=== PATIENT | female | born 1935 | race Caucasian/White ===

== ENCOUNTER 2017-02-26 22:00 | Observation (INO) ==
[2017-02-26] MEDS ORDERED: predniSONE 20 MG TABLET PO ONE (22:51)
[2017-02-26] MEDS ORDERED: Colchicine 0.6 MG TABLET PO ONE (22:51)
[2017-02-26] MEDS ORDERED: *HR* Morphine 2 MG/ML SYRINGE IV ONE (22:56)
[2017-02-26] MEDS ORDERED: MethylPREDNISolone 40 MG/ML VIAL IVP ONE (23:02)
[2017-02-26 23:20] LABS: Basophils % 0.3 %; Eosinophils % 0.3 %; Hemoglobin 12.7 g/dL (11.5-15.4); Immature Granulocytes % 0.5 % (0-4); Lymphocytes # 0.6 K/mcL (0.6-4.6); Lymphocytes % 6.2 %; Mean Corpuscular HGB Conc 35.3 g/dL (31.6-35.5); Mean Corpuscular Hemoglobin 26.8 pg (28.0-33.3); Mean Corpuscular Volume 76.1 fL (83.0-100.0); Mean Platelet Volume 9.7 fL (9.4-12.4); Monocytes # 0.9 K/mcL (0.0-1.3); Monocytes % 8.8 %; Neutrophils # 8.2 K/mcL (1.6-8.9); Platelet Count 266 K/mcL (140-400); Red Blood Count 4.73 M/mcL (3.82-4.97); Red Cell Distribution Width 13.2 % (11.5-14.5); Segmented Neutrophils % 83.9 %
--- NOTE | 2017-02-26 23:21 | Emergency Department Note ---
Disposition Clinical Impression: Hyponatremia, Bilateral hand pain Gout Qualifiers: Gout site: hand Gout etiology: unspecified cause Laterality: unspecified laterality Chronicity: unspecified Qualified Code(s): M10.9 - Gout, unspecified Disposition: Admitted As Inpatient Condition: Fair Time of Disposition: 05:50 Extremity Problem HPI - General Chief complaint: ED Extremity Problem,Nontraumatic Stated complaint: gout in the both hands// pain Time Seen by Provider: 02/26/17 22:11 Source: patient Limitations: no limitations Nursing Notes Reviewed: Yes Vital Signs Reviewed: Yes - History of Present Illness Pt Subjective Complaint: extremity pain Onset (ago): hour(s) Consistency: Worsening Injury Location: other (Bilateral hands, worse on the left) Pain Scale: 8 Quality: aching Improves with: nothing Worsens with: range of motion, palpation Context: history of gout, other (History of rheumatoid arthritis) - Related Data Home Medications Medication Instructions Recorded Confirmed Cyanocobalamin (Vitamin B-12) 1,000 mcg PO DAILY 07/28/15 02/27/17 [Vitamin B12] Lisinopril [Zestril] 2.5 mg PO DAILY 07/28/15 02/18/16 Metoprolol [Lopressor] 50 mg PO BID 07/28/15 02/27/17 Omeprazole [PriLOSEC] 20 mg PO DAILY 07/28/15 02/27/17 Potassium Chloride 20 meq PO BID 07/28/15 02/18/16 Triamterene/HCTZ 37.5/25mg 1 tab PO DAILY 07/28/15 12/28/15 [Dyazide] Multivit-Min/FA/Herbal No.245 1 tab PO DAILY 11/27/15 02/27/17 [Alive Women's Gummy Vitamins] Previous Rx's Medication Instructions Recorded Colchicine [Colcrys] 0.6 mg PO BID #6 tablet 12/30/15 Allergies Allergy/AdvReac Type Severity Reaction Status Date / Time Pneumococcal Vaccine Allergy Cough Verified 07/13/16 18:52 tuberculin, purified protein Allergy Blister Verified 07/13/16 18:52 deriva [tuberculin,purif.prot.deriv.] aspirin AdvReac See Verified 07/13/16 18:52 Comments ibuprofen [From Motrin] AdvReac See Verified 07/13/16 18:52 Comments All systems ED: reviewed and negative except as stated. Constitutional: Reports: weight change (Weight loss). Denies: fever, chills Eyes: Denies: vision change ENT ED: Denies: throat pain Cardiovascular: Denies: chest pain, palpitations, dyspnea on exertion Respiratory: Reports: dyspnea. Denies: cough, wheezes Gastrointestinal: Denies: abdominal pain, nausea, vomiting Genitourinary: Denies: dysuria Musculoskeletal: Reports: as per HPI. Denies: back pain, neck pain Integumentary: Denies: rash, abrasion Neurological: Denies: weakness, numbness, paresthesias, abnormal gait Psychiatric: Denies: anxiety Endocrine: Denies: fatigue Hematological/Lymphatic: Denies: easy bleeding Allergic/Immunologic: Denies: facial swelling Past Medical History - Past Medical History Medical history: Reports: arthritis, cancer, GERD, hyperlipidemia, hypertension , renal disease, other Surgical history: Reports: cataract, cholecystectomy, colectomy, hip replacement , hysterectomy, other Psychiatric history: Reports: no psych history TRUCK LOADER history: Reports: no TRUCK LOADER history - Social History Smoking Status: Never smoker Smokeless Tobacco Status: No Alcohol use: Reports: none Drug use: Reports: none Physical Exam - General Limitations: no limitations General appearance: alert, in no apparent distress - Head Head exam: normal inspection - Eye Eye exam: Present: EOMI. Absent: scleral icterus, conjunctival injection - ENT ENT exam: normal oropharynx, mucous membranes moist - Neck Neck exam: Present: full ROM - Chest Chest inspection: Present: symmetric chest wall rise - Cardiovascular Cardiovascular exam: Present: regular rate, normal rhythm - Abdominal Exam Abdominal exam: Present: soft, Non-Tender - Extremities Exam Extremities exam: Present: normal capillary refill - Expanded Upper Extremity Exam Shoulder exam: Present: normal inspection, full ROM. Absent: tenderness Arm exam: Present: normal inspection, full ROM. Absent: tenderness Elbow exam: Present: normal inspection, full ROM. Absent: tenderness Forearm/Wrist exam: Present: tenderness, swelling, erythema Hand exam: Present: tenderness, swelling, abrasion Neuromotor exam: Normal: wrist extension, thumb opposition, thumb IP flexion, thumb adduction, fingers 2-5 abduction Hand tendon exam: Normal: flexor digitorum profundus (location), flexor digitorum superficialis (location), extensor tendon (location) Vascular exam: Normal: capillary refill - Back Exam Back exam: Present: full ROM - Neurological Exam Neurological exam: Present: alert, oriented X3, CN II-XII intact, motor sensory deficit - Expanded Neurological Exam Patient oriented to: Present: person, place, time Speech: Present: fluid speech Cranial nerves: EOM function (II, III, IV, ): Normal, facial sensation (V): Normal, spinal accessory function (XI): Normal, tongue deviation (XII): Normal Cerebellar function: finger to nose: Normal, heel to patel: Normal Cerebellar function: Romberg normal Motor strength - LUE: 5/5 Motor strength - RUE: 5/5 Motor strength - LLE: 5/5 Motor strength - RLE: 5/5 Sensory exam upper extremity: light touch: Normal, 2 point discrimination: Normal Sensory exam lower extremity: light touch: Normal, 2 point discrimination: Normal Coma Scale Eye Opening: Spontaneous Coma Scale Motor Response: Obeys Commands Coma Scale Verbal Response: Oriented Coma Scale Total: 15 - Psychiatric Psychiatric exam: Present: normal affect, normal mood - Skin Skin exam: Present: warm, dry, intact, normal color. Absent: rash, cyanosis, diaphoresis Course Course Narrative: 51-year-old female arrives with complaints of bilateral hand pain. She states her left hand is worse. She relates it to her history of arthritis and gout. Pain started earlier today approximately 7 hours prior to arrival. She compares it to her past called attacks. She sees a medical genetics director Dr. Dumont, and mentions she had a appointment with him last week. Since the pain started, she states that she has had some mild shortness of breath and dizziness. Patient is accompanied by her son, who had assisted some history. He mentions patient has become more confused since her pain started today. Patient denies any night sweats, cough, shortness of breath prior to her pain, hemoptysis, chest pain, diaphoresis, or exertional component of pain. However we will order a chest x-ray EKG, and urinalysis as well. - Reevaluation(s) Reevaluation #1: Patient states her pain has improved in her hands. She states that her hands feel numb. On reexamination, she has no sensory deficits, no neurological deficits. Workups does show a sodium of 122. Discussed patient with Dr. Dozier, who agreed for admission for hyponatremia, with concurrent weakness, decreased appetite. Time: 00:31 Reevaluation #2: Patient was discussed with Dr. Dozier, who had requested urine sodium and urine osmolality, and he agreed to see patient. Time: 02:49 Vital Signs Temperature 97.5 F L 02/26/17 22:02 Pulse Rate 63 02/26/17 22:02 Respiratory Rate 18 02/26/17 22:02 Blood Pressure 148/70 02/26/17 22:02 O2 Sat by Pulse Oximetry 100 02/26/17 22:02 Temperature 98.2 F 02/27/17 04:22 Pulse Rate 66 02/27/17 04:22 Respiratory Rate 16 02/27/17 04:22 Blood Pressure 120/64 02/27/17 04:22 O2 Sat by Pulse Oximetry 98 02/27/17 04:22 Oxygen Delivery Oxygen Delivery Room Air Extremity Problem, Nontraumati - MDM Narrative Medical decision making narrative: Patient members and with bilateral hand pain that started acutely earlier in the day. She described it as her gout pain. Pain was treated here with prednisone and morphine and her symptoms have improved. She does have a history of reported arthritis, and is currently followed by Dr. Dumont. She is accompanied by her son, who assisted with history. He states that today during patient's some pain, she had some difficulty walking, and some shortness of breath. Patient also mentioned some recent weight loss. Her workup today showed a urinalysis showed no evidence of urinary tract infection. She was slightly hypokalemic, and moderately hyponatremic. I discussed patient with Dr. Dozier, who also at this time the patient and agreed for admission. - Lab Data Lab results reviewed: Yes I reviewed the patient's lab results. Result diagrams: 02/26/17 23:13 02/26/17 23:13 Lab Results 02/26/17 02/26/17 02/26/17 Range/Units 23:13 23:13 23:13 WBC 9.8 (4.3-11.1) K/mcL RBC 4.73 (3.82-4.97) M/mcL Hgb 12.7 (11.5-15.4) g/dL Hct 36.0 (35.3-44.9) % MCV 76.1 L (83.0-100.0) fL MCH 26.8 L (28.0-33.3) pg MCHC 35.3 (31.6-35.5) g/dL RDW 13.2 (11.5-14.5) % Plt Count 266 (140-400) K/mcL MPV 9.7 (9.4-12.4) fL Immature Gran % 0.5 (0-4) % Seg Neutrophils % 83.9 % Lymphocytes % 6.2 % Monocytes % 8.8 % Eosinophils % 0.3 % Basophils % 0.3 % Neutrophils # 8.2 (1.6-8.9) K/mcL Lymphocytes # 0.6 (0.6-4.6) K/mcL Monocytes # 0.9 (0.0-1.3) K/mcL Eosinophils # 0.0 (0.0-0.6) K/mcL Basophils # 0.0 (0.0-0.2) K/mcL Sodium 122 L (136-145) mEq/L Potassium 3.4 L (3.5-4.5) mEq/L Chloride 90 L (98-109) mEq/L Carbon Dioxide 17 L (19-29) mEq/L BUN 16 (7-20) mg/dL Creatinine 0.88 (0.57-1.11) mg/dL Est GFR ( Amer) > 60 (> 60) Est GFR (Non-Af Amer) > 60 (> 60) BUN/Creatinine Ratio 18 (6-26) Glucose 109 H (70-99) mg/dL Calculated Osmolality 256 L (280-300) Uric Acid 4.7 (2.6-6.0) mg/dL Calcium 9.1 (8.6-10.8) mg/dL Troponin I 0.01 (0-0.03) ng/mL Urine Color (Yellow) Urine Clarity (Clear) Urine pH (5.0-8.0) pH Units Ur Specific Guild (1.010-1.025) Urine Protein (Neg-Trace) mg/dL Urine Glucose (UA) (Normal) mg/dL Urine Ketones (Negative) mg/dL Urine Blood (Negative) Urine Nitrite (Negative) Urine Bilirubin (Negative) Urine Urobilinogen (Normal) mg/dL Ur Leukocyte Esterase (Negative) Ur Culture Indicated? (NO) Urine Osmolality (300-1090) mOsm/kg Urine Sodium mEq/L 02/26/17 02/26/17 Range/Units 23:44 23:45 WBC (4.3-11.1) K/mcL RBC (3.82-4.97) M/mcL Hgb (11.5-15.4) g/dL Hct (35.3-44.9) % MCV (83.0-100.0) fL MCH (28.0-33.3) pg MCHC (31.6-35.5) g/dL RDW (11.5-14.5) % Plt Count (140-400) K/mcL MPV (9.4-12.4) fL Immature Gran % (0-4) % Seg Neutrophils % % Lymphocytes % % Monocytes % % Eosinophils % % Basophils % % Neutrophils # (1.6-8.9) K/mcL Lymphocytes # (0.6-4.6) K/mcL Monocytes # (0.0-1.3) K/mcL Eosinophils # (0.0-0.6) K/mcL Basophils # (0.0-0.2) K/mcL Sodium (136-145) mEq/L Potassium (3.5-4.5) mEq/L Chloride (98-109) mEq/L Carbon Dioxide (19-29) mEq/L BUN (7-20) mg/dL Creatinine (0.57-1.11) mg/dL Est GFR ( Amer) (> 60) Est GFR (Non-Af Amer) (> 60) BUN/Creatinine Ratio (6-26) Glucose (70-99) mg/dL Calculated Osmolality (280-300) Uric Acid (2.6-6.0) mg/dL Calcium (8.6-10.8) mg/dL Troponin I (0-0.03) ng/mL Urine Color Yellow (Yellow) Urine Clarity Clear (Clear) Urine pH 7.0 (5.0-8.0) pH Units Ur Specific Guild 1.010 (1.010-1.025) Urine Protein Negative (Neg-Trace) mg/dL Urine Glucose (UA) Normal (Normal) mg/dL Urine Ketones Trace H (Negative) mg/dL Urine Blood Negative (Negative) Urine Nitrite Negative (Negative) Urine Bilirubin Negative (Negative) Urine Urobilinogen Normal (Normal) mg/dL Ur Leukocyte Esterase Negative (Negative) Ur Culture Indicated? NO (NO) Urine Osmolality 371 (300-1090) mOsm/kg Urine Sodium 78.0 mEq/L - Radiology Data Radiology results reviewed: Yes I reviewed the patient's radiology results. - EKG Data EKG attestation: Yes I reviewed and interpreted this EKG. EKG results narrative: Normal sinus rhythm, no significant ST depression, ST changes, or arrhythmias. Attestation Statement - Attestation Attestation: I, Bib Dozier MD, personally evaluated this patient and discussed their management with the midlevel provicer, PAC/PRESSING DEPARTMENT SUPERVISOR. I reviewed the midlevel provider 's note and agree with the documented findings, medical decision making, and plan of care. 81-year-old female presents to the emergency department with a complaint of severe pain in both hands and wrist which started about 4 PM today. She has a history of arthritis as well as gout and feels this is related to her gout. She states that she has unable to grasp anything or use her hands due to the pain and stiffness. No injury. No fever. No chest pain or difficulty breathing. On workup patient was found to have hyponatremia with a sodium down to 122. On examination patient is a well-developed thin elderly female in no acute distress. She is alert and oriented. There is no cyanosis or diaphoresis. Breath sounds are clear and equal bilaterally. Heart regular rate and rhythm. Abdomen soft and nontender with normal bowel sounds. There is some mild diffuse tenderness of both hands with limited range of motion secondary to pain. Labs reviewed. Chest x-ray negative. No acute changes on EKG. We will page the hospitalist for admission. The hospitalist, Dr. Dozier, was consulted and accepted admission of the patient.
[2017-02-26 23:33] LABS: BUN/Creatinine Ratio 18 (6-26); Blood Urea Nitrogen 16 mg/dL (7-20); Calcium 9.1 mg/dL (8.6-10.8); Carbon Dioxide 17 mEq/L (19-29); Chloride 90 mEq/L (98-109); Glucose 109 mg/dL (70-99); Osmolality,Calculated 256 (280-300); Potassium 3.4 mEq/L (3.5-4.5); Sodium 122 mEq/L (136-145); Uric Acid 4.7 mg/dL (2.6-6.0); eGFR For African Americans > 60 (> 60); eGFR For Non-African Americans > 60 (> 60)
[2017-02-27 00:11] LABS: Bilirubin,Urine Negative (Negative); Blood,Urine Negative (Negative); Clarity,Urine Clear (Clear); Color,Urine Yellow (Yellow); Glucose,Urine (UA) Normal (Normal); Ketones,Urine Trace mg/dL (Negative); Leukocyte Esterase,Urine Negative (Negative); Nitrite,Urine Negative (Negative); Protein,Urine Negative (Neg-Trace); Urobilinogen,Urine Normal (Normal)
[2017-02-27] MEDS ORDERED: Acetaminophen 325 MG TABLET PO PRN (02:58)
[2017-02-27] MEDS ORDERED: Ondansetron 4 MG/2 ML VIAL IVP PRN (02:58)
[2017-02-27] MEDS ORDERED: Naloxone 0.4 MG/ML INJ IVP PRN (02:58)
[2017-02-27] MEDS ORDERED: *HR* Morphine 2 MG/ML SYRINGE IVP PRN (02:58)
--- NOTE | 2017-02-27 03:05 | Internal Med History&Physical ---
Date of Encounter: 02/27/17 Time of Encounter: 03:03 Assessment and Plan (1) Hyponatremia Current visit: No Status: Acute Likely secondary to hypovolemia and dehydration, related to poor oral intake, exacerbated by triamterene Monitor sodium closely and increase at the rate no faster than 0.3 mEq per hour Continue normal saline for now Hold triamterene Check urine sodium and osmolality to consider continuing IV fluids versus fluid restriction (2) Hypokalemia Current visit: No Status: Acute Replete as needed (3) Rheumatoid arthritis Current visit: No Status: Suspected Continue prednisone Qualifiers: Rheumatoid arthritis location: hand Rheumatoid factor presence: without rheumatoid factor Laterality: bilateral Qualified Code(s): M06.041 - Rheumatoid arthritis without rheumatoid factor, right hand; M06.042 - Rheumatoid arthritis without rheumatoid factor, left hand (4) Chronic kidney disease Current visit: No Status: Chronic Qualifiers: Chronic kidney disease stage: stage 3 (moderate) Qualified Code(s): N18.3 - Chronic kidney disease, stage 3 (moderate) (5) Gout Current visit: Yes Status: Acute Continue prednisone and colchicine Omeprazole for GI prophylaxis and subcutaneous heparin for DVT prophylaxis. Admitted for observation, full code. Time spent on this admission 40 minutes. High risk due to hyponatremia Qualifiers: Gout site: hand Gout etiology: unspecified cause Laterality: unspecified laterality Chronicity: unspecified Qualified Code(s): M10.9 - Gout, unspecified Internal Medicine - H&P: HPI Chief complaint: hand pain Admitted From: Emergency Dept History of present illness: Ms. Vigil is a 81 year old female with a past medical history of rheumatoid arthritis treated with prednisone, also history of gout who used to take colchicine and prednisone. The patient came complaining of severe pain 10 out of 10 in intensity in both hands that started at 4 PM yesterday. She was accompanied by her son Jun and the patient got confused and became a little dizzy. Her sodium was found to be 122, last measurement that we have was 1:30. Patient appears dehydrated and says that she has not been eating much, has lost about 40 pounds in the past year. Chest x-ray is unremarkable, potassium is 3.4. Morphine helped with the pain. Apparently patient has been taking triamterene Past Med Surg Social Fam HX - Past Medical History Medical history: arthritis (Rheumatoid arthritis on prednisone), cancer (Small bowel tumor), GERD, hyperlipidemia, hypertension, renal disease (ckd3), other ( Small bowel obstruction, malnutrition, UTI) Psychiatric history: no psych history - Past Surgical History Surgical History: cataract, cholecystectomy, colectomy, hip replacement, hysterectomy, other (Laparotomy and lysis of additions, partial colectomy, the latter suspension) - Social History Smoking Status: Never smoker Smokeless Tobacco Status: No Alcohol use: none Drug use: none - Family History Daughter Adopted: No Living Status: Hx Family Cardiac Disorders: Yes Hx Family Respiratory Disorders: No Hx Family Cancer: No Hx Family GI Disorders: No Hx Family Endocrine Disorder: Yes Hx Family Neuromuscular Disorders: No Hx Family Neurologic Disorders: No Hx Family HEENT Disorders: No Hx Family Autoimmune Disorders: No Father Living Status: Hx Family Cardiac Disorders: Yes ([place]) Hx Family Respiratory Disorders: No Hx Family Cancer: No Hx Family GI Disorders: No Hx Family Endocrine Disorder: No Mother Living Status: Hx Family Cancer: Yes (Colon cancer) Hx Family Endocrine Disorder: Yes (DM) Sister Adopted: No Living Status: Hx Family Endocrine Disorder: Yes (Diabetes Mellitus) - Additional Family History Additional family history: Sr. with diabetes, father with CAD and mother with colon cancer Internal Medicine - H&P: Meds Cyanocobalamin (Vitamin B-12) [Vitamin B12] 1,000 mcg PO DAILY 07/28/15 [History ] Lisinopril [Zestril] 2.5 mg PO DAILY 07/28/15 [History] Metoprolol [Lopressor] 50 mg PO BID 07/28/15 [History] Omeprazole [PriLOSEC] 20 mg PO DAILY 07/28/15 [History] Potassium Chloride 20 meq PO BID 07/28/15 [History] Triamterene/HCTZ 37.5/25mg [Dyazide] 1 tab PO DAILY 07/28/15 [History] Multivit-Min/FA/Herbal No.245 [Alive Women's Gummy Vitamins] 1 tab PO DAILY [History] Clotrimazole/Betameth Dip CRM [Lotrisone CRM] 1 appl TP BID #1 tube 12/30/15 [Rx ] Colchicine [Colcrys] 0.6 mg PO BID #6 tablet 12/30/15 [Rx] Docusate [Colace] 100 mg PO BID PRN #40 capsule 12/30/15 [Rx] HYDROcodone/Acet 5/325 mg [Eudora 5-325 mg] 1 tab PO Q6HR PRN #15 tablet [Rx] PredniSONE 10 mg PO DAILY #34 tablet 12/30/15 [Rx] Allergies Pneumococcal Vaccine Allergy (Verified 07/13/16 18:52) Cough tuberculin, purified protein deriva [tuberculin,purif.prot.deriv.] Allergy ( Verified 07/13/16 18:52) Blister aspirin Adverse Reaction (Verified 07/13/16 18:52) See Comments PATIENT HAS KIDNEY ISSUES ibuprofen [From Motrin] Adverse Reaction (Verified 07/13/16 18:52) See Comments PATIENT HAS KIDNEY ISSUES All Systems PM: A 10-system review of systems was performed and is negative for pertinent findings except as documented above in the HPI. Review of systems: Pain in both hands has decreased down to 5/10. Denies any chest pain, shortness of breath, other systems out of the 10 reviewed were negative - Constitutional Vitals: Temp Pulse Resp BP Pulse Ox 97.5 F L 64 16 149/77 98 02/26/17 22:02 02/27/17 01:57 02/27/17 01:57 02/27/17 01:57 02/27/17 01:57 General appearance: Present: A&O X 3, underweight - Head Head exam: Present: atraumatic, normocephalic - Eye Eye exam: Present: PERRL, conjuntiva pink, sclera anicteric Pupils: Present: PERRL - Neck Neck exam general surgery: Present: supple, trachea midline. Absent: lymphadenopathy - Respiratory Respiratory exam: Present: CTAB. Absent: accessory muscle use, rales, rhonchi, wheezes - Cardiovascular Cardiovascular exam: Present: RRR, +S1, +S2. Absent: diastolic murmur, gallop, rubs, systolic murmur - GI/Abdominal GI/Abdominal exam: Present: normal bowel sounds, soft, no peritoneal signs. Absent: distended, tenderness - Extremities Exam Extremities exam: Present: warm, radial pulses palpable and symetrical. Absent : calf tenderness, cyanotic, pedal edema - Neurological Exam Neurological exam: Present: CN II-XII intact, oriented X3, no focal deficits. Absent: pronater drift, facial droop, speech deficit - Skin Skin exam: Present: dry, intact Additional comments: Pain tenderness, swelling in both wrists Very dry mucosa, appears dehydrated Internal Med - H&P Results - Labs CBC & Chem 7: 02/26/17 23:13 02/26/17 23:13
[2017-02-27] MEDS: 0.9 % Sodium Chloride 1,000 ML IVC SCH ×3 (05:21→17:03)
[2017-02-27 06:08] LABS: BUN/Creatinine Ratio 15 (6-26); Blood Urea Nitrogen 13 mg/dL (7-20); Carbon Dioxide 21 mEq/L (19-29); Chloride 90 mEq/L (98-109); Glucose 148 mg/dL (70-99); Osmolality,Calculated 259 (280-300); Potassium 3.3 mEq/L (3.5-4.5); Sodium 123 mEq/L (136-145); eGFR For African Americans > 60 (> 60); eGFR For Non-African Americans > 60 (> 60)
[2017-02-27] MEDS: predniSONE 10 MG TABLET PO SCH (08:22)
[2017-02-27] MEDS: Colchicine 0.6 MG TABLET PO SCH (08:22)
[2017-02-27 09:00] LABS: BUN/Creatinine Ratio 16 (6-26); Blood Urea Nitrogen 13 mg/dL (7-20); Calcium 9.3 mg/dL (8.6-10.8); Carbon Dioxide 23 mEq/L (19-29); Chloride 92 mEq/L (98-109); Glucose 143 mg/dL (70-99); Osmolality,Calculated 261 (280-300); Potassium 4.2 mEq/L (3.5-4.5); Sodium 124 mEq/L (136-145); eGFR For African Americans > 60 (> 60); eGFR For Non-African Americans > 60 (> 60)
[2017-02-27 15:04] LABS: BUN/Creatinine Ratio 18 (6-26); Blood Urea Nitrogen 15 mg/dL (7-20); Calcium 8.9 mg/dL (8.6-10.8); Carbon Dioxide 21 mEq/L (19-29); Chloride 98 mEq/L (98-109); Glucose 150 mg/dL (70-99); Osmolality,Calculated 272 (280-300); Potassium 3.9 mEq/L (3.5-4.5); Sodium 129 mEq/L (136-145); eGFR For African Americans > 60 (> 60); eGFR For Non-African Americans > 60 (> 60)
--- NOTE | 2017-02-27 16:55 | Internal Med Progress Note ---
Date of Encounter: 02/27/17 Time of Encounter: 08:55 - Assessment and plan (1) Hyponatremia Current Visit: No Status: Acute Assessment and plan: Patient was admitted last night with an incidental finding of hyponatremia, 122. We have slowly hydrated her today, last sodium was 129 at 3 PM today. Patient states the tingling in her fingers is subsiding. She is not 100% sure that the tingling is due to the hyponatremia, she says that she had this last time she had RA/gout flareup in her hands in September. After the last reading we bumped her fluid by 2 mL's per hour which is 0.3 equals left per hour per pharmacy's calculation. Next lab draw will be at about 2100 tonight. We are set for another set in the morning. Continue to monitor patient Monitor sodiums Increase fluids by 2 mL's an hour if needed until sodium levels are normal. (2) Hypokalemia Current Visit: No Status: Acute Assessment and plan: Resolved. Potassium is 3.9 at last draw. We will continue to monitor Seizure pads remain on bed. (3) Weakness Current Visit: No Status: Acute Assessment and plan: Patient reports primarily hand weakness. Last time she had an RA flare and gout flare of her hands was in September, she was admitted at that time as well. She reports very similar symptoms only this time the tingling in her hands was worse than before. I will put in PT and OT consultations to see if she needs assistance at home. At this point she is unable to grasp my hands with a pen at her bedside. She says slowly over several days use of her hands does come back, but she does not know when she is going to have a flare as they are unpredictable. PT and OT consult Up with assistance Fall precautions (4) Severe protein-calorie malnutrition Current Visit: No Status: Chronic Assessment and plan: Patient states that she had an abdominal surgery in September here by Dr. Mcduffie. She said that she has never recovered fully from that surgery and has had a 40 pound weight loss since that time. Records indicate that she had a small bowel obstruction was seen by Dr. Tijerina in January 2016. I have consulted nutrition for recommendations for by mouth supplementation. (5) Dehydration Current Visit: No Status: Acute Assessment and plan: Patient appears to be very dry. Lips are dry mucous membranes are dry. Osmolality was 256 initially, last was 272. Normal is 280. Urine osmolality was 273 this morning. Urine sodium was normal. She is being hydrated slowly. Her triamterene hydrochlorothiazide has been held. We will continue to monitor. (6) Rheumatoid arthritis Current Visit: No Status: Suspected Assessment and plan: Chronic. Patient follows with Dr. Dumont We will follow-up outpatient Continue home medications Qualifiers: Rheumatoid arthritis location: hand Rheumatoid factor presence: without rheumatoid factor Laterality: bilateral Qualified Code(s): M06.041 - Rheumatoid arthritis without rheumatoid factor, right hand; M06.042 - Rheumatoid arthritis without rheumatoid factor, left hand (7) Chronic kidney disease Current Visit: No Status: Chronic Assessment and plan: BUNs, creatinine, and GFR are all within normal limits now Patient is being hydrated for dehydration Patient states she is stage III. Qualifiers: Chronic kidney disease stage: stage 3 (moderate) Qualified Code(s): N18.3 - Chronic kidney disease, stage 3 (moderate) (8) Bilateral hand pain Current Visit: Yes Status: Acute Assessment and plan: Flare from gout, RA. Pain control. Patient states that pain slowly resolves over a few days and she gradually regained to use of her hands. Continue monitor. pain medications as needed (9) Gout Current Visit: Yes Status: Acute Assessment and plan: Chronic. Patient is not treated for this prophylactically. Will follow up in question primary care physician after discharge. Qualifiers: Gout site: hand Gout etiology: unspecified cause Laterality: unspecified laterality Chronicity: unspecified Qualified Code(s): M10.9 - Gout, unspecified - Time Spent With Patient less than 15 minutes - Subjective Interval history: Patient is sitting up in bed, alert and awake and pleasant. She is early eaten breakfast. She reports bilateral hand pain, tingling, weakness, hand soreness since yesterday. She reports that her son brought her to the emergency department due to pain and need for pain control. She reports that she has some flares in her knees and shoulder and these are unpredictable and she never knows when they are going to happen. She had a similar episode in August or September that she was admitted for 2 as well. At that time she also reported tingling and weakness to bilateral hands. Today her left hand joints appear to be swollen and tender, right hand is red and swollen and painful and tender. She is unable to grasp my hands to assess strength, and she is unable to grasp a pen or pencil at her bedside to write. She was also found to be hyponatremic with a sodium of 122 on arrival. She reported some dizziness and not feeling well for a few days. We have slowly rehydrated and treated her today and her last draw at 3 PM was 129. We bumped the fluids up by 2 mL per hour which is 0.3 mEq per hour. Patient is doing well I discussed her labs with her and explained she will more than likely go home in the morning. - Constitutional Vitals: Temp Pulse Resp BP Pulse Ox 98.4 F 53 17 100/61 98 02/27/17 15:13 02/27/17 15:13 02/27/17 15:13 02/27/17 15:13 02/27/17 15:13 General appearance: Present: cooperative, A&O X 3, pleasant, underweight, answers questions appropriately - Head Head exam: Present: normal inspection - Eye Eye exam: Present: normal appearance, conjuntiva pink - ENT ENT exam: Present: mucous membranes moist, normal exam - Neck Neck exam general surgery: Present: normal inspection. Absent: lymphadenopathy , tenderness - Respiratory Respiratory exam: Absent: rales, rhonchi, stridor, wheezes - Cardiovascular Cardiovascular exam: Present: RRR, +S1, +S2. Absent: systolic murmur - Extremities Exam Extremities exam: Present: normal inspection, tenderness, warm. Absent: pedal edema - Neurological Exam Neurological exam: Present: alert, oriented X3. Absent: facial droop, speech deficit Internal Medicine: Result - Labs CBC & Chem 7: 02/26/17 23:13 02/27/17 14:42 Labs: BMP 02/27/17 02/27/17 02/27/17 05:02 08:34 14:42 Sodium 123 L 124 L 129 L Potassium 3.3 L 4.2 3.9 Chloride 90 L 92 L 98 Carbon Dioxide 21 23 21 BUN 13 13 15 Creatinine 0.86 0.80 0.85 Glucose 148 H 143 H 150 H Calcium 9.0 9.3 8.9 Consult Discharge Plan - Plan Referrals: Kathi Middleton DO [Primary Care Provider] -
[2017-02-27 20:45] LABS: BUN/Creatinine Ratio 22 (6-26); Blood Urea Nitrogen 18 mg/dL (7-20); Calcium 8.5 mg/dL (8.6-10.8); Carbon Dioxide 19 mEq/L (19-29); Chloride 99 mEq/L (98-109); Glucose 162 mg/dL (70-99); Osmolality,Calculated 271 (280-300); Potassium 3.5 mEq/L (3.5-4.5); Sodium 128 mEq/L (136-145); eGFR For African Americans > 60 (> 60); eGFR For Non-African Americans > 60 (> 60)
[2017-02-28 03:43] LABS: Basophils % 0.1 %; Hematocrit 30.6 % (35.3-44.9); Immature Granulocytes % 0.6 % (0-4); Lymphocytes # 1.2 K/mcL (0.6-4.6); Mean Corpuscular Hemoglobin 27.4 pg (28.0-33.3); Mean Corpuscular Volume 78.5 fL (83.0-100.0); Mean Platelet Volume 10.2 fL (9.4-12.4); Monocytes # 1.1 K/mcL (0.0-1.3); Monocytes % 10.7 %; Neutrophils # 8.1 K/mcL (1.6-8.9); Platelet Count 222 K/mcL (140-400); Red Cell Distribution Width 13.7 % (11.5-14.5); Segmented Neutrophils % 77.6 %
[2017-02-28 03:49] LABS: Hemoglobin 10.7 g/dL (11.5-15.4)
[2017-02-28 03:54] LABS: BUN/Creatinine Ratio 21 (6-26); Blood Urea Nitrogen 15 mg/dL (7-20); Calcium 8.7 mg/dL (8.6-10.8); Carbon Dioxide 20 mEq/L (19-29); Chloride 102 mEq/L (98-109); Glucose 103 mg/dL (70-99); Osmolality,Calculated 271 (280-300); Potassium 3.4 mEq/L (3.5-4.5); Sodium 130 mEq/L (136-145); eGFR For African Americans > 60 (> 60); eGFR For Non-African Americans > 60 (> 60)
[2017-02-28] MEDS ORDERED: 0.9 % Sodium Chloride 1,000 ML IVC SCH ×5 (07:22→23:17)
[2017-02-28] MEDS: Colchicine 0.6 MG TABLET PO SCH (08:05)
[2017-02-28] MEDS: predniSONE 10 MG TABLET PO SCH (08:05)
[2017-02-28] MEDS: 0.9 % Sodium Chloride 1,000 ML IVC SCH (08:06)
[2017-02-28 13:49] LABS: BUN/Creatinine Ratio 20 (6-26); Blood Urea Nitrogen 15 mg/dL (7-20); Calcium 8.7 mg/dL (8.6-10.8); Carbon Dioxide 19 mEq/L (19-29); Chloride 103 mEq/L (98-109); Glucose 115 mg/dL (70-99); Osmolality,Calculated 272 (280-300); Potassium 4.1 mEq/L (3.5-4.5); Sodium 130 mEq/L (136-145); eGFR For African Americans > 60 (> 60); eGFR For Non-African Americans > 60 (> 60)
--- NOTE | 2017-02-28 17:48 | Internal Med Progress Note ---
Date of Encounter: 02/28/17 Time of Encounter: 07:50 - Assessment and plan (1) Hyponatremia Current Visit: No Status: Acute Assessment and plan: Sodium has remained around 130 today despite titration of fluids. Last lab draw sodium was 132. I have ordered sodium tablets, and since patient will be staying overnight fluids can be titrated slowly overnight. Redraw sodium at 2200. Redraw labs in the morning. (2) Hypokalemia Current Visit: No Status: Acute Assessment and plan: Resolved. (3) Weakness Current Visit: No Status: Acute Assessment and plan: Patient denies pain in her hands today. She is eating and grasping well today. She denies overall weakness and states she is okay to get around home by herself. However she was evaluated by PT today and it was recommended that she go to a fpc facility for rehabilitation. Patient has declined and will go home with home health tomorrow morning. Mrs. Vigil has a family member who is an employee here and states that she needs much more help at home than she is getting. She said there is no food in the home. Plan for discharge in the morning with normal sodium and home health. (4) Severe protein-calorie malnutrition Current Visit: No Status: Chronic Assessment and plan: Nutrition was consulted. (5) Dehydration Current Visit: No Status: Acute Assessment and plan: Sodium is rising. Osmolality remains slightly decreased. Patient's lips are not as dry as they were yesterday. Continue IV fluids Replete electrolytes Assess patient in the morning. (6) Rheumatoid arthritis Current Visit: No Status: Suspected Qualifiers: Rheumatoid arthritis location: hand Rheumatoid factor presence: without rheumatoid factor Laterality: bilateral Qualified Code(s): M06.041 - Rheumatoid arthritis without rheumatoid factor, right hand; M06.042 - Rheumatoid arthritis without rheumatoid factor, left hand (7) Chronic kidney disease Current Visit: No Status: Chronic Assessment and plan: Chronic. Avoid nephrotoxins and NSAIDs Qualifiers: Chronic kidney disease stage: stage 3 (moderate) Qualified Code(s): N18.3 - Chronic kidney disease, stage 3 (moderate) (8) Bilateral hand pain Current Visit: Yes Status: Resolved Assessment and plan: Patient denies pain today. She is able to grasp her silverware and her cups. She was not able to do that last night. Her animal behaviorist remain weak but equal. (9) Gout Current Visit: Yes Status: Resolved Qualifiers: Gout site: hand Gout etiology: unspecified cause Laterality: unspecified laterality Chronicity: unspecified Qualified Code(s): M10.9 - Gout, unspecified - Time Spent With Patient less than 15 minutes - Subjective Interval history: Patient was seen and evaluated early this morning. She is alert and oriented and was able to answer questions. PT related to me that they thought she was confused this morning and seemed a little off. Patient seemed perfectly alert and oriented to me. Patient has a family member who is an employee here and said to nursing staff that she went to care for the patient's home and there is no fluid in the home. She says that patient is requiring more help at home than she is getting. Her sodium has been slow to come up today. Despite titrating her fluids, it hovered at 130 for most of the day. I have ordered sodium tablets and continued titration of the fluid, added with 2 late blood draws and slow results , her discharges been pushed to tomorrow. We will redraw labs again at 10 PM. boom stick worker has spoken with patient and she would like to go home with [employer]. Eula will work on this in the morning. Patient denies pain in her hands today and is having no difficulty grasping her utensils and cups. - Constitutional Vitals: Temp Pulse Resp BP Pulse Ox 97.8 F 53 16 113/67 95 02/28/17 15:08 02/28/17 15:08 02/28/17 15:08 02/28/17 15:08 02/28/17 15:08 General appearance: Present: cooperative, A&O X 3, pleasant, underweight, answers questions appropriately - Head Head exam: Present: normal inspection - Eye Eye exam: Present: normal appearance - ENT ENT exam: Present: mucous membranes moist, normal exam - Neck Neck exam general surgery: Present: normal inspection. Absent: lymphadenopathy , tenderness - Respiratory Respiratory exam: Absent: rales, rhonchi, stridor, wheezes, tachypnea - Cardiovascular Cardiovascular exam: Present: RRR, +S1, +S2. Absent: diastolic murmur, systolic murmur - GI/Abdominal GI/Abdominal exam: Present: normal bowel sounds, soft, tenderness. Absent: hepatomegaly, rigid, splenomegaly - Extremities Exam Extremities exam: Present: normal inspection, warm, radial pulses palpable and symetrical. Absent: pedal edema, tenderness - Neurological Exam Neurological exam: Present: alert, oriented X3, no focal deficits. Absent: facial droop, speech deficit Internal Medicine: Result - Labs CBC & Chem 7: 02/28/17 03:09 02/28/17 16:51 Labs: Short CBC 02/28/17 Range/Units 03:09 WBC 10.4 (4.3-11.1) K/mcL Hgb 10.7 L D (11.5-15.4) g/dL Hct 30.6 L (35.3-44.9) % Plt Count 222 (140-400) K/mcL Neutrophils # 8.1 (1.6-8.9) K/mcL BMP 02/27/17 02/28/17 02/28/17 20:16 03:09 13:30 Sodium 128 L 130 L 130 L Potassium 3.5 3.4 L 4.1 Chloride 99 102 103 Carbon Dioxide 19 20 19 BUN 18 15 15 Creatinine 0.81 0.73 0.76 Glucose 162 H 103 H 115 H Calcium 8.5 L 8.7 8.7 02/28/17 16:51 Sodium 132 L Potassium Chloride Carbon Dioxide BUN Creatinine Glucose Calcium Consult Discharge Plan - Plan Referrals: Kathi Middleton DO [Primary Care Provider] -
--- NOTE | 2017-02-28 17:59 | Physician Discharge Referral ---
Home Health/Hosp Referral Info Transfer to: Home Health Provider in Charge Post Discharge: PCP - Diagnosis (1) Hyponatremia Priority: Primary Status: Acute (2) Hypokalemia Priority: Secondary Status: Acute (3) Weakness Priority: Secondary Status: Acute (4) Severe protein-calorie malnutrition Priority: Secondary Status: Chronic (5) Dehydration Priority: Secondary Status: Acute (6) Rheumatoid arthritis Priority: Secondary Status: Chronic (7) Chronic kidney disease Priority: Secondary Status: Chronic (8) Bilateral hand pain Priority: Secondary Status: Resolved (9) Gout Priority: Secondary Status: Resolved - Respiratory Orders Smoking Cessation: Smoking cessation has been advised. For more information, call the [place] Tobacco Quit Line at 3-574-ZFKZ-NOW. - Diet/Nutrition Diet/Nutrition Orders: Regular - Activity Activity Orders: Up ad barrie - Services Needed Following services are medically necessary services: Nursing, Home Health Aide, Physical Therapy, Occupational Therapy - Transfer Medications Home Medications: Cyanocobalamin (Vitamin B-12) [Vitamin B12] 1,000 mcg PO DAILY 07/28/15 [History ] Lisinopril [Zestril] 2.5 mg PO DAILY 07/28/15 [History] Metoprolol [Lopressor] 50 mg PO BID 07/28/15 [History] Omeprazole [PriLOSEC] 20 mg PO DAILY 07/28/15 [History] Potassium Chloride 20 meq PO BID 07/28/15 [History] Triamterene/HCTZ 37.5/25mg [Dyazide] 1 tab PO DAILY 07/28/15 [History] Multivit-Min/FA/Herbal No.245 [Alive Women's Gummy Vitamins] 1 tab PO DAILY [History] Hydroxychloroquine [Plaquenuil] 300 mg PO DAILY 02/27/17 [History] Allergies/Adverse Reactions: Allergies Pneumococcal Vaccine Allergy (Verified 02/27/17 15:43) Cough tuberculin, purified protein deriva [tuberculin,purif.prot.deriv.] Allergy ( Verified 02/27/17 15:43) Blister aspirin Adverse Reaction (Verified 02/27/17 15:43) See Comments PATIENT HAS KIDNEY ISSUES ibuprofen [From Motrin] Adverse Reaction (Verified 02/27/17 15:43) See Comments PATIENT HAS KIDNEY ISSUES Certification: Further, I certify that my clinical findings support that this patient is homebound (i.e. absences from home require considerable and taxing effort and are for medical reasons or baptism services or infrequently or short duration when for other reasons) because: Homebound Reason: Patient requires assistance of a person or device to safely leave home Attestation: My signature below is to certify that this patient is under my care and that I, or nurse practitioner, or a physician's hospital nursing assistant working with me, has a face-to -face encounter with this patient.
[2017-03-01 05:23] LABS: Eosinophils % 0.1 %; Hematocrit 29.8 % (35.3-44.9); Hemoglobin 10.4 g/dL (11.5-15.4); Immature Granulocytes % 0.3 % (0-4); Lymphocytes # 1.3 K/mcL (0.6-4.6); Lymphocytes % 13.7 %; Mean Corpuscular HGB Conc 34.9 g/dL (31.6-35.5); Mean Corpuscular Hemoglobin 27.9 pg (28.0-33.3); Mean Corpuscular Volume 79.9 fL (83.0-100.0); Mean Platelet Volume 10.8 fL (9.4-12.4); Monocytes # 0.7 K/mcL (0.0-1.3); Monocytes % 7.6 %; Neutrophils # 7.2 K/mcL (1.6-8.9); Platelet Count 199 K/mcL (140-400); Red Blood Count 3.73 M/mcL (3.82-4.97); Red Cell Distribution Width 14.3 % (11.5-14.5); Segmented Neutrophils % 78.3 %
[2017-03-01 05:40] LABS: BUN/Creatinine Ratio 25 (6-26); Blood Urea Nitrogen 17 mg/dL (7-20); Calcium 8.5 mg/dL (8.6-10.8); Carbon Dioxide 21 mEq/L (19-29); Chloride 105 mEq/L (98-109); Glucose 95 mg/dL (70-99); Osmolality,Calculated 277 (280-300); Potassium 3.4 mEq/L (3.5-4.5); Sodium 133 mEq/L (136-145); eGFR For African Americans > 60 (> 60); eGFR For Non-African Americans > 60 (> 60)
[2017-03-01 07:14] VITALS: BP 131/72
[2017-03-01] MEDS: Colchicine 0.6 MG TABLET PO SCH (08:07)
[2017-03-01] MEDS: predniSONE 10 MG TABLET PO SCH (08:08)
--- NOTE | 2017-03-01 12:08 | Discharge Summary ---
Date of Encounter: 03/01/17 Time of Encounter: 09:30 - Discharge Diagnosis (1) Bilateral hand pain Priority: Primary Status: Resolved (2) Rheumatoid arthritis Priority: Secondary Status: Chronic Comments: Patient is now able to use her hands and states that her hand pain has gone. Follow-up outpatient. Qualifiers: Rheumatoid arthritis location: hand Rheumatoid factor presence: without rheumatoid factor Laterality: bilateral Qualified Code(s): M06.041 - Rheumatoid arthritis without rheumatoid factor, right hand; M06.042 - Rheumatoid arthritis without rheumatoid factor, left hand (3) Hyponatremia Priority: Primary Status: Acute Comments: Improved with IV fluids. Ensure adequate to her regimen. Likely related to poor by mouth intake as it is associated with hypo-osmolality. Follow-up outpatient. (4) Hypokalemia Priority: Primary Status: Acute Comments: Improved and nearly resolved. Continue monitoring and following up outpatient. (5) Weight loss, unintentional Priority: Secondary Status: Chronic Comments: Has lost 10 pounds unintentionally over the past year. Seen by nutrition who recommended Ensure Plus twice a day. We will write prescription for home. (6) Weakness Priority: Primary Status: Acute Comments: Seen and evaluated by occupational and physical therapy both of whom recommended inpatient rehabilitation. Patient refused but was amenable to home health (7) DVT prophylaxis Priority: Primary Status: Acute Comments: Observation patient. (8) Anemia Priority: Secondary Status: Chronic Comments: Remained stable throughout this admission. No signs of active bleeding. Follow -up outpatient. Qualifiers: Anemia type: unspecified type Qualified Code(s): D64.9 - Anemia, unspecified (9) Gout Priority: Primary Status: Resolved Qualifiers: Gout site: hand Gout etiology: unspecified cause Laterality: unspecified laterality Chronicity: unspecified Qualified Code(s): M10.9 - Gout, unspecified - Discharge Medications Prescriptions: Colchicine [Colcrys] 0.6 mg PO DAILY #30 tablet Lactose-Reduced Food [Ensure Plus] 1 bottle PO TID #90 can PredniSONE 40 mg PO DAILY #36 tablet Home Medications: Cyanocobalamin (Vitamin B-12) [Vitamin B12] 1,000 mcg PO DAILY 07/28/15 [History ] Lisinopril [Zestril] 2.5 mg PO DAILY 07/28/15 [History] Metoprolol [Lopressor] 50 mg PO BID 07/28/15 [History] Omeprazole [PriLOSEC] 20 mg PO DAILY 07/28/15 [History] Potassium Chloride 20 meq PO BID 07/28/15 [History] Triamterene/HCTZ 37.5/25mg [Dyazide] 1 tab PO DAILY 07/28/15 [History] Multivit-Min/FA/Herbal No.245 [Alive Women's Gummy Vitamins] 1 tab PO DAILY [History] Hydroxychloroquine [Plaquenuil] 300 mg PO DAILY 02/27/17 [History] Colchicine [Colcrys] 0.6 mg PO DAILY #30 tablet 03/01/17 [Rx] Lactose-Reduced Food [Ensure Plus] 1 bottle PO TID #90 can 03/01/17 [Rx] PredniSONE 40 mg PO DAILY #36 tablet 03/01/17 [Rx] Allergies/Adverse Reactions: Allergies Pneumococcal Vaccine Allergy (Verified 02/27/17 15:43) Cough tuberculin, purified protein deriva [tuberculin,purif.prot.deriv.] Allergy ( Verified 02/27/17 15:43) Blister aspirin Adverse Reaction (Verified 02/27/17 15:43) See Comments PATIENT HAS KIDNEY ISSUES ibuprofen [From Motrin] Adverse Reaction (Verified 02/27/17 15:43) See Comments PATIENT HAS KIDNEY ISSUES Date of admission: 02/27/17 02:52 Primary care physician: Kathi Middleton DO Consults: 02/27/17 16:57 Consult to Nutrition [CONS] Routine Comment: 40# weight loss, suggestions for supplementation? Consulting Provider: NUTRITION Reason for Dietary Consult: PO Supplementation 02/27/17 17:05 Consult to Occupational Therapy [CONS] Routine Comment: Evaluate, develop and implement POC Consult to Physical Therapy [CONS] Routine Comment: Evaluate, develop and implement POC 02/28/17 09:41 Consult to Radiology Clerk [CONS] Routine Reason for SW Consult: needs placement per PT/OT/Family. Discharging clinician: Aracely Mike Anticipated date of discharge: 03/01/17 (with ; refused ECF) - Patient Status Disposition: Home Health Service Condition: Fair Functional capacity at discharge: uses cane/walker Overall status at discharge: patient is progressing back to baseline - Discharge Instructions Follow Up With: Kathi Middleton DO [Primary Care Provider] - 03/04/17 1:00 pm (Gayathri Trejo [facility]) Additional Instructions: Follow-up with primary care provider as scheduled - Diet and Activity Activity: as per physical therapy, increase activity as tolerated Diet: regular diet (high sodium and ensure TIDWM) Hospital course: Ms. Vigil is a 81 year old female with past medical history of rheumatoid arthritis on prednisone, small bowel tumor status post colectomy, GERD, hyperlipidemia, hypertension, chronic kidney disease, malnutrition. Patient presented to the emergency room for chief complaint severe bilateral hand pain 1 day. Patient's son was also present at the time of her presentation and stated the patient was confused and became dizzy. Workup in the emergency department notable for hyponatremia with initial sodium of 122. Patient was dehydrated on examination and stated that she had not been eating very much and has lost weight over the past year. Chest x-ray negative. Patient was admitted to the hospitalist service for further evaluation and management. She was treated with IV fluids and nutrition was brought on board who started her on ensure supplements. She has lost 10 pounds over last year unintentionally. She was able to tolerate a regular diet while admitted. She was admitted observed over the course of 2 days and on day of discharge, she denied hand pain and stated that she was able to use her hands freely and without limitation. She was alert and oriented 3 on day of discharge. She was seen and evaluated by occupational and physical therapy both of whom recommended ECF placement. Patient refused ECF placement but was amenable to home health services which she was sent home with. She was discharged home in stable condition with close outpatient follow-up recommended. She was kept on a preventative dose of colchicine for her gout and also sent home on steroids for her RA. A 40 mg 5 day course followed by regular maintenance dosing of 10 mg daily. ITS Impressions Chest X-Ray 02/27/17 00:01 IMPRESSION: No acute cardiopulmonary process demonstrated D/ / Chivo Fried MD / Chivo Fried MD Interpreting Provider: Chivo Fried MD - Time Spent with Patient Total time spent providing and/or coordinating discharge services: - Constitutional Vitals: Temp Pulse Resp BP Pulse Ox 97.6 F 49 16 131/72 99 03/01/17 07:13 03/01/17 07:13 03/01/17 07:13 03/01/17 07:13 03/01/17 07:13 General appearance: Present: cooperative, A&O X 3, pleasant, no acute distress, underweight, loss of weight, answers questions appropriately - Head Head exam: Present: atraumatic, normocephalic - Eye Eye exam: Present: PERRL, conjuntiva pink, sclera anicteric Pupils: Present: PERRL - Neck Neck exam general surgery: Present: supple, trachea midline. Absent: lymphadenopathy - Respiratory Respiratory exam: Present: CTAB. Absent: accessory muscle use, rales, respiratory distress, rhonchi, wheezes - Cardiovascular Cardiovascular exam: Present: RRR, +S1, +S2. Absent: diastolic murmur, gallop, rubs, systolic murmur - GI/Abdominal GI/Abdominal exam: Present: normal bowel sounds, soft, no peritoneal signs. Absent: distended, tenderness - Extremities Exam Extremities exam: Present: warm, radial pulses palpable and symetrical. Absent : calf tenderness, cyanotic, pedal edema - Neurological Exam Neurological exam: Present: alert, CN II-XII intact, oriented X3, no focal deficits, strengths equal and symetr throughout. Absent: pronater drift, facial droop, speech deficit - Skin Skin exam: Present: dry, intact, normal color, warm
== END 2017-03-01 13:08 | disposition home health service (06) ==
LOC: EMEROO 22:00 → 3BNU 22:00 → SUATTDRO 02-27 02:52 → 3BNU 02-27 03:55
PROVIDERS: ADMIT Internal Medicine; ATTEND Nurse Practitioner Family

== ENCOUNTER 2017-04-04 20:06 | Inpatient (IN) ==
--- NOTE | 2017-04-04 20:08 | Emergency Department Note ---
Disposition Clinical Impression: Small bowel obstruction, Acute renal insufficiency Disposition: Admitted As Inpatient Condition: Good General Adult HPI - General Chief complaint: ED Nausea/Vomiting/Diarrhea Stated complaint: vomiting, weakness Time Seen by Provider: 04/04/17 20:07 - Related Data Home Medications Medication Instructions Recorded Confirmed Cyanocobalamin (Vitamin B-12) 1,000 mcg PO DAILY 07/28/15 04/04/17 [Vitamin B12] Lisinopril [Zestril] 2.5 mg PO DAILY 07/28/15 04/04/17 Metoprolol [Lopressor] 50 mg PO BID 07/28/15 04/04/17 Omeprazole [PriLOSEC] 20 mg PO DAILY 07/28/15 04/04/17 Potassium Chloride 20 meq PO BID 07/28/15 04/04/17 Triamterene/HCTZ 37.5/25mg 1 tab PO DAILY 07/28/15 04/04/17 [Dyazide] Multivit-Min/FA/Herbal No.245 1 tab PO DAILY 11/27/15 04/04/17 [Alive Women's Gummy Vitamins] Hydroxychloroquine [Plaquenuil] 300 mg PO DAILY 02/27/17 04/04/17 Previous Rx's Medication Instructions Recorded Colchicine [Colcrys] 0.6 mg PO DAILY #30 tablet 03/01/17 Lactose-Reduced Food [Ensure Plus] 1 bottle PO TID #90 can 03/01/17 predniSONE [PredniSONE] 40 mg PO DAILY #36 tablet 03/01/17 Allergies Allergy/AdvReac Type Severity Reaction Status Date / Time Pneumococcal Vaccine Allergy Cough Verified 02/27/17 15:43 tuberculin, purified protein Allergy Blister Verified 02/27/17 15:43 deriva [tuberculin,purif.prot.deriv.] aspirin AdvReac See Verified 02/27/17 15:43 Comments ibuprofen [From Motrin] AdvReac See Verified 02/27/17 15:43 Comments Past Medical History - Past Medical History Medical history: Reports: arthritis, cancer, GERD, hyperlipidemia, hypertension , renal disease, other Surgical history: Reports: cataract, cholecystectomy, colectomy, hip replacement , hysterectomy, other Psychiatric history: Reports: no psych history SPARE PARTS CLERK history: Reports: no SPARE PARTS CLERK history - Social History Smoking Status: Never smoker Smokeless Tobacco Status: No Alcohol use: Reports: none Drug use: Reports: none Course Vital Signs Temperature 98.2 F 04/04/17 20:07 Pulse Rate 101 04/04/17 20:07 Respiratory Rate 18 04/04/17 20:07 Blood Pressure 103/70 04/04/17 20:07 O2 Sat by Pulse Oximetry 96 04/04/17 20:07 Temperature 98.2 F 04/05/17 06:35 Pulse Rate 90 04/05/17 06:35 Respiratory Rate 16 04/05/17 06:35 Blood Pressure 120/77 04/05/17 06:35 O2 Sat by Pulse Oximetry 98 04/05/17 06:35 Oxygen Delivery Oxygen Delivery Room Air Medical Decision Making - Lab Data Result diagrams: 04/04/17 21:34 04/04/17 21:34 Lab Results 04/04/17 04/04/17 04/04/17 Range/Units 21:34 21:34 22:00 WBC 8.2 (4.3-11.1) K/mcL RBC 4.96 (3.82-4.97) M/mcL Hgb 13.1 D (11.5-15.4) g/dL Hct 38.4 (35.3-44.9) % MCV 77.4 L (83.0-100.0) fL MCH 26.4 L (28.0-33.3) pg MCHC 34.1 (31.6-35.5) g/dL RDW 14.9 H (11.5-14.5) % Plt Count 357 (140-400) K/mcL MPV 10.1 (9.4-12.4) fL Immature Gran % 0.5 (0-4) % Seg Neutrophils % 78.4 % Lymphocytes % 10.9 % Monocytes % 10.0 % Eosinophils % 0.0 % Basophils % 0.2 % Neutrophils # 6.4 (1.6-8.9) K/mcL Lymphocytes # 0.9 (0.6-4.6) K/mcL Monocytes # 0.8 (0.0-1.3) K/mcL Eosinophils # 0.0 (0.0-0.6) K/mcL Basophils # 0.0 (0.0-0.2) K/mcL Sodium 131 L (136-145) mEq/L Potassium 3.6 (3.5-4.5) mEq/L Chloride 88 L (98-109) mEq/L Carbon Dioxide 26 (19-29) mEq/L BUN 30 H D (7-20) mg/dL Creatinine 1.61 H D (0.57-1.11) mg/dL Est GFR ( Amer) 37 L (> 60) Est GFR (Non-Af Amer) 31 L (> 60) BUN/Creatinine Ratio 19 (6-26) Glucose 90 (70-99) mg/dL Calculated Osmolality 278 L (280-300) Calcium 10.7 D (8.6-10.8) mg/dL Total Bilirubin 0.9 (0.2-1.2) mg/dL AST 28 (5-34) Units/L ALT 20 (0-55) Units/L Alkaline Phosphatase 82 (38-126) Units/L Serum Total Protein 8.3 D (6.0-8.3) g/dL Albumin 3.3 L (3.5-5.0) g/dL Globulin 5.0 H (2.4-3.5) g/dL Albumin/Globulin Ratio 0.7 L (1.1-2.2) Urine Color Dark Yellow (Yellow) Urine Clarity Cloudy A (Clear) Urine pH 5.5 (5.0-8.0) pH Units Ur Specific [place] 1.023 (1.010-1.025) Urine Protein Trace (Neg-Trace) mg/dL Urine Glucose (UA) Normal (Normal) mg/dL Urine Ketones Trace H (Negative) mg/dL Urine Blood Negative (Negative) Urine Nitrite Negative (Negative) Urine Bilirubin Small H (Negative) Urine Urobilinogen Normal (Normal) mg/dL Ur Leukocyte Esterase Small H (Negative) Urine Microscopic RBC 0-3 (0-3) per hpf Urine Microscopic WBC 5-15 H (0-3) per hpf Ur Squamous Epith Cells Many H (None-Few) per lpf Urine Bacteria None Seen (None-Few) per hpf Hyaline Casts Few (None-Few) per lpf Ur Culture Indicated? YES A (NO) Attestation Statement - Attestation Attestation: I examined this patient and my medical decision-making was reviewed with the MILLWORK ESTIMATOR/PA/Advanced Practice Nurse/Resident Physician. I agree with the documented findings, disposition and treatment plan as described except to the extent set forth below. [id number] time provided Patient presents via EMS complaining of nausea and vomiting. She is holding an emesis bucket at the time of my exam. Seen in the emergency department for similar symptoms yesterday
[2017-04-04] MEDS ORDERED: 0.9 % Sodium Chloride 1,000 ML IVC ONE (20:43)
[2017-04-04] MEDS ORDERED: Ondansetron 4 MG/2 ML VIAL IVP ONE (20:43)
--- NOTE | 2017-04-04 21:07 | Emergency Department Note ---
Disposition Clinical Impression: Small bowel obstruction, Acute renal insufficiency Disposition: Admitted As Inpatient Condition: Good Referrals: Kathi Middleton DO [Primary Care Provider] - Forms: ED Satisfaction Letter Nausea/Vomiting/Diarrhea HPI - General Chief complaint: ED Nausea/Vomiting/Diarrhea Stated complaint: vomiting, weakness Time Seen by Provider: 04/04/17 20:07 Source: EMS Limitations: no limitations Nursing Notes Reviewed: Yes Vital Signs Reviewed: Yes - History of Present Illness HPI Narrative: 81-year-old female with a history of remote colon cancer status post resection about 20 years ago, previous bowel obstruction requiring surgical exploration one year ago, hypertension, gout who presents to the emergency department with the chief complaint of nausea and vomiting. She reports green/brown appearing emesis that has been occurring all day today. She reports some upper abdominal pain. History of SBO and she states this feels similar. Last bowel movement was yesterday. She denies any fevers or chills. She has a history of hyponatremia and takes salt tablets. She denies any chest pain or shortness of breath. She was recently seen due to lightheadedness and she states this is ongoing. She denies any unilateral numbness or weakness but states she feels generally weak and numb all over. No bowel or bladder incontinence but she states she is so weak it hard for her to get out of the bed to urinate. Family states she appears at her baseline other than the generalized weakness. She denies any visual changes. She denies any facial droop or voice change. She is currently being treated for gout in her fingers and elbows. - Related Data Home Medications Medication Instructions Recorded Confirmed Cyanocobalamin (Vitamin B-12) 1,000 mcg PO DAILY 07/28/15 02/27/17 [Vitamin B12] Lisinopril [Zestril] 2.5 mg PO DAILY 07/28/15 02/27/17 Metoprolol [Lopressor] 50 mg PO BID 07/28/15 02/27/17 Omeprazole [PriLOSEC] 20 mg PO DAILY 07/28/15 02/27/17 Potassium Chloride 20 meq PO BID 07/28/15 02/27/17 Triamterene/HCTZ 37.5/25mg 1 tab PO DAILY 07/28/15 02/27/17 [Dyazide] Multivit-Min/FA/Herbal No.245 1 tab PO DAILY 11/27/15 02/27/17 [Alive Women's Gummy Vitamins] Hydroxychloroquine [Plaquenuil] 300 mg PO DAILY 02/27/17 02/27/17 Previous Rx's Medication Instructions Recorded Colchicine [Colcrys] 0.6 mg PO DAILY #30 tablet 03/01/17 Lactose-Reduced Food [Ensure Plus] 1 bottle PO TID #90 can 03/01/17 predniSONE [PredniSONE] 40 mg PO DAILY #36 tablet 03/01/17 Allergies Allergy/AdvReac Type Severity Reaction Status Date / Time Pneumococcal Vaccine Allergy Cough Verified 02/27/17 15:43 tuberculin, purified protein Allergy Blister Verified 02/27/17 15:43 deriva [tuberculin,purif.prot.deriv.] aspirin AdvReac See Verified 02/27/17 15:43 Comments ibuprofen [From Motrin] AdvReac See Verified 02/27/17 15:43 Comments All systems ED: reviewed and negative except as stated. Constitutional: Denies: fever, chills Cardiovascular: Denies: chest pain, palpitations Respiratory: Denies: cough, dyspnea Gastrointestinal: Reports: abdominal pain, nausea, vomiting. Denies: diarrhea, hematochezia Genitourinary: Reports: other (Denies incontinence, denies numbness between the legs and denies history of back pain or current back pain). Denies: urgency, dysuria Musculoskeletal: Denies: back pain Integumentary: Denies: rash Neurological: Denies: headache, numbness Endocrine: Reports: fatigue Past Medical History - Past Medical History Medical history: Reports: arthritis, cancer, GERD, hyperlipidemia, hypertension , renal disease, other Surgical history: Reports: cataract, cholecystectomy, colectomy, hip replacement , hysterectomy, other Psychiatric history: Reports: no psych history STEAM PAN SPONGER history: Reports: no STEAM PAN SPONGER history - Social History Smoking Status: Never smoker Smokeless Tobacco Status: No Alcohol use: Reports: none Drug use: Reports: none Physical Exam General: Elderly female who is resting comfortably in bed, no distress, talkative and appropriate Cardiovascular: Regular rate and rhythm. S1, S2. No murmurs, rubs or gallops. Respiratory: Breath sounds clear bilaterally. No wheezing, rales or rhonchi. No resp distress Abdomen: Abdomen is soft without any guarding, rebound or distention. She has a previous midline surgical scar that is well-healed. No palpable organomegaly. Normal bowel sounds throughout. She has some mild upper abdominal tenderness but no guarding. Eyes: Conjunctiva clear without scleral icterus HENT: No oral mucosal lesions. Moist mucous membranes Neuro: No facial asymmetry, cranial nerves intact, no motor or sensory deficits including the saddle area. 5/5 upper and lower extremity strength throughout. Sensation is symmetric bilaterally Musculoskeletal: No joint tenderness or swelling. No lower extremity edema or calf tenderness. Skin: No lesions. No diaphoresis. Normal turgor. Normal color Psych: Appropriate - General Limitations: no limitations General appearance: alert Course Course Narrative: 81-year-old presents with abdominal distention and what she describes as bilious emesis. History of small bowel obstruction the past. In 2014 Dr. Mcduffie perform surgery to obstruct her small bowel. CT shows mid to distal small bowel obstruction. She has a very dilated stomach with quite a bit of fluid in it. We will patient NG tube. I discussed with the on-call hospitalist , Dr. Carrasco who will directly admit the patient. She request the NG tube to be placed and we will certainly do this. No further orders at this time. She does have a mild acute renal insufficiency which I feel is prerenal. She has been vomiting and not taking any oral intake. She was given a liter of fluids in the ED. I will start a maintenance on her. Vital Signs Temperature 98.2 F 04/04/17 20:07 Pulse Rate 101 04/04/17 20:07 Respiratory Rate 18 04/04/17 20:07 Blood Pressure 103/70 04/04/17 20:07 O2 Sat by Pulse Oximetry 96 04/04/17 20:07 Temperature 98.2 F 04/04/17 20:07 Pulse Rate 80 04/04/17 22:29 Respiratory Rate 18 04/04/17 22:29 Blood Pressure 109/69 04/04/17 22:29 O2 Sat by Pulse Oximetry 97 04/04/17 22:29 Oxygen Delivery Oxygen Delivery Room Air Nausea/Vomiting/Diarrhea - Lab Data Result diagrams: 04/04/17 21:34 04/04/17 21:34 Lab Results 04/04/17 04/04/17 04/04/17 Range/Units 21:34 21:34 22:00 WBC 8.2 (4.3-11.1) K/mcL RBC 4.96 (3.82-4.97) M/mcL Hgb 13.1 D (11.5-15.4) g/dL Hct 38.4 (35.3-44.9) % MCV 77.4 L (83.0-100.0) fL MCH 26.4 L (28.0-33.3) pg MCHC 34.1 (31.6-35.5) g/dL RDW 14.9 H (11.5-14.5) % Plt Count 357 (140-400) K/mcL MPV 10.1 (9.4-12.4) fL Immature Gran % 0.5 (0-4) % Seg Neutrophils % 78.4 % Lymphocytes % 10.9 % Monocytes % 10.0 % Eosinophils % 0.0 % Basophils % 0.2 % Neutrophils # 6.4 (1.6-8.9) K/mcL Lymphocytes # 0.9 (0.6-4.6) K/mcL Monocytes # 0.8 (0.0-1.3) K/mcL Eosinophils # 0.0 (0.0-0.6) K/mcL Basophils # 0.0 (0.0-0.2) K/mcL Sodium 131 L (136-145) mEq/L Potassium 3.6 (3.5-4.5) mEq/L Chloride 88 L (98-109) mEq/L Carbon Dioxide 26 (19-29) mEq/L BUN 30 H D (7-20) mg/dL Creatinine 1.61 H D (0.57-1.11) mg/dL Est GFR ( Amer) 37 L (> 60) Est GFR (Non-Af Amer) 31 L (> 60) BUN/Creatinine Ratio 19 (6-26) Glucose 90 (70-99) mg/dL Calculated Osmolality 278 L (280-300) Calcium 10.7 D (8.6-10.8) mg/dL Total Bilirubin 0.9 (0.2-1.2) mg/dL AST 28 (5-34) Units/L ALT 20 (0-55) Units/L Alkaline Phosphatase 82 (38-126) Units/L Serum Total Protein 8.3 D (6.0-8.3) g/dL Albumin 3.3 L (3.5-5.0) g/dL Globulin 5.0 H (2.4-3.5) g/dL Albumin/Globulin Ratio 0.7 L (1.1-2.2) Urine Color Dark Yellow (Yellow) Urine Clarity Cloudy A (Clear) Urine pH 5.5 (5.0-8.0) pH Units Ur Specific [place] 1.023 (1.010-1.025) Urine Protein Trace (Neg-Trace) mg/dL Urine Glucose (UA) Normal (Normal) mg/dL Urine Ketones Trace H (Negative) mg/dL Urine Blood Negative (Negative) Urine Nitrite Negative (Negative) Urine Bilirubin Small H (Negative) Urine Urobilinogen Normal (Normal) mg/dL Ur Leukocyte Esterase Small H (Negative) Urine Microscopic RBC 0-3 (0-3) per hpf Urine Microscopic WBC 5-15 H (0-3) per hpf Ur Squamous Epith Cells Many H (None-Few) per lpf Urine Bacteria None Seen (None-Few) per hpf Hyaline Casts Few (None-Few) per lpf Ur Culture Indicated? YES A (NO) - Radiology Data EKG shows a sinus rhythm with a rate of [address] elevation or depression. TX, QRS, QT interval within normal limits. Previous EKG and 07/2015 shows no significant changes.
[2017-04-04 21:45] LABS: Basophils % 0.2 %; Hematocrit 38.4 % (35.3-44.9); Immature Granulocytes % 0.5 % (0-4); Lymphocytes # 0.9 K/mcL (0.6-4.6); Lymphocytes % 10.9 %; Mean Corpuscular HGB Conc 34.1 g/dL (31.6-35.5); Mean Corpuscular Hemoglobin 26.4 pg (28.0-33.3); Mean Corpuscular Volume 77.4 fL (83.0-100.0); Mean Platelet Volume 10.1 fL (9.4-12.4); Monocytes # 0.8 K/mcL (0.0-1.3); Neutrophils # 6.4 K/mcL (1.6-8.9); Platelet Count 357 K/mcL (140-400); Red Blood Count 4.96 M/mcL (3.82-4.97); Red Cell Distribution Width 14.9 % (11.5-14.5); Segmented Neutrophils % 78.4 %
[2017-04-04 21:48] LABS: Hemoglobin 13.1 g/dL (11.5-15.4)
[2017-04-04 21:53] LABS: Albumin 3.3 g/dL (3.5-5.0); Albumin/Globulin Ratio 0.7 (1.1-2.2); Bilirubin,Total 0.9 mg/dL (0.2-1.2); Potassium 3.6 mEq/L (3.5-4.5)
[2017-04-04 21:54] LABS: Calcium 10.7 mg/dL (8.6-10.8); Total Protein 8.3 g/dL (6.0-8.3)
[2017-04-04 22:04] LABS: Bilirubin,Urine Small (Negative); Blood,Urine Negative (Negative); Clarity,Urine Cloudy (Clear); Color,Urine Dark Yellow (Yellow); Glucose,Urine (UA) Normal (Normal); Ketones,Urine Trace mg/dL (Negative); Leukocyte Esterase,Urine Small (Negative); Nitrite,Urine Negative (Negative); PH,Urine 5.5 pH Units (5.0-8.0); Protein,Urine Trace mg/dL (Neg-Trace); Specific Gravity,Urine 1.023 (1.010-1.025); Urobilinogen,Urine Normal (Normal)
[2017-04-04 22:06] LABS: Bacteria,Urine None Seen per hpf (None-Few); RBC,Urine 0-3 per hpf (0-3); Squamous Epithelial Cell,Urine Many per lpf (None-Few)
[2017-04-04 22:19] LABS: Hyaline Casts,Urine Few per lpf (None-Few)
[2017-04-04] MEDS ORDERED: Tetracaine/Benzocaine/Butamben 200MG/SPRAY (100SPY/BOT) MM ONE (22:28)
[2017-04-04] MEDS ORDERED: 0.9 % Sodium Chloride 1,000 ML IVC SCH (22:45)
[2017-04-05] MEDS ORDERED: *HR* Morphine 2 MG/ML SYRINGE IVP PRN (02:22)
[2017-04-05] MEDS ORDERED: Ondansetron 4 MG/2 ML VIAL IVP PRN (02:23)
[2017-04-05] MEDS ORDERED: 0.9 % Sodium Chloride 1,000 ML IVC SCH (02:30)
[2017-04-05] MEDS: Pantoprazole 40 MG VIAL IVP SCH (05:33)
[2017-04-05 08:09] LABS: Basophils % 0.2 %; Eosinophils % 0.1 %; Hematocrit 37.6 % (35.3-44.9); Hemoglobin 12.9 g/dL (11.5-15.4); Immature Granulocytes % 0.4 % (0-4); Lymphocytes # 1.6 K/mcL (0.6-4.6); Lymphocytes % 17.2 %; Mean Corpuscular HGB Conc 34.3 g/dL (31.6-35.5); Mean Corpuscular Hemoglobin 26.8 pg (28.0-33.3); Mean Corpuscular Volume 78.2 fL (83.0-100.0); Mean Platelet Volume 9.9 fL (9.4-12.4); Monocytes # 0.9 K/mcL (0.0-1.3); Monocytes % 9.6 %; Neutrophils # 6.9 K/mcL (1.6-8.9); Platelet Count 325 K/mcL (140-400); Red Blood Count 4.81 M/mcL (3.82-4.97); Red Cell Distribution Width 15.1 % (11.5-14.5); Segmented Neutrophils % 72.5 %
[2017-04-05 08:20] LABS: Calcium 9.7 mg/dL (8.6-10.8); Magnesium 2.1 mg/dL (1.6-2.6); Phosphorous 6.6 mg/dL (2.3-4.7); Potassium 3.3 mEq/L (3.5-4.5)
--- NOTE | 2017-04-05 10:44 | General Surg History&Physical ---
<Kyleigh Gilbert - Last Filed: 04/05/17 11:44> Date of Encounter: 04/05/17 Time of Encounter: 10:42 Assessment and Plan (1) Small bowel obstruction Current Visit: Yes Status: Acute Patient presents with diffuse abdominal pain, nausea, copious amounts of vomiting. She states that she has been vomiting bile since last Tuesday evening , during the day yesterday she was filling buckets full of bilious vomit. States that she has not eaten or had anything to drink since noon on Tuesday. Last BM was Tuesday or Tuesday. History of past operation by Dr. Mcduffie last year for SBO, hysterectomy, cholecystectomy. Patient has had several SBO's throughout the year. CT of the abdomen shows moderate mid to distal small bowel obstruction thought to lie in the pelvis, multiple nondilated loops of ileum, mild sigmoid diverticulosis, trace amount of free pelvic fluid Plan: -Continue NG to LIWS -Keep NPO -Serial abdominal exams -IS Q1hr while awake -Ambulate TID w/assist -VS per protocol -Elevated HOB 30 degrees -O2 2L NC The assessment and plan as outlined above was discussed with the patient and/or family members who expressed understanding and agreement. All questions were answered. (2) Acute kidney injury Current Visit: Yes Status: Acute Patient presents with serum creatinine of 1.61 that has decreased to 1.21 today. Her baseline serum creatinine is 0.67-0.88. This a LONG is most likely secondary to multiple episodes of vomiting, poor oral intake for the last 48 hours. Creatinine has improved slightly overnight with IV fluid hydration. Patient appears dry on exam, complains of a dry mouth. Plan: -Increase IVF to 100 mL per hour -Continue to monitor vital signs -I/Os -AM labs The assessment and plan as outlined above was discussed with the patient and/or family members who expressed understanding and agreement. All questions were answered. (3) Hyponatremia Current Visit: Yes Status: Chronic Patient has chronic hypokalemia. She normally takes salt tabs BID, but they were just increased to TID. Na has improved to 134 from 131. The patient is fairly dehydrated, very dry on exam. She complains of dry mouth. She has had copious amounts of vomiting yesterday and has not been able to keep anything down. Plan: -We will increase IVF to 100 mL per hour -A.m. lab The assessment and plan as outlined above was discussed with the patient and/or family members who expressed understanding and agreement. All questions were answered. (4) Inflammatory arthritis Current Visit: Yes Status: Acute The patient was seen on 03/25/[address] Paiz. At that time she was was placed on prednisone therapy 10 mg 1 week, 5 mg 3 weeks, with plan to taper at next visit in April. She was also restarted on hydroxychloroquine 300 mg PO daily She had been discharged from the hospital on 03/01/2017 with a 5 day steroid burst of 40 mg of prednisone daily with a 10 mg a day dose after that until she saw Dr. Paiz for acute inflammation secondary to RA. The assessment and plan as outlined above was discussed with the patient and/or family members who expressed understanding and agreement. All questions were answered. (5) DVT prophylaxis Current Visit: No Status: Acute ICDs The assessment and plan as outlined above was discussed with the patient and/or family members who expressed understanding and agreement. All questions were answered. History of Present Illness Chief complaint: vomiting, weakness HPI: Ms. Vigil is a 81 year old female with a remote history of colon cancer s/p resection 20 years ago, previous bowel obstruction requiring surgical exploration one year ago, hypertension, hyponatremia, gout, and inflammatory arthritis who presented to the emergency department last evening complaining of nausea and vomiting. She states that on Tuesday evening she began vomiting and this continued all day on Tuesday. She states that she was vomiting. Pockets of a bile colored vomit. She denies hematemesis. She has also had nausea and epigastric abdominal pain. She has not been able to eat anything since noon on Tuesday and has not been able to keep liquids down. She states that her last bowel movement was on Tuesday or Tuesday. She also complains of a sore throat secondary to vomiting. She has a headache, has been alternating between feeling hot and cold, has had some chest pain under her breasts, shortness of breath, dizziness, weakness and arthralgias. She has a history of hyponatremia and take salt tablets twice a day, however she states that it was just increased to 3 times a day. Past Med Surg Social Fam HX - Past Medical History Attestation: Yes The following information was validated with the patient. Source: patient Medical history: arthritis, cancer, GERD, hyperlipidemia, hypertension, renal disease, other Psychiatric history: no psych history - Past Surgical History Surgical History: cataract, cholecystectomy, colectomy, hip replacement, hysterectomy, other - Social History Smoking Status: Never smoker Smokeless Tobacco Status: No Alcohol use: none Drug use: none Recent Out of Country Travel Within the Last 8 Weeks: No Exposure or Possible Exposure to Illness During Travel: No - Family History Brother History Unknown: Yes Name: mary Living Status: Still Living Hx Family Respiratory Disorders: Yes (COPD.) Daughter Adopted: No Living Status: Hx Family Cardiac Disorders: Yes Hx Family Respiratory Disorders: No Hx Family Cancer: No Hx Family GI Disorders: No Hx Family Endocrine Disorder: Yes (diabetes) Hx Family Neuromuscular Disorders: No Hx Family Neurologic Disorders: No Hx Family HEENT Disorders: No Hx Family Autoimmune Disorders: No Father Living Status: Age at : 60 Cause of : mi Hx Family Cardiac Disorders: Yes Hx Family Respiratory Disorders: No Hx Family Cancer: No Hx Family GI Disorders: No Hx Family Endocrine Disorder: No Mother Living Status: Age at : 63 Cause of : cva Hx Family Cardiac Disorders: Yes (cva) Hx Family Cancer: Yes (Colon cancer) Hx Family Endocrine Disorder: Yes (DM) Sister History Unknown: Yes Adopted: No Living Status: Hx Family Endocrine Disorder: Yes (Diabetes Mellitus) Medications and Allergies Cyanocobalamin (Vitamin B-12) [Vitamin B12] 1,000 mcg PO DAILY 07/28/15 [History ] Lisinopril [Zestril] 2.5 mg PO DAILY 07/28/15 [History] Metoprolol [Lopressor] 50 mg PO BID 07/28/15 [History] Omeprazole [PriLOSEC] 20 mg PO DAILY 07/28/15 [History] Potassium Chloride 20 meq PO BID 07/28/15 [History] Triamterene/HCTZ 37.5/25mg [Dyazide] 1 tab PO DAILY 07/28/15 [History] Multivit-Min/FA/Herbal No.245 [Alive Women's Gummy Vitamins] 1 tab PO DAILY [History] Hydroxychloroquine [Plaquenuil] 300 mg PO DAILY 02/27/17 [History] Colchicine [Colcrys] 0.6 mg PO DAILY #30 tablet 03/01/17 [Rx] Lactose-Reduced Food [Ensure Plus] 1 bottle PO TID #90 can 03/01/17 [Rx] Allergies Pneumococcal Vaccine Allergy (Verified 02/27/17 15:43) Cough tuberculin, purified protein deriva [tuberculin,purif.prot.deriv.] Allergy ( Verified 02/27/17 15:43) Blister aspirin Adverse Reaction (Verified 02/27/17 15:43) See Comments PATIENT HAS KIDNEY ISSUES ibuprofen [From Motrin] Adverse Reaction (Verified 02/27/17 15:43) See Comments PATIENT HAS KIDNEY ISSUES Review of Systems All systems PM: A 10-system review of systems was performed and is negative for pertinent findings except as documented above in the HPI. - Constitutional anorexia, chills, fatigue, fever(s), headache(s), weakness - EENT Nose, mouth and throat: dizziness, dry mouth, headache(s), hoarseness, sore throat, no nasal discharge, no neck pain - Cardiovascular no chest pain, no diaphoresis, no edema, no palpitations, no syncope - Respiratory dyspnea, no cough - Gastrointestinal abdominal pain, change in bowel habits, constipation, nausea, vomiting (Bile colored vomit), no diarrhea, no hematemesis, no hematochezia, no melena - Genitourinary Genitourinary: no dysuria Menstruation: post hysterectomy - Musculoskeletal arthralgias, muscle weakness - Integumentary dry skin, no rash, no swelling - Neurological dizziness, headache(s), weakness, no syncope - Psychiatric no anxiety, no depression - Endocrine fatigue, flushing, no excessive sweating, no palpitations General Surgery Exam Initial Vital Signs Temp Pulse Resp BP Pulse Ox 98.2 F 101 18 103/70 96 04/04/17 20:07 04/04/17 20:07 04/04/17 20:07 04/04/17 20:07 04/04/17 20:07 - General physical appearance well developed, well nourished, no distress, moderate pain - Eyes PERRL, normal ocular movement - ENT normal pinna, normal nares, normal mucosa, no congestion, dry mucosa, atraumatic , normocephalic - Neck no masses, no bruits, trachea midline, no lymphadectomy, no venous distension - Respiratory normal expansion, normal respiratory effort, clear to auscultation - Cardiovascular Cardiovascular exam: Present: RRR, no murmurs/rubs/gallops - Abdomen Abdomen general surgery: Present: bowel sounds present, soft, tender. Absent: distended Abdominal Tenderness: Present: epigastic, RLQ, LLQ - Integumentary Integumentary general surgery: Present: warm and dry, no abnormal pigmentation. Absent: diaphoresis, rash - Neurologic Present: CN 2-12 grossly intact, normal coordination, normal sensation - Psychiatric Psychiatric general surgery: Present: appropriate, oriented to person, oriented to place, oriented to time, speech is normal, memory intact Results - Labs 04/05/17 08:02 04/05/17 08:02 Short CBC 04/05/17 04/04/17 Range/Units 08:02 21:34 WBC 9.5 8.2 (4.3-11.1) K/mcL Hgb 12.9 13.1 D (11.5-15.4) g/dL Hct 37.6 38.4 (35.3-44.9) % Plt Count 325 357 (140-400) K/mcL Neutrophils # 6.9 6.4 (1.6-8.9) K/mcL BMP 04/05/17 04/04/17 Range/Units 08:02 21:34 Sodium 134 L 131 L (136-145) mEq/L Potassium 3.3 L 3.6 (3.5-4.5) mEq/L Chloride 93 L 88 L (98-109) mEq/L Carbon Dioxide 26 26 (19-29) mEq/L BUN 34 H 30 H D (7-20) mg/dL Creatinine 1.21 H 1.61 H D (0.57-1.11) mg/dL Glucose 80 90 (70-99) mg/dL Calcium 9.7 10.7 D (8.6-10.8) mg/dL Liver Function 04/04/17 Range/Units 21:34 Total Bilirubin 0.9 (0.2-1.2) mg/dL AST 28 (5-34) Units/L ALT 20 (0-55) Units/L Alkaline Phosphatase 82 (38-126) Units/L Albumin 3.3 L (3.5-5.0) g/dL Urine 04/04/17 Range/Units 22:00 Urine Color Dark Yellow (Yellow) Urine Clarity Cloudy A (Clear) Urine pH 5.5 (5.0-8.0) pH Units Ur Specific [place] 1.023 (1.010-1.025) Urine Protein Trace (Neg-Trace) mg/dL Urine Glucose (UA) Normal (Normal) mg/dL - Imaging CT scan - abdomen: report reviewed, image reviewed Additional studies: Abdomen/Pelvis CT 04/04/17 20:44 IMPRESSION: Moderate mid to distal small bowel obstruction thought to lie in the pelvis. Multiple nondilated loops of ileum. Similar appearance seen previously. Mild sigmoid diverticulosis. Trace amount of free pelvic fluid. No other significant abnormality. D/ / Kevyn Barba MD / Kevyn Barba MD Interpreting Provider: Kevyn Barba MD <Makayla Carrasco Halima - Last Filed: 04/05/17 17:37> Date of Encounter: 04/05/17 Time of Encounter: 12:45 Assessment and Plan (1) Small bowel obstruction Current Visit: Yes Status: Acute The assessment and plan as outlined above was discussed with the patient and/or family members who expressed understanding and agreement. All questions were answered. conservative therapy currently npo, ngt, ivf hydration prn pain control serial abdominal exams OOB to chair currently feeling better with decompressio (2) DVT prophylaxis Current Visit: No Status: Acute The assessment and plan as outlined above was discussed with the patient and/or family members who expressed understanding and agreement. All questions were answered. (3) HTN (hypertension) Current Visit: Yes Status: Acute The assessment and plan as outlined above was discussed with the patient and/or family members who expressed understanding and agreement. All questions were answered. normotensive currently, monitor Qualifiers: Hypertension type: essential hypertension Qualified Code(s): I10 - Essential (primary) hypertension (4) Weakness Current Visit: No Status: Acute The assessment and plan as outlined above was discussed with the patient and/or family members who expressed understanding and agreement. All questions were answered. History of Present Illness HPI: Ms. Vigil is a 81 year old female with two day history of nausea and vomiting, abdominal pain and abdominal distention. She denies flatus in last 24-36 hrs. Denies fevers, chills or night sweats. Review of Systems All systems PM: reviewed and no additional remarkable complaints except as stated All systems PM: A 10-system review of systems was performed and is negative for pertinent findings except as documented above in the HPI. General Surgery Exam Initial Vital Signs Temp Pulse Resp BP Pulse Ox 98.2 F 101 18 103/70 96 04/04/17 20:07 04/04/17 20:07 04/04/17 20:07 04/04/17 20:07 04/04/17 20:07 - General physical appearance well developed, well nourished, no distress, no pain - Eyes PERRL, normal ocular movement - ENT normal mucosa, atraumatic, normocephalic - Neck trachea midline - Respiratory normal expansion, clear to auscultation - Cardiovascular Cardiovascular exam: Present: RRR, no murmurs/rubs/gallops - Abdomen Abdomen general surgery: Present: bowel sounds present, soft, tender (mildlyl suprapubic area) - Integumentary Integumentary general surgery: Present: warm and dry, no abnormal pigmentation - Neurologic Present: CN 2-12 grossly intact - Musculoskeletal Present: normal gait, normal posture - Psychiatric Psychiatric general surgery: Present: A&Ox3, speech is normal Results - Labs 04/05/17 08:02 04/05/17 08:02 Vital Signs Temp Pulse Resp BP Pulse Ox 04/05/17 15:26 98.1 F 82 16 105/69 93 04/05/17 10:43 98.3 F 82 16 110/72 97 04/05/17 06:35 98.2 F 90 16 120/77 98 04/05/17 03:33 98.9 F 106 18 114/80 97 04/05/17 00:48 98.8 F 86 18 132/78 98 04/04/17 23:38 20 130/83 04/04/17 22:29 80 18 109/69 97 04/04/17 21:11 96 20 101/69 98 04/04/17 20:07 98.2 F 101 18 103/70 96 Intake and Output 04/05/17 04/05/17 04/05/17 07:59 15:59 23:59 Intake Total 1767 / 1767 233 / 233 473 / 473 Output Total 1000 / 1000 1550 / 1550 Balance 767 / 767 -1317 / -1317 473 / 473 Intake: IV Fluids 1766 / 1767 233 / 233 473 / 473 0.9 % Sodium Chloride 1, 176 / 176 233 / 233 473 / 473 000 ML @ 100 mls/hr IVC . Q10H [facility] Rx#:[id number] Output: Urine 150 / 150 Gastric Drainage 1000 / 1000 1400 / 1400 Other: Weight 55.7 kg Blood Glucose* 89 Patient Weight 04/05/17 23:59 Weight 55.7 kg Short CBC 04/05/17 04/04/17 Range/Units 08:02 21:34 WBC 9.5 8.2 (4.3-11.1) K/mcL Hgb 12.9 13.1 D (11.5-15.4) g/dL Hct 37.6 38.4 (35.3-44.9) % Plt Count 325 357 (140-400) K/mcL Neutrophils # 6.9 6.4 (1.6-8.9) K/mcL BMP 04/05/17 04/04/17 Range/Units 08:02 21:34 Sodium 134 L 131 L (136-145) mEq/L Potassium 3.3 L 3.6 (3.5-4.5) mEq/L Chloride 93 L 88 L (98-109) mEq/L Carbon Dioxide 26 26 (19-29) mEq/L BUN 34 H 30 H D (7-20) mg/dL Creatinine 1.21 H 1.61 H D (0.57-1.11) mg/dL Glucose 80 90 (70-99) mg/dL Calcium 9.7 10.7 D (8.6-10.8) mg/dL Liver Function 04/04/17 Range/Units 21:34 Total Bilirubin 0.9 (0.2-1.2) mg/dL AST 28 (5-34) Units/L ALT 20 (0-55) Units/L Alkaline Phosphatase 82 (38-126) Units/L Albumin 3.3 L (3.5-5.0) g/dL Urine 04/04/17 Range/Units 22:00 Urine Color Dark Yellow (Yellow) Urine Clarity Cloudy A (Clear) Urine pH 5.5 (5.0-8.0) pH Units Ur Specific [place] 1.023 (1.010-1.025) Urine Protein Trace (Neg-Trace) mg/dL Urine Glucose (UA) Normal (Normal) mg/dL - Imaging CT scan - abdomen: report reviewed, image reviewed CT scan - pelvis: report reviewed, image reviewed - Attending Attestation I examined this patient and my medical decision-making was reviewed with the [employer] SUPERVISOR/PA/Advanced Practice Nurse/Resident Physician. I agree with the documented findings, disposition and treatment plan as described except to the extent set forth below.
[2017-04-05] MEDS ORDERED: Acetaminophen 650 MG RECTAL SUPP RC ONE (10:50)
[2017-04-05] MEDS: 0.9 % Sodium Chloride 1,000 ML IVC SCH ×2 (10:51→21:43)
[2017-04-05] MEDS: *HR* Metoprolol 5 MG/5 ML VIAL IVP SCH ×2 (10:56→19:03)
--- NOTE | 2017-04-05 17:29 | Electrocardiograph Report ---
[address] [address] Test Date: 2017-04-04 Pat Name: Deedee Vigil Department: 104 Room: [facility] Gender: F [employer] Worker: RUTHIE : 1935 Requested By: Makayla Carrasco Order Number: [id number] Reading MD: Thuy Tavera Measurements Intervals [place] Rate: 92 P: CT: 0 QRS: 61 QRSD: 74 T: 65 QT: 341 QTc: 391 Interpretive Statements SINUS RHYTHM WITH SINUS ARRHYTHMIA ABNORMAL RHYTHM ECG Electronically Signed On 04-05-2017 17:27:53 EDT by Thuy Tavera
[2017-04-06] MEDS: *HR* Metoprolol 5 MG/5 ML VIAL IVP SCH ×4 (00:46→18:50)
[2017-04-06 05:33] LABS: Basophils % 0.6 %; Eosinophils # 0.1 K/mcL (0.0-0.6); Eosinophils % 0.7 %; Hemoglobin 12.6 g/dL (11.5-15.4); Immature Granulocytes % 0.7 % (0-4); Lymphocytes # 1.3 K/mcL (0.6-4.6); Lymphocytes % 17.2 %; Mean Corpuscular HGB Conc 32.3 g/dL (31.6-35.5); Mean Corpuscular Hemoglobin 26.2 pg (28.0-33.3); Mean Corpuscular Volume 81.1 fL (83.0-100.0); Monocytes # 0.7 K/mcL (0.0-1.3); Monocytes % 10.2 %; Neutrophils # 5.1 K/mcL (1.6-8.9); Platelet Count 269 K/mcL (140-400); Red Blood Count 4.81 M/mcL (3.82-4.97); Red Cell Distribution Width 15.2 % (11.5-14.5); Segmented Neutrophils % 70.6 %
[2017-04-06 05:53] LABS: Alanine Aminotransferase 16 Units/L (0-55); Albumin 2.8 g/dL (3.5-5.0); Albumin/Globulin Ratio 0.7 (1.1-2.2); Alkaline Phosphatase 69 Units/L (38-126); Aspartate Amino Transferase 26 Units/L (5-34); BUN/Creatinine Ratio 41 (6-26); Bilirubin,Total 0.7 mg/dL (0.2-1.2); Blood Urea Nitrogen 41 mg/dL (7-20); Calcium 9.1 mg/dL (8.6-10.8); Carbon Dioxide 25 mEq/L (19-29); Chloride 100 mEq/L (98-109); Globulin 3.8 g/dL (2.4-3.5); Glucose 55 mg/dL (70-99); Osmolality,Calculated 292 (280-300); Potassium 3.1 mEq/L (3.5-4.5); Sodium 137 mEq/L (136-145); eGFR For African Americans > 60 (> 60); eGFR For Non-African Americans 53 (> 60)
[2017-04-06 05:54] LABS: Total Protein 6.6 g/dL (6.0-8.3)
[2017-04-06] MEDS: Pantoprazole 40 MG VIAL IVP SCH (06:23)
--- NOTE | 2017-04-06 06:51 | General Surgery Progress Note ---
Date of Encounter: 04/06/17 Time of Encounter: 17:25 - Assessment and Plan (1) Small bowel obstruction Current Visit: Yes Status: Acute Abdominal pain has improved significantly with decompression. Patient has not had any bowel movement. Has not had any flatus. Denies nausea or vomiting. Abdomen soft, bowel sounds present, mild tenderness diffusely on palpation. NG tube in place: 2400 mL out on 04/05, 950mL today Yesterday afternoon the patient had minimal urine output (150mL), a 1 hour post void residual scan was performed and over 400 mL of urine remained in the bladder. Soriano catheter was placed and the patient has since had a improved urine output (450cc yesterday evening with more output overnight.) Plan to manage conservatively currently. We will continue to reassess need for surgery. Plan: -Continue NG to LIWS -Keep NPO -OOB to chair -Serial abdominal exams -IS Q1hr while awake -VS per protocol -Elevated HOB 30 degrees -O2 2L NC kub showed ngt needed advanced and pt feels better since it has been, slightly more output continue soriano secondary to urinary retention await return of bowel function, continue conservative management currently ok to clamp ngt and allow pt to ambulate OOB to chair BID (2) Acute kidney injury Current Visit: Yes Status: Acute SCr 1.00<1.21, GFR 53 Creatinine is improving with IV fluid hydration and Soriano catheter placement. Plan: -Continue IVF -Continue to monitor vital signs -I/Os -AM labs (3) Hyponatremia Current Visit: Yes Status: Chronic 137 this morning. Plan: -Continue IVF -AM labs (4) Inflammatory arthritis Current Visit: Yes Status: Acute (5) DVT prophylaxis Current Visit: No Status: Acute ICDs Subjective Patient reports: no new complaints, feels better, still having pain, pain is less, no flatus, no bowel movement (no nausea) Narrative: The patient was seen and examined. She states that she is feeling much better today. She still has mild abdominal pain but it has significantly improved. Patient is thirsty, asking for water. She also complains of arthralgias. Objective Vital Signs - Last 8 Hours Temp Pulse Resp BP Pulse Ox 04/06/17 06:34 97.9 F 71 18 122/71 97 04/06/17 05:23 97.8 F 62 16 112/70 97 04/06/17 00:14 97.7 F 62 16 115/68 95 Intake and Output 04/05/17 04/05/17 04/06/17 15:59 23:59 07:59 Intake Total 233 / 233 1000 / 1000 Output Total 1550 / 1550 450 / 450 950 / 950 Balance -1317 / -1317 550 / 550 -950 / -950 Intake: IV Fluids 233 / 233 1000 / 1000 0.9 % Sodium Chloride 1, 233 / 233 1000 / 1000 000 ML @ 100 mls/hr IVC . Q10H [facility] Rx#:[id number] Output: Urine 150 / 150 Catheter 450 / 450 Gastric Drainage 1400 / 1400 950 / 950 Other: Blood Glucose* 64 66 - General physical appearance no distress, no pain, cachectic, chronically ill - Eyes PERRL, normal ocular movement - ENT normal mucosa, atraumatic, normocephalic, Other (NG tube in place) - Neck Neck exam: trachea midline - Respiratory normal expansion, normal respiratory effort, clear to auscultation - Cardiovascular Cardiovascular exam: Present: RRR, no murmurs/rubs/gallops - Abdomen Abdomen: Present: bowel sounds present (faint), soft, tender (less than yday, suprapubic), surgical scars. Absent: distended Abdominal Tenderness: diffusely - Neurologic normal coordination, normal sensation - Musculoskeletal normal posture - Psychiatric oriented to time, oriented to person, oriented to place, speech is normal, memory intact - Labs 04/07/17 04:17 04/07/17 04:17 Short CBC 04/06/17 Range/Units 04:49 WBC 7.3 (4.3-11.1) K/mcL Hgb 12.6 (11.5-15.4) g/dL Hct 39.0 (35.3-44.9) % Plt Count 269 (140-400) K/mcL Neutrophils # 5.1 (1.6-8.9) K/mcL BMP 04/06/17 Range/Units 04:49 Sodium 137 (136-145) mEq/L Potassium 3.1 L (3.5-4.5) mEq/L Chloride 100 (98-109) mEq/L Carbon Dioxide 25 (19-29) mEq/L BUN 41 H (7-20) mg/dL Creatinine 1.00 (0.57-1.11) mg/dL Glucose 55 L (70-99) mg/dL Calcium 9.1 (8.6-10.8) mg/dL Liver Function 04/06/17 Range/Units 04:49 Total Bilirubin 0.7 (0.2-1.2) mg/dL AST 26 (5-34) Units/L ALT 16 (0-55) Units/L Alkaline Phosphatase 69 (38-126) Units/L Albumin 2.8 L (3.5-5.0) g/dL - VTE Documentation of Mechanical Device: Intermittent pneumatic compression device Consult Discharge Plan - Plan Referrals: Kathi Middleton DO [Primary Care Provider] - - Attending Attestation I examined this patient and my medical decision-making was reviewed with the RN NEUROSURGICAL/PA/Advanced Practice Nurse/Resident Physician. I agree with the documented findings, disposition and treatment plan as described except to the extent set forth below.
[2017-04-06] MEDS: 0.9 % Sodium Chloride 1,000 ML IVC SCH (07:35)
[2017-04-06] MEDS ORDERED: D5% in 0.45% NACL 1,000 ML IVC SCH (14:15)
[2017-04-06] MEDS: D5% in 0.45% NACL w KCl 20 MEQ/1,000 ML MLS IVC SCH (15:55)
[2017-04-07] MEDS: *HR* Metoprolol 5 MG/5 ML VIAL IVP SCH ×4 (00:51→17:37)
[2017-04-07 04:38] LABS: Basophils # 0.1 K/mcL (0.0-0.2); Basophils % 0.9 %; Eosinophils # 0.1 K/mcL (0.0-0.6); Eosinophils % 1.2 %; Hematocrit 37.5 % (35.3-44.9); Hemoglobin 12.1 g/dL (11.5-15.4); Immature Granulocytes % 0.3 % (0-4); Lymphocytes # 1.4 K/mcL (0.6-4.6); Lymphocytes % 20.5 %; Mean Corpuscular HGB Conc 32.3 g/dL (31.6-35.5); Mean Corpuscular Volume 80.6 fL (83.0-100.0); Mean Platelet Volume 9.7 fL (9.4-12.4); Monocytes # 0.8 K/mcL (0.0-1.3); Monocytes % 12.1 %; Neutrophils # 4.4 K/mcL (1.6-8.9); Platelet Count 271 K/mcL (140-400); Red Blood Count 4.65 M/mcL (3.82-4.97); Red Cell Distribution Width 15.1 % (11.5-14.5)
[2017-04-07 05:13] LABS: Alanine Aminotransferase 14 Units/L (0-55); Albumin 2.7 g/dL (3.5-5.0); Albumin/Globulin Ratio 0.7 (1.1-2.2); Alkaline Phosphatase 67 Units/L (38-126); Aspartate Amino Transferase 26 Units/L (5-34); BUN/Creatinine Ratio 37 (6-26); Bilirubin,Total 0.7 mg/dL (0.2-1.2); Blood Urea Nitrogen 32 mg/dL (7-20); Calcium 9.2 mg/dL (8.6-10.8); Carbon Dioxide 25 mEq/L (19-29); Chloride 105 mEq/L (98-109); Globulin 3.8 g/dL (2.4-3.5); Glucose 109 mg/dL (70-99); Osmolality,Calculated 295 (280-300); Potassium 3.3 mEq/L (3.5-4.5); Sodium 139 mEq/L (136-145); Total Protein 6.5 g/dL (6.0-8.3); eGFR For African Americans > 60 (> 60); eGFR For Non-African Americans > 60 (> 60)
[2017-04-07] MEDS: D5% in 0.45% NACL w KCl 20 MEQ/1,000 ML MLS IVC SCH ×3 (05:40→21:59)
[2017-04-07] MEDS: Pantoprazole 40 MG VIAL IVP SCH (05:42)
[2017-04-07] MEDS ORDERED: Potassium Chloride 20 MEQ, Lidocaine 1% 2 ML in D5% in Water 250 ML IVPB ONE (09:17)
--- NOTE | 2017-04-07 11:10 | General Surgery Progress Note ---
Date of Encounter: 04/07/17 Time of Encounter: 18:05 - Assessment and Plan (1) Small bowel obstruction Current Visit: Yes Status: Acute Patient reports diffuse midline abdominal tenderness that she states has improved since admission. Patient has not had any flatus or bowel movement. She denies nausea or vomiting. On examination: Patient is pleasant and conversant, and no 3, NG tube is in place, Soriano catheter is in place, abdominal exam with midline abdominal tenderness to palpation, bowel sounds present, no rebound, no rigidity, no guarding/peritoneal signs.Vital signs stable. Patient requests Chloraseptic spray as she states that it has helped her in the past. She is also very dry oral mucosa and is requesting Ice chips. NG tube output: Gastric drainage 350 mL today. 1800 mL yesterday. Cumulative 4550 mL. Plan: -Continue NG to LIWS -Keep NPO except ice chips Q 8 hrs -OOB to chair -Serial abdominal exams -IS Q1hr while awake -VS per protocol -Elevated HOB 30 degrees -O2 2L NC continue soriano secondary to urinary retention await return of bowel function, continue conservative management currently. give suppository to see if helps stimulate AXR in am ok to clamp ngt and allow pt to ambulate OOB to chair BID (2) Tlxzi-vm-tqaiubb kidney injury Current Visit: Yes Status: Resolved Creatinine is improving with IV fluid hydration and Soriano catheter placement. sCr 0.87<1.00 , GFR >60 -Continue IVF -Continue to monitor vital signs -I/Os -AM labs (3) Hyponatremia Current Visit: Yes Status: Chronic Resolved. Sodium of 139 today > 137> 134 (4) Inflammatory arthritis Current Visit: Yes Status: Acute (5) DVT prophylaxis Current Visit: Yes Status: Acute The assessment and plan as outlined above was discussed with the patient and/or family members who expressed understanding and agreement. All questions were answered. EPCDs to bilateral lower extremities for DVT prophylaxis (6) Hypokalemia Current Visit: No Status: Acute replaced today, monitor Subjective Patient reports: no new complaints, feels better, pain is less, no flatus, no bowel movement, afebrile, other (No nausea or vomiting) Narrative: The patient was seen and examined. She states that she is very dry and thirsty and would like ice chips. Patient has tried moister sponges for her mouth, Chapstick lubrication for her lips, and frozen lemon ice without resolution of sore throat and dry mucosa. Patient is requesting Chloraseptic spray as it has helped her in the past. Patient still has mild abdominal pain most notably at mid epigastric to periumbilical region on palpation. Objective Vital Signs - Last 8 Hours Temp Pulse Resp BP Pulse Ox 04/07/17 08:30 97.6 F 63 18 119/78 99 04/07/17 05:22 98.1 F 69 15 127/76 99 Intake and Output 04/06/17 04/07/17 04/07/17 23:59 07:59 15:59 Intake Total 587 / 587 0 / 0 0 / 0 Output Total 1100 / 1100 500 / 500 0 / 0 Balance -513 / -513 -500 / -500 0 / 0 Intake: IV Fluids 587 / 587 0 / 0 KCl 20mEq IN D5%-0.45 587 / 587 0 / 0 NACL 20 meq In 1,000 ml @ 100 mls/hr IVC .Q10H [facility] Rx#:[id number] Oral 0 / 0 0 / 0 Output: Catheter 250 / 250 150 / 150 0 / 0 Gastric Drainage 850 / 850 350 / 350 Other: Meal NPO Weight 59.1 kg Blood Glucose* 151 125 Patient Weight 04/07/17 23:59 Weight 59.1 kg - General physical appearance moderate pain, cachectic, chronically ill - Eyes PERRL, normal ocular movement - ENT normal nares (NG tube in place), dry mucosa, atraumatic, normocephalic, CN 2-12 grossly intact - Neck Neck exam: trachea midline, no venous distension - Respiratory normal expansion, normal respiratory effort, clear to auscultation - Cardiovascular Cardiovascular exam: Present: RRR, no murmurs/rubs/gallops. Absent: JVD - Abdomen Abdomen: Present: bowel sounds present, soft. Absent: distended, tender, masses , guarding, rebound, rigid Abdominal Tenderness: diffusely - Integumentary no rash, no growths - Neurologic normal coordination, normal sensation - Musculoskeletal normal posture - Psychiatric oriented to time, oriented to person, oriented to place, memory intact - Labs 04/07/17 04:17 04/07/17 04:17 Short CBC 04/07/17 Range/Units 04:17 WBC 6.8 (4.3-11.1) K/mcL Hgb 12.1 (11.5-15.4) g/dL Hct 37.5 (35.3-44.9) % Plt Count 271 (140-400) K/mcL Neutrophils # 4.4 (1.6-8.9) K/mcL BMP 04/07/17 Range/Units 04:17 Sodium 139 (136-145) mEq/L Potassium 3.3 L (3.5-4.5) mEq/L Chloride 105 (98-109) mEq/L Carbon Dioxide 25 (19-29) mEq/L BUN 32 H (7-20) mg/dL Creatinine 0.87 (0.57-1.11) mg/dL Glucose 109 H (70-99) mg/dL Calcium 9.2 (8.6-10.8) mg/dL Liver Function 04/07/17 Range/Units 04:17 Total Bilirubin 0.7 (0.2-1.2) mg/dL AST 26 (5-34) Units/L ALT 14 (0-55) Units/L Alkaline Phosphatase 67 (38-126) Units/L Albumin 2.7 L (3.5-5.0) g/dL Vital Signs Temp Pulse Resp BP Pulse Ox 04/07/17 14:45 97.8 F 66 18 136/80 96 04/07/17 11:30 98.0 F 89 18 128/85 100 04/07/17 11:20 97.9 F 82 18 112/76 94 04/07/17 08:30 97.6 F 63 18 119/78 99 04/07/17 05:22 98.1 F 69 15 127/76 99 04/06/17 23:27 97.7 F 78 15 146/80 98 04/06/17 19:03 97.9 F 66 13 127/75 98 Intake and Output 04/07/17 04/07/17 04/07/17 07:59 15:59 23:59 Intake Total 0 / 0 1120 / 1120 Output Total 500 / 500 350 / 350 Balance -500 / -500 770 / 770 Intake: IV Fluids 0 / 0 1000 / 1000 KCl 20mEq IN D5%-0.45 0 / 0 1000 / 1000 NACL 20 meq In 1,000 ml @ 100 mls/hr IVC .Q10H [facility] Rx#:[id number] Oral 120 / 120 Output: Catheter 150 / 150 100 / 100 Gastric Drainage 350 / 350 250 / 250 Other: Meal ice chips npo Weight 59.1 kg Blood Glucose* 125 111 176 Patient Weight 04/07/17 23:59 Weight 59.1 kg - VTE Documentation of Mechanical Device: Intermittent pneumatic compression device Consult Discharge Plan - Plan Referrals: Kathi Middleton DO [Primary Care Provider] - - Attending Attestation I examined this patient and my medical decision-making was reviewed with the SQL TECH/PA/Advanced Practice Nurse/Resident Physician. I agree with the documented findings, disposition and treatment plan as described except to the extent set forth below.
[2017-04-07] MEDS ORDERED: Chloraseptic Spray 177 ML BOTTLE MM PRN (12:00)
[2017-04-07] MEDS: Bisacodyl 10 MG RECTAL SUPPOSITORY RC SCH (17:37)
[2017-04-08] MEDS: *HR* Metoprolol 5 MG/5 ML VIAL IVP SCH ×4 (00:14→18:46)
[2017-04-08 05:00] LABS: Basophils % 0.5 %; Eosinophils # 0.2 K/mcL (0.0-0.6); Hematocrit 36.2 % (35.3-44.9); Hemoglobin 11.9 g/dL (11.5-15.4); Immature Granulocytes % 0.3 % (0-4); Lymphocytes # 1.4 K/mcL (0.6-4.6); Lymphocytes % 18.9 %; Mean Corpuscular HGB Conc 32.9 g/dL (31.6-35.5); Mean Corpuscular Hemoglobin 27.1 pg (28.0-33.3); Mean Corpuscular Volume 82.5 fL (83.0-100.0); Mean Platelet Volume 10.6 fL (9.4-12.4); Monocytes # 0.9 K/mcL (0.0-1.3); Monocytes % 11.2 %; Neutrophils # 5.1 K/mcL (1.6-8.9); Platelet Count 244 K/mcL (140-400); Red Blood Count 4.39 M/mcL (3.82-4.97); Red Cell Distribution Width 15.2 % (11.5-14.5); Segmented Neutrophils % 67.1 %
[2017-04-08 05:13] LABS: BUN/Creatinine Ratio 29 (6-26); Blood Urea Nitrogen 24 mg/dL (7-20); Carbon Dioxide 24 mEq/L (19-29); Chloride 106 mEq/L (98-109); Glucose 97 mg/dL (70-99); Magnesium 1.5 mg/dL (1.6-2.6); Osmolality,Calculated 286 (280-300); Sodium 136 mEq/L (136-145); eGFR For African Americans > 60 (> 60); eGFR For Non-African Americans > 60 (> 60)
[2017-04-08 05:14] LABS: Phosphorous 1.8 mg/dL (2.3-4.7); Potassium 4.7 mEq/L (3.5-4.5)
[2017-04-08] MEDS: Pantoprazole 40 MG VIAL IVP SCH (06:16)
--- NOTE | 2017-04-08 06:45 | General Surgery Progress Note ---
Date of Encounter: 04/08/17 Time of Encounter: 09:03 - Assessment and Plan (1) Small bowel obstruction Current Visit: Yes Status: Acute NG tube output: Gastric drainage 750 mL today. 1150 mL yesterday. Potassium has mildly increased to 4.7 today from 3.3 yesterday. will change IVF to 1/2 NS and start TPN Phosphorus has decreased to 1.8 Plan: -Continue NG to LIWS -Keep NPO except ice chips Q 8 hrs -Serial abdominal exams continue soriano secondary to urinary retention await return of bowel function, continue conservative management currently. KUB today shows increased small bowel dilation, had patient on OR schedule for today but she states she wants to wait because she feels too weak, I feel she is going to need surgical intervention at some point in near future, discussed with patient start PICC/TPN today PT/OT ok to clamp ngt and allow pt to ambulate OOB to chair BID (2) Inflammatory arthritis Current Visit: Yes Status: Acute (3) DVT prophylaxis Current Visit: Yes Status: Acute The assessment and plan as outlined above was discussed with the patient and/or family members who expressed understanding and agreement. All questions were answered. EPCDs to bilateral lower extremities for DVT prophylaxis (4) Physical deconditioning Current Visit: Yes Status: Chronic PT/OT overall generalized weakness (5) Severe protein-calorie malnutrition Current Visit: No Status: Chronic start TPN Subjective Patient reports: still having pain, flatus, no bowel movement, afebrile Narrative: Patient was seen and examined. Today patient states that she is feeling pretty weak as she has not eaten for 6 days. Patient states that yesterday was difficult due to the boil alert at the hospital she was unable to obtain ice chips her mouth and throat were very dry. Patient has been using the moist sponges for her mouth and Chapstick lubrication without full resolution of dry mouth and sore throat. Chloraseptic spray was added to her regimen yesterday. Patient continues to have mild diffuse abdominal pain most notably at mid epigastric to periumbilical region on palpation. Patient states that the nurses tried to do an enema for her yesterday but they did not get much out, however, she states that she had flatus while she was on the commode. had suppository yesterday and passed a little flatus and a smear of stool no nausea no abdominal pain Objective Vital Signs - Last 8 Hours Temp Pulse Resp BP Pulse Ox 04/08/17 03:45 97.9 F 68 18 109/68 98 04/08/17 01:06 98.7 F 73 16 121/81 97 Intake and Output 04/07/17 04/07/17 04/08/17 15:59 23:59 07:59 Intake Total 1120 / 1120 1000 / 1000 Output Total 350 / 350 800 / 800 0 / 0 Balance 770 / 770 200 / 200 0 / 0 Intake: IV Fluids 1000 / 1000 1000 / 1000 KCl 20mEq IN D5%-0.45 1000 / 1000 1000 / 1000 NACL 20 meq In 1,000 ml @ 100 mls/hr IVC .Q10H [facility] Rx#:[id number] Oral 120 / 120 0 / 0 Output: Urine 0 / 0 Catheter 100 / 100 250 / 250 Gastric Drainage 250 / 250 550 / 550 Other: Meal ice chips npo Weight 58.4 kg Blood Glucose* 111 176 104 Patient Weight 04/08/17 23:59 Weight 58.4 kg - General physical appearance no pain, moderate pain, cachectic, chronically ill - Eyes PERRL, normal ocular movement - ENT normal pinna, normal nares, dry mucosa, atraumatic, normocephalic, CN 2-12 grossly intact - Neck Neck exam: trachea midline, no venous distension - Respiratory normal expansion, normal respiratory effort, clear to auscultation - Cardiovascular Cardiovascular exam: Present: RRR, no murmurs/rubs/gallops. Absent: JVD - Abdomen Abdomen: Present: bowel sounds present, soft, tender Abdominal Tenderness: diffusely - Integumentary no rash, no abnormal pigmentation - Neurologic CN 2-12 grossly intact, normal coordination, normal sensation - Musculoskeletal normal posture, other (generalized deconditioning) - Psychiatric oriented to time, oriented to person, oriented to place, speech is normal, memory intact - Labs 04/08/17 03:35 04/08/17 03:35 Short CBC 04/08/17 Range/Units 03:35 WBC 7.6 (4.3-11.1) K/mcL Hgb 11.9 (11.5-15.4) g/dL Hct 36.2 (35.3-44.9) % Plt Count 244 (140-400) K/mcL Neutrophils # 5.1 (1.6-8.9) K/mcL BMP 04/08/17 Range/Units 03:35 Sodium 136 (136-145) mEq/L Potassium 4.7 H D (3.5-4.5) mEq/L Chloride 106 (98-109) mEq/L Carbon Dioxide 24 (19-29) mEq/L BUN 24 H (7-20) mg/dL Creatinine 0.83 (0.57-1.11) mg/dL Glucose 97 (70-99) mg/dL Calcium 9.0 (8.6-10.8) mg/dL Vital Signs Temp Pulse Resp BP Pulse Ox 04/08/17 03:45 97.9 F 68 18 109/68 98 04/08/17 01:06 98.7 F 73 16 121/81 97 04/07/17 19:54 98.6 F 61 14 102/69 96 04/07/17 14:45 97.8 F 66 18 136/80 96 04/07/17 11:30 98.0 F 89 18 128/85 100 04/07/17 11:20 97.9 F 82 18 112/76 94 Intake and Output 04/07/17 04/08/17 04/08/17 23:59 07:59 15:59 Intake Total 1000 / 1000 Output Total 800 / 800 750 / 750 Balance 200 / 200 -750 / -750 Intake: IV Fluids 1000 / 1000 KCl 20mEq IN D5%-0.45 1000 / 1000 NACL 20 meq In 1,000 ml @ 100 mls/hr IVC .Q10H [facility] Rx#:[id number] Oral 0 / 0 Output: Urine 0 / 0 Catheter 250 / 250 Gastric Drainage 550 / 550 750 / 750 Other: Meal npo Weight 58.4 kg Blood Glucose* 176 104 Patient Weight 04/08/17 23:59 Weight 58.4 kg - Imaging Abdominal x-ray: report reviewed, image reviewed - VTE Documentation of Mechanical Device: Intermittent pneumatic compression device Consult Discharge Plan - Plan Referrals: Kathi Middleton DO [Primary Care Provider] - - Attending Attestation I examined this patient and my medical decision-making was reviewed with the CRITICAL CARE REGISTERED NURSE/PA/Advanced Practice Nurse/Resident Physician. I agree with the documented findings, disposition and treatment plan as described except to the extent set forth below.
[2017-04-08] MEDS ORDERED: Magnesium Sulfate 2 GM in D5% in Water 100 ML IVPB ONE (08:32)
[2017-04-08] MEDS ORDERED: D10% in Water 500 ML IVC PRN (10:38)
[2017-04-08] MEDS: Bisacodyl 10 MG RECTAL SUPPOSITORY RC SCH (11:01)
[2017-04-08] MEDS ORDERED: Clinimix E 5%-15% SOLUTION 2,000 ML with MVI, adult with vitamin K 10 ML IVC ONE (17:00)
[2017-04-09] MEDS: *HR* Metoprolol 5 MG/5 ML VIAL IVP SCH ×3 (00:27→17:07)
[2017-04-09 04:25] LABS: BUN/Creatinine Ratio 28 (6-26); Blood Urea Nitrogen 22 mg/dL (7-20); Calcium 8.5 mg/dL (8.6-10.8); Carbon Dioxide 23 mEq/L (19-29); Chloride 104 mEq/L (98-109); Glucose 98 mg/dL (70-99); Magnesium 1.8 mg/dL (1.6-2.6); Osmolality,Calculated 277 (280-300); Phosphorous 2.7 mg/dL (2.3-4.7); Potassium 3.8 mEq/L (3.5-4.5); Sodium 132 mEq/L (136-145); eGFR For African Americans > 60 (> 60); eGFR For Non-African Americans > 60 (> 60)
[2017-04-09] MEDS: Pantoprazole 40 MG VIAL IVP SCH (06:15)
[2017-04-09] MEDS: Bisacodyl 10 MG RECTAL SUPPOSITORY RC SCH (08:01)
--- NOTE | 2017-04-09 08:19 | Anesthesia Evaluation PreOp ---
Date of Encounter: 04/09/17 Time of Encounter: 08:14 - Past History Planned Operation: Exp. Lap. Cardiac History: Denies any Significant Hx, HTN, Hyperlipidemia Pulmonary History: Denies Any Significant HX ATHLETIC SCOUT History: Denies Any Significant HX Other Medical History: GERD, Other (RA) Anesthesia History: Past Anesthesia (S) : No Alcohol Use: none Drug use: none Medications and Allergies Cyanocobalamin (Vitamin B-12) [Vitamin B12] 1,000 mcg PO DAILY 07/28/15 [History ] Lisinopril [Zestril] 2.5 mg PO DAILY 07/28/15 [History] Metoprolol [Lopressor] 50 mg PO BID 07/28/15 [History] Omeprazole [PriLOSEC] 20 mg PO DAILY 07/28/15 [History] Potassium Chloride 20 meq PO BID 07/28/15 [History] Triamterene/HCTZ 37.5/25mg [Dyazide] 1 tab PO DAILY 07/28/15 [History] Multivit-Min/FA/Herbal No.245 [Alive Women's Gummy Vitamins] 1 tab PO DAILY [History] Hydroxychloroquine [Plaquenuil] 300 mg PO DAILY 02/27/17 [History] Colchicine [Colcrys] 0.6 mg PO DAILY #30 tablet 03/01/17 [Rx] Lactose-Reduced Food [Ensure Plus] 1 bottle PO TID #90 can 03/01/17 [Rx] Allergies Pneumococcal Vaccine Allergy (Verified 02/27/17 15:43) Cough tuberculin, purified protein deriva [tuberculin,purif.prot.deriv.] Allergy ( Verified 02/27/17 15:43) Blister aspirin Adverse Reaction (Verified 02/27/17 15:43) See Comments PATIENT HAS KIDNEY ISSUES ibuprofen [From Motrin] Adverse Reaction (Verified 02/27/17 15:43) See Comments PATIENT HAS KIDNEY ISSUES - Meds/Allergy Pre-op Review Medications Reviewed: Yes Allergies Reviewed: Yes Beta Blockers on Current Med List: No If Beta Blockers taken, Date/Time (Last Dose taken): 06:13 04/09/2017 Anesthesia Results - Labs 04/08/17 03:35 04/09/17 03:15 - Imaging EKG: image reviewed ( with sinus arrythmai) Anesthesia Exam O2 Sat Weight 58.4 kg O2 Sat by Pulse Oximetry 97 O2 Sat by Pulse Oximetry 96 O2 Sat by Pulse Oximetry 96 O2 Sat by Pulse Oximetry 98 O2 Sat by Pulse Oximetry 98 O2 Sat by Pulse Oximetry 97 Vital Signs Temp Pulse Resp BP Pulse Ox 98.2 F 101 18 103/70 96 04/04/17 20:07 04/04/17 20:07 04/04/17 20:07 04/04/17 20:07 04/04/17 20:07 Vital Signs/O2 Sat, Most Current Temp Pulse Resp BP Pulse Ox 98.4 F 81 12 125/78 97 04/09/17 06:10 04/09/17 06:10 04/09/17 06:10 04/09/17 06:10 04/09/17 06:10 Height: 5'5'' Weight: 128# NPO (# of Hours): > 8 nhrs Pain Scale: 0 Pain Scale Used: Numeric (1 - 10) - HEENT Pupil (Motor): Pupils equal, EOMI Mallampati: II Teeth: Edentulous Denture Type: Upper: Complete, Lower: Complete Oral Opening: Greater than 3 - ATHLETIC SCOUT LOC: Oriented ATHLETIC SCOUT Motor: Normal RUE, Normal LUE, Normal RLE, Normal LLE, Normal Face ATHLETIC SCOUT Sensory: Normal: RUE, LUE, RLE, LLE, Face - Cardiac Rhythm: Regular Murmur: None JVD: No Carotid Bruit: No - Pulmonary Breath Sounds: bilateral Clear Respiratory Effort: Symmetrical Anesthesia Assess/Plan ASA Score: 2, E Modified [place] Scale for Level of Consciousness: Cooperative, oriented, and tranquil Anesthetic Plan: General Autologous Blood: Yes Monitoring Plan: Standard Monitors Recovery Plan: PACU
[2017-04-09] MEDS ORDERED: *HR* Propofol 200 MG/20 ML VIAL IVP ONE (10:00)
[2017-04-09] MEDS ORDERED: *HR* Midazolam HCl 2 MG/2 ML VIAL ONE (10:00)
[2017-04-09] MEDS ORDERED: *HR* FentaNYL (PF) 100 MCG/2 ML VIAL ONE (10:00)
[2017-04-09] MEDS ORDERED: *HR* Promethazine 25 MG/ML VIAL IVP PRN (10:18)
[2017-04-09] MEDS ORDERED: *HR* Labetalol 100 MG/20 ML MDV IVP PRN (10:18)
[2017-04-09] MEDS ORDERED: *HR* HYDROmorphone (PF) 1 MG/ML SYRINGE IVP PRN (10:18)
[2017-04-09] MEDS ORDERED: Ondansetron 4 MG/2 ML VIAL IVP ONE (10:18)
[2017-04-09] MEDS ORDERED: Albuterol 2.5 MG/3 ML NEBULIZER IH ONE (10:18)
[2017-04-09] MEDS ORDERED: Dexamethasone 4 MG/ML VIAL ONE (10:24)
[2017-04-09] MEDS ORDERED: *HR* Rocuronium Bromide 50 MG/5 ML VIAL ONE (10:24)
[2017-04-09] MEDS ORDERED: Ondansetron 4 MG/2 ML VIAL ONE (10:24)
[2017-04-09] MEDS ORDERED: Lidocaine -MPF 2% 2 ML VIAL ONE (10:24)
[2017-04-09] MEDS ORDERED: *HR* Heparin 5,000 UNIT/ML VIAL ONE (10:32)
[2017-04-09] MEDS ORDERED: 0.9 % Sodium Chloride 500 ML ONE (11:51)
--- NOTE | 2017-04-09 14:19 | Operative Note ---
Date of procedure: 04/09/17 Pre-op diagnosis: Small bowel obstruction Post-op diagnosis: same Procedure: #1 lysis of adhesions times 1 hour #2 small bowel resection times 1 Anesthesia: INDIO Surgeon: Seymour Tijerina Estimated blood loss (cc): 50 Specimen: Small bowel segment 12 cm Condition: stable Disposition: PACU Procedure in Detail: After informed consent and appropriate patient identification timeout the patient was taken to the major operative suite placed in supine position given adequate general anesthetic. The abdomen was prepped and draped in sterile fashion utilizing ChloraPrep standard draping techniques. Timeout was taken patient was identified. I opened the previous midline in the lower abdomen. I entered the abdominal cavity. There were dense adhesions to the anterior abdominal wall. There were dense adhesions between the small bowel loops. Lysis of adhesions was performed times 1 hour. There were no enterotomies. The small bowel was lysed from ligament of Treitz to ileocecal valve. There was a marked transition point in the pelvis with a 4-1 diameter ratio at the point of obstruction. This was a dense band of tissue involving small bowel mesentery. The dense band of tissue was divided and the area was lysed. Once this was done I felt that the bowel in this area was viable and no resection was necessary. As I reevaluated the small bowel the area of mesentery that was involved in the obstructing adhesion was now divided and there is a short segment of small bowel ischemia that resulted. This is just above the area of mesentery that was causing the adhesion. This area of bowel was not viable. I divided the small bowel proximal and distal to this area in good blood supply. About a 12 cm resection was performed. The mesentery was divided between clamps and hemostatic ligatures. I performed a functional end-to-end anastomosis with FLOR on the antimesenteric border and then I closed the resulting enterotomy with a TA 60. The staple anastomosis was circumferentially supported with seromuscular stitches of 3-0 silk interrupted. The opening in the mesentery was closed with 2 [id number] stitches of 3- 0 silk. This gave an excellent technical result. The abdomen was irrigated with copious amounts of antibiotic containing solution. There were no other areas of stenosis. The abdomen was closed with looped 0 PDS and the skin with interrupted Vicryl and skin clips.
--- NOTE | 2017-04-09 15:14 | Anesthesia Evaluation Post Op ---
Date of Encounter: 04/09/17 Time of Encounter: 15:14 - Vital Signs Vital Signs: Vital Signs/O2 Sat, Most Current Temp Pulse Resp BP Pulse Ox 98.0 F 89 16 107/69 98 04/09/17 14:55 04/09/17 15:05 04/09/17 15:05 04/09/17 15:05 04/09/17 15:05 - Lungs Lungs: Clear Ascult./Percussion - Airway Airway: Non-obstructed - Cardiovascular Regular Rate - Mental Status Mental Status: Alert & Oriented, Answers Appropriately - Pain Pain Scale: 2 Pain Scale used: Numeric (1 - 10) - Nausea Vomiting Nausea Vomiting: Not Present - Hydration Hydration: NPO, Malcolm catheter - Discharge PostOp Status: Transfer Patient to floor
[2017-04-09] MEDS ORDERED: D10% in Water 500 ML IVC PRN (15:38)
[2017-04-09] MEDS ORDERED: Ondansetron 4 MG/2 ML VIAL IVP PRN (15:38)
[2017-04-09] MEDS ORDERED: Chloraseptic Spray 177 ML BOTTLE MM PRN (15:38)
[2017-04-09] MEDS ORDERED: Clinimix E 5%-15% SOLUTION 2,000 ML with MVI, adult with vitamin K 10 ML IVC ONE ×2 (17:00)
[2017-04-09] MEDS: *HR* HYDROmorphone (PF) 1 MG/ML SYRINGE IVP PRN (18:21)
[2017-04-09] MEDS ORDERED: D5% in Water 1,000 ML IVC PRN (22:30)
[2017-04-09] MEDS ORDERED: Dextrose Gel 15 GM PO PRN ×2 (22:30)
[2017-04-09] MEDS ORDERED: *HR* Dextrose 50 % in Water (Syg) 50 ML SYRINGE IVP PRN (22:30)
[2017-04-10] MEDS: Insulin LISPRO 300 UNITS/3 ML VIAL SQ SCH ×6 (00:28→21:06)
[2017-04-10] MEDS: *HR* Metoprolol 5 MG/5 ML VIAL IVP SCH ×4 (00:29→17:27)
[2017-04-10 03:56] LABS: BUN/Creatinine Ratio 33 (6-26); Blood Urea Nitrogen 26 mg/dL (7-20); Calcium 8.4 mg/dL (8.6-10.8); Carbon Dioxide 20 mEq/L (19-29); Chloride 104 mEq/L (98-109); Glucose 174 mg/dL (70-99); Magnesium 1.6 mg/dL (1.6-2.6); Osmolality,Calculated 283 (280-300); Phosphorous 2.1 mg/dL (2.3-4.7); Sodium 132 mEq/L (136-145); eGFR For African Americans > 60 (> 60); eGFR For Non-African Americans > 60 (> 60)
[2017-04-10] MEDS: Pantoprazole 40 MG VIAL IVP SCH (05:32)
[2017-04-10] MEDS: *HR* Morphine 2 MG/ML SYRINGE IVP PRN (05:32)
--- NOTE | 2017-04-10 07:24 | General Surgery Progress Note ---
Date of Encounter: 04/10/17 Time of Encounter: 06:10 - Assessment and Plan (1) Small bowel obstruction Current Visit: Yes Status: Acute Patient is postoperative day 1 for; 1. Lysis of his lesions time one hour, 2. Small bowel resection [address] Tijerina on 04/09/17. Patient reports minimal midline abdominal tenderness over incision as expected postoperatively with resolution of prior abdominal pain. Patient denies flatus or bowel movement, nausea or vomiting. Incision is clean dry and intact. On examination: Patient is pleasant and conversant, A&O 3, NG tube is in place , Malcolm catheter is in place maintaining good output, abdominal exam with minimal abdominal tenderness to palpation over incision area, bowel sounds present, no rebound, no rigidity, no guarding/peritoneal signs.Vital signs stable. No acute events overnight. Continuing TPN until return of bowel function. EBL 50ml NG tube output: Gastric drainage 250 mL today. I/O: 1266 ml/875 ml = +391 UO:350 ml Plan: Maintain bowel rest while awaiting return of bowel function Keep nothing by mouth except for ice chips every 8 hours NG tube to low intermittent wall suction. Okay to clamp and allow patient to ambulate. IV fluids to maintain hydration TPN for nutrition while awaiting return of bowel function Supportive care and pain control IS every 1 hour while awake Repeat am labs Maintain Malcolm catheter for strict I and O's. Continue Malcolm secondary to urinary retention. Serial abdominal exams Vital signs per protocol Elevate head of bed to 30 degrees Daily dressing change- complete today PPI therapy daily DVT prophylaxis Chloraseptic spray for sore throat as needed Out of bed to chair twice a day (2) Sjgkv-[id number]-qouzmfb kidney injury Current Visit: Yes Status: Resolved Resolved (3) Hyponatremia Current Visit: Yes Status: Resolved Resolved. (4) Inflammatory arthritis Current Visit: Yes Status: Acute (5) DVT prophylaxis Current Visit: Yes Status: Acute The assessment and plan as outlined above was discussed with the patient and/or family members who expressed understanding and agreement. All questions were answered. EPCDs to bilateral lower extremities for DVT prophylaxis Subjective Patient reports: still having pain, pain is less, no flatus, no bowel movement, afebrile Narrative: Patient was seen and examined. She states that her mouth continues to be dry and she has not yet received her Chloraseptic [place]. She states that her abdominal pain has resolved and now she just has a little achy sensation. No acute events overnight. NG tube has decreased output today. Patient has active bowel sounds however she has not passed gas or had a bowel movement. Objective Vital Signs - Last 8 Hours Temp Pulse Resp BP Pulse Ox 04/10/17 04:53 98.1 F 96 14 135/80 98 04/10/17 00:08 97.6 F 103 14 145/76 95 Intake and Output 04/09/17 04/09/17 04/10/17 15:59 23:59 07:59 Intake Total 1266 / 1266 Output Total 50 / 50 600 / 600 Balance -50 / -50 666 / 666 Intake: IV Fluids 1266 / 1266 0.45% Sodium Chloride 408 / 408 1000 Ml 1000 Ml 1,000 ML @ 100 mls/hr IVC .Q10H [facility] Rx#:[id number] Clinimix E 5%-15% 608 / 608 SOLUTION 2,000 ML @ 60 mls/hr IVC .Q24H [facility] with M.v.i. Adult 10 ml Rx#: [id number] Intralipid 20% 250 ML @ 250 / 250 21 mls/hr IVPB DAILY@1700 [facility] Rx#:[id number] Oral 0 / 0 Output: Urine 350 / 350 Estimated Blood Loss 50 / 50 Gastric Drainage 250 / 250 Other: Meal NPO for supper Weight 58.3 kg Blood Glucose* 190 172 Patient Weight 04/10/17 23:59 Weight 58.3 kg - General physical appearance no distress, moderate pain, cachectic, chronically ill - Eyes PERRL, normal ocular movement - ENT dry mucosa, atraumatic, normocephalic, CN 2-12 grossly intact - Respiratory normal expansion, normal respiratory effort, clear to auscultation - Cardiovascular Cardiovascular exam: Present: RRR, no murmurs/rubs/gallops. Absent: JVD - Abdomen Abdomen: Present: bowel sounds present, soft, tender (Postoperative tenderness as expected over incision however, patient reports that her abdominal pain has resolved.) - Incision Incision: Present: clean and dry, intact - Genitourinary other (Malcolm in place) - Integumentary no rash, no abnormal pigmentation - Neurologic CN 2-12 grossly intact, normal coordination, normal sensation - Musculoskeletal normal posture - Psychiatric oriented to time, oriented to person, oriented to place, speech is normal, memory intact - Labs 04/12/17 03:39 04/12/17 03:39 Diabetes panel 04/10/17 Range/Units 03:25 Sodium 132 L (136-145) mEq/L Potassium 4.0 (3.5-4.5) mEq/L Chloride 104 (98-109) mEq/L Carbon Dioxide 20 (19-29) mEq/L BUN 26 H (7-20) mg/dL Creatinine 0.78 (0.57-1.11) mg/dL Glucose 174 H (70-99) mg/dL Calcium 8.4 L (8.6-10.8) mg/dL Calcium panel 04/10/17 Range/Units 03:25 Calcium 8.4 L (8.6-10.8) mg/dL Phosphorus 2.1 L (2.3-4.7) mg/dL Pituitary panel 04/10/17 Range/Units 03:25 Sodium 132 L (136-145) mEq/L Potassium 4.0 (3.5-4.5) mEq/L Chloride 104 (98-109) mEq/L Carbon Dioxide 20 (19-29) mEq/L BUN 26 H (7-20) mg/dL Creatinine 0.78 (0.57-1.11) mg/dL Glucose 174 H (70-99) mg/dL Calcium 8.4 L (8.6-10.8) mg/dL Adrenal panel 04/10/17 Range/Units 03:25 Sodium 132 L (136-145) mEq/L Potassium 4.0 (3.5-4.5) mEq/L Chloride 104 (98-109) mEq/L Carbon Dioxide 20 (19-29) mEq/L BUN 26 H (7-20) mg/dL Creatinine 0.78 (0.57-1.11) mg/dL Glucose 174 H (70-99) mg/dL Calcium 8.4 L (8.6-10.8) mg/dL - VTE Documentation of Mechanical Device: Intermittent pneumatic compression device Consult Discharge Plan - Plan Referrals: Kathi Middleton DO [Primary Care Provider] - - Attending Attestation I examined this patient and my medical decision-making was reviewed with the STEAM HOIST OPERATOR/PA/Advanced Practice Nurse/Resident Physician. I agree with the documented findings, disposition and treatment plan as described except to the extent set forth below. Doing well postoperative day 1 was adhesions and small bowel resection. Continue supportive care. Seymour Tijerina MD FACS
[2017-04-10] MEDS ORDERED: Clinimix E 5%-15% SOLUTION 2,000 ML with MVI, adult with vitamin K 10 ML IVC ONE ×2 (17:00)
[2017-04-11] MEDS: *HR* Metoprolol 5 MG/5 ML VIAL IVP SCH ×5 (00:45→23:42)
[2017-04-11] MEDS: Insulin LISPRO 300 UNITS/3 ML VIAL SQ SCH ×5 (00:48→16:00)
[2017-04-11] MEDS: Pantoprazole 40 MG VIAL IVP SCH (05:44)
[2017-04-11 07:47] LABS: BUN/Creatinine Ratio 41 (6-26); Blood Urea Nitrogen 26 mg/dL (7-20); Calcium 8.1 mg/dL (8.6-10.8); Carbon Dioxide 21 mEq/L (19-29); Chloride 102 mEq/L (98-109); Glucose 121 mg/dL (70-99); Magnesium 1.3 mg/dL (1.6-2.6); Osmolality,Calculated 276 (280-300); Phosphorous 1.8 mg/dL (2.3-4.7); Potassium 3.6 mEq/L (3.5-4.5); Sodium 130 mEq/L (136-145); eGFR For African Americans > 60 (> 60); eGFR For Non-African Americans > 60 (> 60)
--- NOTE | 2017-04-11 07:53 | General Surgery Progress Note ---
Date of Encounter: 04/11/17 Time of Encounter: 06:00 - Assessment and Plan (1) Small bowel obstruction Current Visit: Yes Status: Acute Patient is postoperative day 2 for; 1. Lysis of his lesions time one hour, 2. Small bowel resection [address] Tijerina on 04/09/17. Patient reports midline abdominal tenderness over incision as expected postoperatively with diffuse achy abdominal pain today. Patient denies flatus or bowel movement, nausea or vomiting. Incision is clean dry and intact. Patient is describing marked weakness today stating difficulty sitting up in the bed. On examination: Patient is pleasant and conversant, A&O 3, NG tube is in place , Malcolm catheter is in place maintaining good output, abdominal exam with minimal abdominal tenderness to palpation over incision area, bowel sounds present, no rebound, no rigidity, no guarding/peritoneal signs.Vital signs stable. No acute events overnight. Continuing TPN until return of bowel function. NG tube output: Gastric drainage 650 mL today. I/O: 1266 ml - 850 ml = +416 This morning lab was unable to draw from her line as it had occluded. Lab was called by nursing staff to return to floor for repeat draw. Hemoglobin has dropped to 11.0 over past 2 days from 11.9. Hyponatremia 130<132 Hypocalcemia 8.1<8.4 Hypophosphatemia 1.8<2.1 Hypomagnesemia 1.3<1.6 Plan: Maintain bowel rest while awaiting return of bowel function Keep nothing by mouth except for ice chips every 8 hours NG tube to low intermittent wall suction. Okay to clamp and allow patient to ambulate. IV fluids to maintain hydration TPN for nutrition while awaiting return of bowel function Supportive care and pain control IS every 1 hour while awake Repeat am labs Maintain Malcolm catheter for strict I and O's. Continue Malcolm secondary to urinary retention. Serial abdominal exams Vital signs per protocol Elevate head of bed to 30 degrees Daily dressing change- complete today PPI therapy daily DVT prophylaxis Chloraseptic spray for sore throat as needed Out of bed to chair twice a day Replete electrolytes magnesium, phosphorus. Slow correction of Hyponatremia. (2) Rulta-rh-salxsjx kidney injury Current Visit: Yes Status: Resolved Resolved (3) Hyponatremia Current Visit: Yes Status: Resolved (4) Inflammatory arthritis Current Visit: Yes Status: Acute (5) DVT prophylaxis Current Visit: Yes Status: Acute The assessment and plan as outlined above was discussed with the patient and/or family members who expressed understanding and agreement. All questions were answered. EPCDs to bilateral lower extremities for DVT prophylaxis Subjective Patient reports: still having pain, no flatus, no bowel movement, afebrile Narrative: The patient was seen and examined. Patient states that she is feeling much weaker today feels like it is difficult for her to even sit up in the bed. States that her mouth continues to be dry. Abdomen is sore today. She has not been up to the chair or ambulated. Denies gas or bowel movement. Objective Vital Signs - Last 8 Hours Temp Pulse Resp BP Pulse Ox 04/11/17 07:10 97 04/11/17 07:04 98.1 F 87 14 126/79 97 04/11/17 04:53 97.8 F 90 14 110/66 97 04/11/17 00:32 98.0 F 95 13 122/74 99 Intake and Output 04/10/17 04/10/17 04/11/17 15:59 23:59 07:59 Intake Total 652 / 652 1266 / 1266 Output Total 275 / 275 375 / 375 850 / 850 Balance -275 / -275 277 / 277 416 / 416 Intake: IV Fluids 592 / 592 1266 / 1266 0.45% Sodium Chloride 592 / 592 404 / 404 1000 Ml 1000 Ml 1,000 ML @ 100 mls/hr IVC .Q10H [facility] Rx#:[id number] Clinimix E 5%-15% 612 / 612 SOLUTION 2,000 ML @ 60 mls/hr IVC .Q24H ONE with M.v.i. Adult 10 ml Rx#: [id number] Intralipid 20% 250 ML @ 250 / 250 21 mls/hr IVPB DAILY@1700 [facility] Rx#:[id number] Oral 60 / 60 0 / 0 Output: Urine 0 / 0 Catheter 275 / 275 375 / 375 200 / 200 Gastric Drainage 650 / 650 Other: Meal NPO for breakfast NPO # Bowel Movements 0 Blood Glucose* 141 139 114 - General physical appearance no distress, moderate pain, cachectic, chronically ill - Eyes PERRL, normal ocular movement - ENT normal nares, dry mucosa, atraumatic, normocephalic - Neck Neck exam: trachea midline, no venous distension - Respiratory normal expansion, normal respiratory effort, clear to auscultation - Cardiovascular Cardiovascular exam: Present: RRR, no murmurs/rubs/gallops. Absent: JVD - Abdomen Abdomen: Present: bowel sounds present, soft, tender (Postoperative tenderness as expected) Abdominal Tenderness: diffusely (Today patient states abdomen is diffuse and achy pain) - Incision Incision: Present: clean and dry, intact - Genitourinary other (Malcolm in place) - Integumentary no rash, no abnormal pigmentation - Neurologic CN 2-12 grossly intact, normal coordination, normal sensation - Musculoskeletal normal posture - Psychiatric oriented to time, oriented to person, oriented to place, speech is normal, memory intact - Labs 04/11/17 08:37 04/11/17 06:37 Diabetes panel 04/11/17 Range/Units 06:37 Sodium 130 L (136-145) mEq/L Potassium 3.6 (3.5-4.5) mEq/L Chloride 102 (98-109) mEq/L Carbon Dioxide 21 (19-29) mEq/L BUN 26 H (7-20) mg/dL Creatinine 0.63 (0.57-1.11) mg/dL Glucose 121 H (70-99) mg/dL Calcium 8.1 L (8.6-10.8) mg/dL Calcium panel 04/11/17 Range/Units 06:37 Calcium 8.1 L (8.6-10.8) mg/dL Phosphorus 1.8 L (2.3-4.7) mg/dL Pituitary panel 04/11/17 Range/Units 06:37 Sodium 130 L (136-145) mEq/L Potassium 3.6 (3.5-4.5) mEq/L Chloride 102 (98-109) mEq/L Carbon Dioxide 21 (19-29) mEq/L BUN 26 H (7-20) mg/dL Creatinine 0.63 (0.57-1.11) mg/dL Glucose 121 H (70-99) mg/dL Calcium 8.1 L (8.6-10.8) mg/dL Adrenal panel 04/11/17 Range/Units 06:37 Sodium 130 L (136-145) mEq/L Potassium 3.6 (3.5-4.5) mEq/L Chloride 102 (98-109) mEq/L Carbon Dioxide 21 (19-29) mEq/L BUN 26 H (7-20) mg/dL Creatinine 0.63 (0.57-1.11) mg/dL Glucose 121 H (70-99) mg/dL Calcium 8.1 L (8.6-10.8) mg/dL - VTE Documentation of Mechanical Device: Intermittent pneumatic compression device Consult Discharge Plan - Plan Referrals: Kathi Middleton DO [Primary Care Provider] -
[2017-04-11 09:14] LABS: Basophils % 0.4 %; Eosinophils # 0.2 K/mcL (0.0-0.6); Eosinophils % 1.6 %; Immature Granulocytes % 0.9 % (0-4); Immature Platelets 4.7 % (1.1-6.1); Lymphocytes # 1.6 K/mcL (0.6-4.6); Lymphocytes % 16.9 %; Mean Corpuscular HGB Conc 33.3 g/dL (31.6-35.5); Mean Corpuscular Hemoglobin 26.7 pg (28.0-33.3); Mean Corpuscular Volume 80.1 fL (83.0-100.0); Monocytes # 0.9 K/mcL (0.0-1.3); Monocytes % 9.3 %; Neutrophils # 6.7 K/mcL (1.6-8.9); Platelet Count 180 K/mcL (140-400); Red Blood Count 4.12 M/mcL (3.82-4.97); Segmented Neutrophils % 70.9 %
[2017-04-11] MEDS ORDERED: Magnesium Sulfate 2 GM in D5% in Water 100 ML IVPB ONE (13:30)
[2017-04-11] MEDS ORDERED: Sodium Phosphate 30 MMOL in D5% in Water 100 ML IVPB ONE (13:34)
[2017-04-11] MEDS ORDERED: Clinimix E 5%-15% SOLUTION 2,000 ML with MVI, adult with vitamin K 10 ML IVC ONE ×2 (17:00)
[2017-04-11] MEDS: *HR* HYDROmorphone (PF) 1 MG/ML SYRINGE IVP PRN (23:42)
[2017-04-12] MEDS: Insulin LISPRO 300 UNITS/3 ML VIAL SQ SCH ×7 (01:45→21:29)
[2017-04-12] MEDS: Pantoprazole 40 MG VIAL IVP SCH (05:17)
[2017-04-12] MEDS: *HR* Metoprolol 5 MG/5 ML VIAL IVP SCH ×3 (05:17→17:25)
[2017-04-12] MEDS: *HR* HYDROmorphone (PF) 1 MG/ML SYRINGE IVP PRN ×2 (05:18→21:22)
[2017-04-12 05:46] LABS: Basophils # 0.1 K/mcL (0.0-0.2); Eosinophils # 0.3 K/mcL (0.0-0.6); Eosinophils % 4.5 %; Hematocrit 29.8 % (35.3-44.9); Immature Granulocytes % 1.3 % (0-4); Lymphocytes # 1.3 K/mcL (0.6-4.6); Lymphocytes % 19.1 %; Mean Corpuscular HGB Conc 33.6 g/dL (31.6-35.5); Mean Corpuscular Hemoglobin 26.8 pg (28.0-33.3); Mean Corpuscular Volume 79.9 fL (83.0-100.0); Mean Platelet Volume 11.6 fL (9.4-12.4); Monocytes # 0.7 K/mcL (0.0-1.3); Monocytes % 9.4 %; Neutrophils # 4.5 K/mcL (1.6-8.9); Platelet Count 156 K/mcL (140-400); Red Blood Count 3.73 M/mcL (3.82-4.97); Red Cell Distribution Width 15.1 % (11.5-14.5); Segmented Neutrophils % 64.7 %
[2017-04-12 06:02] LABS: BUN/Creatinine Ratio 39 (6-26); Blood Urea Nitrogen 24 mg/dL (7-20); Calcium 7.9 mg/dL (8.6-10.8); Carbon Dioxide 25 mEq/L (19-29); Chloride 100 mEq/L (98-109); Glucose 100 mg/dL (70-99); Magnesium 1.5 mg/dL (1.6-2.6); Osmolality,Calculated 276 (280-300); Potassium 3.3 mEq/L (3.5-4.5); Sodium 131 mEq/L (136-145); eGFR For African Americans > 60 (> 60); eGFR For Non-African Americans > 60 (> 60)
--- NOTE | 2017-04-12 10:16 | General Surgery Progress Note ---
Date of Encounter: 04/12/17 Time of Encounter: 10:00 - Assessment and Plan (1) Small bowel obstruction Current Visit: Yes Status: Acute POD #3 lysis of adhesions times 1 hour and small bowel resection times with Dr. Tijerina Maintain bowel rest while awaiting return of bowel function NG tube to low intermittent wall suction TPN therapy for nutrition while awaiting return of bowel function IV fluids Supportive care and pain control Increase activity as tolerated and out of bed to chair Incentive spirometer every 1 hour while awake Repeat a.m. labs (2) Hypokalemia Current Visit: No Status: Acute Replace potassium Repeat a.m. labs (3) Malnutrition Current Visit: No Status: Acute Continue TPN therapy while awaiting return of bowel function (4) DVT prophylaxis Current Visit: Yes Status: Acute EPCDs to bilateral lower extremity for DVT prophylaxis Out of bed to chair 3 times a day Subjective Patient reports: no new complaints, feels better, still having pain, pain is less, no flatus, no bowel movement, afebrile, other (Patient out of bed to chair ) Objective Vital Signs - Last 8 Hours Temp Pulse Resp BP Pulse Ox 04/12/17 06:55 97.7 F 77 16 109/65 97 04/12/17 04:02 98.0 F 95 14 110/74 98 Intake and Output 04/11/17 04/12/17 04/12/17 23:59 07:59 15:59 Intake Total 553 / 553 2072 0 / 0 Output Total 250 / 250 1100 / 1100 Balance 303 / 303 973 / 973 0 / 0 Intake: IV Fluids 553 / 553 2072 0.45% Sodium Chloride 137 / 137 927 / 927 1000 Ml 1000 Ml 1,000 ML @ 100 mls/hr IVC .Q10H [facility] Rx#:[id number] Clinimix E 5%-15% 306 / 306 896 / 896 SOLUTION 2,000 ML @ 60 mls/hr IVC .Q24H ONE with M.v.i. Adult 10 ml Rx#: [id number] Intralipid 20% 250 ML @ 250 / 250 21 mls/hr IVPB DAILY@1700 [facility] Rx#:[id number] Sodium Phosphate 30 MMOL 110 / 110 In Dextrose 5% 100 ML @ 16 mls/hr IVPB ONCE [facility] Rx#:[id number] Oral 0 / 0 0 / 0 0 / 0 Output: Catheter 250 / 250 550 / 550 Gastric Drainage 550 / 550 Other: Meal NPO NPO Breakfast NPO Percent of Meal Consumed 0% Blood Glucose* 122 - General physical appearance well developed, no distress, other (Out of bed to chair. No acute distress) - Eyes normal ocular movement - ENT dry mucosa, atraumatic, normocephalic - Neck Neck exam: trachea midline - Respiratory normal respiratory effort, clear to auscultation, other (diminished bibasilar bases) - Cardiovascular Cardiovascular exam: Present: RRR - Abdomen Abdomen: Present: soft, tender (expected post-operative tenderness) - Incision Incision: Present: clean and dry, intact - Genitourinary other (Malcolm catheter to straight drain with clear, yellow urine) - Neurologic CN 2-12 grossly intact - Psychiatric oriented to time, oriented to person, oriented to place, speech is normal, memory intact - Labs 04/13/17 05:33 04/13/17 05:33 Diabetes panel 04/12/17 Range/Units 03:39 Sodium 131 L (136-145) mEq/L Potassium 3.3 L (3.5-4.5) mEq/L Chloride 100 (98-109) mEq/L Carbon Dioxide 25 (19-29) mEq/L BUN 24 H (7-20) mg/dL Creatinine 0.61 (0.57-1.11) mg/dL Glucose 100 H (70-99) mg/dL Calcium 7.9 L (8.6-10.8) mg/dL Calcium panel 04/12/17 Range/Units 03:39 Calcium 7.9 L (8.6-10.8) mg/dL Phosphorus 3.0 D (2.3-4.7) mg/dL Pituitary panel 04/12/17 Range/Units 03:39 Sodium 131 L (136-145) mEq/L Potassium 3.3 L (3.5-4.5) mEq/L Chloride 100 (98-109) mEq/L Carbon Dioxide 25 (19-29) mEq/L BUN 24 H (7-20) mg/dL Creatinine 0.61 (0.57-1.11) mg/dL Glucose 100 H (70-99) mg/dL Calcium 7.9 L (8.6-10.8) mg/dL Adrenal panel 04/12/17 Range/Units 03:39 Sodium 131 L (136-145) mEq/L Potassium 3.3 L (3.5-4.5) mEq/L Chloride 100 (98-109) mEq/L Carbon Dioxide 25 (19-29) mEq/L BUN 24 H (7-20) mg/dL Creatinine 0.61 (0.57-1.11) mg/dL Glucose 100 H (70-99) mg/dL Calcium 7.9 L (8.6-10.8) mg/dL - VTE Documentation of Mechanical Device: Intermittent pneumatic compression device Consult Discharge Plan - Plan Referrals: Kathi Middleton DO [Primary Care Provider] - - Attending Attestation I examined this patient and my medical decision-making was reviewed with the SUPERINTENDENT PRESSURE/PA/Advanced Practice Nurse/Resident Physician. I agree with the documented findings, disposition and treatment plan as described except to the extent set forth below. The patient was seen and evaluated. She continues to have high nasogastric tube output. Continue bowel rest pain and nasogastric tube drainage. Seymour Tijerina MD FACS
[2017-04-12] MEDS ORDERED: Potassium Chloride 40 MEQ, Lidocaine 1% 2 ML in D5% in Water 500 ML IVPB ONE (10:21)
[2017-04-12] MEDS ORDERED: Clinimix E 5%-15% SOLUTION 2,000 ML with MVI, adult with vitamin K 10 ML IVC SCH (17:00)
[2017-04-13] MEDS: *HR* Metoprolol 5 MG/5 ML VIAL IVP SCH ×4 (00:11→18:42)
[2017-04-13] MEDS: Insulin LISPRO 300 UNITS/3 ML VIAL SQ SCH ×6 (01:04→21:09)
[2017-04-13 06:01] LABS: Basophils % 0.5 %; Eosinophils # 0.3 K/mcL (0.0-0.6); Eosinophils % 4.7 %; Hematocrit 28.9 % (35.3-44.9); Hemoglobin 9.9 g/dL (11.5-15.4); Immature Granulocytes % 1.5 % (0-4); Lymphocytes # 1.1 K/mcL (0.6-4.6); Lymphocytes % 17.5 %; Mean Corpuscular HGB Conc 34.3 g/dL (31.6-35.5); Mean Corpuscular Hemoglobin 27.1 pg (28.0-33.3); Mean Corpuscular Volume 79.2 fL (83.0-100.0); Mean Platelet Volume 11.3 fL (9.4-12.4); Monocytes # 0.6 K/mcL (0.0-1.3); Monocytes % 9.3 %; Neutrophils # 4.1 K/mcL (1.6-8.9); Platelet Count 148 K/mcL (140-400); Red Blood Count 3.65 M/mcL (3.82-4.97); Segmented Neutrophils % 66.5 %
[2017-04-13 06:10] LABS: BUN/Creatinine Ratio 39 (6-26); Blood Urea Nitrogen 22 mg/dL (7-20); Carbon Dioxide 25 mEq/L (19-29); Chloride 98 mEq/L (98-109); Glucose 109 mg/dL (70-99); Magnesium 1.1 mg/dL (1.6-2.6); Osmolality,Calculated 270 (280-300); Potassium 3.9 mEq/L (3.5-4.5); Sodium 128 mEq/L (136-145); eGFR For African Americans > 60 (> 60); eGFR For Non-African Americans > 60 (> 60)
[2017-04-13] MEDS: Pantoprazole 40 MG VIAL IVP SCH (06:22)
[2017-04-13] MEDS: *HR* HYDROmorphone (PF) 1 MG/ML SYRINGE IVP PRN (06:22)
--- NOTE | 2017-04-13 07:43 | General Surgery Progress Note ---
Date of Encounter: 04/13/17 Time of Encounter: 06:00 - Assessment and Plan (1) Small bowel obstruction Current Visit: Yes Status: Acute Patient is postoperative day 4 for; 1. Lysis of his lesions time one hour, 2. Small bowel resection [address] Tijerina on 04/09/17. Patient reports midline abdominal tenderness over incision as expected postoperatively with diffuse achy abdominal pain today. Patient denies flatus or bowel movement, nausea or vomiting. Incision is clean dry and intact. Patient is describing improvement in weakness today stating she sat up in the chair yesterday for 2 hours. Feeling better today. Positive bowel sounds. On examination: Patient is pleasant and conversant, A&O 3, NG tube is in place , Malcolm catheter is in place maintaining good output, abdominal exam with minimal abdominal tenderness to palpation over incision area, bowel sounds present, no rebound, no rigidity, no guarding/peritoneal signs.Vital signs stable. No acute events overnight. Continuing TPN until return of bowel function. NG tube output: Gastric drainage 150 mL today. Hyponatremia 128<130<132 Hypocalcemia 8.0<8.4 Hypomagnesemia 1.1<1.3<1.6 Plan: Maintain bowel rest while awaiting return of bowel function Keep nothing by mouth except for ice chips every 8 hours NG tube to low intermittent wall suction. Okay to clamp and allow patient to ambulate. IV fluids to maintain hydration TPN for nutrition while awaiting return of bowel function Supportive care and pain control IS every 1 hour while awake Repeat am labs. Continue to follow BUN/Cr Maintain Malcolm catheter for strict I and O's. Continue Malcolm secondary to urinary retention. Serial abdominal exams Vital signs per protocol Elevate head of bed to 30 degrees Daily dressing change- complete today Chloraseptic spray for sore throat as needed PPI therapy daily DVT prophylaxis: Heparin 5,000 units SQ twice daily for DVT prophylaxis Reglan 20 mg IVP Q 8 hr Stop at 36 hrs Out of bed to chair twice a day Replete electrolytes magnesium. Slow correction of Hyponatremia. (2) Wmezo-ud-hjdkvve kidney injury Current Visit: Yes Status: Resolved BUN:22<24 Cr:0.56<0.61 GFR:>60 (3) Hyponatremia Current Visit: Yes Status: Resolved slow correction (4) Inflammatory arthritis Current Visit: Yes Status: Acute (5) DVT prophylaxis Current Visit: Yes Status: Acute The assessment and plan as outlined above was discussed with the patient and/or family members who expressed understanding and agreement. All questions were answered. Heparin 5,000 units SQ twice daily for DVT prophylaxis Subjective Patient reports: feels better, no flatus, no bowel movement, afebrile Narrative: Patient reports midline abdominal tenderness over incision as expected postoperatively with diffuse achy abdominal pain today. Patient denies flatus or bowel movement, nausea or vomiting. Incision is clean dry and intact. Patient is describing improvement in weakness today stating she sat up in the chair yesterday for 2 hours. Feeling better today. Positive bowel sounds. Objective Vital Signs - Last 8 Hours Temp Pulse Resp BP Pulse Ox 04/13/17 07:01 97.8 F 80 18 106/68 99 04/13/17 03:52 98.1 F 86 15 132/75 98 Intake and Output 04/12/17 04/12/17 04/13/17 15:59 23:59 07:59 Intake Total 455 / 455 1499 / 1499 512.0 / 512.0 Output Total 600 / 600 850 / 850 350 / 350 Balance -145 / -145 649 / 649 162.0 / 162.0 Intake: IV Fluids 395 / 395 1499 / 1499 512.0 / 512.0 0.45% Sodium Chloride 157 / 157 332 / 332 357 / 357 1000 Ml 1000 Ml 1,000 ML @ 100 mls/hr IVC .Q10H [facility] Rx#:[id number] Clinimix E 5%-15% 238 / 238 550 / 550 SOLUTION 2,000 ML @ 60 mls/hr IVC .Q24H [facility] with M.v.i. Adult 10 ml Rx#: [id number] Intralipid 20% 250 ML @ 95 / 95 155.0 / 155.0 21 mls/hr IVPB DAILY@1700 [facility] Rx#:[id number] KCl 40 MEQ Xylocaine 2 ML 522 / 522 In Dextrose 5% 500 ML @ 130.5 mls/hr IVPB ONCE ONE Rx#:[id number] Oral 60 / 60 Output: Catheter 400 / 400 500 / 500 200 / 200 Gastric Drainage 200 / 200 350 / 350 150 / 150 Other: Meal ice chips Percent of Meal Consumed 0% Weight 58.3 kg Blood Glucose* 108 109 109 Patient Weight 04/13/17 23:59 Weight 58.3 kg - General physical appearance no distress, moderate pain, cachectic, chronically ill - Eyes PERRL, normal ocular movement - ENT normal nares, dry mucosa, atraumatic, normocephalic, CN 2-12 grossly intact - Neck Neck exam: no masses, trachea midline, no venous distension - Respiratory normal expansion, normal respiratory effort, clear to auscultation - Cardiovascular Cardiovascular exam: Present: RRR, no murmurs/rubs/gallops. Absent: JVD - Abdomen Abdomen: Present: bowel sounds present, soft, tender (postoperative as expected) - Incision Incision: Present: clean and dry, intact - Integumentary no rash, no abnormal pigmentation - Neurologic CN 2-12 grossly intact, normal sensation - Musculoskeletal normal posture - Psychiatric oriented to time, oriented to person, oriented to place, speech is normal, memory intact - Labs 04/13/17 05:33 04/13/17 05:33 Diabetes panel 04/13/17 Range/Units 05:33 Sodium 128 L (136-145) mEq/L Potassium 3.9 (3.5-4.5) mEq/L Chloride 98 (98-109) mEq/L Carbon Dioxide 25 (19-29) mEq/L BUN 22 H (7-20) mg/dL Creatinine 0.56 L (0.57-1.11) mg/dL Glucose 109 H (70-99) mg/dL Calcium 8.0 L (8.6-10.8) mg/dL Calcium panel 04/13/17 Range/Units 05:33 Calcium 8.0 L (8.6-10.8) mg/dL Pituitary panel 04/13/17 Range/Units 05:33 Sodium 128 L (136-145) mEq/L Potassium 3.9 (3.5-4.5) mEq/L Chloride 98 (98-109) mEq/L Carbon Dioxide 25 (19-29) mEq/L BUN 22 H (7-20) mg/dL Creatinine 0.56 L (0.57-1.11) mg/dL Glucose 109 H (70-99) mg/dL Calcium 8.0 L (8.6-10.8) mg/dL Adrenal panel 04/13/17 Range/Units 05:33 Sodium 128 L (136-145) mEq/L Potassium 3.9 (3.5-4.5) mEq/L Chloride 98 (98-109) mEq/L Carbon Dioxide 25 (19-29) mEq/L BUN 22 H (7-20) mg/dL Creatinine 0.56 L (0.57-1.11) mg/dL Glucose 109 H (70-99) mg/dL Calcium 8.0 L (8.6-10.8) mg/dL - VTE Documentation of Mechanical Device: Intermittent pneumatic compression device Consult Discharge Plan - Plan Referrals: Kathi Middleton DO [Primary Care Provider] - - Attending Attestation I examined this patient and my medical decision-making was reviewed with the TOWER SUPERVISOR/PA/Advanced Practice Nurse/Resident Physician. I agree with the documented findings, disposition and treatment plan as described except to the extent set forth below. The patient was seen and evaluated on morning rounds. She is doing she has developed bowel sounds. There is no flatus yet. Start Reglan. Seymour Tijerina MD FACS
[2017-04-13] MEDS ORDERED: Magnesium Sulfate 2 GM in D5% in Water 100 ML IVPB ONE (07:52)
[2017-04-13] MEDS ORDERED: Metoclopramide 10 MG/2 ML VIAL IVP SCH (08:00)
[2017-04-13] MEDS: *HR* Heparin 5,000 UNIT/ML VIAL SQ SCH ×2 (08:49→18:42)
[2017-04-13] MEDS: Metoclopramide 20 MG in 0.9 % Sodium Chloride 50 ML IVPB SCH (16:47)
[2017-04-13] MEDS ORDERED: Clinimix E 5%-15% SOLUTION 2,000 ML with MVI, adult with vitamin K 10 ML, Magnesium S... IVC SCH (17:00)
[2017-04-14] MEDS: *HR* Metoprolol 5 MG/5 ML VIAL IVP SCH ×4 (00:08→18:06)
[2017-04-14] MEDS: Metoclopramide 20 MG in 0.9 % Sodium Chloride 50 ML IVPB SCH ×3 (00:09→18:08)
[2017-04-14] MEDS: Insulin LISPRO 300 UNITS/3 ML VIAL SQ SCH ×6 (03:47→21:06)
[2017-04-14 05:35] LABS: Basophils # 0.1 K/mcL (0.0-0.2); Basophils % 0.6 %; Eosinophils # 0.3 K/mcL (0.0-0.6); Eosinophils % 3.7 %; Hematocrit 28.3 % (35.3-44.9); Hemoglobin 9.6 g/dL (11.5-15.4); Immature Granulocytes % 0.6 % (0-4); Lymphocytes # 1.4 K/mcL (0.6-4.6); Lymphocytes % 18.1 %; Mean Corpuscular HGB Conc 33.9 g/dL (31.6-35.5); Mean Corpuscular Volume 79.5 fL (83.0-100.0); Mean Platelet Volume 11.4 fL (9.4-12.4); Monocytes # 0.7 K/mcL (0.0-1.3); Monocytes % 8.9 %; Neutrophils # 5.4 K/mcL (1.6-8.9); Platelet Count 161 K/mcL (140-400); Red Blood Count 3.56 M/mcL (3.82-4.97); Segmented Neutrophils % 68.1 %
[2017-04-14 05:57] LABS: BUN/Creatinine Ratio 33 (6-26); Blood Urea Nitrogen 20 mg/dL (7-20); Calcium 8.2 mg/dL (8.6-10.8); Carbon Dioxide 26 mEq/L (19-29); Chloride 98 mEq/L (98-109); Glucose 106 mg/dL (70-99); Magnesium 1.4 mg/dL (1.6-2.6); Osmolality,Calculated 271 (280-300); Potassium 3.6 mEq/L (3.5-4.5); Sodium 129 mEq/L (136-145); eGFR For African Americans > 60 (> 60); eGFR For Non-African Americans > 60 (> 60)
[2017-04-14] MEDS: *HR* Heparin 5,000 UNIT/ML VIAL SQ SCH ×2 (05:59→18:31)
[2017-04-14] MEDS: Pantoprazole 40 MG VIAL IVP SCH (05:59)
--- NOTE | 2017-04-14 06:53 | General Surgery Progress Note ---
Date of Encounter: 04/14/17 Time of Encounter: 06:00 - Assessment and Plan (1) Small bowel obstruction Current Visit: Yes Status: Acute Patient is postoperative day 5 for; 1. Lysis of his lesions time one hour, 2. Small bowel resection [address] Tijerina on 04/09/17. Patient reports no pain today. Patient denies flatus or bowel movement, nausea or vomiting. Incision is clean dry and intact. Patient states that yesterday she was only able to make it up to the chair one time she felt too weak. Today she is feeling better and is going to try to get around more. She denies passing gas or having a bowel movement. NG output is most morning at 50-60 mils. Bowel sounds hypoactive. On examination: Patient is pleasant and conversant, A&O 3, NG tube is in place , Malcolm catheter is in place maintaining good output, abdominal exam with minimal abdominal tenderness to palpation over incision area, bowel sounds hypoactive, no rebound, no rigidity, no guarding/peritoneal signs.Vital signs stable. No acute events overnight. Continuing TPN until return of bowel function. NG tube output: Gastric drainage 50-60 mL today. Decreased from yesterday. Hyponatremia 129>128 Hypocalcemia 8.2>8.0 Hypomagnesemia 1.4>1.1 Plan: Maintain bowel rest while awaiting return of bowel function Keep nothing by mouth except for ice chips every 8 hours NG tube to low intermittent wall suction. Okay to clamp and allow patient to ambulate. IV fluids to maintain hydration TPN for nutrition while awaiting return of bowel function Supportive care and pain control IS every 1 hour while awake Repeat am labs. Continue to follow BUN/Cr Maintain Malcolm catheter for strict I and O's. Continue Malcolm secondary to urinary retention. Serial abdominal exams Vital signs per protocol Elevate head of bed to 30 degrees Daily dressing change- complete today Chloraseptic spray for sore throat as needed PPI therapy daily DVT prophylaxis: Heparin 5,000 units SQ twice daily for DVT prophylaxis Reglan 20 mg IVP Q 8 hr Stop at 36 hrs Out of bed to chair twice a day Replete electrolytes magnesium via dietary in TPN. Discussed increasing magnesium and TPN with dietitian yesterday. Slow correction of Hyponatremia. (2) Jreiu-fj-xavbviw kidney injury Current Visit: Yes Status: Resolved BUN: 20<22<24 Cr: 0.61>0.56<0.61 GFR:>60 (3) Hyponatremia Current Visit: Yes Status: Resolved slow correction (4) Inflammatory arthritis Current Visit: Yes Status: Acute (5) DVT prophylaxis Current Visit: Yes Status: Acute The assessment and plan as outlined above was discussed with the patient and/or family members who expressed understanding and agreement. All questions were answered. Heparin 5,000 units SQ twice daily for DVT prophylaxis Subjective Patient reports: feels better, pain is less, no flatus, no bowel movement, afebrile Narrative: The patient was seen and examined. Patient states that yesterday she was only able to make it up to the chair one time she felt too weak. Today she is feeling better and is going to try to get around more. She denies passing gas or having a bowel movement. NG output is most morning at 50-60 mils. Bowel sounds hypoactive. Objective Vital Signs - Last 8 Hours Temp Pulse Resp BP Pulse Ox 04/14/17 04:18 98.1 F 97 14 106/66 96 04/13/17 23:47 98.4 F 100 14 111/57 95 Intake and Output 04/13/17 04/13/17 04/14/17 15:59 23:59 07:59 Intake Total 304 / 304 Output Total 300 / 300 625 / 625 675 / 675 Balance -300 / -300 -571 / -571 -371 / -371 Intake: IV Fluids 304 / 304 Intralipid 20% 250 ML @ 250 / 250 21 mls/hr IVPB DAILY@1700 [facility] Rx#:[id number] Reglan 20 MG In 0.9 % Sodium Chloride 50 ML @ 108 mls/hr IVPB Q8H [facility] Rx#:[id number] Oral 0 / 0 0 / 0 Output: Urine 0 / 0 Catheter 300 / 300 275 / 275 325 / 325 Gastric Drainage 350 / 350 350 / 350 Other: Meal NPO Weight 58.4 kg Blood Glucose* 110 107 112 Patient Weight 04/14/17 23:59 Weight 58.4 kg - General physical appearance no distress, no pain, cachectic, chronically ill - Eyes PERRL, normal ocular movement - ENT dry mucosa, atraumatic, normocephalic, CN 2-12 grossly intact - Neck Neck exam: trachea midline - Respiratory normal expansion, normal respiratory effort, clear to auscultation - Cardiovascular Cardiovascular exam: Present: RRR, no murmurs/rubs/gallops. Absent: JVD - Abdomen Abdomen: Present: bowel sounds present, soft, non tender - Integumentary no abnormal pigmentation - Neurologic CN 2-12 grossly intact, normal coordination, normal sensation - Musculoskeletal normal posture - Psychiatric oriented to time, oriented to person, oriented to place, speech is normal, memory intact - Labs 04/14/17 04:34 04/15/17 04:25 Diabetes panel 04/14/17 Range/Units 04:34 Sodium 129 L (136-145) mEq/L Potassium 3.6 (3.5-4.5) mEq/L Chloride 98 (98-109) mEq/L Carbon Dioxide 26 (19-29) mEq/L BUN 20 (7-20) mg/dL Creatinine 0.61 (0.57-1.11) mg/dL Glucose 106 H (70-99) mg/dL Calcium 8.2 L (8.6-10.8) mg/dL Calcium panel 04/14/17 04/14/17 Range/Units 04:34 04:34 Calcium 8.2 L (8.6-10.8) mg/dL Phosphorus 2.6 (2.3-4.7) mg/dL Pituitary panel 04/14/17 Range/Units 04:34 Sodium 129 L (136-145) mEq/L Potassium 3.6 (3.5-4.5) mEq/L Chloride 98 (98-109) mEq/L Carbon Dioxide 26 (19-29) mEq/L BUN 20 (7-20) mg/dL Creatinine 0.61 (0.57-1.11) mg/dL Glucose 106 H (70-99) mg/dL Calcium 8.2 L (8.6-10.8) mg/dL Adrenal panel 04/14/17 Range/Units 04:34 Sodium 129 L (136-145) mEq/L Potassium 3.6 (3.5-4.5) mEq/L Chloride 98 (98-109) mEq/L Carbon Dioxide 26 (19-29) mEq/L BUN 20 (7-20) mg/dL Creatinine 0.61 (0.57-1.11) mg/dL Glucose 106 H (70-99) mg/dL Calcium 8.2 L (8.6-10.8) mg/dL - VTE Documentation of Mechanical Device: Intermittent pneumatic compression device Consult Discharge Plan - Plan Referrals: Kathi Middleton DO [Primary Care Provider] - - Attending Attestation I examined this patient and my medical decision-making was reviewed with the INVESTOR RELATIONS MANAGER/PA/Advanced Practice Nurse/Resident Physician. I agree with the documented findings, disposition and treatment plan as described except to the extent set forth below. The patient is seen and evaluated in the morning rounds. She has no bowel sounds today. I started her on Reglan. Continue supportive care and nasogastric tube drainage expected postoperative ileus Seymour Tijerina MD FACS
[2017-04-14] MEDS ORDERED: *HR* Alteplase (Cathflo) 2 MG VIAL IVP ONE (12:21)
[2017-04-14] MEDS ORDERED: Saliva Stimulant 100ml BOTTLE PO PRN (12:29)
[2017-04-14] MEDS ORDERED: Clinimix E 5%-15% SOLUTION 2,000 ML with MVI, adult with vitamin K 10 ML, Magnesium S... IVC SCH (17:00)
[2017-04-15] MEDS: *HR* Metoprolol 5 MG/5 ML VIAL IVP SCH ×4 (00:37→17:03)
[2017-04-15] MEDS: Metoclopramide 20 MG in 0.9 % Sodium Chloride 50 ML IVPB SCH ×3 (00:37→17:00)
[2017-04-15] MEDS: Insulin LISPRO 300 UNITS/3 ML VIAL SQ SCH ×6 (00:56→20:26)
[2017-04-15 04:51] LABS: BUN/Creatinine Ratio 34 (6-26); Blood Urea Nitrogen 20 mg/dL (7-20); Calcium 8.2 mg/dL (8.6-10.8); Carbon Dioxide 27 mEq/L (19-29); Chloride 98 mEq/L (98-109); Glucose 97 mg/dL (70-99); Magnesium 1.3 mg/dL (1.6-2.6); Osmolality,Calculated 273 (280-300); Phosphorous 2.7 mg/dL (2.3-4.7); Potassium 3.7 mEq/L (3.5-4.5); Sodium 130 mEq/L (136-145); Triglycerides 47 mg/dL (< 150); eGFR For African Americans > 60 (> 60); eGFR For Non-African Americans > 60 (> 60)
[2017-04-15] MEDS: *HR* Heparin 5,000 UNIT/ML VIAL SQ SCH ×2 (06:04→17:03)
[2017-04-15] MEDS: Pantoprazole 40 MG VIAL IVP SCH (06:06)
--- NOTE | 2017-04-15 08:09 | General Surgery Progress Note ---
Date of Encounter: 04/15/17 Time of Encounter: 06:00 - Assessment and Plan (1) Small bowel obstruction Current Visit: Yes Status: Acute Patient is postoperative day 5 for; 1. Lysis of his lesions time one hour, 2. Small bowel resection [address] Tijerina on 04/09/17. Patient reports no pain today. Patient denies flatus or bowel movement, nausea or vomiting. Incision is clean dry and intact. Patient states that yesterday she was able to get up to the chair as well as stand while she was given a lower extremity back. Patient reports that she felt much stronger yesterday. States that she is not quite ready to walk but feels that she is progressing that direction. On examination: Patient is pleasant and conversant, A&O 3, NG tube is in place , Malcolm catheter is in place maintaining good output, abdominal exam with minimal abdominal tenderness to palpation over incision area, active bowel sounds, no rebound, no rigidity, no guarding/peritoneal signs.Vital signs stable. No acute events overnight. Continuing TPN until return of bowel function. NG tube output: Gastric drainage. Decreased from yesterday. Hyponatremia 130>129>128 Hypocalcemia 8.2=8.2>8.0 Hypomagnesemia 1.3<1.4>1.1 Plan: Maintain bowel rest while awaiting return of bowel function Keep nothing by mouth except for ice chips every 8 hours NG tube to Malcolm bag to gravity. IV fluids to maintain hydration TPN for nutrition while awaiting return of bowel function Supportive care and pain control IS every 1 hour while awake Repeat am labs. Continue to follow BUN/Cr Maintain Malcolm catheter for strict I and O's. Continue Malcolm secondary to urinary retention. Serial abdominal exams Vital signs per protocol Elevate head of bed to 30 degrees Daily dressing change- complete today Chloraseptic spray for sore throat as needed PPI therapy daily DVT prophylaxis: Heparin 5,000 units SQ twice daily for DVT prophylaxis Encourage activity. Out of bed to chair twice a day NG tube to Malcolm bag to gravity. Replete electrolytes magnesium via dietary in TPN per typecasting machine operator dietitian. Slow correction of Hyponatremia. Will continue to follow and monitor patients progress. (2) Fnxna-ng-eufixou kidney injury Current Visit: Yes Status: Resolved Resolved BUN: 20 Cr: 0.59 GFR:>60 (3) Hyponatremia Current Visit: Yes Status: Resolved slow correction (4) Inflammatory arthritis Current Visit: Yes Status: Acute (5) DVT prophylaxis Current Visit: Yes Status: Acute Heparin 5,000 units SQ twice daily for DVT prophylaxis The assessment and plan as outlined above was discussed with the patient and/or family members who expressed understanding and agreement. All questions were answered. Subjective Patient reports: feels better, pain is less, no flatus, no bowel movement, afebrile Narrative: The patient was seen and examined. Patient states that yesterday she was feeling much stronger and made it up to the chair 2 times for approximately 2 hours and that she was able to stand for a lower extremity bath however, she states that she is not quite ready to be walking. She denies passing gas or having a bowel movement. NG tube output is much less today on exam. Patient is in very good spirit/mood today. Active bowel sounds on exam. Patient reports the Biotene mouth spray helped to keep her mouth more moist yesterday. Objective Vital Signs - Last 8 Hours Temp Pulse Resp BP Pulse Ox 04/15/17 07:48 98.3 F 85 16 111/70 97 04/15/17 04:13 99.4 F 98 15 104/62 95 04/15/17 00:35 99.9 F H 97 14 105/66 96 Intake and Output 04/14/17 04/15/17 04/15/17 23:59 07:59 15:59 Intake Total 54 / 54 304 / 304 Output Total 0 / 0 1325 / 1325 Balance 54 / 54 -1021 / -1021 Intake: IV Fluids 304 / 304 Intralipid 20% 250 ML @ 250 / 250 21 mls/hr IVPB DAILY@1700 [facility] Rx#:[id number] Reglan 20 MG In 0.9 % 54 / 54 / 54 Sodium Chloride 50 ML @ 108 mls/hr IVPB Q8H [facility] Rx#:[id number] Oral 0 / 0 0 / 0 Output: Urine 0 / 0 0 / 0 Gastric Tube Lavage 225 / 225 Amount Right Nare 225 / 225 Catheter 700 / 700 Gastric Drainage 400 / 400 Other: Meal npo Weight 60.7 kg Blood Glucose* 120 150 Patient Weight 04/15/17 23:59 Weight 60.7 kg - General physical appearance no distress, cachectic, chronically ill - Eyes PERRL, normal ocular movement - ENT normal nares, dry mucosa, atraumatic, normocephalic, CN 2-12 grossly intact - Neck Neck exam: no masses, trachea midline - Respiratory normal expansion, normal respiratory effort, clear to auscultation - Cardiovascular Cardiovascular exam: Present: RRR, no murmurs/rubs/gallops. Absent: JVD - Abdomen Abdomen: Present: bowel sounds present, soft, non tender - Incision Incision: Present: clean and dry, intact - Integumentary no rash, no abnormal pigmentation - Neurologic CN 2-12 grossly intact - Musculoskeletal normal posture - Psychiatric oriented to time, oriented to person, oriented to place, speech is normal, memory intact - Labs 04/14/17 04:34 04/15/17 04:25 Diabetes panel 04/15/17 Range/Units 04:25 Sodium 130 L (136-145) mEq/L Potassium 3.7 (3.5-4.5) mEq/L Chloride 98 (98-109) mEq/L Carbon Dioxide 27 (19-29) mEq/L BUN 20 (7-20) mg/dL Creatinine 0.59 (0.57-1.11) mg/dL Glucose 97 (70-99) mg/dL Calcium 8.2 L (8.6-10.8) mg/dL Triglycerides 47 (< 150) mg/dL Calcium panel 04/15/17 Range/Units 04:25 Calcium 8.2 L (8.6-10.8) mg/dL Phosphorus 2.7 (2.3-4.7) mg/dL Pituitary panel 04/15/17 Range/Units 04:25 Sodium 130 L (136-145) mEq/L Potassium 3.7 (3.5-4.5) mEq/L Chloride 98 (98-109) mEq/L Carbon Dioxide 27 (19-29) mEq/L BUN 20 (7-20) mg/dL Creatinine 0.59 (0.57-1.11) mg/dL Glucose 97 (70-99) mg/dL Calcium 8.2 L (8.6-10.8) mg/dL Adrenal panel 04/15/17 Range/Units 04:25 Sodium 130 L (136-145) mEq/L Potassium 3.7 (3.5-4.5) mEq/L Chloride 98 (98-109) mEq/L Carbon Dioxide 27 (19-29) mEq/L BUN 20 (7-20) mg/dL Creatinine 0.59 (0.57-1.11) mg/dL Glucose 97 (70-99) mg/dL Calcium 8.2 L (8.6-10.8) mg/dL - VTE Documentation of Mechanical Device: Intermittent pneumatic compression device Consult Discharge Plan - Plan Referrals: Kathi Middleton DO [Primary Care Provider] - - Attending Attestation I examined this patient and my medical decision-making was reviewed with the [employer]/PA/Advanced Practice Nurse/Resident Physician. I agree with the documented findings, disposition and treatment plan as described except to the extent set forth below. The patient is seen and evaluated her. She does have a few bowel sounds today. Please her nasogastric tube to a Malcolm bag to try to stimulate bowel activity. Continue supportive care and hydration. Seymour Tijerina MD FACS
[2017-04-15] MEDS: *HR* HYDROmorphone (PF) 1 MG/ML SYRINGE IVP PRN (09:01)
[2017-04-15] MEDS ORDERED: Magnesium Sulfate 2 GM in D5% in Water 100 ML IVPB ONE (11:16)
[2017-04-15] MEDS ORDERED: Clinimix E 5%-15% SOLUTION 2,000 ML with MVI, adult with vitamin K 10 ML, Magnesium S... IVC ONE (17:00)
[2017-04-16] MEDS: Metoclopramide 20 MG in 0.9 % Sodium Chloride 50 ML IVPB SCH ×3 (00:01→16:09)
[2017-04-16] MEDS: Insulin LISPRO 300 UNITS/3 ML VIAL SQ SCH ×6 (00:20→20:33)
[2017-04-16] MEDS: Pantoprazole 40 MG VIAL IVP SCH (06:09)
[2017-04-16] MEDS: *HR* Metoprolol 5 MG/5 ML VIAL IVP SCH ×4 (06:10→17:34)
[2017-04-16] MEDS: *HR* Heparin 5,000 UNIT/ML VIAL SQ SCH ×2 (06:10→20:34)
[2017-04-16 06:13] LABS: Basophils # 0.1 K/mcL (0.0-0.2); Basophils % 0.6 %; Eosinophils # 0.3 K/mcL (0.0-0.6); Eosinophils % 3.9 %; Hematocrit 28.1 % (35.3-44.9); Hemoglobin 9.3 g/dL (11.5-15.4); Immature Granulocytes % 0.6 % (0-4); Lymphocytes # 0.8 K/mcL (0.6-4.6); Lymphocytes % 10.5 %; Mean Corpuscular HGB Conc 33.1 g/dL (31.6-35.5); Mean Corpuscular Hemoglobin 26.8 pg (28.0-33.3); Mean Platelet Volume 10.9 fL (9.4-12.4); Monocytes # 0.8 K/mcL (0.0-1.3); Monocytes % 9.7 %; Neutrophils # 5.8 K/mcL (1.6-8.9); Platelet Count 166 K/mcL (140-400); Red Blood Count 3.47 M/mcL (3.82-4.97); Red Cell Distribution Width 15.1 % (11.5-14.5); Segmented Neutrophils % 74.7 %
[2017-04-16 06:22] LABS: BUN/Creatinine Ratio 33 (6-26); Blood Urea Nitrogen 21 mg/dL (7-20); Calcium 8.2 mg/dL (8.6-10.8); Carbon Dioxide 26 mEq/L (19-29); Chloride 99 mEq/L (98-109); Glucose 123 mg/dL (70-99); Osmolality,Calculated 276 (280-300); Sodium 131 mEq/L (136-145); eGFR For African Americans > 60 (> 60); eGFR For Non-African Americans > 60 (> 60)
--- NOTE | 2017-04-16 09:28 | General Surgery Progress Note ---
Date of Encounter: 04/16/17 Time of Encounter: 06:00 - Assessment and Plan (1) Small bowel obstruction Current Visit: Yes Status: Acute Patient is postoperative day 6 for; 1. Lysis of his lesions time one hour, 2. Small bowel resection [address] Tijerina on 04/09/17. Patient reports no pain today. Patient denies flatus or bowel movement, nausea or vomiting. Incision is clean dry and intact. Patient states that yesterday she was able to get up to the chair as well as stand while she was given a lower extremity back. Patient reports that she felt much stronger yesterday. States that she is not quite ready to walk but feels that she is progressing that direction. On examination: Patient is pleasant and conversant, A&O 3, NG tube is in place , Malcolm catheter is in place maintaining good output, abdominal exam with minimal abdominal tenderness to palpation over incision area, active bowel sounds, no rebound, no rigidity, no guarding/peritoneal signs.Vital signs stable. Event overnight include excessive phlegm production and tongue irritation. Continuing TPN until calorie intake is adequate. NG tube With minimal output. Hyponatremia 131>130>129>128 Hypocalcemia 8.2=8.2=8.2>8.0 Hypomagnesemia 1.6>1.3<1.4>1.1 Plan: We will start clear liquid diet with fluid restriction 300 mL per shift Revomve NG tube TPN for nutritionuntil calorie intake is adequate Supportive care and pain control IS every 1 hour while awake Repeat am labs. Continue to follow BUN/Cr Maintain Malcolm catheter for strict I and O's. Continue Malcolm secondary to urinary retention. Serial abdominal exams Vital signs per protocol Elevate head of bed to 30 degrees Chloraseptic spray for sore throat as needed PPI therapy daily DVT prophylaxis: Heparin 5,000 units SQ twice daily for DVT prophylaxis Encourage activity. Out of bed to chair twice a day NG tube REMOVAL Start clear liquid diet with fluid restriction 300 mL per shift Replete electrolytes magnesium as needed Slow correction of Hyponatremia. Will continue to follow and monitor patients progress. (2) Opetb-mo-xssxaob kidney injury Current Visit: Yes Status: Resolved Resolved BUN: 21> 20 Cr: 0.63>0.59 GFR:>60 (3) Hyponatremia Current Visit: Yes Status: Resolved slow correction (4) Inflammatory arthritis Current Visit: Yes Status: Acute (5) DVT prophylaxis Current Visit: Yes Status: Acute Heparin 5,000 units SQ twice daily for DVT prophylaxis The assessment and plan as outlined above was discussed with the patient and/or family members who expressed understanding and agreement. All questions were answered. Subjective Patient reports: no new complaints, feels better, pain is less, flatus, no bowel movement, afebrile Narrative: The patient was seen and examined. She states she still has right-sided abdominal tenderness when she sits up or moves around however her pain has improved. Patient reports that she was up to the chair yesterday. Patient does have active bowel sounds on exam and states that she did pass small gas yesterday, however she denies having bowel movements. Events overnight include excessive phlegm production coughing and spitting up into an emesis bag that woke her up around 3 AM. Patient reports that her tongue remains sore and dry with fissures due to dryness. However, she states that the Biotene spray that we gave has significantly helped keep her mouth more moist when she remembers to use it. Objective Vital Signs - Last 8 Hours Temp Pulse Resp BP Pulse Ox 04/16/17 08:54 99.4 F 105 16 99/63 100 04/16/17 04:28 99.1 F 105 16 125/71 96 Intake and Output 04/15/17 04/16/17 04/16/17 23:59 07:59 15:59 Intake Total 54 / 54 304 / 304 Output Total 150 / 150 460 / 460 0 / 0 Balance -96 / -96 -156 / -156 0 / 0 Intake: IV Fluids 54 / 54 304 / 304 Intralipid 20% 250 ML @ 250 / 250 21 mls/hr IVPB DAILY@1700 [facility] Rx#:[id number] Reglan 20 MG In 0.9 % 54 / 54 54 / 54 Sodium Chloride 50 ML @ 108 mls/hr IVPB Q8H [facility] Rx#:[id number] Output: Emesis 10 / 10 Gastric Tube Lavage 0 / 0 0 / 0 0 / 0 Amount Right Nare 0 / 0 0 / 0 0 / 0 Catheter 150 / 150 450 / 450 Other: Meal NPO NPO Percent of Meal Consumed 0% Weight 60.4 kg Blood Glucose* 106 126 Patient Weight 04/16/17 23:59 Weight 60.4 kg - General physical appearance no distress, cachectic, chronically ill - Eyes PERRL, normal ocular movement - ENT normal nares, normal mucosa - Neck Neck exam: no masses, trachea midline - Respiratory normal expansion, normal respiratory effort, clear to auscultation - Cardiovascular Cardiovascular exam: Present: RRR, no murmurs/rubs/gallops. Absent: JVD - Abdomen Abdomen: Present: bowel sounds present, soft, tender (postoperative tenderness as expected) - Incision Incision: Present: clean and dry, intact - Genitourinary other (Malcolm is in place) - Integumentary no rash, no abnormal pigmentation - Neurologic CN 2-12 grossly intact, normal coordination, normal sensation - Musculoskeletal normal posture - Psychiatric oriented to time, oriented to person, oriented to place, speech is normal, memory intact - Labs 04/16/17 05:44 04/16/17 05:44 Diabetes panel 04/16/17 Range/Units 05:44 Sodium 131 L (136-145) mEq/L Potassium 4.0 (3.5-4.5) mEq/L Chloride 99 (98-109) mEq/L Carbon Dioxide 26 (19-29) mEq/L BUN 21 H (7-20) mg/dL Creatinine 0.63 (0.57-1.11) mg/dL Glucose 123 H (70-99) mg/dL Calcium 8.2 L (8.6-10.8) mg/dL Calcium panel 04/16/17 Range/Units 05:44 Calcium 8.2 L (8.6-10.8) mg/dL Pituitary panel 04/16/17 Range/Units 05:44 Sodium 131 L (136-145) mEq/L Potassium 4.0 (3.5-4.5) mEq/L Chloride 99 (98-109) mEq/L Carbon Dioxide 26 (19-29) mEq/L BUN 21 H (7-20) mg/dL Creatinine 0.63 (0.57-1.11) mg/dL Glucose 123 H (70-99) mg/dL Calcium 8.2 L (8.6-10.8) mg/dL Adrenal panel 04/16/17 Range/Units 05:44 Sodium 131 L (136-145) mEq/L Potassium 4.0 (3.5-4.5) mEq/L Chloride 99 (98-109) mEq/L Carbon Dioxide 26 (19-29) mEq/L BUN 21 H (7-20) mg/dL Creatinine 0.63 (0.57-1.11) mg/dL Glucose 123 H (70-99) mg/dL Calcium 8.2 L (8.6-10.8) mg/dL - VTE Documentation of Mechanical Device: Intermittent pneumatic compression device Consult Discharge Plan - Plan Referrals: Kathi Middleton DO [Primary Care Provider] - - Attending Attestation I examined this patient and my medical decision-making was reviewed with the GAS WELDING MACHINE OPERATOR/PA/Advanced Practice Nurse/Resident Physician. I agree with the documented findings, disposition and treatment plan as described except to the extent set forth below. The patient is seen in evaluated on morning rounds. She is doing much better. She has bowel sounds. She is passing flatus. Remove the nasogastric tube. Seymour Tijerina MD FACS
[2017-04-16] MEDS ORDERED: Acetaminophen 325 MG TABLET PO PRN (15:31)
[2017-04-16] MEDS ORDERED: Clinimix E 5%-15% SOLUTION 2,000 ML with MVI, adult with vitamin K 10 ML, Magnesium S... IVC SCH (17:00)
[2017-04-16] MEDS: *HR* Morphine 2 MG/ML SYRINGE IVP PRN (20:46)
[2017-04-17] MEDS: Insulin LISPRO 300 UNITS/3 ML VIAL SQ SCH ×7 (00:07→23:59)
[2017-04-17] MEDS: *HR* Metoprolol 5 MG/5 ML VIAL IVP SCH ×5 (00:07→23:59)
[2017-04-17] MEDS: Metoclopramide 20 MG in 0.9 % Sodium Chloride 50 ML IVPB SCH ×2 (04:57→09:40)
[2017-04-17] MEDS: *HR* Heparin 5,000 UNIT/ML VIAL SQ SCH ×2 (06:09→17:37)
[2017-04-17] MEDS: Pantoprazole 40 MG VIAL IVP SCH (06:09)
[2017-04-17 06:28] LABS: Basophils % 0.7 %; Eosinophils # 0.4 K/mcL (0.0-0.6); Eosinophils % 7.3 %; Hemoglobin 8.2 g/dL (11.5-15.4); Immature Granulocytes % 1.3 % (0-4); Lymphocytes # 0.9 K/mcL (0.6-4.6); Mean Corpuscular HGB Conc 32.8 g/dL (31.6-35.5); Mean Corpuscular Hemoglobin 26.6 pg (28.0-33.3); Mean Corpuscular Volume 81.2 fL (83.0-100.0); Mean Platelet Volume 10.4 fL (9.4-12.4); Monocytes # 0.7 K/mcL (0.0-1.3); Monocytes % 12.1 %; Neutrophils # 3.4 K/mcL (1.6-8.9); Platelet Count 159 K/mcL (140-400); Red Blood Count 3.08 M/mcL (3.82-4.97); Red Cell Distribution Width 15.1 % (11.5-14.5); Segmented Neutrophils % 61.6 %
[2017-04-17 06:39] LABS: BUN/Creatinine Ratio 37 (6-26); Blood Urea Nitrogen 22 mg/dL (7-20); Calcium 7.9 mg/dL (8.6-10.8); Carbon Dioxide 26 mEq/L (19-29); Chloride 100 mEq/L (98-109); Glucose 109 mg/dL (70-99); Magnesium 1.6 mg/dL (1.6-2.6); Osmolality,Calculated 276 (280-300); Potassium 3.6 mEq/L (3.5-4.5); Sodium 131 mEq/L (136-145); eGFR For African Americans > 60 (> 60); eGFR For Non-African Americans > 60 (> 60)
--- NOTE | 2017-04-17 08:22 | General Surgery Progress Note ---
Date of Encounter: 04/17/17 Time of Encounter: 07:00 - Assessment and Plan (1) Small bowel obstruction Current Visit: Yes Status: Acute Patient is postoperative day 7 for; 1. Lysis of his lesions time one hour, 2. Small bowel resection [address] Tijerina on 04/09/17. Patient reports no pain at rest however occasionally when she sits up in the chair right side of her abdomen gets sore and is alleviated by resting. Patient endorses flatus but denies bowel movement nausea or vomiting. Incision is clean dry and intact. Patient states that yesterday she was able to get up to the chair as well as participate in PT. Patient reports that she feel stronger. States that she is not quite ready to walk but feels that she is continuing to progressing that direction.Patient states she tolerated her clear liquid diet well and is ready to advance to full liquid. Patient states that she is hoping that she will then be able to stool. On examination: Patient is pleasant and conversant, A&O 3, Malcolm catheter is in place maintaining good output, abdominal exam with minimal abdominal tenderness to palpation over incision area, active bowel sounds, no rebound, no rigidity, no guarding/peritoneal signs.Vital signs stable. No acute events overnight. Continuing TPN until calorie intake is adequate. Hyponatremia 986=176>130>129>128 Hypocalcemia 7.9<8.2=8.2=8.2>8.0 Hypomagnesemia 1.6=1.6>1.3<1.4>1.1 Plan: Advanced to full liquid diet TPN for nutrition until calorie intake is adequate Supportive care and pain control IS every 1 hour while awake Repeat am labs. Continue to follow BUN/Cr Serial abdominal exams Vital signs per protocol Elevate head of bed to 30 degrees PPI therapy daily DVT prophylaxis: Heparin 5,000 units SQ twice daily for DVT prophylaxis Encourage activity. Out of bed to chair 2 times a day Remove Malcolm catheter Start full liquid diet with fluid restriction 300 mL per shift Replete electrolytes magnesium as needed Slow correction of Hyponatremia. Will continue to follow and monitor patients progress. (2) Ssmjj-wf-hqncxnl kidney injury Current Visit: Yes Status: Resolved BUN: 22>21> 20 Cr: 0.59<0.63>0.59 GFR:>60 (3) Hyponatremia Current Visit: Yes Status: Resolved slow correction (4) Inflammatory arthritis Current Visit: Yes Status: Acute (5) DVT prophylaxis Current Visit: Yes Status: Acute Heparin 5,000 units SQ twice daily for DVT prophylaxis The assessment and plan as outlined above was discussed with the patient and/or family members who expressed understanding and agreement. All questions were answered. Subjective Patient reports: no new complaints, feels better, pain is less, tolerating liquids well, flatus, no bowel movement Narrative: The patient was seen and examined. She states that she is feeling much better with the NG tube out. Patient states that she tolerated her clear fluid diet yesterday without nausea or vomiting or abdominal pain. Will advance to full liquid diet today. Patient is excited about this. She was up to the chair yesterday and participated in physical therapy. Patient has active bowel sounds on exam, she has passed gas however she has not stooled yet. States her pain is minimal when she still but she still has a little pain when she moves or sits up in the chair for too long on her right side. No acute events overnight. Objective Vital Signs - Last 8 Hours Temp Pulse Resp BP Pulse Ox 04/17/17 07:19 98.5 F 82 14 120/70 97 04/17/17 03:03 98.5 F 85 14 107/72 96 Intake and Output 04/16/17 04/17/17 04/17/17 23:59 07:59 15:59 Intake Total 250 / 250 Output Total 500 / 500 550 / 550 Balance -446 / -446 -300 / -300 Intake: IV Fluids 250 / 250 Intralipid 20% 250 ML @ 250 / 250 21 mls/hr IVPB DAILY@1700 [facility] Rx#:[id number] Reglan 20 MG In 0.9 % Sodium Chloride 50 ML @ 108 mls/hr IVPB Q8H [facility] Rx#:[id number] Oral 0 / 0 Output: Urine 250 / 250 Urethral (Malcolm) 0 / 0 Catheter 250 / 250 550 / 550 Other: # Bowel Movements 0 Weight 63.6 kg Blood Glucose* 115 119 Patient Weight 04/17/17 23:59 Weight 63.6 kg - General physical appearance well developed, no distress, moderate pain, cachectic, chronically ill - Eyes PERRL, normal ocular movement - ENT normal mucosa, atraumatic, normocephalic, CN 2-12 grossly intact - Neck Neck exam: no masses, trachea midline, no venous distension - Respiratory normal expansion, normal respiratory effort, clear to auscultation - Cardiovascular Cardiovascular exam: Present: RRR, no murmurs/rubs/gallops. Absent: JVD - Abdomen Abdomen: Present: bowel sounds present, soft, tender (Minimal tenderness over the right upper quadrant on palpation ) - Incision Incision: Present: clean and dry, intact - Integumentary no rash, no abnormal pigmentation - Neurologic CN 2-12 grossly intact, normal coordination, normal sensation - Musculoskeletal normal posture - Psychiatric oriented to time, oriented to person, oriented to place, speech is normal, memory intact - Labs 04/18/17 05:45 04/18/17 04:45 Diabetes panel 04/17/17 Range/Units 06:20 Sodium 131 L (136-145) mEq/L Potassium 3.6 (3.5-4.5) mEq/L Chloride 100 (98-109) mEq/L Carbon Dioxide 26 (19-29) mEq/L BUN 22 H (7-20) mg/dL Creatinine 0.59 (0.57-1.11) mg/dL Glucose 109 H (70-99) mg/dL Calcium 7.9 L (8.6-10.8) mg/dL Calcium panel 04/17/17 Range/Units 06:20 Calcium 7.9 L (8.6-10.8) mg/dL Pituitary panel 04/17/17 Range/Units 06:20 Sodium 131 L (136-145) mEq/L Potassium 3.6 (3.5-4.5) mEq/L Chloride 100 (98-109) mEq/L Carbon Dioxide 26 (19-29) mEq/L BUN 22 H (7-20) mg/dL Creatinine 0.59 (0.57-1.11) mg/dL Glucose 109 H (70-99) mg/dL Calcium 7.9 L (8.6-10.8) mg/dL Adrenal panel 04/17/17 Range/Units 06:20 Sodium 131 L (136-145) mEq/L Potassium 3.6 (3.5-4.5) mEq/L Chloride 100 (98-109) mEq/L Carbon Dioxide 26 (19-29) mEq/L BUN 22 H (7-20) mg/dL Creatinine 0.59 (0.57-1.11) mg/dL Glucose 109 H (70-99) mg/dL Calcium 7.9 L (8.6-10.8) mg/dL - VTE Documentation of Mechanical Device: Intermittent pneumatic compression device Consult Discharge Plan - Plan Referrals: Kathi Middleton DO [Primary Care Provider] - - Attending Attestation I examined this patient and my medical decision-making was reviewed with the INFORMATICS SPECIALIST/PA/Advanced Practice Nurse/Resident Physician. I agree with the documented findings, disposition and treatment plan as described except to the extent set forth below. The patient is seen and evaluated on morning rounds. Her bowel obstruction is now completely resolved. She is having flatus and bowel movement. We will advance her diet. As soon as she tolerates regular diet we will see if we can arrange ECF placement. Seymour Tijerina MD FACS
[2017-04-17] MEDS ORDERED: Clinimix E 5%-15% SOLUTION 2,000 ML with MVI, adult with vitamin K 10 ML, Magnesium S... IVC ONE (17:00)
[2017-04-18] MEDS: *HR* Metoprolol 5 MG/5 ML VIAL IVP SCH ×2 (04:53→06:01)
[2017-04-18] MEDS: Insulin LISPRO 300 UNITS/3 ML VIAL SQ SCH ×3 (04:53→12:03)
[2017-04-18 05:16] LABS: BUN/Creatinine Ratio 38 (6-26); Blood Urea Nitrogen 20 mg/dL (7-20); Calcium 7.4 mg/dL (8.6-10.8); Carbon Dioxide 22 mEq/L (19-29); Chloride 104 mEq/L (98-109); Glucose 88 mg/dL (70-99); Osmolality,Calculated 276 (280-300); Potassium 3.5 mEq/L (3.5-4.5); Sodium 132 mEq/L (136-145); eGFR For African Americans > 60 (> 60); eGFR For Non-African Americans > 60 (> 60)
[2017-04-18 05:58] LABS: Basophils # 0.1 K/mcL (0.0-0.2); Eosinophils # 0.3 K/mcL (0.0-0.6); Eosinophils % 6.8 %; Hematocrit 28.1 % (35.3-44.9); Immature Granulocytes % 1.8 % (0-4); Immature Platelets 4.3 % (1.1-6.1); Lymphocytes % 19.9 %; Mean Corpuscular HGB Conc 32.7 g/dL (31.6-35.5); Mean Corpuscular Hemoglobin 26.4 pg (28.0-33.3); Mean Corpuscular Volume 80.5 fL (83.0-100.0); Mean Platelet Volume 10.6 fL (9.4-12.4); Monocytes # 0.5 K/mcL (0.0-1.3); Platelet Count 187 K/mcL (140-400); Red Blood Count 3.49 M/mcL (3.82-4.97); Segmented Neutrophils % 60.5 %
[2017-04-18 05:59] LABS: Hemoglobin 9.2 g/dL (11.5-15.4)
[2017-04-18] MEDS: Pantoprazole 40 MG VIAL IVP SCH (06:01)
[2017-04-18] MEDS: *HR* Heparin 5,000 UNIT/ML VIAL SQ SCH (06:03)
--- NOTE | 2017-04-18 08:15 | General Surgery Progress Note ---
Date of Encounter: 04/18/17 Time of Encounter: 07:00 - Assessment and Plan (1) Small bowel obstruction Current Visit: Yes Status: Acute Patient is postoperative day 7 for; 1. Lysis of his lesions time one hour, 2. Small bowel resection [address] Tijerina on 04/09/17. Patient reports no pain at rest however occasionally when she sits up in the chair right side of her abdomen gets sore and is alleviated by resting. Patient endorses flatus but denies bowel movement nausea or vomiting. Incision is clean dry and intact. Patient states that yesterday she was able to get up to the chair as well as participate in PT. Patient reports that she feel stronger. States that she is not quite ready to walk but feels that she is continuing to progressing that direction.Patient states she tolerated her clear liquid diet well and is ready to advance to full liquid. Patient states that she is hoping that she will then be able to stool. On examination: Patient is pleasant and conversant, A&O 3, Malcolm catheter is in place maintaining good output, abdominal exam with minimal abdominal tenderness to palpation over incision area, active bowel sounds, no rebound, no rigidity, no guarding/peritoneal signs.Vital signs stable. No acute events overnight. Continuing TPN until calorie intake is adequate. Hyponatremia 380=607>130>129>128 Hypocalcemia 7.9<8.2=8.2=8.2>8.0 Hypomagnesemia 1.6=1.6>1.3<1.4>1.1 Plan: Advanced to full liquid diet TPN for nutrition until calorie intake is adequate Supportive care and pain control IS every 1 hour while awake Repeat am labs. Continue to follow BUN/Cr Serial abdominal exams Vital signs per protocol Elevate head of bed to 30 degrees PPI therapy daily DVT prophylaxis: Heparin 5,000 units SQ twice daily for DVT prophylaxis Encourage activity. Out of bed to chair 2 times a day Remove Malcolm catheter Start full liquid diet with fluid restriction 300 mL per shift Replete electrolytes magnesium as needed Slow correction of Hyponatremia. Will continue to follow and monitor patients progress. 04/18/2017. The patient continues to do well and has developed bowel activity. We will start placement planning for extended care facility today. Regular diet and discontinue TPN (2) Aspye-nk-[id number] kidney injury Current Visit: Yes Status: Resolved BUN: 22>21> 20 Cr: 0.59<0.63>0.59 GFR:>60 (3) Hyponatremia Current Visit: Yes Status: Resolved slow correction (4) Inflammatory arthritis Current Visit: Yes Status: Acute (5) DVT prophylaxis Current Visit: Yes Status: Acute Heparin 5,000 units SQ twice daily for DVT prophylaxis The assessment and plan as outlined above was discussed with the patient and/or family members who expressed understanding and agreement. All questions were answered. Subjective Narrative: The patient is doing quite well today and has had bowel movement and flatus. She has normal bowel sounds. We will progress to regular diet today and discontinue her TPN. She will be ready for extended care facility placement later today or tomorrow Objective Vital Signs - Last 8 Hours Temp Pulse Resp BP Pulse Ox 04/18/17 07:11 97.8 F 77 16 104/66 98 04/18/17 04:20 98 F 71 18 116/72 99 04/18/17 00:26 98.4 F 83 16 112/59 97 Intake and Output 04/17/17 04/18/17 04/18/17 23:59 07:59 15:59 Intake Total 50 / 50 Output Total 200 / 200 600 / 600 Balance -200 / -200 -550 / -550 Intake: Oral 50 / 50 Output: Urine 200 / 200 200 / 200 Urine/Stool Mix 400 / 400 Other: Stool Size Smear Small Stool Consistency soft liquid Stool Color Brown Brown # Bowel Movements 1 1 Weight 63.5 kg Blood Glucose* 114 106 Patient Weight 04/18/17 23:59 Weight 63.5 kg - General physical appearance other (Frail) - Respiratory normal expansion, normal respiratory effort, clear to percussion, clear to auscultation - Cardiovascular Cardiovascular exam: Present: RRR, no murmurs/rubs/gallops - Incision Incision: Present: clean and dry - Neurologic normal coordination, normal sensation - Psychiatric oriented to time, oriented to person, oriented to place, speech is normal, memory intact - Labs 04/18/17 05:45 04/18/17 04:45 Diabetes panel 04/18/17 Range/Units 04:45 Sodium 132 L (136-145) mEq/L Potassium 3.5 (3.5-4.5) mEq/L Chloride 104 (98-109) mEq/L Carbon Dioxide 22 (19-29) mEq/L BUN 20 (7-20) mg/dL Creatinine 0.52 L (0.57-1.11) mg/dL Glucose 88 (70-99) mg/dL Calcium 7.4 L (8.6-10.8) mg/dL Calcium panel 04/18/17 Range/Units 04:45 Calcium 7.4 L (8.6-10.8) mg/dL Pituitary panel 04/18/17 Range/Units 04:45 Sodium 132 L (136-145) mEq/L Potassium 3.5 (3.5-4.5) mEq/L Chloride 104 (98-109) mEq/L Carbon Dioxide 22 (19-29) mEq/L BUN 20 (7-20) mg/dL Creatinine 0.52 L (0.57-1.11) mg/dL Glucose 88 (70-99) mg/dL Calcium 7.4 L (8.6-10.8) mg/dL Adrenal panel 04/18/17 Range/Units 04:45 Sodium 132 L (136-145) mEq/L Potassium 3.5 (3.5-4.5) mEq/L Chloride 104 (98-109) mEq/L Carbon Dioxide 22 (19-29) mEq/L BUN 20 (7-20) mg/dL Creatinine 0.52 L (0.57-1.11) mg/dL Glucose 88 (70-99) mg/dL Calcium 7.4 L (8.6-10.8) mg/dL - VTE Documentation of Mechanical Device: Intermittent pneumatic compression device Consult Discharge Plan - Plan Referrals: Kathi Middleton DO [Primary Care Provider] -
--- NOTE | 2017-04-18 08:22 | Discharge Summary ---
Date of Encounter: 04/18/17 Time of Encounter: 07:00 - Discharge Diagnosis (1) Small bowel obstruction Priority: Primary Status: Acute Comments: The patient underwent lysis of adhesions and small bowel resection area she is now regained her bowel function and is ready for discharge to extended care facility (2) Sfncs-fn-[id number] kidney injury Priority: Primary Status: Resolved (3) Hyponatremia Priority: Secondary Status: Resolved (4) Inflammatory arthritis Priority: Secondary Status: Acute (5) DVT prophylaxis Priority: Secondary Status: Acute - Discharge Medications Home Medications: Cyanocobalamin (Vitamin B-12) [Vitamin B12] 1,000 mcg PO DAILY 07/28/15 [History ] Lisinopril [Zestril] 2.5 mg PO DAILY 07/28/15 [History] Metoprolol [Lopressor] 50 mg PO BID 07/28/15 [History] Omeprazole [PriLOSEC] 20 mg PO DAILY 07/28/15 [History] Potassium Chloride 20 meq PO BID 07/28/15 [History] Triamterene/HCTZ 37.5/25mg [Dyazide] 1 tab PO DAILY 07/28/15 [History] Multivit-Min/FA/Herbal No.245 [Alive Women's Gummy Vitamins] 1 tab PO DAILY [History] Hydroxychloroquine [Plaquenuil] 300 mg PO DAILY 02/27/17 [History] Colchicine [Colcrys] 0.6 mg PO DAILY #30 tablet 03/01/17 [Rx] Lactose-Reduced Food [Ensure Plus] 1 bottle PO TID #90 can 03/01/17 [Rx] Allergies/Adverse Reactions: Allergies Pneumococcal Vaccine Allergy (Verified 02/27/17 15:43) Cough tuberculin, purified protein deriva [tuberculin,purif.prot.deriv.] Allergy ( Verified 02/27/17 15:43) Blister aspirin Adverse Reaction (Verified 02/27/17 15:43) See Comments PATIENT HAS KIDNEY ISSUES ibuprofen [From Motrin] Adverse Reaction (Verified 02/27/17 15:43) See Comments PATIENT HAS KIDNEY ISSUES General Surgery Exam Initial Vital Signs Temp Pulse Resp BP Pulse Ox 98.2 F 101 18 103/70 96 04/04/17 20:07 04/04/17 20:07 04/04/17 20:07 04/04/17 20:07 04/04/17 20:07 - General physical appearance other (Frail) - Respiratory normal expansion, normal respiratory effort - Cardiovascular Cardiovascular exam: Present: RRR, 15, 16 - Abdomen Abdomen general surgery: Present: bowel sounds present, soft, non tender - Incision Incision: Present: clean and dry - Neurologic Present: CN 2-12 grossly intact, normal coordination, normal sensation - Psychiatric Psychiatric general surgery: Present: appropriate, oriented to person, oriented to place, oriented to time, speech is normal, memory intact Date of admission: 04/05/17 07:44 Primary care physician: Kathi Middleton DO Consults: 04/07/17 08:40 Consult to Physical Therapy [CONS] Routine Comment: Evaluate, develop and implement POC Reason for Consult: generalized weakness; lives at home alone OT [Consult to Occupational Therapy] [CONS] Routine Comment: Evaluate, develop and implement POC Reason for Consult: generalized weakness; lives at home alone 04/07/17 09:11 Consult to Mesh Cutter [CONS] Routine Reason for SW Consult: evaluate for needs; waiting on PT/OT needs 04/07/17 18:02 consult to slate handler [Consult to Nutrition] [CONS] Routine Comment: total fluid rate 100ml/hr with main IV and TPN Consulting Provider: NUTRITION Reason for Dietary Consult: TPN Start and Manage 04/08/17 09:08 Consult to PICC team [Consult to Invasive Line Access Team] [CONS] Stat Reason for Consult: TPN Line Type: PICC PICC line indications: Parental nutrition Time Notified: 09:08 Call Completed: Yes 04/08/17 10:53 Consult to Invasive Line Access Team [CONS] Routine Reason for Consult: Picc Line Insertion Line Type: PICC Discharging clinician: Seymour Tijerina Anticipated date of discharge: 04/18/17 - Patient Status Disposition: Transfer Inpatient Rehab Fac Condition: Good Functional capacity at discharge: uses cane/walker Overall status at discharge: patient is progressing back to baseline - Discharge Instructions Follow Up With: Kathi Middleton DO [Primary Care Provider] - - Diet and Activity Activity: as per physical therapy Diet: advance to your usual diet - Hospital Course Hospital course: Ms. Vigil is a 81 year old female Who underwent exploratory laparotomy and lysis of adhesions and small bowel resection. She is now recovered bowel function and is ready for extended care facility and rehabilitation. - Time Spent with Patient Total time spent providing and/or coordinating discharge services: Specific discharge activities: Extended care facility and rehabilitation placement Labs on day of discharge: Labs from last 24 hours 04/18/17 04/18/17 04/18/17 07:09 05:45 04:45 WBC 5.0 RBC 3.49 L Hgb 9.2 L Hct 28.1 L MCV 80.5 L MCH 26.4 L MCHC 32.7 RDW 15.0 H Plt Count 187 MPV 10.6 Immature Gran % 1.8 Seg Neutrophils % 60.5 Lymphocytes % 19.9 Monocytes % 10.0 Eosinophils % 6.8 Basophils % 1.0 Neutrophils # 3.0 Lymphocytes # 1.0 Monocytes # 0.5 Eosinophils # 0.3 Basophils # 0.1 Immature Plt Fraction 4.3 Sodium Potassium Chloride Carbon Dioxide BUN Creatinine Est GFR ( Amer) Est GFR (Non-Af Amer) BUN/Creatinine Ratio Glucose POC Glucose 135 H Calculated Osmolality Calcium Magnesium 1.4 L 04/18/17 04/18/17 04/18/17 04:45 04:29 00:19 WBC RBC Hgb Hct MCV MCH MCHC RDW Plt Count MPV Immature Gran % Seg Neutrophils % Lymphocytes % Monocytes % Eosinophils % Basophils % Neutrophils # Lymphocytes # Monocytes # Eosinophils # Basophils # Immature Plt Fraction Sodium 132 L Potassium 3.5 Chloride 104 Carbon Dioxide 22 BUN 20 Creatinine 0.52 L Est GFR ( Amer) > 60 Est GFR (Non-Af Amer) > 60 BUN/Creatinine Ratio 38 H Glucose 88 POC Glucose 106 H 124 H Calculated Osmolality 276 L Calcium 7.4 L Magnesium 04/17/17 04/17/17 04/17/17 19:59 16:09 10:59 WBC RBC Hgb Hct MCV MCH MCHC RDW Plt Count MPV Immature Gran % Seg Neutrophils % Lymphocytes % Monocytes % Eosinophils % Basophils % Neutrophils # Lymphocytes # Monocytes # Eosinophils # Basophils # Immature Plt Fraction Sodium Potassium Chloride Carbon Dioxide BUN Creatinine Est GFR ( Amer) Est GFR (Non-Af Amer) BUN/Creatinine Ratio Glucose POC Glucose 114 H 118 H 104 H Calculated Osmolality Calcium Magnesium - Impressions ITS Impressions KUB X-Ray 04/06/17 12:43 IMPRESSION: 1. Gastric tube terminates just beyond the gastroesophageal junction with the sideport in the distal thoracic esophagus. Recommend advancement of at least 8 cm. 2. Mildly dilated small bowel loop, appearing improved compared to the recent CT and likely related to improved partial small bowel obstruction. D/ / Jack Rocha MD / Jack Rocha MD Interpreting Provider: Jack Rocha MD Abdomen X-Ray 04/08/17 08:00 IMPRESSION: Slight increase in small bowel dilatation D/ / Francis Rai MD / Francis Rai MD Interpreting Provider: Francis Rai MD
--- NOTE | 2017-04-18 09:32 | Physician Discharge Referral ---
ExtendedCare Referral Info Transfer To: ECF Provider in Charge: Lilliana Provider in Charge after Transfer: PCP Institutional Level of Care: Intermediate - MR - Diagnosis (1) Small bowel obstruction Priority: Primary Status: Acute (2) Ovivt-cp-oryqgkr kidney injury Priority: Secondary Status: Resolved (3) Hyponatremia Priority: Secondary Status: Resolved (4) Inflammatory arthritis Priority: Secondary Status: Acute (5) DVT prophylaxis Priority: Secondary Status: Acute Expected Duration of Placement: 4 weeks Prognosis: Good Aware of Diagnosis: Patient Aware of Prognosis: Patient - Transfer Medications Home Medications: Cyanocobalamin (Vitamin B-12) [Vitamin B12] 1,000 mcg PO DAILY 07/28/15 [History ] Lisinopril [Zestril] 2.5 mg PO DAILY 07/28/15 [History] Metoprolol [Lopressor] 50 mg PO BID 07/28/15 [History] Omeprazole [PriLOSEC] 20 mg PO DAILY 07/28/15 [History] Potassium Chloride 20 meq PO BID 07/28/15 [History] Triamterene/HCTZ 37.5/25mg [Dyazide] 1 tab PO DAILY 07/28/15 [History] Multivit-Min/FA/Herbal No.245 [Alive Women's Gummy Vitamins] 1 tab PO DAILY [History] Hydroxychloroquine [Plaquenuil] 300 mg PO DAILY 02/27/17 [History] Colchicine [Colcrys] 0.6 mg PO DAILY #30 tablet 03/01/17 [Rx] Lactose-Reduced Food [Ensure Plus] 1 bottle PO TID #90 can 03/01/17 [Rx] Allergies/Adverse Reactions: Allergies Pneumococcal Vaccine Allergy (Verified 02/27/17 15:43) Cough tuberculin, purified protein deriva [tuberculin,purif.prot.deriv.] Allergy ( Verified 02/27/17 15:43) Blister aspirin Adverse Reaction (Verified 02/27/17 15:43) See Comments PATIENT HAS KIDNEY ISSUES ibuprofen [From Motrin] Adverse Reaction (Verified 02/27/17 15:43) See Comments PATIENT HAS KIDNEY ISSUES - Respiratory Orders None Smoking Cessation: Smoking cessation has been advised. For more information, call the [employer] Tobacco Quit Line at 6-270-TYSD-NOW. - Ancillary Orders May use pressure relief devices daily prn, May go on STEFANIE w/family/respon alliance party w /meds at nurse discretion PRN, May have alcoholic beverages, May consult with Dentist, Cloth Designer, Teaching Fellow PRN - Advance Directives Living Will: No Power of Graphic Illustrator: No Code Status: Full Code - Mobility Orders Ambulate - Rehabiliation Orders Rehab Potential: Fair Rehab Orders: Evaluation for Physical Therapy, Evaluation for Occupational Therapy - Treatments Skin tear care topically daily PRN per policy, May check for fecal impaction rectally daily PRN, Fleet enema rectally every other day PRN cleansing purposes - Diet Orders Regular CERTIFICATION: I certify that the transfer of the above named patient to an Extended Care Facility is necessary for the continuing treatment of the diagnosis listed. The above information is true and accurate reflection of patient's current condition. Confidential - Redisclosure prohibited without a patient's written consent.
[2017-04-18 10:51] VITALS: BP 125/82
== END 2017-04-18 13:48 | DRG 329 ==
LOC: 3NENU 20:06 → EMEROO 20:06 → 3NENU 23:41 → SUATTDRO 04-05 07:44 → 3ANU 04-06 11:01
PROVIDERS: ADMIT Surgery; ATTEND Surgery

== ENCOUNTER 2017-09-13 14:05 | Inpatient (IN) ==
[2017-09-13 14:53] LABS: Basophils % 0.4 %; Eosinophils # 0.1 K/mcL (0.0-0.6); Eosinophils % 2.4 %; Hematocrit 34.4 % (35.3-44.9); Hemoglobin 11.2 g/dL (11.5-15.4); Immature Granulocytes % 0.2 % (0-4); Lymphocytes # 1.7 K/mcL (0.6-4.6); Lymphocytes % 34.6 %; Mean Corpuscular HGB Conc 32.6 g/dL (31.6-35.5); Mean Corpuscular Hemoglobin 25.9 pg (28.0-33.3); Mean Corpuscular Volume 79.4 fL (83.0-100.0); Mean Platelet Volume 10.9 fL (9.4-12.4); Monocytes # 0.4 K/mcL (0.0-1.3); Monocytes % 8.2 %; Neutrophils # 2.7 K/mcL (1.6-8.9); Platelet Count 207 K/mcL (140-400); Red Blood Count 4.33 M/mcL (3.82-4.97); Red Cell Distribution Width 16.4 % (11.5-14.5); Segmented Neutrophils % 54.2 %
--- NOTE | 2017-09-13 15:03 | Emergency Department Note ---
Disposition Clinical Impression: CHF (congestive heart failure) Qualifiers: Congestive heart failure type: unspecified congestive heart failure type Congestive heart failure chronicity: unspecified congestive heart failure chronicity Qualified Code(s): I50.9 - Heart failure, unspecified Hypothyroidism Qualifiers: Hypothyroidism type: other Qualified Code(s): E03.8 - Other specified hypothyroidism Disposition: Admitted As Inpatient Condition: Fair General Adult HPI - General Chief complaint: ED Weakness Stated complaint: trouble ambulating Time Seen by Provider: 09/13/17 14:54 Source: patient, family Limitations: no limitations Nursing Notes Reviewed: Yes Vital Signs Reviewed: Yes - History of Present Illness HPI Narrative: Patient presents for evaluation for difficulty in ambulating. Patient has had worsening time walking as well as getting around. Patient said increased swelling of her legs that have significantly worsened over the past couple days. Patient states that she has had similar symptoms and is concerned because it had previously been due to low sodium. She does take sodium tablets at home. Patient has not been experiencing any fever or chills or cough or urinary symptoms. Patient has no previous history of cardiac disease. She states that she has never had any sort of cardiac testing. She does have a history of hypertension and hyperlipidemia. Patient denies any chest pain. She does state that she gets fatigued with exertion which has significantly worsened with swelling of her extremities. Denies shortness of breath. Patient is not in acute distress at this time. Pain Scale: 0 - Related Data Home Medications Medication Instructions Recorded Confirmed Cyanocobalamin (Vitamin B-12) 1,000 mcg PO DAILY 07/28/15 09/13/17 [Vitamin B12] Metoprolol [Lopressor] 50 mg PO BID 07/28/15 09/13/17 Omeprazole [PriLOSEC] 20 mg PO DAILY 07/28/15 09/13/17 Triamterene/HCTZ 37.5/25mg 0.5 tab PO DAILY 07/28/15 09/13/17 [Dyazide] Lisinopril 2.5 mg PO DAILY 09/13/17 09/13/17 Potassium Chloride [Klor-Con 10] 10 meq PO DAILY 09/13/17 Sodium Chloride 1 gm PO BID 09/13/17 09/13/17 Allergies Allergy/AdvReac Type Severity Reaction Status Date / Time Pneumococcal Vaccine Allergy Cough Verified 09/13/17 14:22 tuberculin, purified protein Allergy Blister Verified 09/13/17 14:22 deriva [tuberculin,purif.prot.deriv.] aspirin AdvReac See Verified 09/13/17 14:22 Comments ibuprofen [From Motrin] AdvReac See Verified 09/13/17 14:22 Comments Review of Systems: GENERAL: Increasing frequency of falls; Fatigue with exertion ~No weight change , change in appetite, thirst, fever or chills. HEENT: ~No headache or blurred vision. CARDIOPULMONARY: Increased swelling of the lower extremities ~No chest pain, palpitations or shortness of breath. GASTROINTESTINAL: ~No anorexia, nausea or vomiting. GENITOURINARY: ~No dysuria or pyuria. ENDOCRINE: ~No goiter, lethargy or heat/cold intolerance. HEMATOLOGY/ONCOLOGY: ~No pallor, bruising or bleeding. MUSCULOSKELETAL: ~No change in strength. No swelling. NEUROLOGIC: ~No headache or loss of consciousness. PSYCHIATRIC: ~No change in personality, affect or depression. Past Medical History - Past Medical History Medical history: Reports: arthritis, cancer, GERD, hyperlipidemia, hypertension , renal disease, other Surgical history: Reports: cataract, cholecystectomy, colectomy, hip replacement , hysterectomy, other Psychiatric history: Reports: no psych history CORPORATE ADMINISTRATIVE ASSISTANT history: Reports: no CORPORATE ADMINISTRATIVE ASSISTANT history - Social History Smoking Status: Never smoker Smokeless Tobacco Status: No Alcohol use: Reports: none Drug use: Reports: none Physical Exam General: Well appearing, nontoxic, no acute distress Head: Normocephalic Atraumatic Eyes: PERRL, EOMI ENT: Airway patent, no stridor Neck: supple, no meningismus Chest: Lungs clear to auscultation bilateral Cardiac: Regular rate and rhythm, no murmurs, rubs or gallops Abdomen: soft, nontender, nondistended; no guarding, rebound, or tenderness to percussion Musculoskeletal: Calves symmetric, nontender, no palpable cord Extremities: +3 pitting edema through the lower extremities to the knee Skin: No rash, normal skin tone Neuro: Alert and Oriented to person, place, and time; No focal deficit, CN 2-12 symmetric and intact - General Limitations: no limitations General appearance: alert, in no apparent distress Course - Reevaluation(s) Reevaluation #1: Upon reevaluation of patient and her workup the patient has significant swelling of the lower extremities with an associated elevated BNP and chest x- ray concerning for pulmonary vascular congestion. This appears to be new onset CHF and she has no history of congestive heart failure. Patient's head CT and blood work is otherwise unremarkable. Patient will be admitted to the hospitalist service for further evaluation. Vital Signs Temperature 97.9 F 09/13/17 14:19 Pulse Rate 91 09/13/17 14:19 Respiratory Rate 18 09/13/17 14:19 Blood Pressure 146/77 09/13/17 14:19 O2 Sat by Pulse Oximetry 97 09/13/17 14:19 Temperature 97.9 F 09/13/17 14:19 Pulse Rate 75 09/13/17 17:30 Respiratory Rate 20 09/13/17 17:55 Blood Pressure 143/74 09/13/17 17:55 O2 Sat by Pulse Oximetry 100 09/13/17 17:30 Oxygen Delivery Oxygen Delivery Room Air Medical Decision Making - Medical Records Medical records reviewed: Yes I reviewed the patient's medical records. - Lab Data Lab results reviewed: Yes I reviewed the patient's lab results. Result diagrams: 09/13/17 14:43 09/13/17 14:43 Lab Results 09/13/17 09/13/17 09/13/17 Range/Units 14:43 14:43 14:43 WBC 5.0 (4.3-11.1) K/mcL RBC 4.33 (3.82-4.97) M/mcL Hgb 11.2 L (11.5-15.4) g/dL Hct 34.4 L (35.3-44.9) % MCV 79.4 L (83.0-100.0) fL MCH 25.9 L (28.0-33.3) pg MCHC 32.6 (31.6-35.5) g/dL RDW 16.4 H (11.5-14.5) % Plt Count 207 (140-400) K/mcL MPV 10.9 (9.4-12.4) fL Immature Gran % 0.2 (0-4) % Seg Neutrophils % 54.2 % Lymphocytes % 34.6 % Monocytes % 8.2 % Eosinophils % 2.4 % Basophils % 0.4 % Neutrophils # 2.7 (1.6-8.9) K/mcL Lymphocytes # 1.7 (0.6-4.6) K/mcL Monocytes # 0.4 (0.0-1.3) K/mcL Eosinophils # 0.1 (0.0-0.6) K/mcL Basophils # 0.0 (0.0-0.2) K/mcL Sodium 135 L (136-145) mEq/L Potassium 3.9 (3.5-4.5) mEq/L Chloride 106 (98-109) mEq/L Carbon Dioxide 20 (19-29) mEq/L BUN 13 (7-20) mg/dL Creatinine 0.81 (0.57-1.11) mg/dL Est GFR ( Amer) > 60 (> 60) Est GFR (Non-Af Amer) > 60 (> 60) BUN/Creatinine Ratio 16 (6-26) Glucose 87 (70-99) mg/dL Calculated Osmolality 279 L (280-300) Calcium 9.1 (8.6-10.8) mg/dL Troponin I 0.03 (0-0.03) ng/mL B-Natriuretic Peptide (0-100) pg/mL TSH 6.231 H (0.350-4.840) mcIU/mL Urine Color (Yellow) Urine Clarity (Clear) Urine pH (5.0-8.0) pH Units Ur Specific [place] (1.010-1.025) Urine Protein (Neg-Trace) mg/dL Urine Glucose (UA) (Normal) mg/dL Urine Ketones (Negative) mg/dL Urine Blood (Negative) Urine Nitrite (Negative) Urine Bilirubin (Negative) Urine Urobilinogen (Normal) mg/dL Ur Leukocyte Esterase (Negative) Ur Culture Indicated? (NO) 09/13/17 09/13/17 Range/Units 14:43 15:25 WBC (4.3-11.1) K/mcL RBC (3.82-4.97) M/mcL Hgb (11.5-15.4) g/dL Hct (35.3-44.9) % MCV (83.0-100.0) fL MCH (28.0-33.3) pg MCHC (31.6-35.5) g/dL RDW (11.5-14.5) % Plt Count (140-400) K/mcL MPV (9.4-12.4) fL Immature Gran % (0-4) % Seg Neutrophils % % Lymphocytes % % Monocytes % % Eosinophils % % Basophils % % Neutrophils # (1.6-8.9) K/mcL Lymphocytes # (0.6-4.6) K/mcL Monocytes # (0.0-1.3) K/mcL Eosinophils # (0.0-0.6) K/mcL Basophils # (0.0-0.2) K/mcL Sodium (136-145) mEq/L Potassium (3.5-4.5) mEq/L Chloride (98-109) mEq/L Carbon Dioxide (19-29) mEq/L BUN (7-20) mg/dL Creatinine (0.57-1.11) mg/dL Est GFR ( Amer) (> 60) Est GFR (Non-Af Amer) (> 60) BUN/Creatinine Ratio (6-26) Glucose (70-99) mg/dL Calculated Osmolality (280-300) Calcium (8.6-10.8) mg/dL Troponin I (0-0.03) ng/mL B-Natriuretic Peptide 549 H (0-100) pg/mL TSH (0.350-4.840) mcIU/mL Urine Color Yellow (Yellow) Urine Clarity Clear (Clear) Urine pH 7.5 (5.0-8.0) pH Units Ur Specific [place] 1.010 (1.010-1.025) Urine Protein Negative (Neg-Trace) mg/dL Urine Glucose (UA) Normal (Normal) mg/dL Urine Ketones Negative (Negative) mg/dL Urine Blood Negative (Negative) Urine Nitrite Negative (Negative) Urine Bilirubin Negative (Negative) Urine Urobilinogen Normal (Normal) mg/dL Ur Leukocyte Esterase Negative (Negative) Ur Culture Indicated? NO (NO) - Radiology Data Radiology results reviewed: Yes I reviewed the patient's radiology results. - EKG Data EKG #1 EKG attestation: Yes I reviewed and interpreted this EKG. EKG results narrative: Patient's EKG shows sinus rhythm with ventricular rate of 76. QRS 78. QTC 428. No significant ST elevations or depressions. No previous EKG for comparison.
[2017-09-13 15:07] LABS: BUN/Creatinine Ratio 16 (6-26); Blood Urea Nitrogen 13 mg/dL (7-20); Calcium 9.1 mg/dL (8.6-10.8); Carbon Dioxide 20 mEq/L (19-29); Chloride 106 mEq/L (98-109); Glucose 87 mg/dL (70-99); Osmolality,Calculated 279 (280-300); Potassium 3.9 mEq/L (3.5-4.5); Sodium 135 mEq/L (136-145); eGFR For African Americans > 60 (> 60); eGFR For Non-African Americans > 60 (> 60)
[2017-09-13 15:35] LABS: Bilirubin,Urine Negative (Negative); Blood,Urine Negative (Negative); Clarity,Urine Clear (Clear); Color,Urine Yellow (Yellow); Glucose,Urine (UA) Normal (Normal); Ketones,Urine Negative (Negative); Leukocyte Esterase,Urine Negative (Negative); Nitrite,Urine Negative (Negative); PH,Urine 7.5 pH Units (5.0-8.0); Protein,Urine Negative (Neg-Trace); Urobilinogen,Urine Normal (Normal)
--- NOTE | 2017-09-13 15:35 | Emergency Department Note ---
START Narrative - START START: I examined this patient and my medical decision-making was reviewed with the Resident Physician. I agree with the documented findings, disposition and treatment plan as described except to the extent set forth below. 82 year old female presnts to the ED with complaitns of leg weakness and difficulty with ambulating because of feeling lightheaded but no issue with coordination. Sarah states that she had UTIs in the past that have caused this symptoms before but she has had to rely on her walker more and more recently in addition she has had multiple falls. Appears frail. Sarah will have a cardiopulmonary workup in addition to ruling out UTI. Likely will admit to medicine.
[2017-09-13 15:56] LABS: Thyroid Stimulating Hormone 6.231 mcIU/mL (0.350-4.840)
[2017-09-13] MEDS ORDERED: *HR* HYDROcodone/Acet 5/325 mg TABLET PO PRN (23:37)
[2017-09-13] MEDS ORDERED: Ondansetron 4 MG/2 ML VIAL IVP PRN (23:37)
[2017-09-13] MEDS ORDERED: Acetaminophen 325 MG TABLET PO PRN (23:37)
[2017-09-13] MEDS ORDERED: Naloxone 0.4 MG/ML INJ IVP PRN (23:37)
--- NOTE | 2017-09-13 23:46 | Internal Med History&Physical ---
<Darrick Olivier - Last Filed: 09/14/17 01:29> Date of Encounter: 09/14/17 Time of Encounter: 23:44 Assessment and Plan (1) Weakness of both legs Current visit: Yes Status: Acute - Possible etiologies include deconditioning vs right sided heart failure vs infection vs hypothyroid - UA in ED completely normal. Suprapubic tenderness on PE, will repeat UA - Echo pending. Will give lasix 20 BID - Free T4 level pending. - PT/OT consulted. (2) Edema extremities Current visit: Yes Status: Acute - Likely secondary to new onset right sided heart failure vs hypothyroid - Pt reports no symptoms of SOB, orthopnea. Kidney function at baseline. LFTs wnl. - Elevated BNP of 549. Echo ordered. No previous cardiac workup - Lasix 20 IV BID, Strict I/Os, PT/OT (3) Physical deconditioning Current visit: Yes Status: Acute As above - PT/OT ordered. (4) HTN (hypertension) Current visit: Yes Status: Chronic - Well controlled since admission - Will hold outpatient meds and start Lasix - Monitor Qualifiers: Hypertension type: essential hypertension Qualified Code(s): I10 - Essential (primary) hypertension (5) Hypothyroidism Current visit: Yes Status: Chronic - Likely undertreated with home medications. - TSH elevated in ED - May be contributing to weakness. - Increase home dose of synthroid. Qualifiers: Hypothyroidism type: other Qualified Code(s): E03.8 - Other specified hypothyroidism (6) DVT prophylaxis Current visit: No Status: Acute - Heparin 5000 units q12 Internal Medicine - H&P: HPI Chief complaint: LE weakness Admitted From: Emergency Dept Plans for Post Hospital Care: Home History of present illness: Ms. Vigil is a 82 year old female with PMHx of HTN, HLD, CKD II presents to Ed with a complaint of LE weakness and swelling x 2 days. She states that she experienced a recent fall at home last without hitting her head or LOC. She states she has felt like this once before when she was admitted in April of this year and wanted to make sure she was OK. During April admission, she underwent small bowel resection and lysis of adhesions. She states that her weakness has been gradual and she denies any symptoms of CP, SOB, nausea, vomiting, diarrhea, dysuria, numbness, tingling, syncope, vertigo. She does states however that she has noticed some swelling of both her lower and upper extremities for the past week. Denies any previous cardiac or liver disease. She also admits to not walking as much recently due to this weakness. In the ED, head CT was negative for acute pathology. Vital signs wnl. Labs show mild stable anemia, kidney function at baseline, elevated BNP at 549, and elevated TSH of 6. Past Med Surg Social Fam HX - Past Medical History Medical history: arthritis, cancer, GERD, hyperlipidemia, hypertension, renal disease, other Psychiatric history: no psych history - Past Surgical History Surgical History: cataract, cholecystectomy, colectomy, hip replacement, hysterectomy, other - Social History Smoking Status: Never smoker Smokeless Tobacco Status: No Alcohol use: none Drug use: none - Family History Brother Living Status: Still Living Hx Family Respiratory Disorders: Yes (COPD.) Daughter Adopted: No Living Status: Hx Family Cardiac Disorders: Yes Hx Family Respiratory Disorders: No Hx Family Cancer: No Hx Family GI Disorders: No Hx Family Endocrine Disorder: Yes (diabetes) Hx Family Neuromuscular Disorders: No Hx Family Neurologic Disorders: No Hx Family HEENT Disorders: No Hx Family Autoimmune Disorders: No Father Living Status: Hx Family Cardiac Disorders: Yes Hx Family Respiratory Disorders: No Hx Family Cancer: No Hx Family GI Disorders: No Hx Family Endocrine Disorder: No Mother Living Status: Hx Family Cardiac Disorders: Yes (cva) Hx Family Cancer: Yes (Colon cancer) Hx Family Endocrine Disorder: Yes (DM) Sister Adopted: No Living Status: Hx Family Endocrine Disorder: Yes (Diabetes Mellitus) Internal Medicine - H&P: Meds Cyanocobalamin (Vitamin B-12) [Vitamin B12] 1,000 mcg PO DAILY 07/28/15 [History ] Metoprolol [Lopressor] 50 mg PO BID 07/28/15 [History] Omeprazole [PriLOSEC] 20 mg PO DAILY 07/28/15 [History] Triamterene/HCTZ 37.5/25mg [Dyazide] 0.5 tab PO DAILY 07/28/15 [History] Lisinopril 2.5 mg PO DAILY 09/13/17 [History] Potassium Chloride [Klor-Con 10] 10 meq PO DAILY 09/13/17 [History] Sodium Chloride 1 gm PO BID 09/13/17 [History] 3 Allergy/AdvReac Type Severity Reaction Status Date / Time Pneumococcal Vaccine Allergy Cough Verified 09/13/17 14:22 tuberculin, purified protein Allergy Blister Verified 09/13/17 14:22 deriva [tuberculin,purif.prot.deriv.] aspirin AdvReac See Verified 09/13/17 14:22 Comments ibuprofen [From Motrin] AdvReac See Verified 09/13/17 14:22 Comments All Systems PM: A 10-system review of systems was performed and is negative for pertinent findings except as documented above in the HPI. - Constitutional Constitutional: falls, weakness, no chills, no fatigue, no fever(s), no lethargy , no malaise - EENT Nose, mouth and throat: no facial pain, no sore throat - Cardiovascular Cardiovascular ROS IM: edema, no chest pain, no claudication, no diaphoresis, no dyspnea, no dyspnea on exertion, no lightheadedness, no orthopnea, no palpitations, no syncope - Respiratory Respiratory: no cough, no dyspnea, no dyspnea on exertion - Gastrointestinal Gastrointestinal: no abdominal pain, no change in bowel habits, no constipation , no diarrhea, no hematemesis, no hematochezia, no melena, no nausea, no vomiting - Genitourinary Genitourinary: no dysuria, no urinary frequency, no urinary hesitancy, no urinary incontinence, no urinary urgency - Musculoskeletal Musculoskeletal ROS IM: muscle weakness, no numbness, no tingling - Neurological Neurological ROS: frequent falls, weakness, no abnormal gait, no dizziness, no numbness, no tingling - Constitutional Vitals: Temp Pulse Resp BP Pulse Ox 97.9 F 68 16 107/62 97 09/13/17 23:14 09/13/17 23:14 09/13/17 23:14 09/13/17 23:14 09/13/17 23:14 Exam: Gen.: Vitals noted. No acute distress. AAOx3 HEENT: oropharynx clear, Normocephalic, atraumatic, MMM Neck: Supple. No adenopathy. No JVD Cardiac: Irregular rhythm, no murmur, +S1/S2 Pulmonary: CTA bilaterally, no wheezes, rales or rhonchi, equal chest expansion Abdomen: soft, tender to palpation in suprapubic region, BS noted, no guarding. No hepatojugular reflex. MSK: ROM intact, no joint swelling noted Extremities: 2+ bilateral LE edema, mild edema of distal UE to wrists, nontender calf, no cyanosis or clubbing Neuro: A&Ox3, moves all extremities, no focal deficits Psych: Appropriate mood and behavior Internal Med - H&P Results - Labs CBC & Chem 7: 09/13/17 14:43 09/13/17 14:43 <Juan Carlos Haque - Last Filed: 09/14/17 04:19> Date of Encounter: 09/14/17 Time of Encounter: 02:40 - Constitutional Constitutional: weakness, no chills, no fever(s) - EENT Eyes: no blurry vision, no change in vision Ears: no tinnitus Nose, mouth and throat: no nasal congestion, no sinus pressure, no sore throat - Cardiovascular Cardiovascular ROS IM: edema (for 1-2 weeks), no chest pain, no diaphoresis, no dyspnea, no dyspnea on exertion, no irregular heart rhythm, no lightheadedness, no orthopnea, no paroxysmal nocturnal dyspnea - Respiratory Respiratory: no cough, no dyspnea, no hemoptysis - Gastrointestinal Gastrointestinal: no abdominal pain, no diarrhea, no nausea, no vomiting - Genitourinary Genitourinary: no dysuria, no flank pain, no hematuria - Musculoskeletal Musculoskeletal ROS IM: muscle weakness, no arthralgias, no back pain - Integumentary Integumentary IM: erythema (both lower legs), no jaundice - Neurological Neurological ROS: frequent falls, weakness, no dizziness, no focal weakness - Psychiatric Psychiatric: no anxiety - Endocrine Endocrine IM: no polydipsia, no polyuria - Allergic/Immunologic Allergic/Immunologic: no GI upset with certain foods - Constitutional Vitals: Temp Pulse Resp BP Pulse Ox 98.2 F 83 16 102/62 96 09/14/17 03:59 09/14/17 03:59 09/14/17 03:59 09/14/17 03:59 09/14/17 03:59 General appearance: Present: A&O X 3, no acute distress - Eye Eye exam: Present: PERRL. Absent: scleral icterus Pupils: Present: normal accommodation - ENT ENT exam: Present: mucous membranes moist, normal exam - Neck Neck exam general surgery: Present: full ROM, supple. Absent: tenderness - Expanded Neck Exam Neck exam: Absent: carotid bruit - Respiratory Respiratory exam: Present: CTAB. Absent: chest wall tenderness, rales, respiratory distress, rhonchi, wheezes - Cardiovascular Cardiovascular exam: Present: RRR, +S1, +S2, systolic murmur (grade 1 ). Absent : diastolic murmur, JVD - GI/Abdominal GI/Abdominal exam: Present: normal bowel sounds, soft. Absent: guarding, hepatomegaly, mass, rebound, splenomegaly, tenderness - Extremities Exam Extremities exam: Present: full ROM, pedal edema, tenderness, warm. Absent: calf tenderness, joint swelling Additional comments: warm, red, and mildly tender bilateral lower extremities consistent with cellulitis - Back Exam Back exam: Absent: CVA tenderness (L), CVA tenderness (R) - Neurological Exam Neurological exam: Present: alert, CN II-XII intact, oriented X3, no focal deficits - Psychiatric Psychiatric exam: Present: normal affect, normal mood - Skin Skin exam: Present: dry, erythema (legs as noted above), warm Internal Med - H&P Results - Labs CBC & Chem 7: 09/13/17 14:43 09/13/17 14:43 - EKG Data -: EKG Interpreted by Myself - EKG Data EKG comments: 09/14/17 04:08 Sinus rhythm; no acute ST-T changes - Diagnostic Studies Chest x-ray Status: image reviewed by me (minimal right pleural effusion; I disagree with radiology interpreation of vascular congestion) - Attending Attestation I discussed the patient RESIGHINI, PMH, ROS, lab data, and exam findings with Dr. Olivier. I then saw and examined patient independently as well. Patient does not give any history to suggest CHF other than bilateral lower extremity edema which started roughly 1 -2 weeks ago. She notes it was associated with redness, warmth, and tenderness. She denies any trauma to her legs or any skin breakdown. On exam, she does have evidence of cellulitis. She has no history to suggest right heart failure. Her CXR, in my opinion, does not suggest CHF either. I discussed again with Dr. Olivier and recommended stopping the Lasix for now, starting IV antibiotics for cellulitis, and stopping her Dyazide as I suspect this is the etiology of her hyponatremia. I agree with ECHO and trending her troponins. She very well may have some CHF findings on ECHO, but clinically, I do not suspect it at this time. Her complaint is that her legs are weak and she had fallen a few times. Other than my comments above and noted exam findings, I agree with Dr. Olivier's assessment and plan.
[2017-09-14 04:28] LABS: Basophils % 0.9 %; Eosinophils # 0.3 K/mcL (0.0-0.6); Eosinophils % 9.4 %; Hematocrit 29.4 % (35.3-44.9); Immature Granulocytes % 0.3 % (0-4); Lymphocytes # 1.3 K/mcL (0.6-4.6); Lymphocytes % 38.7 %; Mean Corpuscular Hemoglobin 25.5 pg (28.0-33.3); Mean Corpuscular Volume 79.7 fL (83.0-100.0); Mean Platelet Volume 11.5 fL (9.4-12.4); Monocytes # 0.3 K/mcL (0.0-1.3); Monocytes % 8.2 %; Neutrophils # 1.4 K/mcL (1.6-8.9); Platelet Count 159 K/mcL (140-400); Red Blood Count 3.69 M/mcL (3.82-4.97); Red Cell Distribution Width 16.3 % (11.5-14.5); Segmented Neutrophils % 42.5 %
[2017-09-14 04:47] LABS: BUN/Creatinine Ratio 15 (6-26); Blood Urea Nitrogen 11 mg/dL (7-20); Calcium 8.4 mg/dL (8.6-10.8); Carbon Dioxide 21 mEq/L (19-29); Chloride 108 mEq/L (98-109); Chol/HDL Ratio 2.1 (0-4.9); Cholesterol 71 mg/dL (< 200); Glucose 74 mg/dL (70-99); HDL Cholesterol 34 mg/dL (40-59); LDL Cholesterol,Calculated 24 mg/dL (0-99); Magnesium 1.1 mg/dL (1.6-2.6); Osmolality,Calculated 282 (280-300); Potassium 3.6 mEq/L (3.5-4.5); Sodium 137 mEq/L (136-145); Triglycerides 64 mg/dL (< 150); eGFR For African Americans > 60 (> 60); eGFR For Non-African Americans > 60 (> 60)
[2017-09-14 04:51] LABS: Hemoglobin 9.4 g/dL (11.5-15.4)
[2017-09-14] MEDS: *HR* Heparin 5,000 UNIT/ML VIAL SQ SCH ×2 (05:44→17:57)
[2017-09-14] MEDS ORDERED: ceFAZolin 1,000 MG in D5% in Water (Mini-Bag+) 100 ML IVPB SCH (08:00)
--- NOTE | 2017-09-14 08:13 | Electrocardiograph Report ---
[address] [place] [address] Test Date: 2017-09-13 Pat Name: Deedee Vigil Department: 103 Room: 3B43 Gender: F [employer]: JAZMYN : 1935 Requested By: Carine Sharma Order Number: [id number] Reading MD: Natasha Vanegas Measurements Intervals [place] Rate: 76 P: AL: 0 QRS: 28 QRSD: 78 T: 22 QT: 398 QTc: 428 Interpretive Statements SINUS RHYTHM WITH SINUS ARRHYTHMIA PAC'S POSSIBLE ANTERIOR MYOCARDIAL INFARCTION PROBABLY OLD Electronically Signed On 09-14-2017 8:12:19 EDT by Natasha Vanegas
[2017-09-14] MEDS ORDERED: Furosemide 20 MG/2 ML VIAL IVP SCH (09:00)
[2017-09-14] MEDS ORDERED: Furosemide 20 MG/2 ML VIAL IVP ONE (09:00)
[2017-09-14] MEDS: ceFAZolin 1,000 MG in Water for inj. (sterile) 10 ML IVP SCH ×2 (09:57→17:50)
[2017-09-15] MEDS: ceFAZolin 1,000 MG in Water for inj. (sterile) 10 ML IVP SCH ×2 (00:20→09:01)
[2017-09-15 04:56] LABS: Hematocrit 27.7 % (35.3-44.9); Hemoglobin 8.8 g/dL (11.5-15.4); Mean Corpuscular HGB Conc 31.8 g/dL (31.6-35.5); Mean Corpuscular Hemoglobin 25.5 pg (28.0-33.3); Mean Corpuscular Volume 80.3 fL (83.0-100.0); Mean Platelet Volume 11.4 fL (9.4-12.4); Platelet Count 148 K/mcL (140-400); Red Blood Count 3.45 M/mcL (3.82-4.97); Red Cell Distribution Width 16.5 % (11.5-14.5)
[2017-09-15 05:06] LABS: BUN/Creatinine Ratio 16 (6-26); Blood Urea Nitrogen 13 mg/dL (7-20); Carbon Dioxide 24 mEq/L (19-29); Chloride 107 mEq/L (98-109); Potassium 3.5 mEq/L (3.5-4.5); Sodium 138 mEq/L (136-145)
[2017-09-15 05:07] LABS: Alanine Aminotransferase 8 Units/L (0-55); Albumin/Globulin Ratio 0.4 (1.1-2.2); Alkaline Phosphatase 103 Units/L (38-126); Aspartate Amino Transferase 23 Units/L (5-34); Bilirubin,Total 0.3 mg/dL (0.2-1.2); Calcium 7.8 mg/dL (8.6-10.8); Globulin 3.7 g/dL (2.4-3.5); Glucose 77 mg/dL (70-99); Osmolality,Calculated 285 (280-300); Total Protein 5.2 g/dL (6.0-8.3); eGFR For African Americans > 60 (> 60); eGFR For Non-African Americans > 60 (> 60)
[2017-09-15 05:17] LABS: Albumin 1.5 g/dL (3.5-5.0)
[2017-09-15] MEDS: *HR* Heparin 5,000 UNIT/ML VIAL SQ SCH (06:10)
[2017-09-15] MEDS ORDERED: *HR* Heparin 5,000 UNIT/ML VIAL SQ SCH (14:00)
--- NOTE | 2017-09-15 14:27 | Internal Med Progress Note ---
Date of Encounter: 09/15/17 Time of Encounter: 16:10 - Assessment and plan (1) Cellulitis Current Visit: Yes Status: Acute Assessment and plan: Deedee Vigil is an 82 y/o female with PMH HTN, small bowel obstruction and anemia who presented to [facility] on 09/14/2017. She was placed in observation status for further work-up and treatment. She was found to have cellulites and was started on IV ATB. 1. Non-purulent cellulitis: bilateral lower extremities with erythema, warmth and tenderness. IV Ancef started on arrival. 09/15 exam shows rapid progression of erythema, warmth and swelling to right arm. Bilateral lower extremity Dopplers and right upper extremity Doppler negative for DVT. Bilateral ELISA preliminary report appears to be normal. No drainage to culture. With advanced age, comorbidities and lack of response to IV ATB she is at risk for further morbidity if discharged home on oral antibiotics; specifically concerned for sepsis. Increase Ancef to 2 g IV every 8 hours. Elevation of right arm. Monitor clinical response 2. Anemia: per hx. baseline appears to be around 11. Hgb dropped to 8.26/207 after small bowel resection. Hgb 11.2 on arrival and dropped to 8.8 on 2016. No obvious, active bleeding. Occult stool negative. No previous GI evaluation. GI consulted. Iron studies pending 3. Hypertension: per hx. BP controlled. Continue home BP medication. Monitor BP and titrate PRN. 4. Small bowel obstruction: Secondary to adhesions. Status post lysis of lesions and small bowel resection on 04/09/[address] Tijerina. 5. Subclinical hypothyroidism: History hypothyroidism. TSH 6.2, free T4 0.8. Cont home levothyroxine. Recommend repeat TSH with PSP and 6-8 weeks. 6. DVT prophylaxis: SCDs with declining Hgb Qualifiers: Site of cellulitis: extremity Site of cellulitis of extremity: upper extremity Laterality: right Qualified Code(s): L03.113 - Cellulitis of right upper limb (2) Anemia Current Visit: Yes Status: Acute Qualifiers: Anemia type: unspecified type Qualified Code(s): D64.9 - Anemia, unspecified - Subjective Interval history: Seen and examined at bedside. Patient is new to me, information obtained from chart review and patient report. Patient said she had an uneventful night. Still feels weak and fatigued. She does not feel safe going home. She reports bilateral lower extremity numbness and pain. No chest pain or shortness of breath. Also reports right arm swelling and pain. - Constitutional Vitals: Temp Pulse Resp BP Pulse Ox 98.2 F 65 16 123/69 96 09/15/17 10:38 09/15/17 10:38 09/15/17 10:38 09/15/17 10:38 09/15/17 10:38 General appearance: Present: A&O X 3, no acute distress - Head Head exam: Present: atraumatic, normocephalic - Eye Eye exam: Present: PERRL, conjuntiva pink, sclera anicteric Pupils: Present: PERRL - Neck Neck exam general surgery: Present: supple, trachea midline. Absent: lymphadenopathy - Respiratory Respiratory exam: Present: CTAB. Absent: accessory muscle use, rales, rhonchi, wheezes - Cardiovascular Cardiovascular exam: Present: RRR, +S1, +S2. Absent: diastolic murmur, gallop, rubs, systolic murmur - GI/Abdominal GI/Abdominal exam: Present: normal bowel sounds, soft, no peritoneal signs. Absent: distended, tenderness - Extremities Exam Extremities exam: Present: pedal edema, tenderness, warm, radial pulses palpable and symmetrical. Absent: calf tenderness, cyanotic Additional comments: Right arm: Erythema, warmth and tenderness from mid forearm of to axilla Bilateral lower extremities: With pitting edema, erythema and tenderness - Neurological Exam Neurological exam: Present: CN II-XII intact, oriented X3, no focal deficits. Absent: pronater drift, facial droop, speech deficit - Skin Skin exam: Present: dry, intact Internal Medicine: Result - Labs CBC & Chem 7: 09/15/17 04:30 09/15/17 04:30 Labs: Short CBC 09/15/17 Range/Units 04:30 WBC 3.6 L (4.3-11.1) K/mcL Hgb 8.8 L (11.5-15.4) g/dL Hct 27.7 L (35.3-44.9) % Plt Count 148 (140-400) K/mcL BMP 09/15/17 04:30 Sodium 138 Potassium 3.5 Chloride 107 Carbon Dioxide 24 BUN 13 Creatinine 0.80 Glucose 77 Calcium 7.8 L Liver Function 09/15/17 Range/Units 04:30 Total Bilirubin 0.3 (0.2-1.2) mg/dL AST 23 (5-34) Units/L ALT 8 (0-55) Units/L Alkaline Phosphatase 103 (38-126) Units/L Albumin 1.5 L (3.5-5.0) g/dL Consult Discharge Plan - Plan Referrals: Kathi Middleton DO [Primary Care Provider] -
[2017-09-15] MEDS ORDERED: ceFAZolin 2,000 MG in D5% in Water 100 ML IVPB SCH (17:00)
[2017-09-15] MEDS: ceFAZolin 2,000 MG in Water for inj. (sterile) 20 ML IVP SCH (17:09)
[2017-09-16] MEDS: ceFAZolin 2,000 MG in Water for inj. (sterile) 20 ML IVP SCH ×3 (01:47→17:59)
[2017-09-16 01:56] LABS: Mean Corpuscular HGB Conc 32.1 g/dL (31.6-35.5); Mean Corpuscular Volume 80.9 fL (83.0-100.0); Platelet Count 140 K/mcL (140-400); Red Blood Count 3.46 M/mcL (3.82-4.97); Red Cell Distribution Width 16.6 % (11.5-14.5)
[2017-09-16 02:12] LABS: % Iron Saturation 10 % (15-50); Albumin/Globulin Ratio 0.4 (1.1-2.2); Alkaline Phosphatase 104 Units/L (38-126); Aspartate Amino Transferase 23 Units/L (5-34); BUN/Creatinine Ratio 19 (6-26); Bilirubin,Total 0.3 mg/dL (0.2-1.2); Blood Urea Nitrogen 15 mg/dL (7-20); Calcium 7.8 mg/dL (8.6-10.8); Carbon Dioxide 25 mEq/L (19-29); Chloride 106 mEq/L (98-109); Globulin 3.6 g/dL (2.4-3.5); Glucose 87 mg/dL (70-99); Iron 24 mcg/dL (50-170); Osmolality,Calculated 284 (280-300); Potassium 3.6 mEq/L (3.5-4.5); Sodium 137 mEq/L (136-145); Total Protein 5.2 g/dL (6.0-8.3); Transferrin 174 mg/dL (180-382); eGFR For African Americans > 60 (> 60); eGFR For Non-African Americans > 60 (> 60)
[2017-09-16 02:13] LABS: Alanine Aminotransferase < 6 Units/L (0-55); Albumin 1.6 g/dL (3.5-5.0)
--- NOTE | 2017-09-16 09:14 | Gastroenterology Consult Note ---
<Hemant Gilbert Rodo - Last Filed: 09/16/17 10:36> Date of Encounter: 09/16/17 Time of Encounter: 09:05 - Assessment and plan (1) Anemia Current Visit: Yes Status: Acute Assessment and plan: Mrs. Vigil demonstrates microcytic anemia with a current hemoglobin of 9.0, hematocrit 28.0, MCV of 80.9. She was admitted with a hemoglobin of 11.2, hemoglobin fell to 8.8 yesterday but has remained stable since. She had a positive stool occult, but is currently asymptomatic and denies any noticeable bleeding from her anus or with bowel movements. - Review of her previous laboratory work demonstrates that she has had an average hemoglobin around 2014 and an MCV around 80 for the same amount of time. - Iron studies performed demonstrating iron of 24, percent saturation 10 and transferrin 174, she is currently not receiving any oral iron Her anemia appears to be chronic in nature and no significant change from her baseline. Currently her hemoglobin and hematocrit are stable. She does have laboratory work demonstrating iron deficiency and would benefit from oral iron. Her positive stool occult may be secondary to internal hemorrhoids with her known history or chronic gastritis but cannot rule out other significant pathology given her significant history of colon cancer, multiple polyps including tubular adenoma in 2011. There is also possibility with her history of recent small bowel obstruction and 12 cm small bowel resection that there may be oozing or ulceration around the anastomosis site may be continued into her current findings. At this time she does not complain of any noticeable blood loss in her stools or dark tarry stool and does not complain of any epigastric pain, burning or discomfort. - Of significance she has a significant GI history including colon cancer, multiple colon polyps, internal hemorrhoids, gastritis, hiatal hernia, moderate Schatzki ring, small bowel obstruction in 2014 and again in early 2016 requiring 12 cm small bowel resection. Plan: - EGD this morning for evaluation with history of gastritis - She may require colonoscopy with her significant history and current positive stool occult. Qualifiers: Anemia type: iron deficiency (2) Hx of colonoscopy with polypectomy Current Visit: Yes Status: Acute Assessment and plan: Ms. Villaseñor has a history of multiple colonoscopies after having a history of colon cancer in the . Colonoscopy in 2010 demonstrated multiple polyps that were removed and an anastomosis 30 cm from the anus correlating with a history of partial colectomy Colonoscopy in 2011 demonstrated a polyp that resulted with pathology tubular adenoma, colonic diverticuli Colonoscopy in 2013 demonstrated a hyperplastic polyp, internal hemorrhoids (3) History of colon cancer Current Visit: Yes Status: Acute Assessment and plan: Patient states she has a history of colon cancer that was completely resected without requiring chemotherapy or radiation in the . Denies any reoccurrence. (4) Positive occult stool blood test Current Visit: Yes Status: Acute Assessment and plan: Positive on 09/15/2017, discussed above. (5) Rheumatoid arthritis flare Current Visit: Yes Status: Acute Assessment and plan: Patient has bilateral MCP (all) and PIP (all) joint edema and warmth correlating with RA flare, she also has flares of bilateral wrists, has no signs of erythema, vitals demonstrate normal temperature, normal pulse rate and respiratory rate and oxygenation with slightly elevated blood pressure. Laboratory work with normal WBC count, appropriate neutrophil count and no band cells. This appears to be more of a rheumatoid arthritis flare based on the joints and patient history. - Treatment per primary care team - Addition of ESR, CRP, bilateral wrist and hand x-rays - She may benefit from steroids to reduce flare (6) Hypomagnesemia Current Visit: Yes Status: Acute Assessment and plan: Last recorded magnesium was 1.1 (09/14/2017) which was down from 1.4, magnesium level ordered today and she may require magnesium replacement. (7) Acid reflux disease Current Visit: Yes Status: Acute Assessment and plan: Patient has a history of acid reflux for which she takes Prilosec 20 mg by mouth daily at home. States that she is asymptomatic and continues to take her PPI regularly. - Continue PPI therapy inpatient. - Time Spent With Patient Total time spent is greater than 50% in coordination of care (as documented) at patient's floor/unit and/or counseling patient: GI History of Present Illness - Data of Consult Consult date: 09/16/17 Requesting Physician: Radha Tsai CNP - Consult Narrative Reason for consult: acute on chronic anemia History of present illness: Ms. Vigil is a 82 year old female significant past medical history of hypertension, hyperlipidemia, chronic kidney disease stage II, rheumatoid arthritis, acid reflux, hiatal hernia, colon cancer with partial colectomy, colon polyps and small bowel obstruction with small bowel resection was admitted to the hospital with bilateral wrist and hand swelling at the joints and fall at home. Gastroenterology was consulted regarding anemia and positive stool occult. Mrs. Vigil states that she has not had any abnormal bowel movements, change to bowel frequency, denies having any noticeable blood, change in color including dark tarry stools or constipation. She denies any epigastric discomfort, heartburn, hematemesis or hemoptysis. She denies any dark or noticeable blood in her urine. She states that she has a history of colon cancer back in the 1980s for which she underwent partial colectomy but denies ever having chemotherapy or radiation as she was told it was totally resected. She has undergone multiple colonoscopies since with multiple polyps removed. She states that she had one EGD performed in 2011 that demonstrated gastritis for which she takes stomach pills. She states that she was hospitalized with a small bowel obstruction and underwent partial small bowel resection and has been stable since. She denies any other significant GI symptoms, denies taking any NSAIDs and only uses Tylenol for discomfort. Colonoscopy: Last in 2013 EGD: 2011 Past Med Surg Social Fam HX - Past Medical History Medical history: arthritis, cancer, GERD, hyperlipidemia, hypertension, renal disease, other Psychiatric history: no psych history - Past Surgical History Surgical History: cataract, cholecystectomy, colectomy, hip replacement, hysterectomy, other - Social History Smoking Status: Never smoker Smokeless Tobacco Status: No Alcohol use: none Drug use: none - Family History Brother Living Status: Still Living Hx Family Respiratory Disorders: Yes (COPD.) Daughter Adopted: No Living Status: Hx Family Cardiac Disorders: Yes Hx Family Respiratory Disorders: No Hx Family Cancer: No Hx Family GI Disorders: No Hx Family Endocrine Disorder: Yes (diabetes) Hx Family Neuromuscular Disorders: No Hx Family Neurologic Disorders: No Hx Family HEENT Disorders: No Hx Family Autoimmune Disorders: No Father Living Status: Hx Family Cardiac Disorders: Yes Hx Family Respiratory Disorders: No Hx Family Cancer: No Hx Family GI Disorders: No Hx Family Endocrine Disorder: No Mother Living Status: Hx Family Cardiac Disorders: Yes (cva) Hx Family Cancer: Yes (Colon cancer) Hx Family Endocrine Disorder: Yes (DM) Sister Adopted: No Living Status: Hx Family Endocrine Disorder: Yes (Diabetes Mellitus) - Gastrointestinal Gastrointestinal: Absent: abdominal pain, change in bowel habits, coffee ground emesis, constipation, diarrhea, dyspepsia, heartburn, hematemesis, hematochezia , melena, nausea, vomiting - Constitutional Constitutional: no anorexia, no fatigue, no weight gain, no weight loss - EENT Nose, mouth and throat: Absent: hoarseness, sore throat - Cardiovascular Cardiovascular ROS: Absent: chest pain, irregular heart rhythm, palpitations - Respiratory Respiratory IM: Absent: cough, dyspnea, hemoptysis, wheezing - Genitourinary Genitourinary: Absent: change in color, Urinary frequency - Neurological ROS Neurological GI: Absent: confusion, dizziness, headache(s), memory loss - Hematologic/Lymphatic Hematologic/Lymphatic pediatric: Absent: easy bleeding - Musculoskeletal Musculoskeletal ROS GI: Present: joint swelling (Bilateral hands and wrists) - Integumentary Integumentary GI: Absent: jaundice, rash - Endocrine Endocrine IM: Absent: fatigue - Constitutional Vitals: Temp Pulse Resp BP Pulse Ox 98.3 F 75 20 122/45 95 09/16/17 06:47 09/16/17 06:47 09/16/17 06:47 09/16/17 06:47 09/16/17 06:47 Exam: General: Patient alert, awake, oriented 3, interactive, in no acute distress HEENT: Normocephalic, atraumatic, pupils equal reactive to light, nasal cavity patent and open septum median position, oral mucosa moist, neck supple trachea midline no palpable lymphadenopathy, no thyromegaly. Chest: Symmetric bilateral correlating with respiratory effort, effort nonlabored. Cardiac: Regular rate and rhythm, positive S1 and S2. no bruits appreciated bilateral carotids, Radial pulses 2+ bilateral, posterior tibial and dorsal pedal pulses 2+ bilateral. Respiratory: Clear to auscultation all lung batres Abdomen: Soft, nontender, positive bowel sounds, no surgical scars across her abdomen, no palpable masses appreciated on examination Extremities: Symmetric bilateral, bilateral lower extremities without erythema or edema, patient moving all 4 extremities spontaneously. Patient has bilateral joint swelling in her MCP and PCP joints on bilateral hands and wrists edema. The joints are warm and edematous but no signs of erythema. Neurologic: No focal deficits appreciated on examination. Face symmetric, muscle strength symmetric bilateral upper and lower extremities. Results - Labs CBC & Chem 7: 09/16/17 01:50 09/16/17 01:50 Labs: Last Result Calcium 7.8 mg/dL (8.6-10.8) L 09/16/17 01:50 Iron 24 mcg/dL (50-170) L 09/16/17 01:50 % Saturation 10 % (15-50) L 09/16/17 01:50 Transferrin 174 mg/dL (180-382) L 09/16/17 01:50 Troponin I 0.02 ng/mL (0-0.03) 09/14/17 03:32 Triglycerides 64 mg/dL (< 150) 09/14/17 03:32 Stool Occult Blood Positive (Negative) A 09/15/17 17:40 Entire Visit Hgb 9.0 g/dL (11.5-15.4) L 09/16/17 01:50 Hct 28.0 % (35.3-44.9) L 09/16/17 01:50 Total Bilirubin 0.3 mg/dL (0.2-1.2) 09/16/17 01:50 AST 23 Units/L (5-34) 09/16/17 01:50 ALT < 6 Units/L (0-55) 09/16/17 01:50 Consult Discharge Plan - Plan Referrals: Kathi Middleton DO [Primary Care Provider] - <Ambrosio Bills - Last Filed: 09/17/17 15:59> Date of Encounter: 09/16/17 - Time Spent With Patient Total time spent is greater than 50% in coordination of care (as documented) at patient's floor/unit and/or counseling patient: GI History of Present Illness - Data of Consult Requesting Physician: Radha Tsai CNP - Consult Narrative History of present illness: Ms. Vigil is a 82 year old female - Constitutional Vitals: Temp Pulse Resp BP Pulse Ox 98.5 F 66 14 103/60 97 09/17/17 10:44 09/17/17 10:44 09/17/17 10:44 09/17/17 10:44 09/17/17 10:44 Results - Labs CBC & Chem 7: 09/17/17 03:07 09/17/17 03:07 Labs: Last Result ESR 72 mm/hr (0-15) H 09/16/17 01:50 Calcium 7.9 mg/dL (8.6-10.8) L 09/17/17 03:07 Iron 24 mcg/dL (50-170) L 09/16/17 01:50 % Saturation 10 % (15-50) L 09/16/17 01:50 Transferrin 174 mg/dL (180-382) L 09/16/17 01:50 Troponin I 0.02 ng/mL (0-0.03) 09/14/17 03:32 C-Reactive Protein 35 mg/L (Less than 5) H 09/16/17 01:50 Triglycerides 64 mg/dL (< 150) 09/14/17 03:32 Stool Occult Blood Positive (Negative) A 09/15/17 17:40 Entire Visit Hgb 9.7 g/dL (11.5-15.4) L 09/17/17 03:07 Hct 30.3 % (35.3-44.9) L 09/17/17 03:07 Total Bilirubin 0.4 mg/dL (0.2-1.2) 09/17/17 03:07 AST 24 Units/L (5-34) 09/17/17 03:07 ALT < 6 Units/L (0-55) 09/17/17 03:07 - Attending Attestation Deedee Vigil has anemia which is multifactorial. She does have a positive occult blood test. Will plan EGD today and colonoscopy as outpatient since she is not actively bleeding. I have personally interviewed and examined MS. Vigil and reviewed her studies. Agree with above Ambrosio Bills MD
[2017-09-16 10:20] LABS: Uric Acid 5.5 mg/dL (2.6-6.0)
[2017-09-16 11:05] LABS: C-Reactive Protein 35 mg/L (Less than 5); Magnesium 1.1 mg/dL (1.6-2.6)
[2017-09-16] MEDS ORDERED: *HR* FentaNYL (PF) 100 MCG/2 ML VIAL ONE (12:56)
[2017-09-16] MEDS ORDERED: *HR* Midazolam HCl 5 MG/5 ML VIAL IVP ONE ×2 (12:56→13:38)
[2017-09-16] MEDS ORDERED: *HR* FentaNYL (PF) 100 MCG/2 ML VIAL IVP ONE (13:38)
[2017-09-16] MEDS ORDERED: Simethicone 40 MG/0.6 ML MLS IR ONE (13:38)
[2017-09-16] MEDS ORDERED: Tetracaine/Benzocaine/Butamben 200MG/SPRAY (100SPY/BOT) MM ONE (13:38)
--- NOTE | 2017-09-16 14:35 | Internal Med Progress Note ---
Date of Encounter: 09/16/17 Time of Encounter: 14:21 - Assessment and plan (1) Cellulitis Current Visit: Yes Status: Acute Assessment and plan: Deedee Vigil is an 82 y/o female with PMH HTN, small bowel obstruction and anemia who presented to [facility] on 09/14/2017. She was placed in observation status for further work-up and treatment. She was found to have cellulites and was started on IV ATB. 1. Non-purulent cellulitis: bilateral lower extremities with erythema, warmth and tenderness. IV Ancef started on arrival. 09/15 exam shows rapid progression of erythema, warmth and swelling to right arm. Bilateral lower extremity Dopplers and right upper extremity Doppler negative for DVT. Bilateral ELISA preliminary report appears to be normal. No drainage to culture. With advanced age, comorbidities and lack of response to IV ATB she is at risk for further morbidity if discharged home on oral antibiotics; specifically concerned for sepsis. Increase Ancef to 2 g IV every 8 hours. Elevation of right arm. Monitor clinical response 2. Iron deficiency anemia: per hx. Hgb 11.2 on arrival and dropped to 8.8 on . No obvious, active bleeding. Occult stool positive. EGD with mild Schatzki ring and hiatal hernia, tensely unchanged from previous EGD. Evaluated by GI who recommended outpatient colonoscopy. Start iron supplementation. Monitor H&H. 3. Pseudogout: Has known osteoarthritis. Symptomatic with swollen, inflamed joints to bilateral hands and wrists. Bilateral wrist and hand x-ray with mild multifocal Crystal disposition. No findings to suggest rheumatoid arthritis. Uric acid level 5.5. Clinically appears to be more consistent with pseudogout versus osteoarthritis with pain, erythema, warmth with swelling and joint disability to bilateral hands. Start prednisone. Monitor clinical response. 3. Hypertension: per hx. BP controlled. Continue home BP medication. Monitor BP and titrate PRN. 4. Small bowel obstruction: History colon cancer with multiple colon polyps and small bowel obstruction in 2014 and 02/2017 (required bowel resection at that time). 5. Subclinical hypothyroidism: History hypothyroidism. TSH 6.2, free T4 0.8. Cont home levothyroxine. Recommend repeat TSH with PCP and 6-8 weeks. 6. DVT prophylaxis: SCDs with declining Hgb Qualifiers: Site of cellulitis: extremity Site of cellulitis of extremity: upper extremity Laterality: right Qualified Code(s): L03.113 - Cellulitis of right upper limb (2) Anemia Current Visit: Yes Status: Acute Qualifiers: Anemia type: unspecified type Qualified Code(s): D64.9 - Anemia, unspecified - Subjective Interval history: Seen and examined at bedside. Patient says she is tired and did not sleep too well last night. She complains of soreness and achiness in both hands worse to right arm. No chest pain, no shortness of breath. She denies black tarry stools, no active or obvious bleeding. - Constitutional Vitals: Temp Pulse Resp BP Pulse Ox 97.8 F 67 18 149/97 92 09/16/17 13:30 09/16/17 13:50 09/16/17 13:50 09/16/17 13:50 09/16/17 13:50 General appearance: Present: A&O X 3, no acute distress - Head Head exam: Present: atraumatic, normocephalic - Eye Eye exam: Present: PERRL, conjuntiva pink, sclera anicteric Pupils: Present: PERRL - Neck Neck exam general surgery: Present: supple, trachea midline. Absent: lymphadenopathy - Respiratory Respiratory exam: Present: CTAB. Absent: accessory muscle use, rales, rhonchi, wheezes - Cardiovascular Cardiovascular exam: Present: RRR, +S1, +S2. Absent: diastolic murmur, gallop, rubs, systolic murmur - GI/Abdominal GI/Abdominal exam: Present: normal bowel sounds, soft, no peritoneal signs. Absent: distended, tenderness - Extremities Exam Extremities exam: Present: joint swelling, pedal edema, warm, radial pulses palpable and symmetrical. Absent: calf tenderness, cyanotic Additional comments: Bilateral upper extremities with interstitial, nonpitting edema. Right worse than left. Bilateral lower extremities with trace pitting edema - Neurological Exam Neurological exam: Present: CN II-XII intact, oriented X3, no focal deficits. Absent: pronater drift, facial droop, speech deficit - Skin Skin exam: Present: dry, intact Internal Medicine: Result - Labs CBC & Chem 7: 09/16/17 01:50 09/16/17 01:50 Labs: Short CBC 09/16/17 Range/Units 01:50 WBC 3.6 L (4.3-11.1) K/mcL Hgb 9.0 L (11.5-15.4) g/dL Hct 28.0 L (35.3-44.9) % Plt Count 140 (140-400) K/mcL BMP 09/16/17 01:50 Sodium 137 Potassium 3.6 Chloride 106 Carbon Dioxide 25 BUN 15 Creatinine 0.78 Glucose 87 Calcium 7.8 L Liver Function 09/16/17 Range/Units 01:50 Total Bilirubin 0.3 (0.2-1.2) mg/dL AST 23 (5-34) Units/L ALT < 6 (0-55) Units/L Alkaline Phosphatase 104 (38-126) Units/L Albumin 1.6 L (3.5-5.0) g/dL - Impressions Impressions Hand X-Ray 09/16/17 09:59 IMPRESSION: 1. Global decreased bone mineral density. 2. Bilateral wrist soft tissue swelling and left TFCC chondrocalcinosis. Essentially stable bilateral multifocal nonuniform joint space narrowing most severe at the 1st MCP joint with mild subluxation. 3. 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 4. No focal soft tissue swelling. 5. Decreased global bone mineral density. 6. The right wrist and hand demonstrate stable mild multifocal crystal deposition arthropathy versus osteoarthritis. No findings to suggest rheumatoid arthritis. D/ / 09/16/2017 12:20:48 Afshin Lui MD / mario Interpreting Provider: Afshin Liu MD Hand X-Ray 09/16/17 09:59 IMPRESSION: 1. Global decreased bone mineral density. 2. Bilateral wrist soft tissue swelling and left TFCC chondrocalcinosis. Essentially stable bilateral multifocal nonuniform joint space narrowing most severe at the 1st MCP joint with mild subluxation. 3. 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 4. No focal soft tissue swelling. 5. Decreased global bone mineral density. 6. The right wrist and hand demonstrate stable mild multifocal crystal deposition arthropathy versus osteoarthritis. No findings to suggest rheumatoid arthritis. D/ / 09/16/2017 12:20:48 Afshin Liu MD / mario Interpreting Provider: Afshin Liu MD Wrist X-Ray 09/16/17 09:59 IMPRESSION: 1. Global decreased bone mineral density. 2. Bilateral wrist soft tissue swelling and left TFCC chondrocalcinosis. Essentially stable bilateral multifocal nonuniform joint space narrowing most severe at the 1st MCP joint with mild subluxation. 3. 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 4. No focal soft tissue swelling. 5. Decreased global bone mineral density. 6. The right wrist and hand demonstrate stable mild multifocal crystal deposition arthropathy versus osteoarthritis. No findings to suggest rheumatoid arthritis. D/ / 09/16/2017 12:20:48 Afshin Liu MD / mario Interpreting Provider: Afshin Liu MD Wrist X-Ray 09/16/17 09:59 IMPRESSION: 1. Global decreased bone mineral density. 2. Bilateral wrist soft tissue swelling and left TFCC chondrocalcinosis. Essentially stable bilateral multifocal nonuniform joint space narrowing most severe at the 1st MCP joint with mild subluxation. 3. 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 4. No focal soft tissue swelling. 5. Decreased global bone mineral density. 6. The right wrist and hand demonstrate stable mild multifocal crystal deposition arthropathy versus osteoarthritis. No findings to suggest rheumatoid arthritis. D/ / 09/16/2017 12:20:48 Afshin Liu MD / mario Interpreting Provider: Afshin Liu MD Consult Discharge Plan - Plan Referrals: Kathi Middleton DO [Primary Care Provider] -
[2017-09-16] MEDS: predniSONE 10 MG TABLET PO SCH (17:59)
[2017-09-17] MEDS: ceFAZolin 2,000 MG in Water for inj. (sterile) 20 ML IVP SCH ×2 (01:13→10:00)
[2017-09-17 04:02] LABS: Hematocrit 30.3 % (35.3-44.9); Hemoglobin 9.7 g/dL (11.5-15.4); Mean Corpuscular Hemoglobin 25.6 pg (28.0-33.3); Mean Corpuscular Volume 79.9 fL (83.0-100.0); Mean Platelet Volume 12.9 fL (9.4-12.4); Platelet Count 130 K/mcL (140-400); Red Blood Count 3.79 M/mcL (3.82-4.97); Red Cell Distribution Width 16.5 % (11.5-14.5)
[2017-09-17 04:11] LABS: Albumin/Globulin Ratio 0.4 (1.1-2.2); Alkaline Phosphatase 95 Units/L (38-126); Aspartate Amino Transferase 24 Units/L (5-34); BUN/Creatinine Ratio 21 (6-26); Bilirubin,Total 0.4 mg/dL (0.2-1.2); Blood Urea Nitrogen 16 mg/dL (7-20); Calcium 7.9 mg/dL (8.6-10.8); Carbon Dioxide 22 mEq/L (19-29); Chloride 106 mEq/L (98-109); Glucose 127 mg/dL (70-99); Osmolality,Calculated 285 (280-300); Sodium 136 mEq/L (136-145); Total Protein 5.6 g/dL (6.0-8.3); eGFR For African Americans > 60 (> 60); eGFR For Non-African Americans > 60 (> 60)
[2017-09-17 04:25] LABS: Alanine Aminotransferase < 6 Units/L (0-55); Albumin 1.6 g/dL (3.5-5.0)
[2017-09-17] MEDS: predniSONE 10 MG TABLET PO SCH ×2 (10:00→16:37)
--- NOTE | 2017-09-17 15:37 | Internal Med Progress Note ---
Date of Encounter: 09/17/17 Time of Encounter: 15:33 - Assessment and plan (1) Cellulitis Current Visit: Yes Status: Acute Assessment and plan: Deedee Vigil is an 82 y/o female with PMH HTN, small bowel obstruction and anemia who presented to [facility] on 09/14/2017. She was placed in observation status for further work-up and treatment. She was found to have cellulites and was started on IV ATB. 1. Non-purulent cellulitis: bilateral lower extremities with erythema, warmth and tenderness. IV Ancef started on arrival. 09/15 exam shows rapid progression of erythema, warmth and swelling to right arm. Bilateral lower extremity Dopplers and right upper extremity Doppler negative for DVT. Bilateral ELISA preliminary report appears to be normal. No drainage to culture. Clinically improved with IV Ancef, de-escalate to Keflex. Elevation of right arm. Monitor clinical response 2. Iron deficiency anemia: per hx. Hgb 11.2 on arrival and dropped to 8.8 on . No obvious, active bleeding. Occult stool positive. EGD with mild Schatzki ring and hiatal hernia, tensely unchanged from previous EGD. Evaluated by GI who recommended outpatient colonoscopy. Start iron supplementation. Monitor H&H. 3. Pseudogout: Has known osteoarthritis. Symptomatic with swollen, inflamed joints to bilateral hands and wrists. Bilateral wrist and hand x-ray with mild multifocal Crystal disposition. No findings to suggest rheumatoid arthritis. Uric acid level 5.5. Clinically appears to be more consistent with pseudogout versus osteoarthritis with pain, erythema, warmth with swelling and joint disability to bilateral hands. Start prednisone. Monitor clinical response. 3. Hypertension: per hx. BP controlled. Continue home BP medication. Monitor BP and titrate PRN. 4. Small bowel obstruction: History colon cancer with multiple colon polyps and small bowel obstruction in 2014 and 02/2017 (required bowel resection at that time). 5. Subclinical hypothyroidism: History hypothyroidism. TSH 6.2, free T4 0.8. Cont home levothyroxine. Recommend repeat TSH with PCP and 6-8 weeks. 6. DVT prophylaxis: SCDs with declining Hgb Qualifiers: Site of cellulitis: extremity Site of cellulitis of extremity: upper extremity Laterality: right Qualified Code(s): L03.113 - Cellulitis of right upper limb (2) Anemia Current Visit: Yes Status: Acute Qualifiers: Anemia type: unspecified type Qualified Code(s): D64.9 - Anemia, unspecified - Subjective Interval history: Seen and examined at bedside. Sitting up in chair at bedside. Patient said she had an uneventful night, slept well. She is anxious for discharge to SNF tomorrow. Says swelling and hands are better especially to left hand. - Constitutional Vitals: Temp Pulse Resp BP Pulse Ox 98.5 F 66 14 103/60 97 09/17/17 10:44 09/17/17 10:44 09/17/17 10:44 09/17/17 10:44 09/17/17 10:44 General appearance: Present: A&O X 3, no acute distress - Head Head exam: Present: atraumatic, normocephalic - Eye Eye exam: Present: PERRL, conjuntiva pink, sclera anicteric Pupils: Present: PERRL - Neck Neck exam general surgery: Present: supple, trachea midline. Absent: lymphadenopathy - Respiratory Respiratory exam: Present: CTAB. Absent: accessory muscle use, rales, rhonchi, wheezes - Cardiovascular Cardiovascular exam: Present: RRR, +S1, +S2. Absent: diastolic murmur, gallop, rubs, systolic murmur - GI/Abdominal GI/Abdominal exam: Present: normal bowel sounds, soft, no peritoneal signs. Absent: distended, tenderness - Extremities Exam Extremities exam: Present: joint swelling, warm, radial pulses palpable and symmetrical. Absent: calf tenderness, cyanotic, pedal edema Additional comments: Bilateral lower extremity with mild pitting edema. Bilateral upper extremities with joint swelling to both hands worse to right. - Neurological Exam Neurological exam: Present: CN II-XII intact, oriented X3, no focal deficits. Absent: pronater drift, facial droop, speech deficit - Skin Skin exam: Present: dry, intact Internal Medicine: Result - Labs CBC & Chem 7: 09/17/17 03:07 09/17/17 03:07 Labs: Short CBC 09/17/17 Range/Units 03:07 WBC 3.4 L (4.3-11.1) K/mcL Hgb 9.7 L (11.5-15.4) g/dL Hct 30.3 L (35.3-44.9) % Plt Count 130 L (140-400) K/mcL BMP 09/17/17 03:07 Sodium 136 Potassium 4.0 Chloride 106 Carbon Dioxide 22 BUN 16 Creatinine 0.78 Glucose 127 H Calcium 7.9 L Liver Function 09/17/17 Range/Units 03:07 Total Bilirubin 0.4 (0.2-1.2) mg/dL AST 24 (5-34) Units/L ALT < 6 (0-55) Units/L Alkaline Phosphatase 95 (38-126) Units/L Albumin 1.6 L (3.5-5.0) g/dL - VTE Documentation of Mechanical Device: Intermittent pneumatic compression device Consult Discharge Plan - Plan Referrals: Kathi Middleton DO [Primary Care Provider] -
[2017-09-17] MEDS: cephALEXin 250 MG CAPSULE PO SCH ×2 (16:37→20:47)
[2017-09-18 04:57] LABS: Hematocrit 27.1 % (35.3-44.9); Hemoglobin 8.6 g/dL (11.5-15.4); Mean Corpuscular HGB Conc 31.7 g/dL (31.6-35.5); Mean Corpuscular Hemoglobin 25.7 pg (28.0-33.3); Mean Corpuscular Volume 81.1 fL (83.0-100.0); Mean Platelet Volume 11.8 fL (9.4-12.4); Platelet Count 113 K/mcL (140-400); Red Blood Count 3.34 M/mcL (3.82-4.97); Red Cell Distribution Width 16.6 % (11.5-14.5)
[2017-09-18 05:11] LABS: Alanine Aminotransferase < 6 Units/L (0-55); Albumin/Globulin Ratio 0.5 (1.1-2.2); Alkaline Phosphatase 101 Units/L (38-126); Aspartate Amino Transferase 22 Units/L (5-34); BUN/Creatinine Ratio 24 (6-26); Bilirubin,Total 0.2 mg/dL (0.2-1.2); Blood Urea Nitrogen 17 mg/dL (7-20); Calcium 8.2 mg/dL (8.6-10.8); Carbon Dioxide 23 mEq/L (19-29); Chloride 106 mEq/L (98-109); Globulin 3.7 g/dL (2.4-3.5); Glucose 122 mg/dL (70-99); Osmolality,Calculated 285 (280-300); Potassium 3.8 mEq/L (3.5-4.5); Sodium 136 mEq/L (136-145); Total Protein 5.5 g/dL (6.0-8.3); eGFR For African Americans > 60 (> 60); eGFR For Non-African Americans > 60 (> 60)
[2017-09-18 05:12] LABS: Albumin 1.8 g/dL (3.5-5.0)
[2017-09-18] MEDS: predniSONE 10 MG TABLET PO SCH (08:19)
[2017-09-18] MEDS: cephALEXin 250 MG CAPSULE PO SCH ×2 (08:19→12:24)
[2017-09-18 12:32] VITALS: BP 110/70
--- NOTE | 2017-09-18 13:31 | Discharge Summary ---
Date of Encounter: 09/18/17 Time of Encounter: 13:26 - Discharge Diagnosis (1) Cellulitis Priority: Primary Status: Acute Comments: Deedee Vigil is an 82 y/o female with PMH HTN, small bowel obstruction and anemia who presented to [facility] on 09/14/2017. She was placed in observation status for further work-up and treatment. She was found to have cellulites and was started on IV ATB. 1. Non-purulent cellulitis: bilateral lower extremities with erythema, warmth and tenderness. IV Ancef started on arrival. 09/15 exam shows rapid progression of erythema, warmth and swelling to right arm. Bilateral lower extremity Dopplers and right upper extremity Doppler negative for DVT. Bilateral ELISA preliminary report appears to be normal. No drainage to culture. Clinically improved with IV Ancef, de-escalate to Keflex. Elevation of right arm. 2. Iron deficiency anemia: per hx. Hgb 11.2 on arrival and dropped to 8.8 on . No obvious, active bleeding. Occult stool positive. EGD with mild Schatzki ring and hiatal hernia, unchanged from previous EGD. Evaluated by GI who recommended outpatient colonoscopy. Start iron supplementation. 3. RA: or CPPD arthritis. Symptomatic with swollen, inflamed joints to bilateral hands and wrists. Bilateral wrist and hand x-ray with mild multifocal Crystal disposition, no evidence of rheumatoid arthritis. Uric acid level 5.5. Clinically appears to be more consistent with pseudogout versus osteoarthritis with pain, erythema, warmth with swelling and joint disability to bilateral hands. Follows with Dr. Cheney. Was seen 03/2017 and plan was for 30 days of steroid therapy however she did not complete as she was hospial;[facility] for SBO. Sx's significantly improved with prednisone. Cont prednisone taper. Will need to follow-up with Dr. Cheney outpatient 3. Hypertension: per hx. BP controlled. Continue home BP medication. 4. Small bowel obstruction: History colon cancer with multiple colon polyps and small bowel obstruction in 2014 and 02/2017 (required bowel resection at that time). 5. Subclinical hypothyroidism: History hypothyroidism. TSH 6.2, free T4 0.8. Cont home levothyroxine. Recommend repeat TSH with PCP and 6-8 weeks. Qualifiers: Site of cellulitis: extremity Site of cellulitis of extremity: upper extremity Laterality: right Qualified Code(s): L03.113 - Cellulitis of right upper limb (2) Anemia Priority: Primary Status: Acute Qualifiers: Anemia type: unspecified type Qualified Code(s): D64.9 - Anemia, unspecified - Discharge Medications Prescriptions: Magnesium Oxide [Mag-Ox] 400 mg PO DAILY #30 tablet predniSONE [Prednisone] 10 mg PO DAILY #30 tab.ds.pk Home Medications: Cyanocobalamin (Vitamin B-12) [Vitamin B12] 1,000 mcg PO DAILY 07/28/15 [History ] Metoprolol [Lopressor] 50 mg PO BID 07/28/15 [History] Omeprazole [PriLOSEC] 20 mg PO DAILY 07/28/15 [History] Triamterene/HCTZ 37.5/25mg [Dyazide] 0.5 tab PO DAILY 07/28/15 [History] Lisinopril 2.5 mg PO DAILY 09/13/17 [History] Sodium Chloride 1 gm PO BID 09/13/17 [History] Ferrous Sulfate 325 mg PO BIDWM tablet 09/18/17 [Rx] Magnesium Oxide [Mag-Ox] 400 mg PO DAILY #30 tablet 09/18/17 [Rx] cephALEXin [Keflex] 500 mg PO BID capsule 09/18/17 [Rx] predniSONE [Prednisone] 10 mg PO DAILY #30 tab.ds.pk 09/18/17 [Rx] Allergies/Adverse Reactions: 3 Allergy/AdvReac Type Severity Reaction Status Date / Time Pneumococcal Vaccine Allergy Cough Verified 09/13/17 14:22 tuberculin, purified protein Allergy Blister Verified 09/13/17 14:22 deriva [tuberculin,purif.prot.deriv.] aspirin AdvReac See Verified 09/13/17 14:22 Comments ibuprofen [From Motrin] AdvReac See Verified 09/13/17 14:22 Comments Date of admission: 09/15/17 16:59 Primary care physician: Kathi Middleton DO Consults: 09/16/17 09:01 Consult to Gastroenterology [CONS] Routine Consulting Provider: Gastroenterology Carmen Reason for Consult: Anemia, occult stool positive Call Completed: Yes Discharging clinician: Radha Tsai Anticipated date of discharge: 09/18/17 - Patient Status Disposition: Transfer SNF Condition: Good Functional capacity at discharge: uses cane/walker Overall status at discharge: patient is progressing back to baseline - Discharge Instructions Follow Up With: Mohit Petersen DO [Partnered Physician] - Kathi Middleton DO [Primary Care Provider] - Ambrosio Bills MD [Partnered Physician] - Additional Instructions: Follow Up Appointment 1. Please call Dr. Petersen's office within 24 hours or next business day to schedule a follow up appointment. 2. Please call Dr. Bills's office to make follow-up appt for colonoscopy - Diet and Activity Activity: as per physical therapy Diet: advance to your usual diet Hospital course: Ms. Vigil is a 82 year old female - Time Spent with Patient Total time spent providing and/or coordinating discharge services: - Constitutional Vitals: Temp Pulse Resp BP Pulse Ox 97.6 F 64 16 110/70 94 09/18/17 11:15 09/18/17 11:15 09/18/17 11:15 09/18/17 11:15 09/18/17 11:15 General appearance: Present: A&O X 3, no acute distress - Head Head exam: Present: atraumatic, normocephalic - Eye Eye exam: Present: PERRL, conjuntiva pink, sclera anicteric Pupils: Present: PERRL - Neck Neck exam general surgery: Present: supple, trachea midline. Absent: lymphadenopathy - Respiratory Respiratory exam: Present: CTAB. Absent: accessory muscle use, rales, rhonchi, wheezes - Cardiovascular Cardiovascular exam: Present: RRR, +S1, +S2. Absent: diastolic murmur, gallop, rubs, systolic murmur - GI/Abdominal GI/Abdominal exam: Present: normal bowel sounds, soft, no peritoneal signs. Absent: distended, tenderness - Extremities Exam Extremities exam: Present: joint swelling, pedal edema, warm, radial pulses palpable and symmetrical. Absent: calf tenderness, cyanotic Additional comments: Bilateral hand swelling significantly improved - Neurological Exam Neurological exam: Present: CN II-XII intact, oriented X3, no focal deficits. Absent: pronater drift, facial droop, speech deficit - Skin Skin exam: Present: dry, intact - VTE Documentation of Mechanical Device: Intermittent pneumatic compression device
--- NOTE | 2017-09-18 13:45 | Physician Discharge Referral ---
ExtendedCare Referral Info Transfer To: [facility] Provider in Charge: [place] Provider in Charge after Transfer: Other (SNF provider) Institutional Level of Care: Skilled - Diagnosis (1) Cellulitis Status: Acute (2) Anemia Status: Acute (3) Acute kidney injury Status: Acute (4) H/O calcium pyrophosphate deposition disease (CPPD) Status: Suspected (5) History of colon cancer Status: Acute - Transfer Medications Prescriptions: Magnesium Oxide [Mag-Ox] 400 mg PO DAILY #30 tablet predniSONE [Prednisone] 10 mg PO DAILY #30 tab.ds.pk Home Medications: Cyanocobalamin (Vitamin B-12) [Vitamin B12] 1,000 mcg PO DAILY 07/28/15 [History ] Metoprolol [Lopressor] 50 mg PO BID 07/28/15 [History] Omeprazole [PriLOSEC] 20 mg PO DAILY 07/28/15 [History] Triamterene/HCTZ 37.5/25mg [Dyazide] 0.5 tab PO DAILY 07/28/15 [History] Lisinopril 2.5 mg PO DAILY 09/13/17 [History] Sodium Chloride 1 gm PO BID 09/13/17 [History] Ferrous Sulfate 325 mg PO BIDWM tablet 09/18/17 [Rx] Magnesium Oxide [Mag-Ox] 400 mg PO DAILY #30 tablet 09/18/17 [Rx] cephALEXin [Keflex] 500 mg PO BID capsule 09/18/17 [Rx] predniSONE [Prednisone] 10 mg PO DAILY #30 tab.ds.pk 09/18/17 [Rx] Allergies/Adverse Reactions: 3 Allergy/AdvReac Type Severity Reaction Status Date / Time Pneumococcal Vaccine Allergy Cough Verified 09/13/17 14:22 tuberculin, purified protein Allergy Blister Verified 09/13/17 14:22 deriva [tuberculin,purif.prot.deriv.] aspirin AdvReac See Verified 09/13/17 14:22 Comments ibuprofen [From Motrin] AdvReac See Verified 09/13/17 14:22 Comments - Respiratory Orders None Smoking Cessation: Smoking cessation has been advised. For more information, call the [place] Tobacco Quit Line at 8-564-TBCY-NOW. - Advance Directives Code Status: Full Code - Mobility Orders Ambulate - Rehabiliation Orders Rehab Potential: Good Rehab Orders: Evaluation for Physical Therapy, Evaluation for Occupational Therapy - Diet Orders Regular CERTIFICATION: I certify that the transfer of the above named patient to an Extended Care Facility is necessary for the continuing treatment of the diagnosis listed. The above information is true and accurate reflection of patient's current condition. Confidential - Redisclosure prohibited without a patient's written consent.
--- NOTE | 2017-09-18 13:51 | Discharge Summary ---
Date of Encounter: 09/18/17 Time of Encounter: 13:47 - Discharge Diagnosis (1) Cellulitis Priority: Primary Status: Acute Comments: Deedee Vigil is an 82 y/o female with PMH HTN, small bowel obstruction and anemia who presented to [facility] on 09/14/2017. She was placed in observation status for further work-up and treatment. She was found to have cellulites and was started on IV ATB. Hospitalization prolonged due to drop in Hgb and need for GI evaluation 1. Non-purulent cellulitis: bilateral lower extremities with erythema, warmth and tenderness. IV Ancef started on arrival. 09/15 exam shows rapid progression of erythema, warmth and swelling to right arm. Bilateral lower extremity Dopplers and right upper extremity Doppler negative for DVT. Bilateral ELISA preliminary report appears to be normal. No drainage to culture. Clinically improved with IV Ancef, de-escalate to Keflex. Elevation of right arm. 2. Iron deficiency anemia: per hx. Hgb 11.2 on arrival and dropped to 8.8 on . No obvious, active bleeding. Occult stool positive. EGD with mild Schatzki ring and hiatal hernia, unchanged from previous EGD. Evaluated by GI who recommended outpatient colonoscopy. Cont iron supplementation. CBC can be monitored at SNF. Hgb 8.6 at time of discharge 3. RA: or CPPD arthritis. Symptomatic with swollen, inflamed joints to bilateral hands and wrists. Bilateral wrist and hand x-ray with mild multifocal Crystal disposition, no evidence of rheumatoid arthritis. Uric acid level 5.5. Clinically appears to be more consistent with pseudogout versus osteoarthritis with pain, erythema, warmth with swelling and joint disability to bilateral hands. Follows with Dr. Cheney. Was seen 03/2017 and plan was for 30 days of steroid therapy however she did not complete as she was hospitalized for SBO. Sx's significantly improved with prednisone. Cont prednisone taper. Will need to follow-up with Dr. Cheney outpatient 3. Hypertension: per hx. BP controlled. Continue home BP medication. 4. Small bowel obstruction: History colon cancer with multiple colon polyps and small bowel obstruction in 2014 and 02/2017 (required bowel resection at that time). 5. Subclinical hypothyroidism: History hypothyroidism. TSH 6.2, free T4 0.8. Cont home levothyroxine. Recommend repeat TSH with PCP and 6-8 weeks. 6. Hypomagnesium: Mg 1.1; replaced IV and started PO supplementation. Mg level can be monitored at SNF Qualifiers: Site of cellulitis: extremity Site of cellulitis of extremity: upper extremity Laterality: right Qualified Code(s): L03.113 - Cellulitis of right upper limb (2) Anemia Priority: Primary Status: Acute Qualifiers: Anemia type: iron deficiency Iron deficiency anemia type: chronic blood loss Qualified Code(s): D50.0 - Iron deficiency anemia secondary to blood loss (chronic) (3) Acute kidney injury Priority: Primary Status: Acute (4) H/O calcium pyrophosphate deposition disease (CPPD) Priority: Primary Status: Suspected (5) History of colon cancer Priority: Primary Status: Acute - Discharge Medications Prescriptions: Magnesium Oxide [Mag-Ox] 400 mg PO DAILY #30 tablet predniSONE [Prednisone] 10 mg PO DAILY #30 tab.ds.pk Home Medications: Cyanocobalamin (Vitamin B-12) [Vitamin B12] 1,000 mcg PO DAILY 07/28/15 [History ] Metoprolol [Lopressor] 50 mg PO BID 07/28/15 [History] Omeprazole [PriLOSEC] 20 mg PO DAILY 07/28/15 [History] Triamterene/HCTZ 37.5/25mg [Dyazide] 0.5 tab PO DAILY 07/28/15 [History] Lisinopril 2.5 mg PO DAILY 09/13/17 [History] Sodium Chloride 1 gm PO BID 09/13/17 [History] Ferrous Sulfate 325 mg PO BIDWM tablet 09/18/17 [Rx] Magnesium Oxide [Mag-Ox] 400 mg PO DAILY #30 tablet 09/18/17 [Rx] cephALEXin [Keflex] 500 mg PO BID capsule 09/18/17 [Rx] predniSONE [Prednisone] 10 mg PO DAILY #30 tab.ds.pk 09/18/17 [Rx] Allergies/Adverse Reactions: 3 Allergy/AdvReac Type Severity Reaction Status Date / Time Pneumococcal Vaccine Allergy Cough Verified 09/13/17 14:22 tuberculin, purified protein Allergy Blister Verified 09/13/17 14:22 deriva [tuberculin,purif.prot.deriv.] aspirin AdvReac See Verified 09/13/17 14:22 Comments ibuprofen [From Motrin] AdvReac See Verified 09/13/17 14:22 Comments Date of admission: 09/15/17 16:59 Primary care physician: Kathi Middletno DO Consults: 09/16/17 09:01 Consult to Gastroenterology [CONS] Routine Consulting Provider: David Morales Reason for Consult: Anemia, occult stool positive Call Completed: Yes Discharging clinician: Radha Tsai Anticipated date of discharge: 09/18/17 - Patient Status Disposition: Transfer SNF Condition: Good - Discharge Instructions Follow Up With: Ambrosio Bills MD [Partnered Physician] - Mohit Petersen DO [Partnered Physician] - Kathi Middleton DO [Primary Care Provider] - Additional Instructions: Follow Up Appointment 1. Please call Dr. Petersen's office within 24 hours or next business day to schedule a follow up appointment. 2. Please call Dr. Bills's office to make follow-up appt for colonoscopy Interval History: Seen and examined at bedside. Patient says she feels much better on my exam, swelling in hands significantly improved. Son at bedside and updated. Hospital course: See assessment and plan for hospital course - Time Spent with Patient Total time spent providing and/or coordinating discharge services: Greater than 30 minutes (48 minutes spent on discharge) - Constitutional Vitals: Temp Pulse Resp BP Pulse Ox 97.6 F 64 16 110/70 94 09/18/17 11:15 09/18/17 11:15 09/18/17 11:15 09/18/17 11:15 09/18/17 11:15 General appearance: Present: A&O X 3, no acute distress - Head Head exam: Present: atraumatic, normocephalic - Eye Eye exam: Present: PERRL, conjuntiva pink, sclera anicteric Pupils: Present: PERRL - Neck Neck exam general surgery: Present: supple, trachea midline. Absent: lymphadenopathy - Respiratory Respiratory exam: Present: CTAB. Absent: accessory muscle use, rales, rhonchi, wheezes - Cardiovascular Cardiovascular exam: Present: RRR, +S1, +S2. Absent: diastolic murmur, gallop, rubs, systolic murmur - GI/Abdominal GI/Abdominal exam: Present: normal bowel sounds, soft, no peritoneal signs. Absent: distended, tenderness - Extremities Exam Extremities exam: Present: joint swelling, pedal edema, warm, radial pulses palpable and symmetrical. Absent: calf tenderness, cyanotic Additional comments: Bilateral lower ext mild pitting edema Bilateral hands with multi-joint swelling, significantly improved - Neurological Exam Neurological exam: Present: CN II-XII intact, oriented X3, no focal deficits. Absent: pronater drift, facial droop, speech deficit - Skin Skin exam: Present: dry, intact - VTE Documentation of Mechanical Device: Intermittent pneumatic compression device
== END 2017-09-18 14:21 | DRG 603 ==
LOC: EMEROO 14:05 → 3BNU 14:05
PROVIDERS: ADMIT Family Medicine; ATTEND Registered Nurse
PROC: ENDOEBX (2017-09-16 14:00)

== ENCOUNTER 2018-03-15 17:44 | Inpatient (IN) ==
--- NOTE | 2018-03-15 17:55 | Emergency Department Note ---
Disposition Clinical Impression: Frail elderly, Weakness, Hyponatremia, Ataxia, Leukopenia Disposition: Admitted As Inpatient Referrals: Kathi Middleton DO [Primary Care Provider] - Forms: ED Satisfaction Letter General Adult HPI - General Chief complaint: ED Syncope Stated complaint: Near Syncope Time Seen by Provider: 03/15/18 17:48 - History of Present Illness HPI Narrative: 82-year-old female who lives alone at home was brought in by her son, there is concern for progressive weakness over the last few days. The patient has been having trouble getting up. She has been slightly dizzy. There is no history of fall. No chest pain shortness of breath or abdominal pain. No vomiting or diarrhea. There is no history of slurred speech and lateral arm or leg weakness or numbness facial droop or headache. There is no history of rash fever cough runny nose ear pain or sore throat. The patient reports that she feels generally weak and slightly dizzy. There is no history of anticoagulant therapy utilization. The patient was admitted in the hospital late last year per the patient's son, he reports she had low sodium levels and a UTI. The patient has had frequency of urination. She usually lives alone and takes care of herself but called her son today because she felt unable to care for herself and was feeling weak. Pain Scale: 0 - Related Data Home Medications Medication Instructions Recorded Confirmed Cyanocobalamin (Vitamin B-12) 1,000 mcg PO DAILY 07/28/15 03/15/18 [Vitamin B12] Metoprolol [Lopressor] 50 mg PO BID 07/28/15 03/15/18 Omeprazole [PriLOSEC] 20 mg PO DAILY 07/28/15 03/15/18 Triamterene/HCTZ 37.5/25mg 0.5 tab PO DAILY 07/28/15 03/15/18 [Dyazide] Lisinopril 2.5 mg PO DAILY 09/13/17 03/15/18 Sodium Chloride 1 gm PO BID 09/13/17 03/15/18 Previous Rx's Medication Instructions Recorded Magnesium Oxide [Mag-Ox] 400 mg PO DAILY #30 tablet 09/18/17 Allergies Allergy/AdvReac Type Severity Reaction Status Date / Time Pneumococcal Vaccine Allergy Cough Verified 09/13/17 14:22 tuberculin, purified protein Allergy Blister Verified 10/31/17 14:22 deriva [tuberculin,purif.prot.deriv.] aspirin AdvReac See Verified 09/13/17 14:22 Comments ibuprofen [From Motrin] AdvReac See Verified 09/13/17 14:22 Comments All systems ED: reviewed and negative except as stated. 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 - Social History Smoking Status: Never smoker Smokeless Tobacco Status: No Alcohol use: Reports: none Drug use: Reports: none Physical Exam - General Limitations: no limitations General appearance: alert, in no apparent distress - Head Head exam: atraumatic, normocephalic, normal inspection - Eye Eye exam: Present: normal appearance, PERRL, EOMI - ENT ENT exam: normal exam, normal oropharynx, mucous membranes moist, TM's normal bilaterally, normal external ear exam - Neck Neck exam: Present: normal inspection, full ROM, trachea midline - Chest Chest inspection: Present: symmetric chest wall rise. Absent: tenderness - Respiratory Respiratory exam: Present: normal lung sounds bilaterally. Absent: respiratory distress, wheezes, stridor, accessory muscle use, prolonged expiratory phase - Cardiovascular Cardiovascular exam: Present: regular rate, normal rhythm, normal heart sounds - Abdominal Exam Abdominal exam: Present: soft, Non-Tender, normal bowel sounds. Absent: tenderness, distention, guarding, rebound, rigidity - Extremities Exam Extremities exam: Present: normal inspection, full ROM, normal capillary refill. Absent: tenderness, pedal edema, joint swelling, calf tenderness - Expanded Lower Extremity Exam Lower leg exam: Absent: Homans' sign Neurovascular/Tendon exam: Present: normal capillary refill. Absent: motor deficit, sensory deficit, tendon deficit, extremity cold to touch, pallor - Back Exam Back exam: Present: normal inspection, full ROM. Absent: tenderness, CVA tenderness (R), CVA tenderness (L), vertebral tenderness - Neurological Exam Neurological exam: Present: alert, oriented X3, CN II-XII intact. Absent: motor sensory deficit - Psychiatric Psychiatric exam: Present: normal affect, normal mood - Skin Skin exam: Present: warm, dry, intact, normal color. Absent: rash, cyanosis, diaphoresis, erythema, pallor, mottled Course Vital Signs Temperature 98.3 F 03/15/18 17:46 Pulse Rate 74 03/15/18 17:46 Respiratory Rate 18 03/15/18 17:46 Blood Pressure 129/87 03/15/18 17:46 O2 Sat by Pulse Oximetry 97 03/15/18 17:46 Temperature 98.3 F 03/15/18 18:39 Pulse Rate 80 03/15/18 20:44 Respiratory Rate 14 03/15/18 20:44 Blood Pressure 148/85 03/15/18 20:44 O2 Sat by Pulse Oximetry 97 03/15/18 20:44 Oxygen Delivery Oxygen Delivery Room Air Medical Decision Making - MDM Narrative Medical decision making narrative: The patient is frail and elderly and lives alone at home. She has become so weak she cannot walk. She is unable to complete ADLs and is unable to care for herself. The patient's son is fearful that she will fall down if she goes home. She usually has to walk with a walker and is now unable to even get up and go. The patient does have an element of hyponatremia, nothing suggest significant infection but leukopenia is noted, CT head chest x-ray are negative for acute disease. The patient does not feel comfortable going home. Based on her age, decreased social support, inability to walk, electrolyte abnormalities , and concerns for patient safety if she were to go home, I consulted with the hospitalist on-call who has accepted the patient to their care. The patient may benefit from PT OT evaluation and potential rehabilitation. She may require usp, assisted living or more home support. The patient and her son are highly agreeable to admission. - Lab Data Lab results reviewed: Yes I reviewed the patient's lab results. Result diagrams: 03/15/18 19:27 03/15/18 19:27 Lab Results 03/15/18 03/15/18 03/15/18 Range/Units 18:17 19: 19: WBC 3.2 L (4.3-11.1) K/mcL RBC 4.83 (3.82-4.97) M/mcL Hgb 12.2 (11.5-15.4) g/dL Hct 35.9 (35.3-44.9) % MCV 74.3 L (83.0-100.0) fL MCH 25.3 L (28.0-33.3) pg MCHC 34.0 (31.6-35.5) g/dL RDW 17.0 H (11.5-14.5) % Plt Count 195 (140-400) K/mcL MPV 10.0 (9.4-12.4) fL Immature Gran % 0.0 (0-4) % Seg Neutrophils % 45.0 % Lymphocytes % 37.7 % Monocytes % 14.2 % Eosinophils % 2.2 % Basophils % 0.9 % Neutrophils # 1.5 L (1.6-8.9) K/mcL Lymphocytes # 1.2 (0.6-4.6) K/mcL Monocytes # 0.5 (0.0-1.3) K/mcL Eosinophils # 0.1 (0.0-0.6) K/mcL Basophils # 0.0 (0.0-0.2) K/mcL PT 10.2 (9.4-12.1) Seconds INR 1.0 APTT 30.5 (26.0-36.0) Seconds Sodium (136-145) mEq/L Potassium (3.5-5.1) mEq/L Chloride (98-107) mEq/L Carbon Dioxide (23-29) mEq/L BUN (8-23) mg/dL Creatinine (0.60-1.20) mg/dL Est GFR ( Amer) (> 60) Est GFR (Non-Af Amer) (> 60) BUN/Creatinine Ratio (6-26) Glucose (70-105) mg/dL Calculated Osmolality (280-300) Lactic Acid (0.5-2.2) mmol/L Calcium (8.6-10.3) mg/dL Total Bilirubin (0.3-1.0) mg/dL Direct Bilirubin (0.0-0.2) mg/dL Indirect Bilirubin (0.0-1.2) mg/dL AST (13-39) Units/L ALT (7-52) Units/L Alkaline Phosphatase (34-104) Units/L Troponin I (< 0.04) ng/mL C-Reactive Protein (Less than 10) mg/L Serum Total Protein (6.4-8.9) g/dL Albumin (3.5-5.7) g/dL Globulin (2.4-3.5) g/dL Albumin/Globulin Ratio (1.1-2.2) Urine Color Yellow (Yellow) Urine Clarity Clear (Clear) Urine pH 7.0 (5.0-8.0) pH Units Ur Specific [place] 1.013 (1.010-1.025) Urine Protein Negative (Neg-Trace) mg/dL Urine Glucose (UA) Normal (Normal) mg/dL Urine Ketones Negative (Negative) mg/dL Urine Blood Negative (Negative) Urine Nitrite Negative (Negative) Urine Bilirubin Negative (Negative) Urine Urobilinogen Normal (Normal) mg/dL Ur Leukocyte Esterase Small H (Negative) Urine Microscopic RBC 3-5 H (0-3) per hpf Urine Microscopic WBC 0-3 (0-3) per hpf Ur Squamous Epith Cells Many H (None-Few) per lpf Urine Bacteria None Seen (None-Few) per hpf Hyaline Casts None Seen (None-Few) per lpf 03/15/18 03/15/18 03/15/18 Range/Units 19:27 19:27 19:27 WBC (4.3-11.1) K/mcL RBC (3.82-4.97) M/mcL Hgb (11.5-15.4) g/dL Hct (35.3-44.9) % MCV (83.0-100.0) fL MCH (28.0-33.3) pg MCHC (31.6-35.5) g/dL RDW (11.5-14.5) % Plt Count (140-400) K/mcL MPV (9.4-12.4) fL Immature Gran % (0-4) % Seg Neutrophils % % Lymphocytes % % Monocytes % % Eosinophils % % Basophils % % Neutrophils # (1.6-8.9) K/mcL Lymphocytes # (0.6-4.6) K/mcL Monocytes # (0.0-1.3) K/mcL Eosinophils # (0.0-0.6) K/mcL Basophils # (0.0-0.2) K/mcL PT (9.4-12.1) Seconds INR APTT (26.0-36.0) Seconds Sodium 126 L (136-145) mEq/L Potassium 3.6 (3.5-5.1) mEq/L Chloride 93 L (98-107) mEq/L Carbon Dioxide 23 (23-29) mEq/L BUN 12 (8-23) mg/dL Creatinine 0.60 (0.60-1.20) mg/dL Est GFR ( Amer) > 60 (> 60) Est GFR (Non-Af Amer) > 60 (> 60) BUN/Creatinine Ratio 20 (6-26) Glucose 83 (70-105) mg/dL Calculated Osmolality 261 L (280-300) Lactic Acid 1.1 (0.5-2.2) mmol/L Calcium 9.1 (8.6-10.3) mg/dL Total Bilirubin 0.4 (0.3-1.0) mg/dL Direct Bilirubin 0.1 (0.0-0.2) mg/dL Indirect Bilirubin 0.3 (0.0-1.2) mg/dL AST 25 (13-39) Units/L ALT 11 (7-52) Units/L Alkaline Phosphatase 88 (34-104) Units/L Troponin I < 0.03 (< 0.04) ng/mL C-Reactive Protein 77 H (Less than 10) mg/L Serum Total Protein 6.9 (6.4-8.9) g/dL Albumin 2.8 L (3.5-5.7) g/dL Globulin 4.1 H (2.4-3.5) g/dL Albumin/Globulin Ratio 0.7 L (1.1-2.2) Urine Color (Yellow) Urine Clarity (Clear) Urine pH (5.0-8.0) pH Units Ur Specific [place] (1.010-1.025) Urine Protein (Neg-Trace) mg/dL Urine Glucose (UA) (Normal) mg/dL Urine Ketones (Negative) mg/dL Urine Blood (Negative) Urine Nitrite (Negative) Urine Bilirubin (Negative) Urine Urobilinogen (Normal) mg/dL Ur Leukocyte Esterase (Negative) Urine Microscopic RBC (0-3) per hpf Urine Microscopic WBC (0-3) per hpf Ur Squamous Epith Cells (None-Few) per lpf Urine Bacteria (None-Few) per hpf Hyaline Casts (None-Few) per lpf - Radiology Data Radiology results reviewed: Yes I reviewed the patient's radiology results.
[2018-03-15 18:26] LABS: Bilirubin,Urine Negative (Negative); Blood,Urine Negative (Negative); Clarity,Urine Clear (Clear); Color,Urine Yellow (Yellow); Glucose,Urine (UA) Normal (Normal); Ketones,Urine Negative (Negative); Leukocyte Esterase,Urine Small (Negative); Nitrite,Urine Negative (Negative); Protein,Urine Negative (Neg-Trace); Specific Gravity,Urine 1.013 (1.010-1.025); Urobilinogen,Urine Normal (Normal)
[2018-03-15 18:28] LABS: Bacteria,Urine None Seen per hpf (None-Few); Hyaline Casts,Urine None Seen per lpf (None-Few); Squamous Epithelial Cell,Urine Many per lpf (None-Few); WBC,Urine 0-3 per hpf (0-3)
[2018-03-15 19:40] LABS: Basophils % 0.9 %; Eosinophils # 0.1 K/mcL (0.0-0.6); Eosinophils % 2.2 %; Hematocrit 35.9 % (35.3-44.9); Hemoglobin 12.2 g/dL (11.5-15.4); Lymphocytes # 1.2 K/mcL (0.6-4.6); Lymphocytes % 37.7 %; Mean Corpuscular Hemoglobin 25.3 pg (28.0-33.3); Mean Corpuscular Volume 74.3 fL (83.0-100.0); Monocytes # 0.5 K/mcL (0.0-1.3); Monocytes % 14.2 %; Neutrophils # 1.5 K/mcL (1.6-8.9); Platelet Count 195 K/mcL (140-400); Red Blood Count 4.83 M/mcL (3.82-4.97)
[2018-03-15 20:02] LABS: Prothrombin Time 10.2 Seconds (9.4-12.1)
[2018-03-15 20:03] LABS: Alanine Aminotransferase 11 Units/L (7-52); Albumin 2.8 g/dL (3.5-5.7); Albumin/Globulin Ratio 0.7 (1.1-2.2); Alkaline Phosphatase 88 Units/L (34-104); Aspartate Amino Transferase 25 Units/L (13-39); BUN/Creatinine Ratio 20 (6-26); Bilirubin,Direct 0.1 mg/dL (0.0-0.2); Bilirubin,Indirect 0.3 mg/dL (0.0-1.2); Bilirubin,Total 0.4 mg/dL (0.3-1.0); Blood Urea Nitrogen 12 mg/dL (8-23); Calcium 9.1 mg/dL (8.6-10.3); Carbon Dioxide 23 mEq/L (23-29); Chloride 93 mEq/L (98-107); Globulin 4.1 g/dL (2.4-3.5); Glucose 83 mg/dL (70-105); Osmolality,Calculated 261 (280-300); Potassium 3.6 mEq/L (3.5-5.1); Sodium 126 mEq/L (136-145); Total Protein 6.9 g/dL (6.4-8.9); Troponin I < 0.03 ng/mL (< 0.04); eGFR For African Americans > 60 (> 60); eGFR For Non-African Americans > 60 (> 60)
[2018-03-15 20:04] LABS: Activated Partial Thrombo Time 30.5 Seconds (26.0-36.0)
[2018-03-15] MEDS ORDERED: Naloxone 0.4 MG/ML INJ IVP PRN (22:11)
[2018-03-15] MEDS ORDERED: Acetaminophen 325 MG TABLET PO PRN (22:11)
--- NOTE | 2018-03-15 22:15 | Internal Med History&Physical ---
Date of Encounter: 03/16/18 Time of Encounter: 22:14 Internal Medicine - H&P: HPI Chief complaint: Weakness Admitted From: Emergency Dept Plans for Post Hospital Care: Home History of present illness: Ms. Vigil is a 82 year old female with PMHx of HTN, HLD, CKD II presents to Ed with a complaint of LE weakness for last two days. She is walker dependent and has been feeling dizzy for last two days. No falls or LOC. Denies other symptoms like fever, chills, headache, blurry vision, nausea, vomiting, chest pain, shortness of breath, abdominal pain, diarrhea, constipation, urinary symptoms, numbness, or tingling. In the ED, hemodynamically stable. EKG reported as afib but I am not convinced. Labs show sodium of 126. Patient at some point was on sodium tabs but not anymore. CT head negative. CXR negative. Past Med Surg Social Fam HX - Past Medical History Medical history: arthritis, cancer, GERD, hyperlipidemia, hypertension, renal disease, other Psychiatric history: no psych history - Past Surgical History Surgical History: cataract, cholecystectomy, colectomy, hip replacement, hysterectomy, other - Social History Smoking Status: Never smoker Smokeless Tobacco Status: No Alcohol use: none Drug use: none - Family History Brother Living Status: Still Living Hx Family Respiratory Disorders: Yes (COPD.) Daughter Adopted: No Living Status: Hx Family Cardiac Disorders: Yes Hx Family Respiratory Disorders: No Hx Family Cancer: No Hx Family GI Disorders: No Hx Family Endocrine Disorder: Yes (diabetes) Hx Family Neuromuscular Disorders: No Hx Family Neurologic Disorders: No Hx Family HEENT Disorders: No Hx Family Autoimmune Disorders: No Father Living Status: Hx Family Cardiac Disorders: Yes Hx Family Respiratory Disorders: No Hx Family Cancer: No Hx Family GI Disorders: No Hx Family Endocrine Disorder: No Mother Living Status: Hx Family Cardiac Disorders: Yes (cva) Hx Family Cancer: Yes (Colon cancer) Hx Family Endocrine Disorder: Yes (DM) Sister Adopted: No Living Status: Hx Family Endocrine Disorder: Yes (Diabetes Mellitus) Internal Medicine - H&P: Meds Cyanocobalamin (Vitamin B-12) [Vitamin B12] 1,000 mcg PO DAILY 07/28/15 [History ] Metoprolol [Lopressor] 50 mg PO BID 07/28/15 [History] Omeprazole [PriLOSEC] 20 mg PO DAILY 07/28/15 [History] Triamterene/HCTZ 37.5/25mg [Dyazide] 0.5 tab PO DAILY 07/28/15 [History] Lisinopril 2.5 mg PO DAILY 09/13/17 [History] Sodium Chloride 1 gm PO BID 09/13/17 [History] Magnesium Oxide [Mag-Ox] 400 mg PO DAILY #30 tablet 09/18/17 [Rx] 3 Allergy/AdvReac Type Severity Reaction Status Date / Time Pneumococcal Vaccine Allergy Cough Verified 09/13/17 14:22 tuberculin, purified protein Allergy Blister Verified 09/13/17 14:22 deriva [tuberculin,purif.prot.deriv.] aspirin AdvReac See Verified 09/13/17 14:22 Comments ibuprofen [From Motrin] AdvReac See Verified 09/13/17 14:22 Comments All Systems PM: A 10-system review of systems was performed and is negative for pertinent findings except as documented above in the HPI. Review of systems: All systems reviewed are negative except as mentioned above. - Constitutional Vitals: Temp Pulse Resp BP Pulse Ox 98.3 F 80 14 148/85 97 03/15/18 18:39 03/15/18 20:44 03/15/18 20:44 03/15/18 20:44 03/15/18 20:44 Exam: GEN: NAD HEENT: AT, NC, No cyanosis, oral mucosa is moist, No JVD Lymphatics: No lymphadenoapthy Eyes: Extrocular muscles intact, anicteric CVS:RRR. S1, S2, No m/r/g RESP: CTAB ABD: Soft, NT, ND, +BS EXT: No edema, No rashes, 2+ DP NEURO: Nonfocal, CN II-XII intact, patient strength is about 3/5 in LE b/l Psych: Cooperative, Not anxious or depressed Internal Med - H&P Results - Labs CBC & Chem 7: 03/15/18 19:27 03/15/18 19:27 Labs: Short CBC 03/15/18 Range/Units 19:27 WBC 3.2 L (4.3-11.1) K/mcL Hgb 12.2 (11.5-15.4) g/dL Hct 35.9 (35.3-44.9) % Plt Count 195 (140-400) K/mcL Neutrophils # 1.5 L (1.6-8.9) K/mcL BMP 03/15/18 19:27 Sodium 126 L Potassium 3.6 Chloride 93 L Carbon Dioxide 23 BUN 12 Creatinine 0.60 Glucose 83 Calcium 9.1 Cardiac Enzymes 03/15/18 Range/Units 19:27 Troponin I < 0.03 (< 0.04) ng/mL Liver Function 03/15/18 Range/Units 19:27 Total Bilirubin 0.4 (0.3-1.0) mg/dL Direct Bilirubin 0.1 (0.0-0.2) mg/dL AST 25 (13-39) Units/L ALT 11 (7-52) Units/L Alkaline Phosphatase 88 (34-104) Units/L Albumin 2.8 L (3.5-5.7) g/dL Urine 03/15/18 Range/Units 18:17 Urine Color Yellow (Yellow) Urine Clarity Clear (Clear) Urine pH 7.0 (5.0-8.0) pH Units Ur Specific [place] 1.013 (1.010-1.025) Urine Protein Negative (Neg-Trace) mg/dL Urine Glucose (UA) Normal (Normal) mg/dL - Impressions ITS Impressions Chest X-Ray 03/15/18 17:54 IMPRESSION: 1. No acute abnormality. D/ / Tobias Ramos MD / Tobias Ramos MD Interpreting Provider: Tobias Ramos MD Head CT 03/15/18 17:54 IMPRESSION: No acute intracranial abnormality. D/ / Francis Capone MD / Francis Capone MD Interpreting Provider: Francis Capone MD - Assessment and plan (1) Abnormal EKG Current Visit: Yes Status: Acute Assessment and plan: EKG looks irregular rhytm but I am not sure this is afib as reported. I see P waves. Will start ASA 81 mg for now. check limited echo. check TSH. patient is on a BB. rate controlled. Tele. Repeat EKG in am. (2) Hyponatremia Current Visit: Yes Status: Acute Assessment and plan: Likely dehydration. Will gently hydrate. Hold Dyazide.labs in am. check TSH. urine sodium and urine osm (3) Weakness Current Visit: Yes Status: Acute Assessment and plan: Likely metabolic and generalized deconditioning. Will get PT/OT. No opposed to SNF. check TSH. IVF. (4) HTN (hypertension) Current Visit: No Status: Chronic Assessment and plan: Hold Dyazide. c/w BB. BP stable. Qualifiers: Hypertension type: essential hypertension Qualified Code(s): I10 - Essential (primary) hypertension (5) Heart failure Current Visit: Yes Status: Acute Assessment and plan: Not in exacerbation. Preseved EF. mild diastolic dysfunction. on BB. Limited echo Qualifiers: Heart failure type: diastolic Heart failure chronicity: chronic Qualified Code(s): I50.32 - Chronic diastolic (congestive) heart failure (6) DVT prophylaxis Current Visit: No Status: Acute - Time Spent With Patient Total time spent is greater than 50% in coordination of care (as documented) at patient's floor/unit and/or counseling patient:
[2018-03-16] MEDS: 0.9 % Sodium Chloride 1,000 ML IVC SCH ×4 (00:16→21:13)
[2018-03-16] MEDS: *HR* Heparin 5,000 UNIT/ML VIAL SQ SCH ×3 (05:27→21:14)
[2018-03-16 06:38] LABS: Basophils % 1.3 %; Eosinophils # 0.1 K/mcL (0.0-0.6); Eosinophils % 2.5 %; Hematocrit 36.3 % (35.3-44.9); Hemoglobin 12.2 g/dL (11.5-15.4); Lymphocytes # 0.8 K/mcL (0.6-4.6); Lymphocytes % 23.4 %; Mean Corpuscular HGB Conc 33.6 g/dL (31.6-35.5); Mean Corpuscular Volume 74.4 fL (83.0-100.0); Mean Platelet Volume 9.8 fL (9.4-12.4); Monocytes # 0.4 K/mcL (0.0-1.3); Monocytes % 12.8 %; Neutrophils # 1.9 K/mcL (1.6-8.9); Platelet Count 170 K/mcL (140-400); Red Blood Count 4.88 M/mcL (3.82-4.97); Red Cell Distribution Width 17.3 % (11.5-14.5)
[2018-03-16 06:55] LABS: BUN/Creatinine Ratio 19 (6-26); Blood Urea Nitrogen 10 mg/dL (8-23); Calcium 8.8 mg/dL (8.6-10.3); Carbon Dioxide 24 mEq/L (23-29); Chloride 97 mEq/L (98-107); Glucose 83 mg/dL (70-105); Magnesium 1.3 mg/dL (1.6-2.6); Osmolality,Calculated 264 (280-300); Potassium 3.5 mEq/L (3.5-5.1); Sodium 128 mEq/L (136-145); eGFR For African Americans > 60 (> 60); eGFR For Non-African Americans > 60 (> 60)
[2018-03-16 07:08] LABS: Thyroid Stimulating Hormone 2.739 mcIU/mL (0.340-5.600)
[2018-03-16] MEDS: Aspirin Enteric Coated 81 MG Tablet PO SCH (08:27)
[2018-03-16] MEDS: Cyanocobalamin (B-12) 1,000 MCG TABLET PO SCH (08:27)
--- NOTE | 2018-03-16 14:49 | Internal Med Progress Note ---
Date of Encounter: 03/16/18 Time of Encounter: 14:15 - Assessment and plan (1) Ambulatory dysfunction Current Visit: Yes Status: Acute Assessment and plan: Patient presents with generalized bilateral lower extremity weakness. She is reporting increasing weakness over the last 48 hours. She denies any falls or loss of consciousness. Physical therapy/occupational therapy has assessed the patient noting bilateral lower extremity external rotation and forward lean. The patient does live at home and would be beneficial for her to discharge to an SNF at least short-term for rehabilitation career services assistant working on placement (2) Frail elderly Current Visit: Yes Status: Acute (3) Weakness Current Visit: Yes Status: Acute (4) Hyponatremia Current Visit: Yes Status: Acute Assessment and plan: Continues to have hyponatremia this morning. Continue to Hold Dyazide diuretic TSH normal at 2.739 Urine osmolality 346 Urine sodium 92.2 Continue to monitor serum sodium Patient is asymptomatic (5) HTN (hypertension) Current Visit: Yes Status: Chronic Assessment and plan: Blood pressure stable, continue home anti-HTN medications Qualifiers: Hypertension type: essential hypertension Qualified Code(s): I10 - Essential (primary) hypertension (6) Abnormal EKG Current Visit: Yes Status: Acute Assessment and plan: EKG reveals an irregular rhythm Patient on ASA 81 mg TSH normal Continue home anti-HTN medications Continuous telemetry Repeat EKG in the morning Awaiting results of TTE (7) Diastolic congestive heart failure Current Visit: Yes Status: Chronic Assessment and plan: Not in acute exacerbation, continue cardiac medications. TTE from 09/30 shows a preserved ejection fraction of 65% with mild left ventricular diastolic dysfunction, mild mitral regurgitation, and trace tricuspid regurgitation. Pulmonary hypertension noted Qualifiers: Heart failure chronicity: chronic Qualified Code(s): I50.32 - Chronic diastolic (congestive) heart failure (8) DVT prophylaxis Current Visit: Yes Status: Acute Assessment and plan: Continue heparin 5000 units subcutaneous every 8 hours - Time Spent With Patient Total time spent is greater than 50% in coordination of care (as documented) at patient's floor/unit and/or counseling patient: Greater than 35 minutes - Subjective Interval history: Ms. Vigil is a 82 year old female with PMHx of HTN, HLD, CKD II presents to Ed with a complaint of LE weakness for last two days. She is walker dependent and has been feeling dizzy for last two days. No falls or LOC. Patient is unable to ambulate or provide care to herself due to ambulatory dysfunction. She continues to report weakness but notes that the dizziness has been improving. - Constitutional Vitals: Temp Pulse Resp BP Pulse Ox 97.5 F L 68 16 132/74 97 03/16/18 11:54 03/16/18 11:54 03/16/18 11:54 03/16/18 11:54 03/16/18 11:54 General appearance: Present: cooperative, A&O X 3, no acute distress, answers questions appropriately - Head Head exam: Present: atraumatic, normocephalic - Eye Eye exam: Present: PERRL, conjuntiva pink, sclera anicteric Pupils: Present: PERRL - Neck Neck exam general surgery: Present: supple, trachea midline. Absent: lymphadenopathy - Respiratory Respiratory exam: Present: CTAB. Absent: accessory muscle use, rales, rhonchi, wheezes - Cardiovascular Cardiovascular exam: Present: RRR, +S1, +S2. Absent: diastolic murmur, gallop, rubs, systolic murmur - GI/Abdominal GI/Abdominal exam: Present: normal bowel sounds, soft, no peritoneal signs. Absent: distended, tenderness - Extremities Exam Extremities exam: Present: warm, radial pulses palpable and symmetrical. Absent : calf tenderness, cyanotic, pedal edema - Neurological Exam Neurological exam: Present: CN II-XII intact, oriented X3, no focal deficits. Absent: pronater drift, facial droop, speech deficit Additional comments: Weakness and bilateral lower extremity - Skin Skin exam: Present: dry, intact Internal Medicine: Result - Labs CBC & Chem 7: 03/16/18 06:04 03/16/18 06:04 Labs: Short CBC 03/16/18 Range/Units 06:04 WBC 3.2 L (4.3-11.1) K/mcL Hgb 12.2 (11.5-15.4) g/dL Hct 36.3 (35.3-44.9) % Plt Count 170 (140-400) K/mcL Neutrophils # 1.9 (1.6-8.9) K/mcL BMP 03/16/18 06:04 Sodium 128 L Potassium 3.5 Chloride 97 L Carbon Dioxide 24 BUN 10 Creatinine 0.54 L Glucose 83 Calcium 8.8 - ABG Interpretation ABG results: PT/INR, D-dimer PT 10.2 Seconds (9.4-12.1) 03/15/18 19:27 Consult Discharge Plan - Plan Referrals: Kathi Middleton DO [Primary Care Provider] -
--- NOTE | 2018-03-16 16:20 | Electrocardiograph Report ---
[place] [id number] Test Date: 2018-03-15 Pat Name: Deedee Vigil Department: 103 Room: 3B36 Gender: [employer]: CHRISTOPHER : 1935 Requested By: Amado Malhotra Order Number: [id number] Reading MD: Natasha Vanegas Measurements Intervals [place] Rate: 78 P: MO: 0 QRS: -7 QRSD: 86 T: 31 QT: 355 QTc: 388 Interpretive Statements NORMAL SINUS RHYTHM POSSIBLE ANTERIOR MYOCARDIAL INFARCTION [30 ms Q WAVE IN V3/V4, OR R < 0.2 mV IN V4], PROBABLY OLD PACS Electronically Signed On 03-16-2018 16:18:39 EDT by Natasha Vanegas
[2018-03-17] MEDS: *HR* Heparin 5,000 UNIT/ML VIAL SQ SCH ×3 (05:59→22:03)
[2018-03-17 06:01] LABS: Eosinophils # 0.1 K/mcL (0.0-0.6); Eosinophils % 4.1 %; Hematocrit 33.4 % (35.3-44.9); Immature Granulocytes % 0.3 % (0-4); Lymphocytes % 34.7 %; Mean Corpuscular HGB Conc 32.9 g/dL (31.6-35.5); Mean Corpuscular Hemoglobin 24.8 pg (28.0-33.3); Mean Corpuscular Volume 75.4 fL (83.0-100.0); Mean Platelet Volume 9.6 fL (9.4-12.4); Monocytes # 0.4 K/mcL (0.0-1.3); Monocytes % 13.9 %; Neutrophils # 1.4 K/mcL (1.6-8.9); Platelet Count 151 K/mcL (140-400); Red Blood Count 4.43 M/mcL (3.82-4.97); Red Cell Distribution Width 17.4 % (11.5-14.5)
[2018-03-17 07:46] LABS: BUN/Creatinine Ratio 23 (6-26); Blood Urea Nitrogen 12 mg/dL (8-23); Calcium 8.1 mg/dL (8.6-10.3); Carbon Dioxide 22 mEq/L (23-29); Chloride 103 mEq/L (98-107); Glucose 79 mg/dL (70-105); Osmolality,Calculated 273 (280-300); Potassium 3.5 mEq/L (3.5-5.1); Sodium 132 mEq/L (136-145); eGFR For African Americans > 60 (> 60); eGFR For Non-African Americans > 60 (> 60)
[2018-03-17] MEDS: Aspirin Enteric Coated 81 MG Tablet PO SCH (08:53)
[2018-03-17] MEDS: Cyanocobalamin (B-12) 1,000 MCG TABLET PO SCH (08:53)
[2018-03-17] MEDS: 0.9 % Sodium Chloride 1,000 ML IVC SCH ×2 (08:56→23:01)
--- NOTE | 2018-03-17 10:58 | Internal Med Progress Note ---
Date of Encounter: 03/17/18 Time of Encounter: 10:54 - Assessment and plan (1) Ambulatory dysfunction Current Visit: Yes Status: Acute Assessment and plan: Presented with with generalized bilateral lower extremity weakness. Continues to endorse generalized weakness and ambulatory dysfunction PTOT has seen an recommends SNF placement for rehabilitation building services technician working on placement awaiting authorization (2) Frail elderly Current Visit: Yes Status: Acute (3) Weakness Current Visit: Yes Status: Acute Assessment and plan: Likely metabolic and generalized deconditioning. PT OT on board-recommendations from PTOT-patient would benefit from SNF placement for rehabilitation building services technician on board, awaiting approval (4) Hyponatremia Current Visit: Yes Status: Acute Assessment and plan: Continues to have hyponatremia this morning but is improving. Continue to Hold Dyazide diuretic Continue to monitor serum sodium Patient is asymptomatic (5) HTN (hypertension) Current Visit: Yes Status: Chronic Assessment and plan: Hypertension continues to be stable. continue home anti-HTN medications Qualifiers: Hypertension type: essential hypertension Qualified Code(s): I10 - Essential (primary) hypertension (6) Abnormal EKG Current Visit: Yes Status: Acute Assessment and plan: EKG reveals an irregular rhythm Patient on ASA 81 mg TSH normal Continue home anti-HTN medications (7) Diastolic congestive heart failure Current Visit: Yes Status: Chronic Assessment and plan: Not in acute exacerbation, continue cardiac medications. TTE-preserved ejection fraction, no segmental dysfunction and moderately dilated left atrium. Qualifiers: Heart failure chronicity: chronic Qualified Code(s): I50.32 - Chronic diastolic (congestive) heart failure (8) DVT prophylaxis Current Visit: Yes Status: Acute Assessment and plan: Continue heparin 5000 units subcutaneous every 8 hours - Time Spent With Patient Total time spent is greater than 50% in coordination of care (as documented) at patient's floor/unit and/or counseling patient: 25 - 35 minutes - Subjective Interval history: Ms. Vigil is a 82 year old female with PMHx of HTN, HLD, CKD II presents to Ed with a complaint of LE weakness for last two days. She is walker dependent and has been feeling dizzy for last two days. No falls or LOC. Patient seen and examined at bedside, no acute changes overnight. Continues to have bilateral lower extremity weakness. Patient is unable to ambulate or provide care to herself due to ambulatory dysfunction. Denies any dizziness. Awaiting placement to [facility] for rehabilitation - Constitutional Vitals: Temp Pulse Resp BP Pulse Ox 97.9 F 69 14 136/74 96 03/17/18 06:53 03/17/18 06:53 03/17/18 06:53 03/17/18 06:53 03/17/18 08:50 General appearance: Present: cooperative, A&O X 3, no acute distress, answers questions appropriately - Head Head exam: Present: atraumatic, normocephalic - Eye Eye exam: Present: PERRL, conjuntiva pink, sclera anicteric Pupils: Present: PERRL - Neck Neck exam general surgery: Present: supple, trachea midline. Absent: lymphadenopathy - Respiratory Respiratory exam: Present: CTAB. Absent: accessory muscle use, rales, rhonchi, wheezes - Cardiovascular Cardiovascular exam: Present: RRR, +S1, +S2. Absent: diastolic murmur, gallop, rubs, systolic murmur - GI/Abdominal GI/Abdominal exam: Present: normal bowel sounds, soft, no peritoneal signs. Absent: distended, tenderness - Extremities Exam Extremities exam: Present: warm, radial pulses palpable and symmetrical. Absent : calf tenderness, cyanotic, pedal edema - Neurological Exam Neurological exam: Present: CN II-XII intact, oriented X3, no focal deficits. Absent: pronater drift, facial droop, speech deficit - Skin Skin exam: Present: dry, intact Internal Medicine: Result - Labs CBC & Chem 7: 03/17/18 05:36 03/17/18 07:17 Labs: Short CBC 03/17/18 Range/Units 05:36 WBC 2.9 L (4.3-11.1) K/mcL Hgb 11.0 L (11.5-15.4) g/dL Hct 33.4 L (35.3-44.9) % Plt Count 151 (140-400) K/mcL Neutrophils # 1.4 L (1.6-8.9) K/mcL BMP 03/17/18 07:17 Sodium 132 L Potassium 3.5 Chloride 103 Carbon Dioxide 22 L BUN 12 Creatinine 0.53 L Glucose 79 Calcium 8.1 L - ABG Interpretation ABG results: PT/INR, D-dimer PT 10.2 Seconds (9.4-12.1) 03/15/18 19:27 Consult Discharge Plan - Plan Referrals: Kathi Middleton DO [Primary Care Provider] -
[2018-03-18] MEDS: *HR* Heparin 5,000 UNIT/ML VIAL SQ SCH ×3 (05:15→19:42)
[2018-03-18 07:10] LABS: Eosinophils # 0.2 K/mcL (0.0-0.6); Eosinophils % 4.9 %; Hemoglobin 10.9 g/dL (11.5-15.4); Lymphocytes # 1.2 K/mcL (0.6-4.6); Lymphocytes % 39.2 %; Mean Corpuscular Hemoglobin 25.1 pg (28.0-33.3); Mean Platelet Volume 9.7 fL (9.4-12.4); Monocytes # 0.4 K/mcL (0.0-1.3); Monocytes % 13.6 %; Neutrophils # 1.3 K/mcL (1.6-8.9); Platelet Count 152 K/mcL (140-400); Red Blood Count 4.34 M/mcL (3.82-4.97); Red Cell Distribution Width 17.6 % (11.5-14.5); Segmented Neutrophils % 41.3 %
[2018-03-18 07:27] LABS: BUN/Creatinine Ratio 24 (6-26); Blood Urea Nitrogen 12 mg/dL (8-23); Calcium 7.9 mg/dL (8.6-10.3); Carbon Dioxide 21 mEq/L (23-29); Chloride 106 mEq/L (98-107); Glucose 87 mg/dL (70-105); Osmolality,Calculated 275 (280-300); Potassium 3.4 mEq/L (3.5-5.1); Sodium 133 mEq/L (136-145); eGFR For African Americans > 60 (> 60); eGFR For Non-African Americans > 60 (> 60)
[2018-03-18] MEDS: Cyanocobalamin (B-12) 1,000 MCG TABLET PO SCH (09:06)
[2018-03-18] MEDS: Aspirin Enteric Coated 81 MG Tablet PO SCH (09:07)
--- NOTE | 2018-03-18 13:09 | Internal Med Progress Note ---
Date of Encounter: 03/18/18 Time of Encounter: 10:30 - Assessment and plan (1) Ambulatory dysfunction Current Visit: Yes Status: Acute Assessment and plan: Presented with with generalized bilateral lower extremity weakness. Continues to endorse generalized weakness and ambulatory dysfunction PT/OT has seen an recommends SNF placement for rehabilitation Patient unable to lay today as preapproval was not met on Tuesday. Awaiting preapproval; patient should DC Tuesday (2) Frail elderly Current Visit: Yes Status: Acute (3) Weakness Current Visit: Yes Status: Acute Assessment and plan: Likely metabolic and generalized deconditioning. PT OT on board-recommendations from PTOT-patient would benefit from SNF placement for rehabilitation rn social services on board, awaiting approval (4) Hyponatremia Current Visit: Yes Status: Acute Assessment and plan: Continuing to improve Continue to Hold Dyazide diuretic Continue to monitor serum sodium Patient is asymptomatic (5) HTN (hypertension) Current Visit: Yes Status: Chronic Assessment and plan: History of hypertension, continues to be stable throughout the stay. Continue home anti-HTN medications Qualifiers: Hypertension type: essential hypertension Qualified Code(s): I10 - Essential (primary) hypertension (6) Abnormal EKG Current Visit: Yes Status: Acute (7) Diastolic congestive heart failure Current Visit: Yes Status: Chronic Assessment and plan: Not in acute exacerbation, continue cardiac medications. Continue to monitor Qualifiers: Heart failure chronicity: chronic Qualified Code(s): I50.32 - Chronic diastolic (congestive) heart failure (8) DVT prophylaxis Current Visit: Yes Status: Acute Assessment and plan: Continue heparin 5000 units subcutaneous every 8 hours - Time Spent With Patient Total time spent is greater than 50% in coordination of care (as documented) at patient's floor/unit and/or counseling patient: - Subjective Interval history: Ms. Vigil is a 82 year old female with PMHx of HTN, HLD, CKD II presents to Ed with a complaint of LE weakness for last two days. She is walker dependent and has been feeling dizzy for last two days. No falls or LOC. Patient seen and examined at bedside, no acute changes overnight. Weakness persists. Patient is unable to ambulate or provide care to herself due to ambulatory dysfunction. Denies any dizziness. Awaiting placement to [facility] for rehabilitation; patient will likely leave Tuesday as preapproval was not met Tuesday. - Constitutional Vitals: Temp Pulse Resp BP Pulse Ox 98.3 F 70 16 131/73 97 03/18/18 12:16 03/18/18 12:16 03/18/18 12:16 03/18/18 12:16 03/18/18 12:16 General appearance: Present: cooperative, A&O X 3, no acute distress, answers questions appropriately - Head Head exam: Present: atraumatic, normocephalic - Eye Eye exam: Present: PERRL, conjuntiva pink, sclera anicteric Pupils: Present: PERRL - Neck Neck exam general surgery: Present: supple, trachea midline. Absent: lymphadenopathy - Respiratory Respiratory exam: Present: CTAB. Absent: accessory muscle use, rales, rhonchi, wheezes - Cardiovascular Cardiovascular exam: Present: RRR, +S1, +S2. Absent: diastolic murmur, gallop, rubs, systolic murmur - GI/Abdominal GI/Abdominal exam: Present: normal bowel sounds, soft, no peritoneal signs. Absent: distended, tenderness - Extremities Exam Extremities exam: Present: warm, radial pulses palpable and symmetrical. Absent : calf tenderness, cyanotic, pedal edema - Neurological Exam Neurological exam: Present: CN II-XII intact, oriented X3, no focal deficits. Absent: pronater drift, facial droop, speech deficit - Skin Skin exam: Present: dry, intact Internal Medicine: Result - Labs CBC & Chem 7: 03/18/18 06:50 03/18/18 06:50 Labs: Short CBC 03/18/18 Range/Units 06:50 WBC 3.1 L (4.3-11.1) K/mcL Hgb 10.9 L (11.5-15.4) g/dL Hct 33.0 L (35.3-44.9) % Plt Count 152 (140-400) K/mcL Neutrophils # 1.3 L (1.6-8.9) K/mcL BMP 03/18/18 06:50 Sodium 133 L Potassium 3.4 L Chloride 106 Carbon Dioxide 21 L BUN 12 Creatinine 0.50 L Glucose 87 Calcium 7.9 L - ABG Interpretation ABG results: PT/INR, D-dimer PT 10.2 Seconds (9.4-12.1) 03/15/18 19:27 Consult Discharge Plan - Plan Referrals: Kathi Middleton DO [Primary Care Provider] -
[2018-03-18] MEDS: 0.9 % Sodium Chloride 1,000 ML IVC SCH (15:40)
[2018-03-19 05:15] LABS: Basophils % 0.6 %; Eosinophils # 0.2 K/mcL (0.0-0.6); Eosinophils % 6.7 %; Hematocrit 33.2 % (35.3-44.9); Hemoglobin 10.9 g/dL (11.5-15.4); Lymphocytes # 1.2 K/mcL (0.6-4.6); Lymphocytes % 37.4 %; Mean Corpuscular HGB Conc 32.8 g/dL (31.6-35.5); Mean Corpuscular Hemoglobin 24.8 pg (28.0-33.3); Mean Corpuscular Volume 75.6 fL (83.0-100.0); Mean Platelet Volume 10.7 fL (9.4-12.4); Monocytes # 0.5 K/mcL (0.0-1.3); Monocytes % 14.3 %; Neutrophils # 1.4 K/mcL (1.6-8.9); Platelet Count 147 K/mcL (140-400); Red Blood Count 4.39 M/mcL (3.82-4.97); Red Cell Distribution Width 17.6 % (11.5-14.5)
[2018-03-19 05:30] LABS: BUN/Creatinine Ratio 24 (6-26); Blood Urea Nitrogen 13 mg/dL (8-23); Carbon Dioxide 23 mEq/L (23-29); Chloride 108 mEq/L (98-107); Glucose 85 mg/dL (70-105); Osmolality,Calculated 273 (280-300); Potassium 3.1 mEq/L (3.5-5.1); Sodium 132 mEq/L (136-145); eGFR For African Americans > 60 (> 60); eGFR For Non-African Americans > 60 (> 60)
[2018-03-19] MEDS: *HR* Heparin 5,000 UNIT/ML VIAL SQ SCH (05:38)
[2018-03-19] MEDS: Aspirin Enteric Coated 81 MG Tablet PO SCH (08:19)
[2018-03-19] MEDS: Cyanocobalamin (B-12) 1,000 MCG TABLET PO SCH (08:19)
[2018-03-19] MEDS ORDERED: Potassium Chloride Elixir 20 MEQ/15 ML UDC PO ONE (08:23)
--- NOTE | 2018-03-19 10:19 | Discharge Summary ---
Orders not resulted at time of discharge: Pending orders 03/17/18 06:00 ECG 12 lead ECG [ECG] AM 0600 03/17/18 11:09 EKG [ECG 12 lead ECG] [ECG] Routine 03/20/18 04:00 BMP [Basic Metabolic Panel] AM 0400 Complete Blood Count [HEME] AM 0400 03/21/18 04:00 BMP [Basic Metabolic Panel] AM 0400 Complete Blood Count [HEME] AM 0400 03/22/18 04:00 BMP [Basic Metabolic Panel] AM 0400 Complete Blood Count [HEME] AM 04003/23/18 04:00 BMP [Basic Metabolic Panel] AM 0400 Complete Blood Count [HEME] AM 0400 Date of Encounter: 03/19/18 Time of Encounter: :18 - Discharge Diagnosis (1) Ambulatory dysfunction Priority: Primary Status: Acute Assessment and Plan: Sending to ECF for PT/OT (2) Frail elderly Priority: Secondary Status: Acute (3) Weakness Priority: Secondary Status: Acute Assessment and Plan: Sending to ECF for PT/OT (4) Hyponatremia Priority: Secondary Status: Acute (5) HTN (hypertension) Priority: Secondary Status: Chronic Assessment and Plan: Continue and HTN medications at discharge. Qualifiers: Hypertension type: essential hypertension Qualified Code(s): I10 - Essential (primary) hypertension (6) Abnormal EKG Priority: Secondary Status: Acute (7) Diastolic congestive heart failure Priority: Secondary Status: Chronic Qualifiers: Heart failure chronicity: chronic Qualified Code(s): I50.32 - Chronic diastolic (congestive) heart failure (8) DVT prophylaxis Priority: Secondary Status: Resolved Hospital course: Ms. Vigil is a 82 year old female presented with a laboratory dysfunction and generalized overall weakness. Hospital course was uneventful. Patient was assessed by PT/OT and recommendations were for ECF placement for rehabilitation. Patient remains medically stable for discharge Discharge discussed with: patient, nurse - Time Spent with Patient Total time spent providing and/or coordinating discharge services: Less than 30 minutes - Discharge Medications Home Medications: Cyanocobalamin (Vitamin B-12) [Vitamin B12] 1,000 mcg PO DAILY 07/28/15 [History ] Metoprolol [Lopressor] 50 mg PO BID 07/28/15 [History] Omeprazole [PriLOSEC] 20 mg PO DAILY 07/28/15 [History] Triamterene/HCTZ 37.5/25mg [Dyazide] 0.5 tab PO DAILY 07/28/15 [History] Lisinopril 2.5 mg PO DAILY 09/13/17 [History] Sodium Chloride 1 gm PO BID 09/13/17 [History] Magnesium Oxide [Mag-Ox] 400 mg PO DAILY #30 tablet 09/18/17 [Rx] Allergies/Adverse Reactions: 3 Allergy/AdvReac Type Severity Reaction Status Date / Time Pneumococcal Vaccine Allergy Cough Verified 09/13/17 14:22 tuberculin, purified protein Allergy Blister Verified 09/13/17 14:22 deriva [tuberculin,purif.prot.deriv.] aspirin AdvReac See Verified 09/13/17 14:22 Comments ibuprofen [From Motrin] AdvReac See Verified 09/13/17 14:22 Comments Date of admission: 03/16/18 14:55 Primary care physician: Kathi Middleton DO Discharging clinician: Johan Redmond Anticipated date of discharge: 03/19/18 - Constitutional Vitals: Temp Pulse Resp BP Pulse Ox 98.1 F 77 14 144/72 96 03/19/18 06:51 03/19/18 06:51 03/19/18 06:51 03/19/18 06:51 03/19/18 06:51 General appearance: Present: cooperative, A&O X 3, no acute distress, answers questions appropriately - Head Head exam: Present: atraumatic, normocephalic - Eye Eye exam: Present: PERRL, conjuntiva pink, sclera anicteric Pupils: Present: PERRL - Neck Neck exam general surgery: Present: supple, trachea midline. Absent: lymphadenopathy - Respiratory Respiratory exam: Present: CTAB. Absent: accessory muscle use, rales, rhonchi, wheezes - Cardiovascular Cardiovascular exam: Present: RRR, +S1, +S2. Absent: diastolic murmur, gallop, rubs, systolic murmur - GI/Abdominal GI/Abdominal exam: Present: normal bowel sounds, soft, no peritoneal signs. Absent: distended, tenderness - Extremities Exam Extremities exam: Present: warm, radial pulses palpable and symmetrical. Absent : calf tenderness, cyanotic, pedal edema - Neurological Exam Neurological exam: Present: CN II-XII intact, oriented X3, no focal deficits. Absent: pronater drift, facial droop, speech deficit - Skin Skin exam: Present: dry, intact - Patient Status Disposition: Transfer SNF Condition: Fair Overall status at discharge: patient is not back to baseline - Discharge Instructions Follow Up With: Kathi Middleton DO [Primary Care Provider] -
[2018-03-19 11:43] VITALS: BP 112/65
--- NOTE | 2018-03-19 12:16 | Physician Discharge Referral ---
ExtendedCare Referral Info Transfer To: [facility] Provider in Charge after Transfer: PCP, Other (Facility physician) Institutional Level of Care: Intermediate - Diagnosis (1) Ambulatory dysfunction Priority: Primary Status: Acute (2) Frail elderly Priority: Secondary Status: Acute (3) Weakness Priority: Secondary Status: Acute (4) Hyponatremia Priority: Secondary Status: Acute (5) HTN (hypertension) Priority: Secondary Status: Chronic (6) Abnormal EKG Priority: Secondary Status: Acute (7) Diastolic congestive heart failure Priority: Secondary Status: Chronic (8) DVT prophylaxis Priority: Secondary Status: Resolved - Transfer Medications Home Medications: Cyanocobalamin (Vitamin B-12) [Vitamin B12] 1,000 mcg PO DAILY 07/28/15 [History ] Metoprolol [Lopressor] 50 mg PO BID 07/28/15 [History] Omeprazole [PriLOSEC] 20 mg PO DAILY 07/28/15 [History] Triamterene/HCTZ 37.5/25mg [Dyazide] 0.5 tab PO DAILY 07/28/15 [History] Lisinopril 2.5 mg PO DAILY 09/13/17 [History] Sodium Chloride 1 gm PO BID 09/13/17 [History] Magnesium Oxide [Mag-Ox] 400 mg PO DAILY #30 tablet 09/18/17 [Rx] Allergies/Adverse Reactions: 3 Allergy/AdvReac Type Severity Reaction Status Date / Time Pneumococcal Vaccine Allergy Cough Verified 09/13/17 14:22 tuberculin, purified protein Allergy Blister Verified 09/13/17 14:22 deriva [tuberculin,purif.prot.deriv.] aspirin AdvReac See Verified 09/13/17 14:22 Comments ibuprofen [From Motrin] AdvReac See Verified 09/13/17 14:22 Comments - Respiratory Orders Smoking Cessation: Smoking cessation has been advised. For more information, call the [place] Tobacco Quit Line at 1-164-RUSH-NOW. - Rehabiliation Orders Rehab Potential: Fair Rehab Orders: Evaluation for Physical Therapy, Evaluation for Occupational Therapy - Diet Orders Regular CERTIFICATION: I certify that the transfer of the above named patient to an Extended Care Facility is necessary for the continuing treatment of the diagnosis listed. The above information is true and accurate reflection of patient's current condition. Confidential - Redisclosure prohibited without a patient's written consent.
--- NOTE | 2018-03-21 14:14 | Electrocardiograph Report ---
[address] [place] [address] Test Date: 2018-03-17 Pat Name: Deedee Vigil Department: 113 Room: 3B36 Gender: Nurse Epidemiologist: : [id number] Requested By: Johan Redmond Order Number: [id number] Reading MD: Kelvin Garcia Measurements Intervals [place] Rate: 64 P: 43 MO: 219 QRS: -16 QRSD: 89 T: 13 QT: 414 QTc: 423 Interpretive Statements SINUS RHYTHM WITH FIRST DEGREE AV BLOCK WITH OCCASIONAL SUPRAVENTRICULAR PREMATURE COMPLEXES POSSIBLE ANTERIOR MYOCARDIAL INFARCTION, OF INDETERMINATE AGE Electronically Signed On 03-21-2018 14:12:46 EDT by Kelvin Garcia
== END 2018-03-19 15:21 | DRG 948 ==
LOC: EMEROO 17:44 → 3BNU 17:44
PROVIDERS: ADMIT Internal Medicine; ATTEND Internal Medicine

== ENCOUNTER 2018-08-16 07:18 | Inpatient (IN) ==
--- NOTE | 2018-08-16 08:09 | Emergency Department Note ---
Addendum entered and electronically signed by Justice Lazo DO 08/16/18 09:44: Add to EKG EKG #1 7:50 Heart rate 74 bpm, MI interval 174 ms, QRS duration 88 ms, QT 394 ms, left axis deviation. Sinus rhythm ventricular rate of 74 bpm. No evidence of any ischemic ST changes on this EKG. Original Note: Disposition Clinical Impression: Unsteadiness on feet, Hyponatremia Bilateral knee pain Qualifiers: Chronicity: acute Qualified Code(s): M25.561 - Pain in right knee Disposition: Admitted As Inpatient Condition: Fair Altered Mental Status HPI - General Chief Complaint: ED Altered Mental Status Stated Complaint: AMS/Gen Pain Time Seen by Provider: 08/16/18 07:32 Source: patient, family Limitations: no limitations Nursing Notes Reviewed: Yes Vital Signs Reviewed: Yes - History of Present Illness HPI Narrative: Deedee Vigil is an 82 yo female presenting to the office for dizziness and altered mental status. She states that for the past 3 days she has felt unsteady on her feet and confused. She states that she also aches all over due to a history of arthritis. Her son in the room states that 3 times over the past year she has had to be hospitalized for similar presentations which resulted in rehab stints at a nursing facility. She was most recently discharged from a nursing facility on 06/21/18. She also states she has had trouble getting up for food and water due to her body aches and feels dry. She denies vomiting, diarrhea, nausea, SOB, chest pain or urinary symptoms. She denies falling or head trauma. The history, physical exam, and medical decision making was performed by the medical student either while I was physically present and actively involved or I personally re-performed the exam and medical decision making. I have verified the accuracy of the medical student's documentation with regards to the history, physical exam findings, and medical decision making. Mental status that is reported by son is a progressive worsening of confusion over the last 6 months. Nothing acutely over the last few days. No falls. Dizziness over the last 3 days is warm and unsteadiness on her feet. MD complaint: altered mental status, weakness Onset (ago): day(s) (3 days) Timing confirmed by: family member Pain Severity: severe - Related Data Home Medications Medication Instructions Recorded Confirmed Cyanocobalamin (Vitamin B-12) 1,000 mcg PO DAILY 07/28/15 08/16/18 [Vitamin B12] Metoprolol [Lopressor] 50 mg PO BID 07/28/15 08/16/18 Omeprazole [PriLOSEC] 20 mg PO DAILY 07/28/15 08/16/18 Triamterene/HCTZ 37.5/25mg 0.5 tab PO DAILY 07/28/15 08/16/18 [Dyazide] Lisinopril 2.5 mg PO DAILY 09/13/17 08/16/18 Sodium Chloride [Sodium Chloride 1 gm PO BID 09/13/17 08/16/18 Tab] Previous Rx's Medication Instructions Recorded Magnesium Oxide [Mag-Ox] 400 mg PO DAILY #30 tablet 09/18/17 Allergies Allergy/AdvReac Type Severity Reaction Status Date / Time Pneumococcal Vaccine Allergy Cough Verified 08/16/18 07:29 tuberculin, purified protein Allergy Blister Verified 08/16/18 07:29 deriva [tuberculin,purif.prot.deriv.] aspirin AdvReac See Verified 08/16/18 07:29 Comments ibuprofen [From Motrin] AdvReac See Verified 08/16/18 07:29 Comments Constitutional: Reports: weakness. Denies: fever, chills Cardiovascular: Denies: chest pain, palpitations, dyspnea on exertion Respiratory: Denies: cough, wheezes Gastrointestinal: Denies: abdominal pain, nausea, vomiting, diarrhea Genitourinary: Denies: urgency, dysuria, frequency, hematuria Neurological: Reports: weakness, confusion. Denies: headache Past Medical History - Past Medical History Medical history: Reports: arthritis, cancer, GERD, hyperlipidemia, hypertension , renal disease, other Surgical history: Reports: cataract, cholecystectomy, colectomy, hip replacement , hysterectomy, other Psychiatric history: Reports: no psych history DELIVERY REP history: Reports: no DELIVERY REP history - Social History Smoking Status: Never smoker Smokeless Tobacco Status: No Alcohol use: Reports: none Drug use: Reports: none Physical Exam - General Limitations: no limitations General appearance: alert, in no apparent distress - Head Head exam: atraumatic, normocephalic - Eye Eye exam: Present: normal appearance, EOMI. Absent: scleral icterus, conjunctival injection - ENT ENT exam: normal exam, mucous membranes dry - Neck Neck exam: Present: normal inspection, full ROM, trachea midline. Absent: tenderness - Respiratory Respiratory exam: Present: normal lung sounds bilaterally. Absent: respiratory distress, wheezes - Cardiovascular Cardiovascular exam: Present: regular rate, normal rhythm, normal heart sounds - Abdominal Exam Abdominal exam: Present: soft, tenderness (LUQ tenderness to palpation ), normal bowel sounds Abdominal tenderness: Present: RUQ - Neurological Exam Neurological exam: Present: alert, oriented X3, CN II-XII intact. Absent: motor sensory deficit - Psychiatric Psychiatric exam: Present: normal affect, normal mood - Skin Skin exam: Present: warm, intact Course Vital Signs Temperature 97.9 F 08/16/18 07:27 Pulse Rate 76 08/16/18 07:27 Respiratory Rate 16 08/16/18 07:27 Blood Pressure 163/69 08/16/18 07:27 O2 Sat by Pulse Oximetry 92 08/16/18 07:27 Temperature 97.9 F 08/16/18 07:44 Pulse Rate 79 08/16/18 09:57 Respiratory Rate 14 08/16/18 09:57 Blood Pressure 143/105 08/16/18 09:57 O2 Sat by Pulse Oximetry 99 08/16/18 09:57 Oxygen Delivery Oxygen Delivery Room Air Altered Mental Status - MDM Narrative Medical decision making narrative: 82-year-old female presents emergency department with concern for worsening mental status in the last 6 months, with dizziness and unsteadiness on her feet over the last 3 days that is worsening. Concern for fall at home. We obtained a CT scan of the head and this did not reveal any evidence of intracranial abnormality. Patient had oxygen saturation at triage of 92% on room air. I went to the room 3 times throughout her stay, and oxygen saturation was at 99% and 100% at each time. Patient never requiring oxygen here. Was hemodynamically stable. Patient appeared dry on physical exam. We administered a liter of fluids. EKG did not reveal any ischemic ST changes. Troponin was negative. Chest x-ray was within normal limits per radiology. Patient had mild hyponatremia at 129, but she has been lower in the past. Take salt tablets for medications. Patient was given Tylenol for bilateral knee pain. Did not obtain any imaging of the knees as patient did not have any trauma and imaging would be very low yield. On physical exam, knees are not erythematous, warm, patient afebrile here. No concerns for septic arthritis. Bilateral nature as well, which is most consistent with her arthritis. Kidney function was normal. There was requests from son to have patient admitted as she is worsening fall risk with her unsteadiness at home. Patient admitted to Dr. Colon who agreed to accept. Chest X-Ray 08/16/18 07:38 IMPRESSION: No acute process. Stable exam. D/ / Ritesh Pan MD / Ritesh Pan MD Interpreting Provider: Ritesh Pan MD Head CT 08/16/18 07:45 IMPRESSION: No acute intracranial abnormality. D/ / Kaushal Gibbs MD / Kaushal Gibbs MD Interpreting Provider: Kaushal Gibbs MD Vital Signs Temperature 97.9 F 08/16/18 07:27 Pulse Rate 76 08/16/18 07:27 Respiratory Rate 16 08/16/18 07:27 Blood Pressure 163/69 08/16/18 07:27 O2 Sat by Pulse Oximetry 92 08/16/18 07:27 Temperature 97.9 F 08/16/18 07:44 Pulse Rate 76 08/16/18 07:44 Respiratory Rate 16 08/16/18 07:44 Blood Pressure 163/69 08/16/18 07:44 O2 Sat by Pulse Oximetry 92 08/16/18 07:44 Oxygen Delivery Oxygen Delivery Room Air - Lab Data Result diagrams: 08/16/18 08:00 08/16/18 08:00 Lab Results 08/16/18 08/16/18 08/16/18 Range/Units 08:00 08:00 08:00 WBC 3.8 L (4.3-11.1) K/mcL RBC 4.71 (3.82-4.97) M/mcL Hgb 11.7 (11.5-15.4) g/dL Hct 35.7 (35.3-44.9) % MCV 75.8 L (83.0-100.0) fL MCH 24.8 L (28.0-33.3) pg MCHC 32.8 (31.6-35.5) g/dL RDW 17.0 H (11.5-14.5) % Plt Count 228 (140-400) K/mcL MPV 10.2 (9.4-12.4) fL Immature Gran % 0.3 (0-4) % Seg Neutrophils % 51.6 % Lymphocytes % 24.7 % Monocytes % 13.2 % Eosinophils % 8.9 % Basophils % 1.3 % Neutrophils # 2.0 (1.6-8.9) K/mcL Lymphocytes # 0.9 (0.6-4.6) K/mcL Monocytes # 0.5 (0.0-1.3) K/mcL Eosinophils # 0.3 (0.0-0.6) K/mcL Basophils # 0.1 (0.0-0.2) K/mcL Sodium 129 L (136-145) mEq/L Potassium 3.9 (3.5-5.1) mEq/L Chloride 99 (98-107) mEq/L Carbon Dioxide 23 (23-29) mEq/L BUN 13 (8-23) mg/dL Creatinine 0.65 (0.60-1.20) mg/dL Est GFR ( Amer) > 60 (> 60) Est GFR (Non-Af Amer) > 60 (> 60) BUN/Creatinine Ratio 20 (6-26) Glucose 97 (70-105) mg/dL Calculated Osmolality 268 L (280-300) Calcium 9.2 (8.6-10.3) mg/dL Troponin I < 0.03 (< 0.04) ng/mL B-Natriuretic Peptide 276 H (Less than 100) pg/mL Urine Color (Yellow) Urine Clarity (Clear) Urine pH (5.0-8.0) pH Units Ur Specific [place] (1.010-1.025) Urine Protein (Neg-Trace) mg/dL Urine Glucose (UA) (Normal) mg/dL Urine Ketones (Negative) mg/dL Urine Blood (Negative) Urine Nitrite (Negative) Urine Bilirubin (Negative) Urine Urobilinogen (Normal) mg/dL Ur Leukocyte Esterase (Negative) Ur Culture Indicated? (NO) 08/16/18 Range/Units 08:41 WBC (4.3-11.1) K/mcL RBC (3.82-4.97) M/mcL Hgb (11.5-15.4) g/dL Hct (35.3-44.9) % MCV (83.0-100.0) fL MCH (28.0-33.3) pg MCHC (31.6-35.5) g/dL RDW (11.5-14.5) % Plt Count (140-400) K/mcL MPV (9.4-12.4) fL Immature Gran % (0-4) % Seg Neutrophils % % Lymphocytes % % Monocytes % % Eosinophils % % Basophils % % Neutrophils # (1.6-8.9) K/mcL Lymphocytes # (0.6-4.6) K/mcL Monocytes # (0.0-1.3) K/mcL Eosinophils # (0.0-0.6) K/mcL Basophils # (0.0-0.2) K/mcL Sodium (136-145) mEq/L Potassium (3.5-5.1) mEq/L Chloride (98-107) mEq/L Carbon Dioxide (23-29) mEq/L BUN (8-23) mg/dL Creatinine (0.60-1.20) mg/dL Est GFR ( Amer) (> 60) Est GFR (Non-Af Amer) (> 60) BUN/Creatinine Ratio (6-26) Glucose (70-105) mg/dL Calculated Osmolality (280-300) Calcium (8.6-10.3) mg/dL Troponin I (< 0.04) ng/mL B-Natriuretic Peptide (Less than 100) pg/mL Urine Color Yellow (Yellow) Urine Clarity Clear (Clear) Urine pH 7.5 (5.0-8.0) pH Units Ur Specific [place] 1.010 (1.010-1.025) Urine Protein Negative (Neg-Trace) mg/dL Urine Glucose (UA) Normal (Normal) mg/dL Urine Ketones Negative (Negative) mg/dL Urine Blood Negative (Negative) Urine Nitrite Negative (Negative) Urine Bilirubin Negative (Negative) Urine Urobilinogen Normal (Normal) mg/dL Ur Leukocyte Esterase Negative (Negative) Ur Culture Indicated? NO (NO) Attestation Statement - Attestation Attestation: I examined this patient and my medical decision-making was reviewed with the Resident Physician, Dr. Lazo. I agree with the documented findings, disposition and treatment plan as described except to the extent set forth below. Patient is an 82-year-old white female brought in by her son today with concerns of gradually worsening difficulty ambulating due to generalized weakness and lightheadedness with decreased by mouth intake. Patient has been admitted on 2 prior occasions last episode was in March of this year where she had very similar symptoms was found to be mildly dehydrated with some hyponatremia and was discharged to an extended care facility for physical therapy. Patient states she been doing quite well upon returning home she lives alone when she first arrived home but has discomfort gradually worsened in her ability to get around. Son reports he was at bedside that she called him he lives next door to her, and she said that she was having difficulty even getting out of bed due to overwhelming weakness. Patient denies any history of falls or trauma. She denies any chest pain pressure or heaviness, no shortness of breath, no diaphoresis, no nausea vomiting, no abdominal pain or flank pain. No significant headaches, no slurred speech or focal neural deficits and no vertigo. Denies any recent infections or treatment of such. Patient appears in no acute distress resting comfortably at bedside. I agree with patient's physical exam findings as documented,. Vital signs are stable. Patient underwent laboratory evaluation including urinalysis, as well as head CT and chest x-ray. Triage pulse ox was reported at 92 but throughout our assessment and reassessments patient's pulse ox was 100% withno sign or symptoms of respiratory distress. CT was unremarkable, chest x-ray was within normal limits laboratory evaluation does show mild hyponatremia compared to her baseline. IV fluids were started. Patient was also given pain medicine for her bilateral knee pain. Feel patient would benefit from hospitalization, IV fluids and social service director consultation. Patient will be admitted to the hospitalist service for further evaluation and management.
[2018-08-16 08:10] LABS: Basophils # 0.1 K/mcL (0.0-0.2); Basophils % 1.3 %; Eosinophils # 0.3 K/mcL (0.0-0.6); Eosinophils % 8.9 %; Hematocrit 35.7 % (35.3-44.9); Hemoglobin 11.7 g/dL (11.5-15.4); Immature Granulocytes % 0.3 % (0-4); Lymphocytes # 0.9 K/mcL (0.6-4.6); Lymphocytes % 24.7 %; Mean Corpuscular HGB Conc 32.8 g/dL (31.6-35.5); Mean Corpuscular Hemoglobin 24.8 pg (28.0-33.3); Mean Corpuscular Volume 75.8 fL (83.0-100.0); Mean Platelet Volume 10.2 fL (9.4-12.4); Monocytes # 0.5 K/mcL (0.0-1.3); Monocytes % 13.2 %; Platelet Count 228 K/mcL (140-400); Red Blood Count 4.71 M/mcL (3.82-4.97); Segmented Neutrophils % 51.6 %
[2018-08-16] MEDS ORDERED: 0.9 % Sodium Chloride 1,000 ML IVC ONE (08:27)
[2018-08-16 08:31] LABS: BUN/Creatinine Ratio 20 (6-26); Blood Urea Nitrogen 13 mg/dL (8-23); Calcium 9.2 mg/dL (8.6-10.3); Carbon Dioxide 23 mEq/L (23-29); Chloride 99 mEq/L (98-107); Glucose 97 mg/dL (70-105); Osmolality,Calculated 268 (280-300); Potassium 3.9 mEq/L (3.5-5.1); Sodium 129 mEq/L (136-145); Troponin I < 0.03 ng/mL (< 0.04); eGFR For Non-African Americans > 60 (> 60)
[2018-08-16 08:58] LABS: Bilirubin,Urine Negative (Negative); Blood,Urine Negative (Negative); Clarity,Urine Clear (Clear); Color,Urine Yellow (Yellow); Glucose,Urine (UA) Normal (Normal); Ketones,Urine Negative (Negative); Leukocyte Esterase,Urine Negative (Negative); Nitrite,Urine Negative (Negative); PH,Urine 7.5 pH Units (5.0-8.0); Protein,Urine Negative (Neg-Trace); Urobilinogen,Urine Normal (Normal)
--- NOTE | 2018-08-16 10:46 | Internal Med History&Physical ---
Date of Encounter: 08/16/18 Time of Encounter: 10:20 Internal Medicine - H&P: HPI Chief complaint: Generalized weakness, confusion Admitted From: Emergency Dept History of present illness: Ms. Vigil is a 82 year old female patient with a history of chronic hyponatremia, hypertension, gastroesophageal reflux disease, arthritis who was brought into the ER by her family with complaints of increasing unsteadiness in her feet along with feeling of passing out earlier this morning. Patient keeps saying that she is confused but is able to answer most of my questions well. She had previously been hospitalized here in the past for similar complaints and was [facility] to [facility] for [facility]. She was discharged from [facility] in June of this year and has been having trouble at home with carrying on her activities of daily living especially with a past 2 -3 days. She denies any dizziness at this time but she says she has been lying in bed and cannot really tell. She denies any abdominal pain nausea or vomiting. She reports a flareup in her arthritis especially over her left finger joints. Her son also had reported to the ER doctor that she has been having increasing confusion over the past 6 months and he was concerned that she may be having dementia. No fevers or chills reported. Patient reports dryness in her mouth and increased thirst. Past Med Surg Social Fam HX - Past Medical History Medical history: arthritis, cancer, GERD, hyperlipidemia, hypertension, renal disease, other Additional medical history: colon cancer Psychiatric history: no psych history - Past Surgical History Surgical History: cataract, cholecystectomy, colectomy, hip replacement, hysterectomy, other Additional surgical history: shoulder sx - Social History Smoking Status: Never smoker Smokeless Tobacco Status: No Alcohol use: none Drug use: none - Family History Brother Living Status: Still Living Hx Family Respiratory Disorders: Yes (COPD.) Daughter Adopted: No Living Status: Hx Family Cardiac Disorders: Yes Hx Family Respiratory Disorders: No Hx Family Cancer: No Hx Family GI Disorders: No Hx Family Endocrine Disorder: Yes (diabetes) Hx Family Neuromuscular Disorders: No Hx Family Neurologic Disorders: No Hx Family HEENT Disorders: No Hx Family Autoimmune Disorders: No Father Living Status: Hx Family Cardiac Disorders: Yes Hx Family Respiratory Disorders: No Hx Family Cancer: No Hx Family GI Disorders: No Hx Family Endocrine Disorder: No Hx Family Neuromuscular Disorders: No Hx Family Neurologic Disorders: No Hx Family HEENT Disorders: No Hx Family Autoimmune Disorders: No Mother Living Status: Hx Family Cardiac Disorders: Yes (cva) Hx Family Cancer: Yes (Colon cancer) Hx Family Endocrine Disorder: Yes (DM) Sister Adopted: No Living Status: Hx Family Endocrine Disorder: Yes (Diabetes Mellitus) Internal Medicine - H&P: Meds Cyanocobalamin (Vitamin B-12) [Vitamin B12] 1,000 mcg PO DAILY 07/28/15 [History ] Metoprolol [Lopressor] 50 mg PO BID 07/28/15 [History] Omeprazole [PriLOSEC] 20 mg PO DAILY 07/28/15 [History] Triamterene/HCTZ 37.5/25mg [Dyazide] 0.5 tab PO DAILY 07/28/15 [History] Lisinopril 2.5 mg PO DAILY 09/13/17 [History] Sodium Chloride [Sodium Chloride Tab] 1 gm PO BID 09/13/17 [History] Magnesium Oxide [Mag-Ox] 400 mg PO DAILY #30 tablet 09/18/17 [Rx] 3 Allergy/AdvReac Type Severity Reaction Status Date / Time Pneumococcal Vaccine Allergy Cough Verified 08/16/18 07:29 tuberculin, purified protein Allergy Blister Verified 08/16/18 07:29 deriva [tuberculin,purif.prot.deriv.] aspirin AdvReac See Verified 08/16/18 07:29 Comments ibuprofen [From Motrin] AdvReac See Verified 08/16/18 07:29 Comments All Systems PM: A 10-system review of systems was performed and is negative for pertinent findings except as documented above in the HPI. - Constitutional Constitutional: no chills, no fever(s), no night sweats - EENT Eyes: no change in vision, no discharge, no pain, no photophobia Ears: no ear discharge, no ear pain, no tinnitus Nose, mouth and throat: no dysphagia, no nasal discharge, no neck pain, no sore throat - Cardiovascular Cardiovascular ROS IM: lightheadedness, no chest pain, no diaphoresis, no dyspnea, no palpitations, no syncope - Respiratory Respiratory: no cough, no dyspnea, no wheezing, no excessive phlegm production - Gastrointestinal Gastrointestinal: no abdominal pain, no diarrhea, no hematemesis, no hematochezia, no melena, no nausea, no vomiting - Genitourinary Genitourinary: no change in urinary stream, no dysuria, no flank pain, no hematuria - Musculoskeletal Musculoskeletal ROS IM: no numbness, no tingling - Integumentary Integumentary IM: no rash, no unusual bruising - Neurological Neurological ROS: confusion, no convulsions, no focal weakness, no numbness, no tingling, no tremor(s) - Constitutional Vitals: Temp Pulse Resp BP Pulse Ox 97.9 F 79 14 143/105 99 08/16/18 07:44 08/16/18 09:57 08/16/18 09:57 08/16/18 09:57 08/16/18 09:57 General appearance: Present: cooperative, A&O X 2, pleasant, no acute distress, answers questions appropriately Exam: . - Neck Neck exam general surgery: Present: supple, trachea midline. Absent: lymphadenopathy - Respiratory Respiratory exam: Present: CTAB. Absent: accessory muscle use, rales, rhonchi, wheezes - Cardiovascular Cardiovascular exam: Present: RRR, +S1, +S2. Absent: diastolic murmur, gallop, rubs, systolic murmur - GI/Abdominal GI/Abdominal exam: Present: normal bowel sounds, soft, no peritoneal signs. Absent: distended, tenderness - Extremities Exam Extremities exam: Present: warm, radial pulses palpable and symmetrical. Absent : calf tenderness, cyanotic, pedal edema Additional comments: Left hand appears deformed due to arthritic changes. - Neurological Exam Neurological exam: Present: alert, no focal deficits, strengths equal and symetr throughout. Absent: facial droop, speech deficit Internal Med - H&P Results - Labs CBC & Chem 7: 08/16/18 08:00 08/16/18 08:00 - Impressions Impressions Chest X-Ray 08/16/18 07:38 IMPRESSION: No acute process. Stable exam. D/ / Ritesh Pan MD / Ritesh Pan MD Interpreting Provider: Ritesh Pan MD Head CT 08/16/18 07:45 IMPRESSION: No acute intracranial abnormality. D/ / Kaushal Gibbs MD / Kaushal Gibbs MD Interpreting Provider: Kaushal Gibbs MD - Assessment and plan (1) Frail elderly Current Visit: Yes Status: Acute Assessment and plan: Patient with history of arthritis-possibly rheumatoid arthritis presenting with worsening symptoms of arthritis and unsteadiness in her feet along with some lightheadedness earlier this morning. Will observe in hospital. Monitor vital signs. Fall precautions. Consult PTOT. office worker consult for discharge planning. (2) Physical deconditioning Current Visit: Yes Status: Acute Assessment and plan: Most likely due to underlying arthritis and advanced age. PTOT consultation. Follow recommendations. (3) HTN (hypertension) Current Visit: Yes Status: Chronic Assessment and plan: Blood pressure was elevated on arrival here. It is now improving. We will resume home medications. Qualifiers: Hypertension type: essential hypertension Qualified Code(s): I10 - Essential (primary) hypertension (4) Rheumatoid arthritis Current Visit: Yes Status: Chronic Assessment and plan: Patient appears to have underlying rheumatoid arthritis based on my examination findings today. She does not take any medications for this. Recommended outpatient follow up closely with retail marketing manager for further management as outpatient. For now we will treat symptomatically with anti-inflammatory agents. Qualifiers: Rheumatoid arthritis location: hand Rheumatoid factor presence: without rheumatoid factor Laterality: bilateral Qualified Code(s): M06.041 - Rheumatoid arthritis without rheumatoid factor, right hand; M06.042 - Rheumatoid arthritis without rheumatoid factor, left hand - Time Spent With Patient Total time spent is greater than 50% in coordination of care (as documented) at patient's floor/unit and/or counseling patient:
[2018-08-16] MEDS ORDERED: Naloxone 0.4 MG/ML INJ IVP PRN (10:54)
[2018-08-16] MEDS ORDERED: Ringers Solution, Lactated 1,000 ML IVC SCH (11:00)
[2018-08-16] MEDS: *HR* Heparin 5,000 UNIT/ML VIAL SQ SCH (17:31)
[2018-08-17 04:15] LABS: Basophils # 0.1 K/mcL (0.0-0.2); Basophils % 1.8 %; Eosinophils # 0.4 K/mcL (0.0-0.6); Eosinophils % 13.3 %; Hematocrit 32.1 % (35.3-44.9); Hemoglobin 10.6 g/dL (11.5-15.4); Lymphocytes % 35.6 %; Mean Corpuscular Hemoglobin 24.9 pg (28.0-33.3); Mean Corpuscular Volume 75.5 fL (83.0-100.0); Mean Platelet Volume 10.1 fL (9.4-12.4); Monocytes # 0.3 K/mcL (0.0-1.3); Monocytes % 11.2 %; Neutrophils # 1.1 K/mcL (1.6-8.9); Platelet Count 194 K/mcL (140-400); Red Blood Count 4.25 M/mcL (3.82-4.97); Red Cell Distribution Width 17.3 % (11.5-14.5); Segmented Neutrophils % 38.1 %
[2018-08-17 04:37] LABS: BUN/Creatinine Ratio 19 (6-26); Blood Urea Nitrogen 11 mg/dL (8-23); Calcium 8.6 mg/dL (8.6-10.3); Carbon Dioxide 21 mEq/L (23-29); Chloride 102 mEq/L (98-107); Glucose 77 mg/dL (70-105); Osmolality,Calculated 274 (280-300); Sodium 133 mEq/L (136-145); eGFR For Non-African Americans > 60 (> 60)
[2018-08-17] MEDS: *HR* Heparin 5,000 UNIT/ML VIAL SQ SCH ×2 (05:28→18:26)
[2018-08-17] MEDS: Cyanocobalamin (B-12) 1,000 MCG TABLET PO SCH (07:57)
[2018-08-17] MEDS: Magnesium Oxide 400 MG TABLET PO SCH (07:57)
--- NOTE | 2018-08-17 08:54 | Electrocardiograph Report ---
[place] [employer] Test Date: 2018-08-16 Pat Name: Deedee Vigil Department: [id number] Room: 3B34 Gender: F Rn Maternity: : [id number] Requested By: Justice Lazo Order Number: [id number] Reading MD: Nikhil Martin Measurements Intervals [place] Rate: 74 P: 22 [place]: 174 QRS: 0 QRSD: 88 T: 16 QT: 394 QTc: 438 Interpretive Statements Sinus rhythm wnl Electronically Signed On 08-17-2018 8:52:20 EDT by Nikhil Martin
--- NOTE | 2018-08-17 13:43 | Internal Med Progress Note ---
Hospitalist Progress Note - Encounter Date of Encounter: 08/17/18 Time of Encounter: 13:41 - Subjective Interval History: Patient seen and examined in the room, she is alert and oriented. She has no chest pain, shortness of breath, or palpitation. Her major concern is weakness which she hope she can be discharged to halfway/ECF. She reported she was recently in the rehabilitation and then discharged home. She feels she is getting weaker and weaker and cannot take herself at home. - Exam Vitals: Temp Pulse Resp BP Pulse Ox 98.6 F 65 14 123/64 96 08/17/18 10:50 08/17/18 10:50 08/17/18 10:50 08/17/18 10:50 08/17/18 10:50 Exam: PHYSICAL EXAMINATION: GENERAL APPEARANCE: The patient is alert, oriented and in no acute distress. HEENT: Head is normocephalic. The sinuses are nontender. Pupils are equal and reactive. The nares are patent. Oropharynx clear without lesions. NECK: Supple without lymphadenopathy. HEART: Regular rate and rhythm. LUNGS: No crackles or wheezes are heard. ABDOMEN: Soft, nontender, nondistended with good bowel sounds heard. Inguinal area is normal. EXTREMITIES: Without cyanosis, clubbing or edema. NEUROLOGICAL: Gross nonfocal. SKIN: Warm and dry without any rash. . - Assessment and Plan (1) Rheumatoid arthritis Current Visit: Yes Status: Chronic Assessment and Plan: Patient appears to have underlying rheumatoid arthritis based on my examination findings today. She does not take any medications for this. Recommended outpatient follow up closely with mall plant caretaker for further management as outpatient. For now we will treat symptomatically with anti-inflammatory agents. (2) HTN (hypertension) Current Visit: Yes Status: Chronic Assessment and Plan: Blood pressure was elevated on arrival here. It is now improving. We will resume home medications. (3) Physical deconditioning Current Visit: Yes Status: Acute Assessment and Plan: Most likely due to underlying arthritis and advanced age. PT/OT recommended SNF , however, pt does not qualify. likely will be dc home with home health. (4) Frail elderly Current Visit: Yes Status: Acute Assessment and Plan: Pt was recently admitted to rehab and discharged home. She feel weaker and weaker at home and states she cannot take care herself. She insisted to be discharged to rehab or ECF, but she also has insurance issue. will coordinate with social work therapist about dc placement. continue PT/OT. (5) Vitamin D deficiency Current Visit: Yes Status: Acute Assessment and Plan: Vit D and calcium supplement started. DVT Prophylaxis: Heparin subcutaneous. - Time Spent with Patient Total time spent is greater than 50% in coordination of care (as documented) at patient's floor/unit and/or counseling patient: Greater than 35 minutes Plan of Care Discussed with: patient Internal Medicine: Result - Labs CBC & Chem 7: 08/17/18 03:43 08/17/18 03:43 Labs: Short CBC 08/17/18 Range/Units 03:43 WBC 2.8 L (4.3-11.1) K/mcL Hgb 10.6 L (11.5-15.4) g/dL Hct 32.1 L (35.3-44.9) % Plt Count 194 (140-400) K/mcL Neutrophils # 1.1 L (1.6-8.9) K/mcL BMP 08/17/18 03:43 Sodium 133 L Potassium 4.0 Chloride 102 Carbon Dioxide 21 L BUN 11 Creatinine 0.58 L Glucose 77 Calcium 8.6 Consult Discharge Plan - Plan Referrals: Kathi Middleton DO [Primary Care Provider] - (Requested a follow up appointment in 7-10 days. ) (1) Rheumatoid arthritis Qualifiers: Rheumatoid arthritis location: hand Rheumatoid factor presence: without rheumatoid factor Laterality: bilateral Qualified Code(s): M06.041 - Rheumatoid arthritis without rheumatoid factor, right hand; M06.042 - Rheumatoid arthritis without rheumatoid factor, left hand (2) HTN (hypertension) Qualifiers: Hypertension type: essential hypertension Qualified Code(s): I10 - Essential (primary) hypertension
[2018-08-17] MEDS: Cholecalciferol (D-3) 1,000 UNIT TABLET PO SCH (14:14)
[2018-08-18 04:19] LABS: Basophils % 1.2 %; Eosinophils # 0.3 K/mcL (0.0-0.6); Eosinophils % 8.9 %; Hematocrit 34.4 % (35.3-44.9); Hemoglobin 10.9 g/dL (11.5-15.4); Immature Granulocytes % 0.3 % (0-4); Lymphocytes # 1.1 K/mcL (0.6-4.6); Lymphocytes % 33.4 %; Mean Corpuscular HGB Conc 31.7 g/dL (31.6-35.5); Mean Corpuscular Hemoglobin 24.2 pg (28.0-33.3); Mean Corpuscular Volume 76.3 fL (83.0-100.0); Mean Platelet Volume 9.4 fL (9.4-12.4); Monocytes # 0.4 K/mcL (0.0-1.3); Monocytes % 13.2 %; Neutrophils # 1.4 K/mcL (1.6-8.9); Platelet Count 175 K/mcL (140-400); Red Blood Count 4.51 M/mcL (3.82-4.97); Red Cell Distribution Width 17.2 % (11.5-14.5)
[2018-08-18 04:41] LABS: BUN/Creatinine Ratio 20 (6-26); Blood Urea Nitrogen 12 mg/dL (8-23); Calcium 8.8 mg/dL (8.6-10.3); Carbon Dioxide 23 mEq/L (23-29); Chloride 102 mEq/L (98-107); Glucose 86 mg/dL (70-105); Osmolality,Calculated 273 (280-300); Potassium 3.6 mEq/L (3.5-5.1); Sodium 132 mEq/L (136-145); eGFR For Non-African Americans > 60 (> 60)
[2018-08-18] MEDS: *HR* Heparin 5,000 UNIT/ML VIAL SQ SCH ×2 (05:25→17:06)
[2018-08-18] MEDS: Cholecalciferol (D-3) 1,000 UNIT TABLET PO SCH (07:53)
[2018-08-18] MEDS: Cyanocobalamin (B-12) 1,000 MCG TABLET PO SCH (07:53)
[2018-08-18] MEDS: Magnesium Oxide 400 MG TABLET PO SCH (07:53)
--- NOTE | 2018-08-18 14:33 | Discharge Summary ---
- NOTES TO OUTPATIENT PROVIDER Notes to Outpatient Provider: Continue monitoring the patient's chronic hyponatremia. Recommend checking sodium in one week. Date of Encounter: 08/18/18 Time of Encounter: 14:30 - Discharge Diagnosis (1) Physical deconditioning Priority: Primary Status: Acute (2) Rheumatoid arthritis Priority: Secondary Status: Chronic Qualifiers: Rheumatoid arthritis location: hand Rheumatoid factor presence: without rheumatoid factor Laterality: bilateral Qualified Code(s): M06.041 - Rheumatoid arthritis without rheumatoid factor, right hand; M06.042 - Rheumatoid arthritis without rheumatoid factor, left hand (3) HTN (hypertension) Priority: Secondary Status: Chronic Qualifiers: Hypertension type: essential hypertension Qualified Code(s): I10 - Essential (primary) hypertension (4) Frail elderly Priority: Secondary Status: Acute (5) Vitamin D deficiency Priority: Secondary Status: Acute Hospital course: Ms. Vigil is a 82 year old female with past medical history of severe osteoarthritis who presents to the emergency department with chief complaint of increasing unsteadiness. Patient recently admitted for similar complaints and was discharged to snf for rehabilitation which she says helped her weakness. The patient was found to be mildly hyponatremic which appears to be chronic and her home medications were resumed including sodium chloride tablets. Patient's sodium did improve slightly and is at her baseline and will be discharged with a sodium of 132. Patient was seen by physical therapy and occupational therapy recommended ECF placement. There are insurance issues covering cost. And family is unable to pay for out of pocket cost. The son will take the patient home with home health care and social work states that they can arrange nearly daily visits from PT OT, nursing, and social work if they are staggered. The patient did walk the halls with physical therapy with walker. Patient's CT of the head scan was negative for any acute intra-cranial abnormality. The patient's declining physical status and deconditioning is likely a progression of her severe osteoarthritis and advancing age. This appears to be the safest discharge plan available. Due to patient's physical deconditioning and severe arthritis the patient is at high risk for readmission. The patient will likely need long-term nursing placement in the near future due to her physical debilities. She will follow-up with her primary care physician within one week. Patient should have her sodium checked at follow-up visit within 1 week. Patient should call PCP or return to ED for any worsening of symptoms. Discharge discussed with: patient, nurse - Time Spent with Patient Total time spent providing and/or coordinating discharge services: Less than 30 minutes - Discharge Medications Home Medications: Cyanocobalamin (Vitamin B-12) [Vitamin B12] 1,000 mcg PO DAILY 07/28/15 [History ] Metoprolol [Lopressor] 50 mg PO BID 07/28/15 [History] Omeprazole [PriLOSEC] 20 mg PO DAILY 07/28/15 [History] Triamterene/HCTZ 37.5/25mg [Dyazide] 0.5 tab PO DAILY 07/28/15 [History] Lisinopril 2.5 mg PO DAILY 09/13/17 [History] Sodium Chloride [Sodium Chloride Tab] 1 gm PO BID 09/13/17 [History] Magnesium Oxide [Mag-Ox] 400 mg PO DAILY #30 tablet 09/18/17 [Rx] Allergies/Adverse Reactions: 3 Allergy/AdvReac Type Severity Reaction Status Date / Time Pneumococcal Vaccine Allergy Cough Verified 08/16/18 07:29 tuberculin, purified protein Allergy Blister Verified 08/16/18 07:29 deriva [tuberculin,purif.prot.deriv.] aspirin AdvReac See Verified 08/16/18 07:29 Comments ibuprofen [From Motrin] AdvReac See Verified 08/16/18 07:29 Comments Date of admission: 08/16/18 09:31 Primary care physician: Kathi Middleton DO Consults: 08/16/18 10:57 Consult to Occupational Therapy [CONS] Routine Comment: Evaluate, develop and implement POC Reason for Consult: Gen weakness Does patient have active BEDREST order?: No Is patient medically & hemodynamically stable?: Yes Consult to Physical Therapy [CONS] Routine Comment: Evaluate, develop and implement POC Reason for Consult: Gen weakness Does patient have active BEDREST order?: No Is patient medically & hemodynamically stable?: Yes Consult to Mail Forwarding System Markup Clerk [CONS] Routine Reason for SW Consult: DC planning 08/16/18 11:01 Consult to Mail Forwarding System Markup Clerk [CONS] Routine Reason for SW Consult: dc planning, lives home alone - Constitutional Vitals: Temp Pulse Resp BP Pulse Ox 98.3 F 66 14 131/81 96 08/18/18 11:00 08/18/18 11:00 08/18/18 11:00 08/18/18 11:00 08/18/18 11:00 General appearance: Present: cooperative, A&O X 2, pleasant, no acute distress, answers questions appropriately Exam: Constitutional: No acute distress, Alert Psych: AAO x 2-3; misses the president; affect good HEENT: NCAT, EOMI Neck: supple, no JVD Cardio: regular rate and rhythm, +s1s2, no murmurs Resp: clear to ascultation bilaterally, no wheezes/rales/ronchi Abd: soft, non tender/non distended, positive bowel sounds Extremities: no clubbing/cyanosis/edema appreciated Neuro: no focal deficits appreciated - Patient Status Disposition: Home Health Service Condition: Good Functional capacity at discharge: uses cane/walker Overall status at discharge: patient is progressing back to baseline - Discharge Instructions Follow Up With: Kathi Middleton DO [Primary Care Provider] - 08/24/18 9:45 am () Additional Instructions: Follow up with primary care physician within one week. - Diet and Activity Activity: as per physical therapy Diet: advance to your usual diet
--- NOTE | 2018-08-18 14:46 | Physician Discharge Referral ---
Home Health/Hosp Referral Info Transfer to: Home Health Provider in Charge Post Discharge: PCP (nursing, pt, ot, social work, aids) - Diagnosis (1) Physical deconditioning Status: Acute (2) Rheumatoid arthritis Status: Chronic (3) HTN (hypertension) Status: Chronic (4) Frail elderly Status: Acute (5) Vitamin D deficiency Status: Acute - Respiratory Orders Smoking Cessation: Smoking cessation has been advised. For more information, call the [place] Tobacco Quit Line at 2-569-CNWF-NOW. - Transfer Medications Home Medications: Cyanocobalamin (Vitamin B-12) [Vitamin B12] 1,000 mcg PO DAILY 07/28/15 [History ] Metoprolol [Lopressor] 50 mg PO BID 07/28/15 [History] Omeprazole [PriLOSEC] 20 mg PO DAILY 07/28/15 [History] Triamterene/HCTZ 37.5/25mg [Dyazide] 0.5 tab PO DAILY 07/28/15 [History] Lisinopril 2.5 mg PO DAILY 09/13/17 [History] Sodium Chloride [Sodium Chloride Tab] 1 gm PO BID 09/13/17 [History] Magnesium Oxide [Mag-Ox] 400 mg PO DAILY #30 tablet 09/18/17 [Rx] Allergies/Adverse Reactions: 3 Allergy/AdvReac Type Severity Reaction Status Date / Time Pneumococcal Vaccine Allergy Cough Verified 08/16/18 07:29 tuberculin, purified protein Allergy Blister Verified 08/16/18 07:29 deriva [tuberculin,purif.prot.deriv.] aspirin AdvReac See Verified 08/16/18 07:29 Comments ibuprofen [From Motrin] AdvReac See Verified 08/16/18 07:29 Comments Certification: Further, I certify that my clinical findings support that this patient is homebound (i.e. absences from home require considerable and taxing effort and are for medical reasons or oriental orthodox services or infrequently or short duration when for other reasons) because: Homebound Reason: Patient requires assistance of a person or device to safely leave home Attestation: My signature below is to certify that this patient is under my care and that I, or nurse practitioner, or a physician's teachers' assistant working with me, has a face-to -face encounter with this patient.
--- NOTE | 2018-08-18 16:08 | Event Note ---
Date of Encounter: 08/18/18 Time of Encounter: 16:05 Met with family and social work and nursing staff. Family states that now they feel it is unsafe to take the patient home is that she will herself on the right back she is unstable on her feet. They cannot afford out of pocket cost for ECF placement. Social work will start working on Medicaid application for long-term nursing placement however this could take a very long time. Explained that there does not seem to be anything medically wrong this is worsening of her arthritis causing this. The family state that maybe her swelling in her feet is causing her limited ability. I explained that her lack of congestive heart failure symptoms and chronic hyponatremia would make starting a stronger diuretic probably more harmful than beneficial. We will continue PT OT will apply Jeronimo wraps to bilateral feet and elevation while in bed , will try Lidoderm patch to most painful knee and alternate. Hopefully with these interventions the patient improved where she is stable enough to go home prior to long-term care home placement.
[2018-08-18] MEDS: Acetaminophen 325 MG TABLET PO PRN (20:40)
[2018-08-19] MEDS: *HR* Heparin 5,000 UNIT/ML VIAL SQ SCH ×2 (06:24→17:16)
[2018-08-19] MEDS: Acetaminophen 325 MG TABLET PO PRN ×3 (08:42→21:34)
[2018-08-19] MEDS: Cyanocobalamin (B-12) 1,000 MCG TABLET PO SCH (08:43)
[2018-08-19] MEDS: Magnesium Oxide 400 MG TABLET PO SCH (08:43)
[2018-08-19] MEDS: Cholecalciferol (D-3) 1,000 UNIT TABLET PO SCH (08:44)
--- NOTE | 2018-08-19 09:58 | Internal Med Progress Note ---
Hospitalist Progress Note - Encounter Date of Encounter: 08/19/18 Time of Encounter: 09:53 - Subjective Interval History: Patient seen and examined at bedside. Patient no acute overnight events. Please see admit note from yesterday; in summary the patient has unstable to be discharged home and patient cannot afford [id number] expenses associated with ECF placement. Family with like long-term nursing care placement. Medicaid application has been started; this could lead to lengthy hospitalization. Yesterday his bandages were applied to the patient's feet with Lidoderm patches to the patient's knees. Patient reports improvement of her swelling with Jeronimo bandages and some slight improvement of her knee pain with Lidoderm patches. Hopefully this improves her mobility to the point where it is safe to take her home. She denies any chest pain, shortness breath, nausea, vomiting, diarrhea. - Exam Vitals: Temp Pulse Resp BP Pulse Ox 98.4 F 71 16 135/68 95 08/19/18 07:53 08/19/18 07:53 08/19/18 07:53 08/19/18 07:53 08/19/18 07:53 Exam: Constitutional: No acute distress, Alert Psych: AAO x 2-3 HEENT: NCAT, EOMI Neck: supple, no JVD Cardio: regular rate and rhythm, +s1s2, no murmurs Resp: clear to ascultation bilaterally Abd: soft, non tender/non distended Extremities: no clubbing/cyanosis/edema appreciated Neuro: no focal deficits appreciated - Assessment and Plan (1) Physical deconditioning Current Visit: Yes Status: Acute Assessment and Plan: -secondary to severe osteoarthritis -Continue physical therapy with occupational therapy -Continue Lidoderm patches to the knees -Continue Jeronimo bandage to lower extremities and elevation when in bed -Currently with unsafe discharge plan as the patient has no ECF days and family cannot afford out of pocket cost -Medicaid application will be started now hopes to obtain long-term nursing placement -Hopefully with physical therapy, Lidoderm patches and jeronimo bandages mobility can be improved where it is stable to be discharged home with home health and then to halfway when Medicaid application completed (2) Rheumatoid arthritis Current Visit: Yes Status: Chronic Assessment and Plan: -Suspect component of rheumatoid arthritis involving the hands with no reported history -Outpatient rheumatology evaluation (3) HTN (hypertension) Current Visit: Yes Status: Chronic Assessment and Plan: -Chronic essential hypertension -Blood pressure stable -Continue current regimen (4) Vitamin D deficiency Current Visit: Yes Status: Acute Assessment and Plan: -continue vitamin D and calcium supplementation (5) Hyponatremia Current Visit: Yes Status: Acute Assessment and Plan: -Chronic hyponatremia with euvolemia -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 - Time Spent with Patient Total time spent is greater than 50% in coordination of care (as documented) at patient's floor/unit and/or counseling patient: less than 15 minutes Plan of Care Discussed with: patient Internal Medicine: Result - Labs CBC & Chem 7: 08/18/18 04:10 08/18/18 04:10 Consult Discharge Plan - Plan Instructions: Hyponatremia (DC), Weakness (GEN) Additional Instructions: Follow up with primary care physician within one week. Referrals: Kathi Middleton DO [Primary Care Provider] - 08/24/18 9:45 am () (2) Rheumatoid arthritis Qualifiers: Rheumatoid arthritis location: hand Rheumatoid factor presence: without rheumatoid factor Laterality: bilateral Qualified Code(s): M06.041 - Rheumatoid arthritis without rheumatoid factor, right hand; M06.042 - Rheumatoid arthritis without rheumatoid factor, left hand (3) HTN (hypertension) Qualifiers: Hypertension type: essential hypertension Qualified Code(s): I10 - Essential (primary) hypertension
[2018-08-20] MEDS: *HR* Heparin 5,000 UNIT/ML VIAL SQ SCH ×2 (05:42→18:29)
[2018-08-20] MEDS: Acetaminophen 325 MG TABLET PO PRN ×3 (05:52→20:39)
[2018-08-20] MEDS: Cyanocobalamin (B-12) 1,000 MCG TABLET PO SCH (08:03)
[2018-08-20] MEDS: Magnesium Oxide 400 MG TABLET PO SCH (08:03)
[2018-08-20] MEDS: Cholecalciferol (D-3) 1,000 UNIT TABLET PO SCH (08:03)
--- NOTE | 2018-08-20 11:47 | Internal Med Progress Note ---
Hospitalist Progress Note - Encounter Date of Encounter: 08/20/18 Time of Encounter: 11:44 - Subjective Interval History: Patient seen and examined at bedside. Patient no acute overnight events. Review of notes reports the patient ambulated over 350 feet with 2 person assist yesterday; this seems to be improved. Patient continues to complain of pain in her knees however states a Lidoderm patch is helping. Patient denies any chest pain, shortness breath, nausea, vomiting, diarrhea. Patient has 3 large glasses of water at bedside and is drinking them currently; will check a.m. BMP and order fluid restriction as this is likely contributing to her hyponatremia. - Exam Vitals: Temp Pulse Resp BP Pulse Ox 98.1 F 72 16 150/75 97 08/20/18 07:42 08/20/18 07:42 08/20/18 07:42 08/20/18 07:42 08/20/18 08:00 Exam: Constitutional: No acute distress, Alert Psych: AAO x 2-3 HEENT: NCAT, EOMI Cardio: regular rate and rhythm, +s1s2, no murmurs Resp: clear to ascultation bilaterally Abd: soft, non tender/non distended Extremities: swelling of knees bilaterally consistent with OA, LE wrapped in jeronimo bandages - Assessment and Plan (1) Physical deconditioning Current Visit: Yes Status: Acute Assessment and Plan: -secondary to severe osteoarthritis -Continue physical therapy with occupational therapy -Continue Lidoderm patches to the knees -Continue Jeronimo bandage to lower extremities and elevation when in bed -Currently with unsafe discharge plan as the patient has no ECF days and family cannot afford out of pocket cost -Medicaid application will be started now hopes to obtain long-term nursing placement -Hopefully with physical therapy, Lidoderm patches and jeronimo bandages mobility can be improved where it is stable to be discharged home with home health and then to snf when Medicaid application completed -Continue ambulation in halls; and platelet is 350 feet yesterday with 2 person assist (2) Rheumatoid arthritis Current Visit: Yes Status: Chronic Assessment and Plan: -Suspect component of rheumatoid arthritis involving the hands with no reported history -Outpatient rheumatology evaluation (3) HTN (hypertension) Current Visit: Yes Status: Chronic Assessment and Plan: -Chronic essential hypertension -Blood pressure stable -Continue current regimen (4) Vitamin D deficiency Current Visit: Yes Status: Acute Assessment and Plan: -continue vitamin D and calcium supplementation (5) Hyponatremia Current Visit: Yes Status: Acute Assessment and Plan: -Chronic hyponatremia with euvolemia -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 BMP DVT Prophylaxis: -sq heparin - Summary of Assessment and Plan Summary of Assessment and Plan: -Anticipate lengthy hospitalization secondary to unsafe discharge plan as described above -Patient ambulating slightly better now continue physical therapy and ambulation with RN in the halls; hopefully the patient improved to the point where family feels it is safe to take her home until her Medicaid application is completed and can be placed on long-term nursing; for now continue current care -Oh short and case management following - Time Spent with Patient Total time spent is greater than 50% in coordination of care (as documented) at patient's floor/unit and/or counseling patient: less than 15 minutes Plan of Care Discussed with: patient Internal Medicine: Result - Labs CBC & Chem 7: 08/18/18 04:10 08/18/18 04:10 Consult Discharge Plan - Plan Instructions: Hyponatremia (DC), Weakness (GEN) Additional Instructions: Follow up with primary care physician within one week. Referrals: Kathi Middleton DO [Primary Care Provider] - 08/24/18 9:45 am () (2) Rheumatoid arthritis Qualifiers: Rheumatoid arthritis location: hand Rheumatoid factor presence: without rheumatoid factor Laterality: bilateral Qualified Code(s): M06.041 - Rheumatoid arthritis without rheumatoid factor, right hand; M06.042 - Rheumatoid arthritis without rheumatoid factor, left hand (3) HTN (hypertension) Qualifiers: Hypertension type: essential hypertension Qualified Code(s): I10 - Essential (primary) hypertension
[2018-08-21 05:39] LABS: BUN/Creatinine Ratio 21 (6-26); Blood Urea Nitrogen 11 mg/dL (8-23); Calcium 8.9 mg/dL (8.6-10.3); Carbon Dioxide 26 mEq/L (23-29); Chloride 101 mEq/L (98-107); Glucose 86 mg/dL (70-105); Osmolality,Calculated 275 (280-300); Potassium 3.5 mEq/L (3.5-5.1); Sodium 133 mEq/L (136-145); eGFR For Non-African Americans > 60 (> 60)
[2018-08-21] MEDS: *HR* Heparin 5,000 UNIT/ML VIAL SQ SCH ×2 (05:43→17:52)
[2018-08-21] MEDS: Acetaminophen 325 MG TABLET PO PRN ×3 (05:47→22:05)
[2018-08-21] MEDS: Magnesium Oxide 400 MG TABLET PO SCH (09:06)
[2018-08-21] MEDS: Cyanocobalamin (B-12) 1,000 MCG TABLET PO SCH (09:06)
[2018-08-21] MEDS: Cholecalciferol (D-3) 1,000 UNIT TABLET PO SCH (09:06)
--- NOTE | 2018-08-21 09:41 | Internal Med Progress Note ---
Hospitalist Progress Note - Encounter Date of Encounter: 08/21/18 Time of Encounter: 09:38 - Subjective Interval History: Patient seen and examined at bedside. Patient no acute overnight events. Patient states that her knees are feeling a little better and ambulating with RN 's. Was notified that the patient can be changed to inpatient per [facility]. This was changed last evening. The patient will go to [facility] for ECF and rehabilitation after her 3 midnights being inpatient. Patient denies any chest pain, shortness breath, nausea, vomiting, diarrhea. - Exam Vitals: Temp Pulse Resp BP Pulse Ox 98.2 F 78 15 142/71 96 08/21/18 06:53 08/21/18 06:53 08/21/18 06:53 08/21/18 06:53 08/21/18 06:53 Exam: Constitutional: No acute distress, Alert Psych: AAO x 2-3 HEENT: NCAT, EOMI Cardio: regular rate and rhythm, +s1s2, no murmurs Resp: clear to ascultation bilaterally Abd: soft, non tender/non distended Extremities: swelling of knees bilaterally consistent with OA, LE wrapped in jeronimo bandages; no change - Assessment and Plan (1) Physical deconditioning Current Visit: Yes Status: Acute Assessment and Plan: -secondary to severe osteoarthritis -Continue physical therapy with occupational therapy -Continue Lidoderm patches to the knees -Continue Jeronimo bandage to lower extremities and elevation when in bed -Currently with unsafe discharge plan as the patient has no ECF days and family cannot afford out of pocket cost -Medicaid application will be started now hopes to obtain long-term nursing placement -Patient has been changed to inpatient and now is awaiting ECF placement after 3 midnights in inpatient status -Continue ambulation in halls -As well as patient has been prolonged secondary to placement issues (2) HTN (hypertension) Current Visit: Yes Status: Chronic (3) Vitamin D deficiency Current Visit: Yes Status: Acute Assessment and Plan: -continue vitamin D and calcium supplementation (4) Hyponatremia Current Visit: Yes Status: Acute Assessment and Plan: -Chronic hyponatremia with euvolemia -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 as the patient is on sodium chloride tablets -Continue sodium chloride tablets sodium has been stable this hospitalization at her baseline -Continue fluid restriction -BMP reviewed and sodium 133 today -No further labs DVT Prophylaxis: -sq heparin - Summary of Assessment and Plan Summary of Assessment and Plan: -Patient with prolonged hospitalization secondary to being in observation and unsafe discharge plan -Was notified that the patient was approved to be switched to inpatient last evening and now will be placed in ECF for rehabilitation and subsequent long- term nursing, Medicaid application is been started -Social work and case management following -We will need 3 midnight as inpatient status prior to ECF placement -continue pt - Time Spent with Patient Total time spent is greater than 50% in coordination of care (as documented) at patient's floor/unit and/or counseling patient: less than 15 minutes Plan of Care Discussed with: family Internal Medicine: Result - Labs CBC & Chem 7: 08/18/18 04:10 08/21/18 04:18 Labs: BMP 08/21/18 04:18 Sodium 133 L Potassium 3.5 Chloride 101 Carbon Dioxide 26 BUN 11 Creatinine 0.53 L Glucose 86 Calcium 8.9 Consult Discharge Plan - Plan Instructions: Hyponatremia (DC), Weakness (GEN) Additional Instructions: Follow up with primary care physician within one week. Referrals: Kathi Middleton DO [Primary Care Provider] - 08/24/18 9:45 am () (2) HTN (hypertension) Qualifiers: Hypertension type: essential hypertension Qualified Code(s): I10 - Essential (primary) hypertension
[2018-08-22] MEDS: Acetaminophen 325 MG TABLET PO PRN ×2 (05:58→20:42)
[2018-08-22] MEDS: *HR* Heparin 5,000 UNIT/ML VIAL SQ SCH ×2 (05:59→17:59)
[2018-08-22] MEDS: Magnesium Oxide 400 MG TABLET PO SCH (08:56)
[2018-08-22] MEDS: Cholecalciferol (D-3) 1,000 UNIT TABLET PO SCH (08:57)
[2018-08-22] MEDS: Cyanocobalamin (B-12) 1,000 MCG TABLET PO SCH (08:57)
--- NOTE | 2018-08-22 10:06 | Internal Med Progress Note ---
Hospitalist Progress Note - Encounter Date of Encounter: 08/22/18 Time of Encounter: 10:05 - Subjective Interval History: Seen and examined at bedside, Alert and oriented x3 folowing simple commands. No changes overnight. Awaiting placement to ECF - Exam Vitals: Temp Pulse Resp BP Pulse Ox 98.2 F 80 16 146/87 96 08/22/18 07:12 08/22/18 07:12 08/22/18 07:12 08/22/18 07:12 08/22/18 07:12 Exam: Constitutional: No acute distress, Alert Psych: AAO x 2-3 HEENT: NCAT, EOMI Cardio: regular rate and rhythm, +s1s2, no murmurs Resp: clear to ascultation bilaterally Abd: soft, non tender/non distended Extremities: swelling of knees bilaterally consistent with OA, LE wrapped in jeronimo bandages; no change - Assessment and Plan (1) Physical deconditioning Current Visit: Yes Status: Acute Assessment and Plan: -secondary to severe osteoarthritis -Continue physical therapy with occupational therapy-tolerating physical therapy well -Continue Lidoderm patches to the knees -Continue Jeronimo bandage to lower extremities and elevation when in bed -Currently with unsafe discharge plan as the patient has no ECF days and family cannot afford out of pocket cost -Medicaid application initiated- hopes to obtain long-term nursing placement -Patient has been changed to inpatient and now is awaiting ECF placement after 3 midnights inpatient status -Continue ambulation in halls (2) HTN (hypertension) Current Visit: Yes Status: Chronic Assessment and Plan: -Chronic essential hypertension -Blood pressure stable -Continue current regimen (3) Vitamin D deficiency Current Visit: Yes Status: Acute Assessment and Plan: -continue vitamin D and calcium supplementation (4) Hyponatremia Current Visit: Yes Status: Acute Assessment and Plan: -Chronic hyponatremia with euvolemia -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 as the patient is on sodium chloride tablets -Continue sodium chloride tablets sodium has been stable this hospitalization at her baseline -Continue fluid restriction -BMP reviewed and sodium 133 today -monitor BMP DVT Prophylaxis: Heparin subcutaneous - Time Spent with Patient Total time spent is greater than 50% in coordination of care (as documented) at patient's floor/unit and/or counseling patient: Internal Medicine: Result - Labs CBC & Chem 7: 08/18/18 04:10 08/21/18 04:18 Consult Discharge Plan - Plan Instructions: Hyponatremia (DC), Weakness (GEN) Additional Instructions: Follow up with primary care physician within one week. Referrals: Kathi Middleton DO [Primary Care Provider] - 08/24/18 9:45 am () (2) HTN (hypertension) Qualifiers: Hypertension type: essential hypertension Qualified Code(s): I10 - Essential (primary) hypertension
[2018-08-23] MEDS: *HR* Heparin 5,000 UNIT/ML VIAL SQ SCH ×2 (05:32→21:03)
[2018-08-23 06:14] LABS: BUN/Creatinine Ratio 23 (6-26); Blood Urea Nitrogen 13 mg/dL (8-23); Calcium 8.9 mg/dL (8.6-10.3); Carbon Dioxide 25 mEq/L (23-29); Chloride 100 mEq/L (98-107); Glucose 83 mg/dL (70-105); Osmolality,Calculated 273 (280-300); Potassium 3.9 mEq/L (3.5-5.1); Sodium 132 mEq/L (136-145); eGFR For Non-African Americans > 60 (> 60)
[2018-08-23] MEDS: Magnesium Oxide 400 MG TABLET PO SCH (09:52)
[2018-08-23] MEDS: Cyanocobalamin (B-12) 1,000 MCG TABLET PO SCH (09:54)
[2018-08-23] MEDS: Cholecalciferol (D-3) 1,000 UNIT TABLET PO SCH (09:54)
[2018-08-23] MEDS: Acetaminophen 325 MG TABLET PO PRN ×2 (15:53→21:04)
--- NOTE | 2018-08-23 21:07 | Internal Med Progress Note ---
Hospitalist Progress Note - Encounter Date of Encounter: 08/23/18 Time of Encounter: 11:00 - Subjective Interval History: Seen and examined at bedside, Alert and oriented x3 folowing simple commands. No changes overnight. Awaiting placement to ECF - Exam Vitals: Temp Pulse Resp BP Pulse Ox 98.1 F 70 16 126/78 97 08/23/18 19:05 08/23/18 19:05 08/23/18 19:05 08/23/18 19:05 08/23/18 20:51 Exam: Constitutional: No acute distress, Alert Psych: AAO x 2-3 HEENT: NCAT, EOMI Cardio: regular rate and rhythm, +s1s2, no murmurs Resp: clear to ascultation bilaterally Abd: soft, non tender/non distended Extremities: swelling of knees bilaterally consistent with OA, LE wrapped in jeronimo bandages; no change - Assessment and Plan (1) Physical deconditioning Current Visit: Yes Status: Acute Assessment and Plan: -secondary to severe osteoarthritis -Continue physical therapy with occupational therapy-tolerating physical therapy well -Continue Lidoderm patches to the knees -Continue Jeronimo bandage to lower extremities and elevation when in bed -Currently with unsafe discharge plan as the patient has no ECF days and family cannot afford out of pocket cost -Medicaid application initiated- hopes to obtain long-term nursing placement -Patient has been changed to inpatient and now is awaiting ECF placement after 3 midnights inpatient status -Continue ambulation in halls 08/23 Patient has been accepted to [facility] and will be discharged tomorrow. 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 as the patient is on sodium chloride tablets -Continue sodium chloride tablets sodium has been stable this hospitalization at her baseline -Continue fluid restriction -BMP reviewed and sodium 133 today -monitor BMP 08/23 Chronic hyponatremic euvolemic continue with fluid restriction Sodium is stable at 132 We will continue to monitor DVT Prophylaxis: Heparin subcutaneous - Time Spent with Patient Total time spent is greater than 50% in coordination of care (as documented) at patient's floor/unit and/or counseling patient: Internal Medicine: Result - Labs CBC & Chem 7: 08/18/18 04:10 08/23/18 05:12 Labs: BMP 08/23/18 05:12 Sodium 132 L Potassium 3.9 Chloride 100 Carbon Dioxide 25 BUN 13 Creatinine 0.57 L Glucose 83 Calcium 8.9 Consult Discharge Plan - Plan Instructions: Hyponatremia (DC), Weakness (GEN) Additional Instructions: Follow up with primary care physician within one week. Referrals: Kathi Middleton DO [Primary Care Provider] - 08/24/18 9:45 am () (2) HTN (hypertension) Qualifiers: Hypertension type: essential hypertension Qualified Code(s): I10 - Essential (primary) hypertension
[2018-08-24] MEDS: *HR* Heparin 5,000 UNIT/ML VIAL SQ SCH (05:32)
[2018-08-24 05:58] LABS: BUN/Creatinine Ratio 20 (6-26); Blood Urea Nitrogen 12 mg/dL (8-23); Carbon Dioxide 24 mEq/L (23-29); Chloride 100 mEq/L (98-107); Glucose 85 mg/dL (70-105); Osmolality,Calculated 273 (280-300); Sodium 132 mEq/L (136-145); eGFR For Non-African Americans > 60 (> 60)
[2018-08-24 07:53] VITALS: BP 163/69
[2018-08-24] MEDS: Magnesium Oxide 400 MG TABLET PO SCH (09:27)
[2018-08-24] MEDS: Cholecalciferol (D-3) 1,000 UNIT TABLET PO SCH (09:27)
[2018-08-24] MEDS: Cyanocobalamin (B-12) 1,000 MCG TABLET PO SCH (09:28)
--- NOTE | 2018-08-24 12:10 | Discharge Summary ---
- NOTES TO OUTPATIENT PROVIDER Notes to Outpatient Provider: Cont to monitor chronic hyponatremia Orders not resulted at time of discharge: Pending orders 08/25/18 04:00 Chem 7 [Basic Metabolic Panel] AM 0400 Date of Encounter: 08/24/18 Time of Encounter: 11:54 - Discharge Diagnosis (1) Physical deconditioning Priority: Primary Status: Acute (2) HTN (hypertension) Priority: Secondary Status: Chronic Qualifiers: Hypertension type: essential hypertension Qualified Code(s): I10 - Essential (primary) hypertension (3) Vitamin D deficiency Priority: Secondary Status: Acute (4) Hyponatremia Priority: Secondary Status: Acute Hospital course: Ms. Vigil is a 82 year old female with past medical history of severe osteoarthritis who presents to the emergency department with chief complaint of increasing unsteadiness. Patient recently admitted for similar complaints and was discharged to detention for rehabilitationThe patient was found to be mildly hyponatremic which appears to be chronic and her home medications were resumed including sodium chloride tablets. Patient's sodium did improve and returned to baseline Patient's CT of the head scan was negative for any acute intra-cranial abnormality. The patient's declining physical status and deconditioning is likely a progression of her severe osteoarthritis and advancing age. Patient was seen by physical therapy and occupational therapy recommended ECF placement. There are insurance issues covering cost. And family is unable to pay for out of pocket cost. director financial services consulted and she be discharged to [place] She will follow-up with her primary care physician within one week. Patient should have her sodium checked at follow-up visit within 1 week. - Time Spent with Patient Total time spent providing and/or coordinating discharge services: - Discharge Medications Home Medications: Cyanocobalamin (Vitamin B-12) [Vitamin B12] 1,000 mcg PO DAILY 07/28/15 [History ] Metoprolol [Lopressor] 50 mg PO BID 07/28/15 [History] Omeprazole [PriLOSEC] 20 mg PO DAILY 07/28/15 [History] Triamterene/HCTZ 37.5/25mg [Dyazide] 0.5 tab PO DAILY 07/28/15 [History] Lisinopril 2.5 mg PO DAILY 09/13/17 [History] Sodium Chloride [Sodium Chloride Tab] 1 gm PO BID 09/13/17 [History] Magnesium Oxide [Mag-Ox] 400 mg PO DAILY #30 tablet 09/18/17 [Rx] Allergies/Adverse Reactions: 3 Allergy/AdvReac Type Severity Reaction Status Date / Time Pneumococcal Vaccine Allergy Cough Verified 08/16/18 07:29 tuberculin, purified protein Allergy Blister Verified 08/16/18 07:29 deriva [tuberculin,purif.prot.deriv.] aspirin AdvReac See Verified 08/16/18 07:29 Comments ibuprofen [From Motrin] AdvReac See Verified 08/16/18 07:29 Comments Date of admission: 08/21/18 07:34 Primary care physician: Kathi Middleton DO Discharging clinician: Sil Ramirez Anticipated date of discharge: 08/24/18 - Constitutional Vitals: Temp Pulse Resp BP Pulse Ox 97.7 F 75 15 163/69 98 08/24/18 07:50 08/24/18 07:50 08/24/18 07:50 08/24/18 07:50 08/24/18 07:50 General appearance: Present: cooperative, A&O X 2, pleasant, no acute distress, answers questions appropriately Exam: Constitutional: No acute distress, Alert Psych: AAO x 2-3 HEENT: NCAT, EOMI Cardio: regular rate and rhythm, +s1s2, no murmurs Resp: clear to ascultation bilaterally Abd: soft, non tender/non distended Extremities: swelling of knees bilaterally consistent with OA, LE wrapped in efren bandages; no change - Head Head exam: Present: atraumatic, normocephalic - Eye Eye exam: Present: PERRL, conjuntiva pink, sclera anicteric Pupils: Present: PERRL - Patient Status Disposition: Transfer SNF Condition: Good Functional capacity at discharge: uses cane/walker Overall status at discharge: patient is progressing back to baseline - Discharge Instructions Instructions: Hyponatremia (DC), Weakness (GEN) Follow Up With: Kathi Middleton DO [Primary Care Provider] - 08/24/18 9:45 am () Additional Instructions: Follow up with primary care physician within one week. - Diet and Activity Activity: as per physical therapy Diet: advance to your usual diet
--- NOTE | 2018-08-24 12:20 | Physician Discharge Referral ---
ExtendedCare Referral Info Transfer To: [facility] Provider in Charge: James Mujica Provider in Charge after Transfer: PCP Institutional Level of Care: Skilled - Diagnosis (1) Physical deconditioning Priority: Primary Status: Acute (2) HTN (hypertension) Priority: Secondary Status: Chronic (3) Vitamin D deficiency Priority: Secondary Status: Acute (4) Hyponatremia Priority: Secondary Status: Acute - Transfer Medications Home Medications: Cyanocobalamin (Vitamin B-12) [Vitamin B12] 1,000 mcg PO DAILY 07/28/15 [History ] Metoprolol [Lopressor] 50 mg PO BID 07/28/15 [History] Omeprazole [PriLOSEC] 20 mg PO DAILY 07/28/15 [History] Triamterene/HCTZ 37.5/25mg [Dyazide] 0.5 tab PO DAILY 07/28/15 [History] Lisinopril 2.5 mg PO DAILY 09/13/17 [History] Sodium Chloride [Sodium Chloride Tab] 1 gm PO BID 09/13/17 [History] Magnesium Oxide [Mag-Ox] 400 mg PO DAILY #30 tablet 09/18/17 [Rx] Allergies/Adverse Reactions: 3 Allergy/AdvReac Type Severity Reaction Status Date / Time Pneumococcal Vaccine Allergy Cough Verified 08/16/18 07:29 tuberculin, purified protein Allergy Blister Verified 08/16/18 07:29 deriva [tuberculin,purif.prot.deriv.] aspirin AdvReac See Verified 08/16/18 07:29 Comments ibuprofen [From Motrin] AdvReac See Verified 08/16/18 07:29 Comments - Respiratory Orders Smoking Cessation: Smoking cessation has been advised. For more information, call the [place] Tobacco Quit Line at 6-586-LSHV-NOW. - Lab Orders Lab Orders: Og 17 (in one week) - Mobility Orders Ambulate - Rehabiliation Orders Rehab Orders: Evaluation for Physical Therapy, Evaluation for Occupational Therapy - Diet Orders Regular CERTIFICATION: I certify that the transfer of the above named patient to an Extended Care Facility is necessary for the continuing treatment of the diagnosis listed. The above information is true and accurate reflection of patient's current condition. Confidential - Redisclosure prohibited without a patient's written consent.
== END 2018-08-24 17:02 | DRG 546 ==
LOC: EMEROOARM 07:18 → 3BNU 07:18
PROVIDERS: ADMIT Internal Medicine; ATTEND Internal Medicine